=== PATIENT | male | born 1960 | race Caucasian/White ===

== ENCOUNTER → 2019-12-25 08:08 | Outpatient (BNVA) | payer OTHER, SELFPAY | PROVIDERS: PCP Nurse Practitioner Family; Referring Provider Nurse Practitioner Family; Visit Provider Internal Medicine Gastroenterology | DX: Z76.89 Persons encountering health services in other specified circumstances (principal) ==

== ENCOUNTER → 2020-02-06 09:10 | Outpatient (BNVA) | payer OTHER, SELFPAY | PROVIDERS: Visit Provider Orthopaedic Surgery | DX: Z76.89 Persons encountering health services in other specified circumstances (principal) ==

== ENCOUNTER 2020-04-02 10:03 | Outpatient (REF) | payer OTHER, SELFPAY ==
--- NOTE | ~2020-04-02 | XR_ITS ---
EXAMINATION: BILATERAL KNEE X-RAY CLINICAL INFORMATION: Pain COMPARISON: Left knee x-ray July 2019 TECHNIQUE: 3 views of each knee FINDINGS: Right: There is mild varus angulation at the knee joint. No fracture or dislocation is seen. There is arthritis at the medial femoral tibial and patellofemoral joints with joint space narrowing and osteophyte formation. There is a joint effusion. There is evidence of atherosclerotic disease. Left: There is mild varus angulation at the knee joint. No fracture or dislocation is seen. There is arthritis at the medial femoral tibial and patellofemoral joints with joint space narrowing and osteophyte formation. There is a joint effusion. There is soft tissue calcification adjacent to the medial femoral condyle. There is evidence of atherosclerotic disease. XR/XR knee RT 2V IMPRESSION: Bilateral arthritis and joint effusions.
--- NOTE | ~2020-04-02 | XR_ITS ---
EXAMINATION: BILATERAL KNEE X-RAY CLINICAL INFORMATION: Pain COMPARISON: Left knee x-ray July 2019 TECHNIQUE: 3 views of each knee FINDINGS: Right: There is mild varus angulation at the knee joint. No fracture or dislocation is seen. There is arthritis at the medial femoral tibial and patellofemoral joints with joint space narrowing and osteophyte formation. There is a joint effusion. There is evidence of atherosclerotic disease. Left: There is mild varus angulation at the knee joint. No fracture or dislocation is seen. There is arthritis at the medial femoral tibial and patellofemoral joints with joint space narrowing and osteophyte formation. There is a joint effusion. There is soft tissue calcification adjacent to the medial femoral condyle. There is evidence of atherosclerotic disease. XR/XR knee LT 2V IMPRESSION: Bilateral arthritis and joint effusions.
--- NOTE | ~2020-04-02 | XR_ITS ---
EXAMINATION: BILATERAL KNEE X-RAY CLINICAL INFORMATION: Pain COMPARISON: Left knee x-ray July 2019 TECHNIQUE: 3 views of each knee FINDINGS: Right: There is mild varus angulation at the knee joint. No fracture or dislocation is seen. There is arthritis at the medial femoral tibial and patellofemoral joints with joint space narrowing and osteophyte formation. There is a joint effusion. There is evidence of atherosclerotic disease. Left: There is mild varus angulation at the knee joint. No fracture or dislocation is seen. There is arthritis at the medial femoral tibial and patellofemoral joints with joint space narrowing and osteophyte formation. There is a joint effusion. There is soft tissue calcification adjacent to the medial femoral condyle. There is evidence of atherosclerotic disease. XR/XR knee standing BI IMPRESSION: Bilateral arthritis and joint effusions.
== END 2020-04-02 10:04 | disposition home or self-care (01) ==
LOC: HO.HOSX 10:03
PROVIDERS: Visit Provider Orthopaedic Surgery
DX: M25.561 Pain in right knee (principal); M25.562 Pain in left knee
CPT/HCPCS: 73560; 73565

== ENCOUNTER → 2020-04-03 08:08 | Outpatient (BNVA) | payer OTHER, SELFPAY | PROVIDERS: Visit Provider Orthopaedic Surgery | DX: M25.561 Pain in right knee (principal); M25.562 Pain in left knee ==

== ENCOUNTER → 2020-04-17 07:57 | Outpatient (BNVA) | payer OTHER, SELFPAY | PROVIDERS: PCP Nurse Practitioner Family; Visit Provider Orthopaedic Surgery | DX: Z01.812 Encounter for preprocedural laboratory examination (principal); Z01.810 Encounter for preprocedural cardiovascular examination ==

== ENCOUNTER 2020-04-23 06:24 | Day surgery (SDC) | payer OTHER, SELFPAY ==
[2020-04-18 09:05] VITALS: BMI 28.1
--- NOTE | 2020-04-22 09:39 | HO.ANESPROP2 ---
Documented by User: Desire Rubin 04/22/20 09:41 HPI - Anesthesia Eval Consult details Narrative: 59yo M for Colonoscopy PMFSH Active Problems Active Problems: All Active Problems (Updated 04/18/20 @ 09:03 by Juanita Toro) Right knee pain (Acute) Encounter for screening for malignant neoplasm of colon (Acute) Postprandial diarrhea (Acute) Primary osteoarthritis of right knee (Acute) Primary osteoarthritis of left knee (Acute) Past Medical History Medical History (Updated 04/18/20 @ 09:03 by Juanita Toro) Hypertension Osteoarthritis of both knees Family History Family History (Updated 11/22/19 @ 08:29 by Joycelyn Vernon PA-C) Father No problems noted. Mother No problems noted. Surgical History Surgical History (Updated 04/18/20 @ 09:02 by Juanita Toro) History of exploratory laparotomy (~01/28/19) History of hand surgery S/P exploratory laparotomy (~06/27/19) Social History Social History (Updated 04/18/20 @ 09:04 by Juanita Toro) Alcohol intake: current Alcohol intake frequency: 0-2 drinks per day Alcohol type: beer Smoking Status: Former smoker Smoking Quit Date: ~2013 Use of substances other than those prescribed or required for medical reasons: No Advance Directives: No Advance Directives Information Provided: No Advance Directives on File: No Current occupational status: employed 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 Meds Allergies Allergy/AdvReac Type Severity Reaction Status Date / Time oxycodone [OXYCODONE] Allergy Intermediate RASH Verified 04/23/20 06:35 Home Medications Medication Instructions Recorded Confirmed Last Taken Type acetaminophen 325 mg capsule 325 mg PO QID PRN 11/22/19 04/18/20 Unknown History Exam Exam Date and Time: April 22, 2020 0939 Height,Weight and Vital Signs: Height 5 ft 7 in Weight 81.647 kg Assessment and Plan Assessment Anesthesia Assessment: Chart Reviewed Documented by User: Sherly Andre 04/23/20 07:23 [facility] Past Medical History Medical History (Updated 04/18/20 @ 09:03 by Juanita Toro) Hypertension Osteoarthritis of both knees Family History Family History (Updated 11/22/19 @ 08:29 by Joycelyn Vernon PA-C) Father No problems noted. Mother No problems noted. Surgical History Surgical History (Updated 04/18/20 @ 09:02 by Juanita Toro) History of exploratory laparotomy (~01/28/19) History of hand surgery S/P exploratory laparotomy (~06/27/19) Social History Social History (Updated 04/18/20 @ 09:04 by Juanita Toro) Alcohol intake: current Alcohol intake frequency: 0-2 drinks per day Alcohol type: beer Smoking Status: Former smoker Smoking Quit Date: ~2013 Use of substances other than those prescribed or required for medical reasons: No Advance Directives: No Advance Directives Information Provided: No Advance Directives on File: No Current occupational status: employed 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[employer] Meds Allergies Allergy/AdvReac Type Severity Reaction Status Date / Time oxycodone [OXYCODONE] Allergy Intermediate RASH Verified 04/23/20 06:35 Home Medications Medication Instructions Recorded Confirmed Last Taken Type acetaminophen 325 mg capsule 325 mg PO QID PRN 11/22/19 04/18/20 Unknown History Exam Airway Mallampati Class: II TM Dist: >3cm Neck ROM: Full Heart: RRR Lungs: CTA BL Assessment and Plan Assessment Anesthesia Assessment: Anesthesia Plan Discussed and Chart Reviewed Final Anesthetic Review NPO: Yes ASA Class: II Final Preanesthetic Review: No Changes in Pt Med Stat and Consent Obtained/Reviewed Patient Risk: Intermediate Procedure Risk: Intermediate Anesthetic Plan Anesthetic Plan: MAC: Disposition: Standard PACU
[2020-04-23 06:45] VITALS: BP 161/89; PULSE 67; RESP 18; TEMP 36.8; O2SAT 97
[2020-04-23] MEDS: Lactated Ringers 1,000 ML 100 ML IVCONT (06:55)
--- NOTE | 2020-04-23 07:11 | W.PM.OPN ---
Operative Note Operative Note Date of Service: 04/23/20 Narrative: Pre-op diagnosis: Colon cancer screening, abdominal cramps, diarrhea Post-op diagnosis: other (Colon polyps, diverticulosis, hemorrhoids) Procedure: COLONOSCOPY TILL CECUM WITH BIOPSIES AND SNARE POLYPECTOMY Consent: Indications for the procedure and potential complications of bleeding, perforation, reaction to medications and missed diagnosis were discussed with the patient and informed consent was obtained. Instrument: Olympus PCF H 190 L variable stiffness pediatric colonoscope Monitoring: Vital signs and clinical assessment, intermittent blood pressure monitoring, continuous EKG monitoring, Pulse oximetry and Carbon Dioxide monitoring were done throughout the procedure. Colon withdrawl time was 25 minutes. Procedure: The patient was placed in the left lateral decubitis position and pre-procedure medications were administered. After a digital rectal examination of the ano-rectum, the video colonoscope was inserted into the rectum and advanced through the colon to the cecum. The colonoscope was slowly withdrawn in a retrograde panoramic fashion and the colon mucosa was carefully examined including a retroflexed view of the rectum. Findings and interventions are described below. Procedure Difficulty: Colon was long and tortuous and there was spasm and some loop formation. No maneuvers were required Findings: Terminal Ileum: Distal 5 cms was examined and appeared normal Cecum: Normal Ascending Colon: Normal Transverse Colon: Normal Descending Colon: Normal Sigmoid Colon: A 10 mm sessile polyp removed with a cold snare and moderate diverticulosis Rectum: A 4-5 mm sessile polyp removed with the cold biopsy Ano-rectum: Moderate internal hemorrhoids Colon preparation: Good after some irrigation Impression and Post Procedure Diagnosis: Colonoscopy Findings: Two small to medium sized polyps removed Moderate diverticulosis seen in the sigmoid colon Moderate hemorrhoids on retroflexed exam. Plan: Await pathology results Patient has an appointment on 05/06/20 in the GI [facility] with Giorgi Flower M.D.. Repeat Colonoscopy interval based on path results - in 3 years if polyps are adenomatous and 10 years if polyps are hyperplastic. Above findings were reviewed with the patient and colon polyps and diverticulosis handouts were given in the discharge area Surgeon: Giorgi Flower MD Anesthesia: MAC (Dr Conte) Estimated blood loss (mL): 0 Pathology: other (A. Random colon biopsies, B. SC polyp x 1, C. Rectal polyp x 1) Condition: stable Disposition: PACU
--- NOTE | 2020-04-23 07:11 | MHC.SHP ---
Pre-Procedural Eval Section A The patient is an INPATIENT: No The History & Physical has been completed within 30 days and I have reviewed it.: No Section B Chief Complaint: periumbilical pain Details of Present Illness: Colon cancer screening Relevant Social History: Tobacco Use (past smoker) Present Medications: see Short Stay Collaborative assessment Medical History: Significant History (Hypertension, osteoarthritis of both knees) History of Previous Operations: Relevant previous surgery/procedure and date(s) (History of exploratory laparotomy (~01/28/19) History of hand surgery S/P exploratory laparotomy (~06/27/19)) Allergies: Allergies Allergy/AdvReac Type Severity Reaction Status Date / Time oxycodone [OXYCODONE] Allergy Intermediate RASH Verified 04/23/20 06:35 Review of Systems Sugical H&P ROS: Negative: Constitution, Cardiovascular and Respiratory and Yes, Specify: Gastrointestinal (incisional hernia) Exam Surgical H&P Exam: Normal: Heart, Normal: Lungs and Normal: Extremities and Significant Findings: Abdomen (upper midline scar and incisional hernia) Plan Diagnosis/Plan: Unchanged I have reviewed the history and physical and performed a pertinent physical examination on my patient. No changes have occurred unless specified.
[2020-04-23 08:17] VITALS: BP 137/77; PULSE 62; RESP 16; TEMP 36.3; O2SAT 97
[2020-04-23 08:32] VITALS: BP 164/83; PULSE 60; RESP 17; TEMP 36.3; O2SAT 98
== END 2020-04-23 09:00 | disposition home or self-care (01) ==
PROVIDERS: PCP Nurse Practitioner Family; Visit Provider Internal Medicine Gastroenterology
PROC: 0DJD8ZZ Inspection of Lower Intestinal Tract, Via Natural or Artificial Opening Endoscopic (ICD-10-PCS; CPT 45378; principal; 2020-04-23 07:30)
DX: Z12.11 Encounter for screening for malignant neoplasm of colon (principal); D12.8 Benign neoplasm of rectum; K63.5 Polyp of colon; K57.30 Diverticulosis of large intestine without perforation or abscess without bleeding; K64.8 Other hemorrhoids; K52.9 Noninfective gastroenteritis and colitis, unspecified; R10.33 Periumbilical pain; Z98.890 Other specified postprocedural states; I10 Essential (primary) hypertension; Z87.891 Personal history of nicotine dependence; Z79.899 Other long term (current) drug therapy; Z88.8 Allergy status to other drugs, medicaments and biological substances
CPT/HCPCS: 45385; 45380; 88305

== ENCOUNTER → 2020-05-02 08:30 | Outpatient (BNVA) | payer OTHER, SELFPAY | PROVIDERS: Visit Provider Internal Medicine Gastroenterology ==

== ENCOUNTER 2020-05-09 07:59 | Outpatient (REF) | payer OTHER, SELFPAY ==
[2020-05-09 11:12] LABS: MANUAL DIFF FLAG NO
[2020-05-09 11:25] LABS: Basophils Absolute Auto 0.1 X10*3/uL (0.0-0.2); Basophils Percent Auto 0.6 % (0-2); Eosinophils Absolute Auto 0.2 X10*3/uL (0.0-0.4); Eosinophils Percent Auto 1.8 % (0-4); Hematocrit 43.7 % (42-52); Hemoglobin 14.5 g/dl (14.0-18.0); Imm Gran Abs Auto 0.03 X10*3/uL (0.00-0.03); Imm Gran Pct Auto 0.3 % (0.0-0.4); Lymphocytes Percent Auto 22.7 % (20-40); Mean Corpuscular HGB Conc 33.2 g/dl (31.0-36.0); Mean Corpuscular Hemoglobin 32.2 pg (27.0-33.0); Mean Corpuscular Volume 97.1 fL (80-98); Mean Platelet Volume 10.4 fL (9.4-12.4); Monocytes Absolute Auto 0.7 X10*3/uL (0.1-1.2); Monocytes Percent Auto 7.8 % (2-11); Neutrophils Absolute Auto 5.9 X10*3/uL (2.0-8.3); Neutrophils Percent Auto 66.8 % (45-73); Platelet Count 240 X10*3/uL (160-400); Red Cell Distribution Width 13.1 % (11.0-16.0); White Blood Count 8.8 X10*3/uL (4.8-10.8)
[2020-05-09 11:49] LABS: INTERNATIONAL NORM RATIO 0.9 (0.9-1.1); Prothrombin Time 11.1 SEC (10.8-13.0)
[2020-05-09 11:52] LABS: Partial Thromboplastin Time 34.4 SEC (24.1-38.0)
[2020-05-09 12:14] LABS: Alanine Aminotransferase 49 U/L (0-40); Alkaline Phosphatase 96 U/L (39-117); Anion Gap 12 (12-20); Aspartate Amino Transferase 31 U/L (5-37); Bilirubin Total 0.6 mg/dL (0.0-1.0); Blood Urea Nitrogen 19 mg/dL (9-16); Calcium 9.6 mg/dL (8.4-10.2); Carbon Dioxide 29 mmol/L (22-29); Chloride 103 mmol/L (96-108); Estimated Glomerular Filt Rate > 60; Glucose Random 82 mg/dL (60-115); Potassium 4.4 mmol/L (3.3-5.1); Sodium 140 mmol/L (135-145); Total Protein 7.9 g/dL (6.5-8.0)
== END 2020-05-09 08:00 | disposition home or self-care (01) ==
LOC: HO.HMGCLDS 07:59
PROVIDERS: PCP Nurse Practitioner Family; Visit Provider Nurse Practitioner Family
DX: Z01.818 Encounter for other preprocedural examination (principal); R74.8 Abnormal levels of other serum enzymes
CPT/HCPCS: 36415; 80053; 85025; 85610; 85730

== ENCOUNTER 2020-05-14 10:27 | Inpatient (IN) | payer OTHER, SELFPAY ==
--- NOTE | ~2020-05-14 | CT_ITS ---
EXAMINATION: CT ABDOMEN AND PELVIS WITH CONTRAST CLINICAL INFORMATION: Lower quadrant pain. Possible diverticulitis. COMPARISON: CT abdomen and pelvis with contrast 06/15/2019 and 01/28/2019, small bowel series 4 06/22/2019, KUB 06/30/2019. TECHNIQUE: Multidetector volumetric images were obtained from the superior aspect of the liver through the pubic symphysis following administration 85 mL of Omnipaque 350 intravenous contrast. Sagittal and coronal reformatted images were obtained on the technologist's workstation. Oral contrast: No This CT examination was performed using dose optimization techniques as appropriate, variously including the following: *Automated exposure control *Adjustment of mA and/or kV according to patient size (this includes techniques or standardized protocols for targeted exams where dose is matched to indication/reason for exam; i.e. extremities or head) *Use of iterative reconstruction technique DLP: 357 mGy-cm FINDINGS: LUNG BASES: The visualized lung bases are unremarkable. LIVER, GALLBLADDER, AND BILIARY TREE: The liver is smooth in contour and homogeneous. There is diffuse hepatic steatosis. No focal hepatic parenchymal lesion or intrahepatic ductal dilatation. The gallbladder is unremarkable with no evidence of radiopaque gallstones, gallbladder wall thickening, or obvious pericholecystic inflammatory changes. PANCREAS: Unremarkable. SPLEEN: Unremarkable. ADRENAL GLANDS: Small right adrenal nodule approximately 1.1 cm in retrospect stable from prior exam suggesting benign adenoma. Left adrenal unremarkable. KIDNEYS AND URETERS: Kidneys are normal in size and enhance symmetrically. There is small cyst upper pole left kidney. No hydronephrosis, hydroureter, calculi, or perinephric stranding. BLADDER: Mild circumferential wall thickening likely related to chronic outlet obstruction. GASTROINTESTINAL TRACT: There are postsurgical changes with surgical clips in the mid and distal small bowel. Fluid-filled loops of small bowel are seen of normal caliber measuring up to 2.8 cm in diameter. There is no focal wall thickening and pneumatosis or free air. There is focal transition to collapsed small bowel at the distal small bowel anastomosis right lower quadrant (series 3 images 46-48) which may suggest borderline or early partial obstruction. There is also fluid filled distention throughout the colon from the cecum to the distal sigmoid, without focal wall thickening and pneumatosis. The appendix appears normal. There is moderate to large stool in the rectosigmoid. There are no focal inflammatory changes suggested in the mesentery. No ascites or loculated fluid collection. ABDOMINAL WALL: Diastases rectus containing small bowel and mesentery. No bowel wall thickening and pneumatosis. Small fat containing inguinal hernias. LYMPH NODES: No lymphadenopathy. VASCULAR: Unremarkable. PELVIC VISCERA: Nodular prostate indenting the bladder base. OSSEOUS STRUCTURES: Degenerative changes lumbar spine. No acute bony abnormality. CT/CT abdomen pelvis w con IMPRESSION: 1. Fluid-filled loops of small bowel of normal caliber with focal transition at distal small bowel anastomosis right lower quadrant. Findings may suggest borderline or early partial obstruction. There is also fluid filled distention of the colon from cecum to distal sigmoid with moderate to large stool in rectosigmoid. 2. No bowel wall thickening or pneumatosis or free air. No ascites or fluid collection. 3. Diastases rectus. No small bowel strangulation. Small bilateral fat-containing inguinal hernias
[2020-05-14 10:34] VITALS: BP 164/104; PULSE 68; RESP 18; TEMP 35.9; O2SAT 98; BMI 28.5
--- NOTE | 2020-05-14 11:23 | ED.ABDPAIN ---
HPI - Abdominal Pain General Chief Complaint: Abdominal Pain Stated Complaint: abd pain Time Seen by Provider: 05/14/20 11:08 Source: patient and family Mode of arrival: ambulatory Limitations: no limitations History of Present Illness HPI narrative: 60-year-old male here with complaints of abdominal pain times several hours. No associated nausea, vomiting, diarrhea, fevers, chills, urinary symptoms. Patient has past medical history of duodenal perforation status post exploratory laparotomy w/ repeat exploratory laparotomy, extensive lysis of adhesions, resection of 2 segments of the small bowel, with removal of retained foreign object. Related Data Home Medications Medication Instructions Recorded Confirmed acetaminophen 325 mg capsule 325 mg PO QID PRN 11/22/19 05/14/20 Previous Rx's Medication Instructions Recorded lisinopril 20 mg tablet 20 mg PO DAILY 90 Days #90 tab 05/09/20 Allergies Allergy/AdvReac Type Severity Reaction Status Date / Time oxycodone [OXYCODONE] Allergy Intermediate RASH Verified 05/14/20 14:26 Review of Systems Review of Systems Yes all other systems are reviewed and are negative Constitutional: Reports no additional constitutional complaints, Denies body ache(s), Denies chills, Denies fever(s), Denies headache(s) and Denies weakness Eyes: Reports no additional eye complaints and Denies change in vision Reports system reviewed and no additional complaints, except as documented, Denies dizziness, Denies headache(s), Denies nasal congestion, Denies nasal discharge and Denies neck pain Cardiovascular: Reports no additional cardiovascular complaints, Denies chest pain, Denies leg edema and Denies dyspnea Respiratory: Reports no additional respiratory complaints, Denies cough and Denies dyspnea Gastrointestinal: Reports no additional gastrointestinal complaints, Reports abdominal pain, Denies diarrhea, Denies nausea and Denies vomiting Genitourinary: Denies urinary incontinence Musculoskeletal: Reports no additional musculoskeletal complaints, Denies back pain, Denies arthralgias, Denies joint swelling, Denies neck pain, Denies numbness and Denies tingling Skin/Breast: Reports system reviewed and no additional complaints, except as docu and Denies rash Reports system reviewed and no additional complaints, except as documented, Denies Abnormal speech present, Denies dizziness, Denies headache(s), Denies numbness, Denies tingling and Denies weakness Physical Exam Vital Signs: Vital Signs: Last Vital Signs Temp 97.9 F 05/14/20 14:35 Pulse 65 05/14/20 14:35 Resp 18 05/14/20 14:35 BP 174/92 H 05/14/20 14:35 Pulse Ox 97 05/14/20 14:35 Body Mass Index 28.5 Const: General: cooperative, healthy appearing, comfortable and no acute distress Orientation/consciousness: patient oriented x3 Limitations: no limitations HENMT: Head: Yes normal to inspection Ears: hearing grossly normal bilaterally General nose exam: Normal external nose present Face and sinus: Yes normal facial exam Mouth: Normal oral and palatal mucosa present Throat: Yes posterior oropharynx normal Eyes: General: appearance normal, both eyes and all related structures Pupils: Equal, round and reactive pupils present Neck: Neck: Yes normal visual inspection Chest: Chest palpation & inspection: normal inspection of the chest Resp: Effort & Inspection: normal respiratory effort Auscultation: clear to auscultation bilaterally Cardio: Rate: regular rate Rhythm: regular rhythm Peripheral pulses: Peripheral pulses 2+ throughout GI: Other: Surgical scars noted, abdomen is distended and diffusely tender with no rebound or guarding Inspection: Yes normal to inspection Palpation (GI): Soft to palpation and nontender Auscultation: normal bowel sounds Back/Spine/Pelvis: Thoracic/Lumbar Spine: thoracic and lumbar spine normal to inspection Skin: General skin exam: no rashes or lesions noted Neuro: General: patient oriented x3, no focal motor deficits and normal sensation to monofilament Cranial nerves: Yes Equal, round and reactive pupils present Cognition (Neuro): normal cognition Speech: No Abnormal speech present Gait exam (Neuro): Normal gait present Motor exam (neuro): 5/5 motor strength present throughout Extrem: General: Yes normal to inspection Course Course Course Narrative: 60-year-old male here with abdominal pain in the setting of multiple abdominal surgeries. Has diffuse tenderness with distended abdomen. Will need labs, CT a/P, analgesia, antiemetic. 1345-pain is improved with [address] is concerning for borderline partial obstruction. Discussed with Dr. Gusman who will come to evaluate the patient. 1430-patient seen by Dr. Gusman as with plan for admission. MDM - Abdominal Pain MDM Narrative Medical decision making narrative: SBO, divert Medical Records Attestation: I reviewed the patient's medical records. Lab Data Attestation: I reviewed the patient's lab results. Result diagrams: 05/14/20 11:27 05/14/20 11:27 Labs: Lab Results 05/14/20 05/14/20 05/14/20 Range/Units 11:27 11:27 13:41 WBC 11.8 H (4.8-10.8) X10*3/uL RBC 4.66 (4.60-5.80) X10*6/uL Hgb 14.9 (14.0-18.0) g/dl Hct 44.7 (42-52) % MCV 95.9 (80-98) fL MCH 32.0 (27.0-33.0) pg MCHC 33.3 (31.0-36.0) g/dl RDW 12.8 (11.0-16.0) % Plt Count 237 (160-400) X10*3/uL MPV 9.4 (9.4-12.4) fL Immature Gran % (Auto) 0.3 (0.0-0.4) % Neut % (Auto) 81.3 H (45-73) % Lymph % (Auto) 11.2 L (20-40) % [place] % (Auto) 5.9 (2-11) % Eos % (Auto) 0.8 (0-4) % Baso % (Auto) 0.5 (0-2) % Lymph # (Auto) 1.3 (1.2-4.9) X10*3/uL [place] # (Auto) 0.7 (0.1-1.2) X10*3/uL Eos # (Auto) 0.1 (0.0-0.4) X10*3/uL Baso # (Auto) 0.1 (0.0-0.2) X10*3/uL Abs Immat Gran (auto) 0.04 H (0.00-0.03) X10*3/uL Absolute Neuts (auto) 9.6 H (2.0-8.3) X10*3/uL Absolute Nucleated RBC 0.000 (0.0-0.012) X10*3/uL Nucleated RBC % (auto) 0.0 (0.0-0.2) /100WBC Sodium 136 (135-145) mmol/L Potassium 4.5 (3.3-5.1) mmol/L Chloride 98 (96-108) mmol/L Carbon Dioxide 25 (22-29) mmol/L Anion Gap 18 (12-20) BUN 18 H (9-16) mg/dL Creatinine 0.82 (0.5-1.4) mg/dL Estim Creat Clear Calc 96.0 Estimated GFR > 60 Random Glucose 134 H D (60-115) mg/dL Calcium 9.8 (8.4-10.2) mg/dL Total Bilirubin 0.5 (0.0-1.0) mg/dL Direct Bilirubin 0.2 (0.0-0.5) mg/dL AST 30 (5-37) U/L ALT 48 H (0-40) U/L Alkaline Phosphatase 96 (39-117) U/L Total Protein 7.9 (6.5-8.0) g/dL Albumin 4.8 (3.5-5.0) g/dL Urine Color YELLOW Urine Appearance CLEAR Urine pH 7.0 (5.0-8.0) Ur Specific [place] 1.010 (1.005-1.025) Urine Protein NEG (NEG-TRACE) MG/DL Urine Glucose (UA) NEG (NEG) MG/DL Urine Ketones NEG (NEG) MG/DL Urine Blood NEG (NEG) Urine Nitrite NEG (NEG) Ur Leukocyte Esterase NEG (NEG) Imaging Data CT scan - abdomen: Attestation: I personally reviewed and interpreted this imaging study as follows: Radiologist's impression: 1. Fluid-filled loops of small bowel of normal caliber with focal transition at distal small bowel anastomosis right lower quadrant. Findings may suggest borderline or early partial obstruction. There is also fluid filled distention of the colon from cecum to distal sigmoid with moderate to large stool in rectosigmoid. 2. No bowel wall thickening or pneumatosis or free air. No ascites or fluid collection. 3. Diastases rectus. No small bowel strangulation. Small bilateral fat-containing inguinal hernias Discharge Plan Discharge Clinical Impression: Partial small bowel obstruction Patient Disposition: Admitted As Inpatient [facility] Past Medical History Attestation statement: The following information was validated with the patient. Source: old records reviewed and nursing notes reviewed Medical History History of duodenal ulcer Hypertension Osteoarthritis of both knees Surgical History H/O colonoscopy History of exploratory laparotomy (~01/28/19) History of hand surgery S/P exploratory laparotomy (~06/27/19) Family History Family History Father No problems noted. Mother No problems noted. Social History Social History Household Members: Spouse Alcohol intake: current Alcohol intake frequency: holidays/special occasions only Alcohol type: beer Smoking Status: Former smoker Tobacco Type: Cigarette Use of substances other than those prescribed or required for medical reasons: No Advance Directives: Yes Advance Directives Information Provided: No Advance Directives on File: No Current occupational status: employed Current occupation: [employer]- Right Handed
[2020-05-14 11:47] LABS: MANUAL DIFF FLAG NO
[2020-05-14 11:55] LABS: Basophils Absolute Auto 0.1 X10*3/uL (0.0-0.2); Basophils Percent Auto 0.5 % (0-2); Eosinophils Absolute Auto 0.1 X10*3/uL (0.0-0.4); Eosinophils Percent Auto 0.8 % (0-4); Hematocrit 44.7 % (42-52); Hemoglobin 14.9 g/dl (14.0-18.0); Imm Gran Abs Auto 0.04 X10*3/uL (0.00-0.03); Imm Gran Pct Auto 0.3 % (0.0-0.4); Lymphocytes Absolute Auto 1.3 X10*3/uL (1.2-4.9); Lymphocytes Percent Auto 11.2 % (20-40); Mean Corpuscular HGB Conc 33.3 g/dl (31.0-36.0); Mean Corpuscular Volume 95.9 fL (80-98); Mean Platelet Volume 9.4 fL (9.4-12.4); Monocytes Absolute Auto 0.7 X10*3/uL (0.1-1.2); Monocytes Percent Auto 5.9 % (2-11); Neutrophils Absolute Auto 9.6 X10*3/uL (2.0-8.3); Neutrophils Percent Auto 81.3 % (45-73); Platelet Count 237 X10*3/uL (160-400); Red Blood Count 4.66 X10*6/uL (4.60-5.80); Red Cell Distribution Width 12.8 % (11.0-16.0); White Blood Count 11.8 X10*3/uL (4.8-10.8)
[2020-05-14 12:00] VITALS: BP 148/77; PULSE 71; RESP 18; O2SAT 96
[2020-05-14] MEDS: Morphine Sulfate 4 MG/ML CARTRIDGE IVPUSH (12:04)
[2020-05-14] MEDS: ondansetron HCL 4 MG/2 ML VIAL IVPUSH (12:07)
[2020-05-14 12:25] LABS: Alanine Aminotransferase 48 U/L (0-40); Albumin Level 4.8 g/dL (3.5-5.0); Alkaline Phosphatase 96 U/L (39-117); Anion Gap 18 (12-20); Aspartate Amino Transferase 30 U/L (5-37); Bilirubin Direct 0.2 mg/dL (0.0-0.5); Bilirubin Total 0.5 mg/dL (0.0-1.0); Blood Urea Nitrogen 18 mg/dL (9-16); Calcium 9.8 mg/dL (8.4-10.2); Carbon Dioxide 25 mmol/L (22-29); Chloride 98 mmol/L (96-108); Estimated Glomerular Filt Rate > 60; Glucose Random 134 mg/dL (60-115); Potassium 4.5 mmol/L (3.3-5.1); Sodium 136 mmol/L (135-145); Total Protein 7.9 g/dL (6.5-8.0)
[2020-05-14 14:01] LABS: Glucose Urine UA NEG (NEG); Leukocyte Esterase Urine NEG (NEG); Nitrite Urine NEG (NEG); Urine Blood NEG (NEG); Urine Ketones NEG (NEG); Urine Protein NEG (NEG-TRACE)
[2020-05-14 14:03] LABS: Appearance Urine CLEAR; Color Urine YELLOW
[2020-05-14 14:35] VITALS: BP 174/92; PULSE 65; RESP 18; TEMP 36.6; O2SAT 97
--- NOTE | 2020-05-14 14:40 | PC.NURSE ---
Pt aware of admission plan. COVID swab for admission completed.
--- NOTE | 2020-05-14 14:45 | P.HPGS_ITS ---
History of Present Illness History of Present Illness Date of Service: 05/15/20 Chief complaint: Partial Small Bowel Obstruction Narrative: Horacio Monzon is a 60 year old male here in the ER because of lower abdominal pain. 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 He describes it was only on lower abdomen. He says this actually persisted throughout the night but he was able to finish his shift. He went home her this morning but felt that the pain was worse when he got home so he went to the emergency room from then. He says his pain currently is much improved. He denied any nausea or vomiting. He said he had good bowel movements last night. He had history of a laparotomy in 01/23/2019 for perforated duodenal ulcer. He had a Kevin patch done at that time for repair. He underwent another laparotomy in Jun, 2019 because of persistent abdominal pain and was noted to have a retained foreign body with a blue towel that needed to be removed. He also had small-bowel resection at that time. He had been doing well since then and did not have any significant abdominal issues until last night. He says he is scheduled to undergo right knee replacement next week. Review of Systems Constitutional: Constitutional: Denies chills and Denies fever(s) Cardiovascular: Cardiovascular: Denies chest pain, Denies dyspnea and Denies dyspnea on exertion Respiratory: Respiratory: Denies cough, Denies dyspnea and Denies dyspnea on exertion Gastrointestinal: Gastrointestinal: Denies hematochezia and Denies change in bowel habits Genitourinary: Genitourinary: Denies hematuria and Denies difficulty urinating Musculoskeletal: Musculoskeletal: Denies back pain and Denies limited range of motion Neurologic: Denies focal weakness and Denies convulsions Psychiatric: Psychiatric: Denies depression and Denies mood swings [facility] Past Medical History Medical History History of duodenal ulcer Hypertension Osteoarthritis of both knees Family History Family History Father No problems noted. Mother No problems noted. Surgical History Surgical History H/O colonoscopy History of exploratory laparotomy (~01/28/19) History of hand surgery S/P exploratory laparotomy (~06/27/19) Social History Social History Household Members: Spouse Housing: House Do you presently have visiting nurse or other home services: No Alcohol intake: current Alcohol intake frequency: holidays/special occasions only Alcohol type: beer Smoking Status: Former smoker Tobacco Type: Cigarette Use of substances other than those prescribed or required for medical reasons: No Have you been hit, kicked, punched, or otherwise hurt by someone within the past year? 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- [employer] Meds Allergies Allergy/AdvReac Type Severity Reaction Status Date / Time oxycodone [OXYCODONE] Allergy Intermediate RASH Verified 05/14/20 14:26 Active Medications: Current Medications Generic Name Dose Route Start Last Admin Trade Name Freq PRN Reason Stop Dose Admin Acetaminophen 650 mg 05/14/20 14:40 Acetaminophen 325 Mg Tablet PO Q6H PRN Fever Heparin Sodium (Porcine) 5,000 unit 05/14/20 14:45 Heparin Sodium,Porcine 5,000 Unit/Ml Vial SUBCUT Q12H [facility] Dextrose/Sodium Chloride 1,000 mls @ 100 mls/hr 05/14/20 14:45 D5ns IVCONT .Q10H [facility] Lisinopril 20 mg 05/14/20 14:39 Lisinopril 20 Mg Tablet PO 05/14/20 14:40 DAILY ONE Protocol Morphine Sulfate 3 mg 05/14/20 14:35 Morphine Sulfate 4 Mg/Ml Cartridge IVPUSH Q4H PRN Pain, Severe (Pain Scale 7-10) Ondansetron HCl 4 mg 05/14/20 14:35 Ondansetron Hcl 4 Mg/2 Ml Vial IVPUSH Q8H PRN Nausea and Vomiting Pharmacy Consult 1 each 05/14/20 14:33 Consult Rx Perform Med Rec MISCELLANE ONCE PRN Consult order Sodium Chloride 3 ml 05/14/20 16:00 0.9 % Sodium Chloride Flush 3 Ml Syringe IVFLUSH QSHIFT [facility] Home Medications Medication Instructions Recorded Confirmed Last Taken Type acetaminophen 325 mg capsule 325 mg PO QID PRN 11/22/19 05/14/20 Unknown History Physical Exam Vital Signs: Vital Signs: Last Vital Signs Temp 97.9 F 05/14/20 14:35 Pulse 65 05/14/20 14:35 Resp 18 05/14/20 14:35 BP 174/92 H 05/14/20 14:35 Pulse Ox 97 05/14/20 14:35 Body Mass Index 28.5 Const: General: comfortable and no acute distress Orientation/consciousness: patient oriented x3 Neck: Neck: Yes no lymphadenopathy Resp: Auscultation: clear to auscultation bilaterally Cardio: Rhythm: regular rhythm GI: Other: Mild tenderness diffusely, no rebound; diastasis on his midline laparotomy scar, Palpation (GI): Soft to palpation, Tenderness to palpation present (GI) and no guarding Neuro: General: patient oriented x3 Results Results Labs: Short CBC 05/14/20 Range/Units 11:27 WBC 11.8 H (4.8-10.8) X10*3/uL Hgb 14.9 (14.0-18.0) g/dl Hct 44.7 (42-52) % Plt Count 237 (160-400) X10*3/uL BMP 05/14/20 11:27 Sodium 136 Potassium 4.5 Chloride 98 Carbon Dioxide 25 BUN 18 H Creatinine 0.82 Calcium 9.8 Liver Function 05/14/20 Range/Units 11:27 Total Bilirubin 0.5 (0.0-1.0) mg/dL Direct Bilirubin 0.2 (0.0-0.5) mg/dL AST 30 (5-37) U/L ALT 48 H (0-40) U/L Alkaline Phosphatase 96 (39-117) U/L Albumin 4.8 (3.5-5.0) g/dL Urine 05/14/20 Range/Units 13:41 Urine Color YELLOW Urine Appearance CLEAR Urine pH 7.0 (5.0-8.0) Ur Specific Gideon 1.010 (1.005-1.025) Urine Protein NEG (NEG-TRACE) MG/DL Urine Glucose (UA) NEG (NEG) MG/DL Abdomen CT scan report/results: report reviewed and image reviewed CT scan - pelvis: report reviewed and image reviewed Assessment and Plan (1) Partial small bowel obstruction: Status: Acute He had lower abdominal pain overnight with a CAT scan suggestive of partial small-bowel obstruction. This may be at the area of his previous small bowel anastomosis. I have reviewed his CAT scan images and he actually has good amounts of air distally. This is present all the way to the rectum. He has no nausea or vomiting at this time so I am going to hold off on NG tube insertion. His abdominal exam is very benign. I will keep him NPO for now but he may have ice chips. I explained to him that if he much have any significant nausea or vomiting, he may need to have an NG tube inserted. He otherwise looks well and has had very benign abdominal exam at this time. He understands the plan. His was with him at bedside and was involved with the discussion.
[2020-05-14 15:10] LABS: COVID-19 Test Negative (Negative)
[2020-05-14 16:02] VITALS: BP 156/95; PULSE 65; RESP 18; TEMP 36.6; O2SAT 97
[2020-05-14] MEDS: Dextrose 5 % and 0.9 % NaCl 1,000 ML 100 ML IVCONT (17:41)
[2020-05-14] MEDS: Heparin Sodium,Porcine 5,000 UNIT/ML VIAL 5000 UNIT SUBCUT (17:41)
[2020-05-14] MEDS: 0.9 % Sodium Chloride Flush 3 ML SYRINGE IVFLUSH (17:44)
--- NOTE | 2020-05-14 17:47 | PC.NURSE ---
Pt awaiting bed placement. Pain level reassessed. He appears comfortable at this time.
--- NOTE | 2020-05-14 19:07 | PC.NURSE ---
Report taken from Lala, this RN resuming care. Pt found sleeping in bed at this time, visible chest rise noted. Awaiting room assignment. Continue to monitor.
--- NOTE | 2020-05-14 19:42 | PC.NURSE ---
Report given to alexis Walters being prepared for transport to floor.
[2020-05-14 20:13] VITALS: BP 139/88; PULSE 70; RESP 15; TEMP 36.4; O2SAT 97
[2020-05-14 23:34] VITALS: BP 157/85; PULSE 64; RESP 18; TEMP 36.4; O2SAT 97
[2020-05-15 03:32] VITALS: BP 121/91; PULSE 70; RESP 16; TEMP 36.4; O2SAT 95
[2020-05-15] MEDS: Heparin Sodium,Porcine 5,000 UNIT/ML VIAL 5000 UNIT SUBCUT ×2 (04:15→14:22)
[2020-05-15] MEDS: Dextrose 5 % and 0.9 % NaCl 1,000 ML 100 ML IVCONT ×2 (04:22→13:38)
[2020-05-15 06:24] LABS: MANUAL DIFF FLAG NO
[2020-05-15 06:51] LABS: Basophils Percent Auto 0.6 % (0-2); Eosinophils Absolute Auto 0.3 X10*3/uL (0.0-0.4); Hematocrit 44.5 % (42-52); Hemoglobin 14.6 g/dl (14.0-18.0); Imm Gran Abs Auto 0.01 X10*3/uL (0.00-0.03); Imm Gran Pct Auto 0.2 % (0.0-0.4); Lymphocytes Absolute Auto 1.7 X10*3/uL (1.2-4.9); Mean Corpuscular HGB Conc 32.8 g/dl (31.0-36.0); Mean Corpuscular Hemoglobin 31.9 pg (27.0-33.0); Mean Corpuscular Volume 97.2 fL (80-98); Mean Platelet Volume 9.6 fL (9.4-12.4); Monocytes Absolute Auto 0.7 X10*3/uL (0.1-1.2); Monocytes Percent Auto 11.9 % (2-11); Neutrophils Absolute Auto 2.7 X10*3/uL (2.0-8.3); Neutrophils Percent Auto 50.3 % (45-73); Platelet Count 229 X10*3/uL (160-400); Red Blood Count 4.58 X10*6/uL (4.60-5.80); White Blood Count 5.4 X10*3/uL (4.8-10.8)
[2020-05-15 07:01] LABS: Anion Gap 13 (12-20); Blood Urea Nitrogen 13 mg/dL (9-16); Carbon Dioxide 28 mmol/L (22-29); Creatinine Clr Calc Pharmacy 94.8; Estimated Glomerular Filt Rate > 60
[2020-05-15 07:56] VITALS: BP 161/94; PULSE 68; RESP 17; TEMP 36.4; O2SAT 97
--- NOTE | 2020-05-15 09:44 | MHC.CM.PN ---
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 PT IS ABLE TO VERIFY PCP AND PHARMACY IN [facility] IS ACCURATE, PT AND PROVIDED EDUCATION ON HCP AND PT IS CURRENTLY DECLINING. DISCHARGE PLAN: HOME SELF-CARE, TO TRANSPORT PCP: SHARATH CLARK
--- NOTE | 2020-05-15 10:01 | PM.PNGS ---
Subjective Subjective Date of Service: 05/15/20 Interval history: He feels well today Denies abdominal pain Says he had about 5 bowel movement overnight - all formed, non watery Denies any nausea or vomiting Wants to go home Physical Exam Vital Signs: Vital Signs: Last Vital Signs Temp 97.5 F 05/15/20 07:56 Pulse 68 05/15/20 07:56 Resp 17 05/15/20 07:56 BP 161/94 H 05/15/20 07:56 Pulse Ox 97 05/15/20 07:56 Body Mass Index 28.5 Laboratory Results - last 24 hr 05/14/20 05/14/20 05/14/20 11:27 11:27 13:41 WBC 11.8 H RBC 4.66 Hgb 14.9 Hct 44.7 MCV 95.9 MCH 32.0 MCHC 33.3 RDW 12.8 Plt Count 237 MPV 9.4 Immature Gran % (A uto) 0.3 Neut % (Auto) 81.3 H Lymph % (Auto) 11.2 L Collier % (Auto) 5.9 Eos % (Auto) 0.8 Baso % (Auto) 0.5 Lymph # (Auto) 1.3 Collier # (Auto) 0.7 Eos # (Auto) 0.1 Baso # (Auto) 0.1 Abs Immat Gran (au to) 0.04 H Absolute Neuts (au to) 9.6 H Absolute Nucleated RBC 0.000 Nucleated RBC % (a uto) 0.0 Sodium 136 Potassium 4.5 Chloride 98 Carbon Dioxide 25 Anion Gap 18 BUN 18 H Creatinine 0.82 Estim Creat Clear Calc 96.0 Estimated GFR > 60 Random Glucose 134 H D Calcium 9.8 Total Bilirubin 0.5 Direct Bilirubin 0.2 AST 30 ALT 48 H Alkaline Phosphata se 96 Total Protein 7.9 Albumin 4.8 Urine Color YELLOW Urine Appearance CLEAR Urine pH 7.0 Ur Specific Gravit y 1.010 Urine Protein NEG Urine Glucose (UA) NEG Urine Ketones NEG Urine Blood NEG Urine Nitrite NEG Ur Leukocyte Tiera ase NEG COVID-19 ([facility]) COVID-19 Clin Com 05/14/20 05/15/20 05/15/20 14:38 06:14 06:14 WBC 5.4 RBC 4.58 L Hgb 14.6 Hct 44.5 MCV 97.2 MCH 31.9 MCHC 32.8 RDW 13.0 Plt Count 229 MPV 9.6 Immature Gran % (A uto) 0.2 Neut % (Auto) 50.3 Lymph % (Auto) 32.0 Collier % (Auto) 11.9 H Eos % (Auto) 5.0 H Baso % (Auto) 0.6 Lymph # (Auto) 1.7 Collier # (Auto) 0.7 Eos # (Auto) 0.3 Baso # (Auto) 0.0 Abs Immat Gran (au to) 0.01 Absolute Neuts (au to) 2.7 Absolute Nucleated RBC 0.000 Nucleated RBC % (a uto) 0.0 Sodium Potassium Chloride Carbon Dioxide 28 Anion Gap 13 BUN 13 Creatinine 0.83 Estim Creat Clear Calc 94.8 Estimated GFR > 60 Random Glucose Calcium Total Bilirubin Direct Bilirubin AST ALT Alkaline Phosphata se Total Protein Albumin Urine Color Urine Appearance Urine pH Ur Specific Gravit y Urine Protein Urine Glucose (UA) Urine Ketones Urine Blood Urine Nitrite Ur Leukocyte Tiera ase COVID-19 ([facility]) Negative COVID-19 Clin Com See Note Const: General: comfortable and no acute distress Resp: Effort & Inspection: normal respiratory effort Cardio: Rate: regular rate GI: Other: Soft, protuberant, nontender, no guarding or rebound Progress Note: A&P Assessment and plan (1) Partial small bowel obstruction: Status: Acute Assessment and Plan: He feels much better Clinically, partial small-bowel obstruction resolved Abdomen very benign Labs okay Clear liquids, advance as tolerated If he is able to tolerate regular diet later on, possible discharge home Fall Risk Details Current Medications: Current Medications Generic Name Dose Route Start Last Admin Trade Name Bartq PRN Reason Stop Dose Admin Acetaminophen 650 mg 05/14/20 14:40 Acetaminophen 325 Mg Tablet PO Q6H PRN Fever Heparin Sodium (Porcine) 5,000 unit 05/14/20 14:45 05/15/20 04:15 Heparin Sodium,Porcine 5,000 Unit/Ml Vial SUBCUT 5,000 unit Q12H [facility] Administration Dextrose/Sodium Chloride 1,000 mls @ 100 mls/hr 05/14/20 14:45 05/15/20 04:22 D5ns IVCONT 100 mls/hr .Q10H [facility] Administration Morphine Sulfate 3 mg 05/14/20 14:35 Morphine Sulfate 4 Mg/Ml Cartridge IVPUSH Q4H PRN Pain, Severe (Pain Scale 7-10) Ondansetron HCl 4 mg 05/14/20 14:35 Ondansetron Hcl 4 Mg/2 Ml Vial IVPUSH Q8H PRN Nausea and Vomiting Pharmacy Consult 1 each 05/14/20 14:33 Consult Rx Perform Med Rec MISCELLANE ONCE PRN Consult order Sodium Chloride 3 ml 05/14/20 16:00 05/15/20 08:59 0.9 % Sodium Chloride Flush 3 Ml Syringe IVFLUSH Not Given QSHIFT [facility] Time Spent With Patient Time: Total time spent is greater than 50% in coordination of care (as documented) at patient's floor/unit and/or counseling patient: Time with patient: 15 - 24 minutes
[2020-05-15 10:42] LABS: Calcium 8.6 mg/dL (8.4-10.2); Chloride 103 mmol/L (96-108); Glucose Random 106 mg/dL (60-115); Potassium 4.2 mmol/L (3.3-5.1); Sodium 140 mmol/L (135-145)
--- NOTE | 2020-05-15 10:49 | P.CDIC_ITS ---
CDI Concurrent Query Service Date: 05/20/20 Documentation Clarification: Please clarify if you are treating a proba ble/suspected/likely or confirmed: Postoperative partial intestinal obstruction (sbo) (H/O multiple surgeries) Partial intestinal obstruction, unspecified as to cause Please specify if known The partial small-bowel obstruction is likely due to postoperative adhesions from his previous surgery. Provider Response: Other Other Diagnosis: partial small bowel obstruction secondary to postop adhesions PLEASE DO NOT DELETE/MODIFY EXISTING CONTENT Additional information is needed in order to code to the highest accuracy and appropriate Severity of Illness (SOI). Please clarify the information noted below in your progress notes and discharge summary. Risk Factors/Clinical Indicators/Treatments Abdominal pain in the setting of multiple abdominal surgeries. History of duodenal perforation s/p exploratory laparotomy, repeat w extensive lysis of adhesions. DX: Partial SBO There is focal transition of collapsed small bowel at the distal small bowel anastomosis right lower quadrant which may suggest borderline or early partial obstruction. CDS: Es Mckinnon CCS, CDIS Contact Number: [phone] Please Review the information above and exercise your independent professional judgment in responding to the query. If you concur, pleas document in the PROGRESS NOTES and DISCHARGE SUMMARY. If you do not agree with the query, please document in the query above. THIS QUERY IS PART OF THE PERMANENT MEDICAL RECORD
[2020-05-15 11:46] VITALS: BP 163/90; PULSE 60; RESP 18; TEMP 36.5; O2SAT 95
--- NOTE | 2020-05-15 15:03 | MHC.CM.PN ---
PT DISCHARGING TODAY HOME SELF-CARE, TO TRANSPORT.
--- NOTE | 2020-05-15 15:06 | PM.EVENT ---
Event Note Date of Service: 05/15/20 Event Note: Tolerated lunch well Denies any abdominal pain Denies any nausea or vomiting Says he wants to go home later today Abdomen remained soft no guarding rebound no tenderness Okay to DC home later today
[2020-05-15 15:44] VITALS: BP 179/89; PULSE 68; RESP 18; TEMP 36; O2SAT 98
[2020-05-15] MEDS: 0.9 % Sodium Chloride Flush 3 ML SYRINGE IVFLUSH (16:59)
--- NOTE | 2020-05-16 10:55 | PM.DS ---
DS: Providers Provider Date of Service: 05/16/20 <Tyesha Sun PA-C - Last Filed: 05/16/20 11:03> 05/16/20 <Santana Gusman MD - Last Filed: 05/16/20 13:48> Date of admission: 05/14/20 14:35 <Tyesha Sun PA-C - Last Filed: 05/16/20 11:03> Primary care physician: LEYLA Armstrong <Tyesha Sun PA-C - Last Filed: 05/16/20 11:03> DS: Diagnosis Discharge Diagnosis (1) Partial small bowel obstruction: Status: Acute <EDEN Strickland Last Filed: 05/16/20 11:03> DS: Medications Discharge Medications Home Medications: Home Medications Medication Instructions Recorded Confirmed acetaminophen 325 mg capsule 325 mg PO QID PRN 11/22/19 05/14/20 Previous Rx's Medication Instructions Recorded lisinopril 20 mg tablet 20 mg PO DAILY 90 Days #90 tab 05/09/20 <Tyesha Sun PA-C - Last Filed: 05/16/20 11:03> DS: Summary Hospital Course Hospital Course: BRIEF HPI: Horacio Monzon is a 60 year old male who presented to the ED with complaints of lower abdominal pain. 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 He describes it was only on lower abdomen. He says this actually persisted throughout the night but he was able to finish his shift. He went home in the morning but felt that the pain was worse when he got home so he went to the emergency room. He has history of a laparotomy in 01/23/2019 for perforated duodenal ulcer and a Kevin patch was performed at that time for repair. He underwent another laparotomy in June 2019 because of persistent abdominal pain and was noted to have a retained foreign body of a blue towel that was removed. He also had small-bowel resection at that time. He had been doing well since then and did not have any significant abdominal issues until last night. He is scheduled to undergo right knee replacement next week. HOSPITAL COURSE: The patient was admitted to the surgical service for further treatment of the PSBO. He was kept NPO, started on IVF and PRN analgesics for pain. NGT insertion was held as he was not vomiting. He was seen the following morning and he reported his pain was much improved. He denied any nausea or vomiting and reported multiple good bowel movements overnight. He felt hungry and wanted to leave. His abdomen was benign and soft, NTND. He was started on clear liquids. He was reassessed later that day and was tolerating the clear liquids. He was therefore advanced to a low residue diet. He continued to feel well all afternoon following solid food and had no further abdominal symptoms. His abdomen remained soft and nondistended. He felt ready for discharge. He was discharged to home on 05/16/20 in stable condition. He is to follow up with Dr. Gusman in office as needed. Etiology of partial small-bowel obstruction is likely secondary to postop adhesions versus anastomotic stricture from previous small-bowel resection. <EDEN Strickland Last Filed: 05/16/20 11:03> Status at Discharge Functional status at discharge: independent ambulation <EDEN Strickland Last Filed: 05/16/20 11:03> Overall status at discharge: patient is back to baseline <EDEN Strickland Last Filed: 05/16/20 11:03> Time Spent with Patient Time attestation: Total time spent providing and/or coordinating discharge services: <EDEN Strickland Last Filed: 05/16/20 11:03> Discharge coordination time: Less than 30 minutes <EDEN Strickland Last Filed: 05/16/20 11:03> Physical Exam Vital Signs: Vital Signs: Last Vital Signs Temp 96.8 F 05/15/20 15:44 Pulse 68 05/15/20 15:44 Resp 18 05/15/20 15:44 BP 179/89 H 05/15/20 15:44 Pulse Ox 98 05/15/20 15:44 Body Mass Index 28.5 <EDEN Strickland Last Filed: 05/16/20 11:03> Const: General: comfortable, no acute distress and alert <EDEN Strickland Last Filed: 05/16/20 11:03> Orientation/consciousness: patient oriented x3 <Tyesha Sun PA-C Last Filed: 05/16/20 11:03> Eyes: Sclerae: sclerae normal <Tyesha Sun PA-C Last Filed: 05/16/20 11:03> Resp: Effort & Inspection: normal respiratory effort <Tyesha Sun PA-C Alex Last Filed: 05/16/20 11:03> GI: Inspection: No distended <Tyesha Sun PA-C Last Filed: 05/16/20 11:03> Palpation (GI): Soft to palpation, nontender, no guarding and not rigid <RUDDY StricklandXavi Last Filed: 05/16/20 11:03> Percussion: Yes normal to percussion <Tyesha Sun PA-C Last Filed: 05/16/20 11:03> Skin: Other: normal color, warm and dry <RUDDY StricklandXavi Last Filed: 05/16/20 11:03> General skin exam: no rashes or lesions noted <RUDDY StricklandXavi Last Filed: 05/16/20 11:03> Neuro: General: patient oriented x3 <Tyesha Sun PA-C Last Filed: 05/16/20 11:03> Extrem: General: Yes no clubbing, cyanosis or edema <Tyesha Sun PA-C Last Filed: 05/16/20 11:03> Discharge Plan Discharge Patient Disposition: Home, Self-Care <Tyesha Sun PA-C Last Filed: 05/16/20 11:03> Referrals: Ab Gaming FNP-BC [Primary Care Provider] - Santana Gusman MD [Physician] - ( NEEDED) <Tyesha Sun PA-C Last Filed: 05/16/20 11:03> Discharge Medications: Continued lisinopril 20 mg tablet 20 mg PO DAILY 90 Days Qty: 90 RF: 0 acetaminophen [Tylenol] 325 mg capsule 325 mg PO QID PRN (Reason: Pain) RF: 0 <Tyesha Sun PA-C Alex Last Filed: 05/16/20 11:03> Discharge Orders: Discharge Order (Routine); Ordered 05/15/20 Ordered By: Santana Gusman <Tyesha Sun PA-C - Last Filed: 05/16/20 11:03> Diet: other <Tyesha Sun PA-C - Last Filed: 05/16/20 11:03> other <Santana Gusman MD - Last Filed: 05/16/20 13:48> Activity on Discharge: As tolerated <Tyesha Sun PA-C - Last Filed: 05/16/20 11:03> As tolerated <Santana Gusman MD - Last Filed: 05/16/20 13:48> Stand Alone Forms: Patient Portal Discharge page <Tyesha Sun PA-C - Last Filed: 05/16/20 11:03> Activity Restrictions/Additional Instructions: Ok to resume regular level of activities <Tyesha Sun PA-C - Last Filed: 05/16/20 11:03> Care Plan Goals: Return to baseline health <Tyesha Sun PA-C - Last Filed: 05/16/20 11:03> Health Concerns: PSBO <Tyesha Sun PA-C - Last Filed: 05/16/20 11:03> Plan of Treatment: Discharge to home, low residue diet x 1 week; follow up as needed. <Tyesha Sun PA-C - Last Filed: 05/16/20 11:03> Discharge Date/Time: 05/15/20 17:15 <Tyesha Sun PA-C - Last Filed: 05/16/20 11:03>
== END 2020-05-15 17:15 | disposition home or self-care (01) | DRG 252 ==
LOC: HO.ED 11:20 → HO.EDOVER 14:51 → HO.S3 18:50
PROVIDERS: Nurse Practitioner Family; Admitting Provider Surgery; Emergency Provider Emergency Medicine Emergency Medical Services; PCP Nurse Practitioner Family; Visit Provider Surgery
DX: K91.31 Postprocedural partial intestinal obstruction (principal); Z79.899 Other long term (current) drug therapy; Z87.891 Personal history of nicotine dependence; Z88.5 Allergy status to narcotic agent
CPT/HCPCS: 36415; 74177; 80048; 80076; 81003; 85025; 87635; 96374; 96375; 99285; J2270; J2405; Q9967

== ENCOUNTER 2020-05-27 05:58 | Day surgery (SDC) | payer OTHER, SELFPAY ==
[2020-04-22 11:21] LABS: MANUAL DIFF FLAG NO
[2020-04-22 12:11] LABS: Anion Gap 14 (12-20); Blood Urea Nitrogen 17 mg/dL (9-16); Carbon Dioxide 27 mmol/L (22-29); Chloride 107 mmol/L (96-108); Estimated Glomerular Filt Rate > 60; Glucose Random 82 mg/dL (60-115); Potassium 4.5 mmol/L (3.3-5.1); Sodium 143 mmol/L (135-145)
[2020-04-22 12:38] LABS: Basophils Absolute Auto 0.1 X10*3/uL (0.0-0.2); Basophils Percent Auto 0.7 % (0-2); Eosinophils Absolute Auto 0.2 X10*3/uL (0.0-0.4); Eosinophils Percent Auto 3.2 % (0-4); Hematocrit 43.7 % (42-52); Hemoglobin 14.6 g/dl (14.0-18.0); Imm Gran Abs Auto 0.02 X10*3/uL (0.00-0.03); Imm Gran Pct Auto 0.3 % (0.0-0.4); Lymphocytes Absolute Auto 2.5 X10*3/uL (1.2-4.9); Lymphocytes Percent Auto 32.8 % (20-40); Mean Corpuscular HGB Conc 33.4 g/dl (31.0-36.0); Mean Corpuscular Hemoglobin 32.4 pg (27.0-33.0); Mean Corpuscular Volume 97.1 fL (80-98); Mean Platelet Volume 10.3 fL (9.4-12.4); Monocytes Absolute Auto 0.7 X10*3/uL (0.1-1.2); Monocytes Percent Auto 9.8 % (2-11); Neutrophils Percent Auto 53.2 % (45-73); Platelet Count 255 X10*3/uL (160-400); Red Cell Distribution Width 13.1 % (11.0-16.0); White Blood Count 7.6 X10*3/uL (4.8-10.8)
[2020-05-13 09:26] VITALS: BP 139/80; PULSE 70; RESP 20; O2SAT 97; BMI 28.2
--- NOTE | 2020-05-13 09:55 | HO.ANESPROP2 ---
HPI - Anesthesia Eval Consult details Narrative: 60yo M for Right Knee Replacement Total PCP cleared (increase in lisinopril) Pending: T&S Surgery postponed d/t pt admitted with SBO. Resolved without surgical intervention. New date is 05/27/20. [facility] Active Problems Active Problems: All Active Problems (Updated 05/13/20 @ 09:39 by Katie Bedoya) Right knee pain (Acute) Encounter for screening for malignant neoplasm of colon (Acute) Postprandial diarrhea (Acute) Primary osteoarthritis of left knee (Acute) Primary osteoarthritis of right knee (Acute) History of colon polyps (Acute) Pre-op evaluation (Acute) Elevated liver enzymes (Acute) Hypertension (Acute) Past Medical History Medical History History of duodenal ulcer Hypertension Osteoarthritis of both knees Family History Family History Father No problems noted. Mother No problems noted. 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 >4 mets, no CP/SOB Meds Allergies Allergy/AdvReac Type Severity Reaction Status Date / Time oxycodone [OXYCODONE] Allergy Intermediate RASH Verified 05/14/20 14:26 Home Medications Medication Instructions Recorded Confirmed Last Taken Type acetaminophen 325 mg capsule 325 mg PO QID PRN 11/22/19 05/14/20 Unknown History Exam Exam Date and Time: May 13, 2020 0955 Height,Weight and Vital Signs: Height 5 ft 7 in Weight 81.8 kg Last Vital Signs Pulse 70 05/13/20 09:26 Resp 20 05/13/20 09:26 BP 139/80 05/13/20 09:26 Pulse Ox 97 05/13/20 09:26 Pertinent Lab Results Pertinent Lab Results: Laboratory Tests 04/22/20 04/22/20 08:48 08:48 WBC 7.6 RBC 4.50 L Hgb 14.6 Hct 43.7 MCV 97.1 MCH 32.4 MCHC 33.4 RDW 13.1 Plt Count 255 MPV 10.3 Immature Gran % (Auto) 0.3 Neut % (Auto) 53.2 Lymph % (Auto) 32.8 [place] % (Auto) 9.8 Eos % (Auto) 3.2 Baso % (Auto) 0.7 Lymph # (Auto) 2.5 [place] # (Auto) 0.7 Eos # (Auto) 0.2 Baso # (Auto) 0.1 Abs Immat Gran (auto) 0.02 Absolute Neuts (auto) 4.0 Absolute Nucleated RBC 0.000 Nucleated RBC % (auto) 0.0 Sodium 143 Potassium 4.5 Chloride 107 Carbon Dioxide 27 Anion Gap 14 BUN 17 H Creatinine 0.90 Estim Creat Clear Calc TNP Estimated GFR > 60 Random Glucose 82 Calcium 9.0 Narrative Narrative: EKG 04/2020 NSR @ 72 Short NM PACs Airway Mallampati Class: III TM Dist: >3cm Neck ROM: Full Denture: Upper and Lower Heart: RRR Lungs: CTAB Assessment and Plan Assessment Anesthesia Assessment: Anesthesia Plan Discussed and PAT Visit
[2020-05-13 12:03] LABS: HBsAGNum1 0.16 S/CO (0.00-0.99); Hepatitis B Surface Antigen Negative (Negative)
[2020-05-13 12:06] LABS: MRSA Nasal PCR NEGATIVE (Negative); SA Nasal PCR POSITIVE (Negative)
[2020-05-13 12:10] LABS: ~HepC Num1 0.11 S/CO (0.00-0.79); ~Hepatitis B Surface Antibody NONREACTIVE (Nonreactive); ~Hepatitis C Antibody Nonreactive (Nonreactive)
[2020-05-13 12:24] LABS: HBc Num1 0.07 S/CO (0.00-0.79); Hepatitis B Core Antibody Nonreactive (Nonreactive)
[2020-05-15 10:35] LABS: Hepatitis A Antibody IgM 0.12 Index (0-0.79); ~Hepatitis A Antibody IgM Nonreactive (Nonreactive)
--- NOTE | 2020-05-24 07:42 | HO.ANESPROP2 ---
Documented by User: Desire Rubin 05/24/20 07:44 HPI - Anesthesia Eval Consult details Narrative: 60yo M for Right Knee Replacement Total PCP cleared (increase in lisinopril) Surgery postponed d/t pt admitted with SBO. Resolved without surgical intervention. New date is 05/27/20. [facility] Active Problems Active Problems: All Active Problems (Updated 05/17/20 @ 00:01 by Background Dafalguni) Partial small bowel obstruction (Acute) History of duodenal ulcer (Acute) Right knee pain (Acute) Encounter for screening for malignant neoplasm of colon (Acute) Postprandial diarrhea (Acute) Primary osteoarthritis of left knee (Acute) Primary osteoarthritis of right knee (Acute) History of colon polyps (Acute) Pre-op evaluation (Acute) Elevated liver enzymes (Acute) Hypertension (Acute) Past Medical History Medical History History of duodenal ulcer Hypertension Osteoarthritis of both knees Family History Family History Father No problems noted. Mother No problems noted. Family history of problems with anesthesia: No Surgical History Surgical History H/O colonoscopy History of exploratory laparotomy (~01/28/19) History of hand surgery S/P exploratory laparotomy (~06/27/19) History of Problems with Anesthesia: No Social History Social History Household Members: Spouse Housing: House Are you a primary post acute care registered nurse to a significant other at home: No Do you presently have visiting nurse or other home services: No Alcohol intake: current Alcohol intake frequency: holidays/special occasions only Alcohol type: beer Smoking Status: Former smoker Tobacco Type: Cigarette Smoking Quit Date: 2013 Use of substances other than those prescribed or required for medical reasons: No Have you been hit, kicked, punched, or otherwise hurt by someone within the past year? 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 Allergies Allergy/AdvReac Type Severity Reaction Status Date / Time oxycodone [OXYCODONE] Allergy Intermediate RASH Verified 05/14/20 14:26 Home Medications Medication Instructions Recorded Confirmed Last Taken Type acetaminophen 325 mg capsule 325 mg PO QID PRN 11/22/19 05/14/20 Unknown History Exam Exam Date and Time: May 24, 2020 0742 Height,Weight and Vital Signs: Height 5 ft 7 in Weight 81.8 kg Last Vital Signs Pulse 70 05/13/20 09:26 Resp 20 05/13/20 09:26 BP 139/80 05/13/20 09:26 Pulse Ox 97 05/13/20 09:26 Pertinent Lab Results Pertinent Lab Results: Laboratory Tests 04/22/20 04/22/20 05/13/20 08:48 08:48 10:36 WBC 7.6 RBC 4.50 L Hgb 14.6 Hct 43.7 MCV 97.1 MCH 32.4 MCHC 33.4 RDW 13.1 Plt Count 255 MPV 10.3 Immature Gran % (Auto) 0.3 Neut % (Auto) 53.2 Lymph % (Auto) 32.8 Gilchrist % (Auto) 9.8 Eos % (Auto) 3.2 Baso % (Auto) 0.7 Lymph # (Auto) 2.5 Gilchrist # (Auto) 0.7 Eos # (Auto) 0.2 Baso # (Auto) 0.1 Abs Immat Gran (auto) 0.02 Absolute Neuts (auto) 4.0 Absolute Nucleated RBC 0.000 Nucleated RBC % (auto) 0.0 Sodium 143 Potassium 4.5 Chloride 107 Carbon Dioxide 27 Anion Gap 14 BUN 17 H Creatinine 0.90 Estim Creat Clear Calc TNP Estimated GFR > 60 Random Glucose 82 Calcium 9.0 Nasal Screen MRSA (PCR) Nasal S. aureus Screen Nasal MRSA/S.aureus Interp Hepatitis A IgM Ab Hep Bs Antigen Hep Bs Antibody Hep B Core Total Ab Hepatitis C Ab (EIA) Blood Type A Positive Antibody Screen NEGATIVE 05/13/20 05/13/20 10:36 Unknown WBC RBC Hgb Hct MCV MCH MCHC RDW Plt Count MPV Immature Gran % (Auto) Neut % (Auto) Lymph % (Auto) Gilchrist % (Auto) Eos % (Auto) Baso % (Auto) Lymph # (Auto) Gilchrist # (Auto) Eos # (Auto) Baso # (Auto) Abs Immat Gran (auto) Absolute Neuts (auto) Absolute Nucleated RBC Nucleated RBC % (auto) Sodium Potassium Chloride Carbon Dioxide Anion Gap BUN Creatinine Estim Creat Clear Calc Estimated GFR Random Glucose Calcium Nasal Screen MRSA (PCR) NEGATIVE Nasal S. aureus Screen POSITIVE A Nasal MRSA/S.aureus Interp SEE NOTE Hepatitis A IgM Ab Nonreactive Hep Bs Antigen Negative Hep Bs Antibody NONREACTIVE Hep B Core Total Ab Nonreactive Hepatitis C Ab (EIA) Nonreactive Blood Type Antibody Screen Narrative Narrative: Narrative: EKG 04/2020 NSR @ 72 Short FL PACs Assessment and Plan Assessment Anesthesia Assessment: Anesthesia Plan Discussed (PAT 05/13, surgery postponed d/t SBO) and Chart Reviewed Documented by User: Jaxson Man MD 05/27/20 08:57 PMFSH Past Medical History Medical History History of duodenal ulcer Hypertension Osteoarthritis of both knees Family History Family History Father No problems noted. Mother No problems noted. Surgical History Surgical History H/O colonoscopy History of exploratory laparotomy (~01/28/19) History of hand surgery S/P exploratory laparotomy (~06/27/19) Social History Social History Household Members: Spouse Housing: House Are you a primary post acute care registered nurse to a significant other at home: No Do you presently have visiting nurse or other home services: No Alcohol intake: current Alcohol intake frequency: holidays/special occasions only Alcohol type: beer Smoking Status: Former smoker Tobacco Type: Cigarette Smoking Quit Date: 2013 Use of substances other than those prescribed or required for medical reasons: No Have you been hit, kicked, punched, or otherwise hurt by someone within the past year? 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 Allergies Allergy/AdvReac Type Severity Reaction Status Date / Time oxycodone [OXYCODONE] Allergy Intermediate RASH Verified 05/14/20 14:26 Home Medications Medication Instructions Recorded Confirmed Last Taken Type acetaminophen 325 mg capsule 325 mg PO QID PRN 11/22/19 05/14/20 Unknown History Assessment and Plan Assessment Anesthesia Assessment: Anesthesia Plan Discussed and Chart Reviewed Final Anesthetic Review NPO: Yes ASA Class: II Final Preanesthetic Review: No Changes in Pt Med Stat, Meds/Allgs Chart Reviewed, Consent Obtained/Reviewed and Anes Risks/Benef Reviewed Patient Risk: Intermediate Procedure Risk: Intermediate Anesthetic Plan Anesthetic Plan: MAC:, Spinal and Regional Block Disposition: Standard PACU
[2020-05-27] VITALS (23 sets, daily range): BP systolic 99–177; BP diastolic 56–100; PULSE 60–86; RESP 14–20; TEMP 36.1–37.6; O2SAT 95–100
--- NOTE | ~2020-05-27 | XR_ITS ---
EXAMINATION: XR KNEE, RIGHT CLINICAL INFORMATION: Postop COMPARISON: Right knee x-ray April 03, 2020 TECHNIQUE: Two views of the right knee. FINDINGS: Patient is status post right total knee arthroplasty. Components are in expected orientation. 8mm ossific fragment projects next to the lateral femoral condyle component, nonspecific. No periprosthetic fracture identified. Expected subcutaneous emphysema noted. Skin hannah present. XR/XR knee RT 2V IMPRESSION: Normal alignment status post arthroplasty.
[2020-05-27] MEDS: Gabapentin 600 MG TABLET PO (06:29)
[2020-05-27] MEDS: Lactated Ringers 1,000 ML 100 ML IVCONT ×2 (07:02→15:59)
[2020-05-27 07:04] LABS: COVID-19 Test Negative (Negative)
--- NOTE | 2020-05-27 07:32 | MHC.SHP ---
Pre-Procedural Eval Section A The patient is an INPATIENT: No Changes since office visit: No Cold of Flu in the past 2 weeks, No New Medical Problems, No Changes in Medication and No Patient answered all questions The History & Physical has been completed within 30 days and I have reviewed it.: Yes Section B Chief Complaint: Ortho surgery Allergies: Allergies Allergy/AdvReac Type Severity Reaction Status Date / Time oxycodone [OXYCODONE] Allergy Intermediate RASH Verified 05/14/20 14:26 Plan I have reviewed the history and physical and performed a pertinent physical examination on my patient. No changes have occurred unless specified.
--- NOTE | 2020-05-27 09:13 | W.PM.OPN ---
Operative Note Operative Note Date of Service: 05/27/20 Narrative: SURGEON: Dr Corina Diego) Ely MADERA CHIEF PHYSICAL THERAPIST: Pernell Funes PAC PREOP DIAGNOSIS: {osteoarthritis right knee } POSTOP DIAGNOSIS: {same } OPERATIVE PROCEDURE: Total knee arthroplasty {right-Brandie NexGen CR flex size F right femur, 5 x 10 mm monoblock tibial component, 35 mm monoblock patellar component } CLINICAL NOTE: This individual comes in today in regards to their knee. Has osteoarthritis. Has failed non operative management. Therefore after explaining the risks benefits and alternatives and answering all the questions it was mutually agreed upon care following procedure OPERATIVE DETAILS With of regional and spinal anesthetic the patient was placed supine on the operating table. Pneumatic tourniquet cuff was placed around the upper thigh and inflated to 300 mm of mercury at the beginning of the case. The leg was then prepped and draped in standard fashion with the leg free. Surgical time-out was then performed. The patient was identified. Procedure confirmed. Site confirmed. Medical and allergy history reviewed. Preoperative antibiotics were given. Standard DVT prophylaxis in place. Tranexamic acid was given as well. All other items were discussed and agreed upon. Standard small midline incision was made. Was taken down through the subcutaneous tissues. Hemostasis achieved along the way using electrocautery. This brought us to the extensor mechanism where a medial parapatellar arthrotomy in a subvastus technique was performed. The patella was retracted into the lateral gutter. The soft tissues were elevated from the anterior aspect of the femur. At the level of the tibia the soft tissue elevated medially excising a portion of the meniscus as well as protecting the medial-sided soft tissues. Similarly on the lateral side a portion of the fat pad, portion of the meniscus were excised. The lateral-sided soft tissues were elevated protecting them as well. The ACL was resected. We turned our attention then to the femur. Standard ex to medullary hole was established. The cutting guide was set for 5 degrees of valgus with a standard cut. It was held in place with pins and the surface resected flat. The sizing guide was then used. The femur was sized to a { S}. The 3 degree external rotation pins were set. The all in 1 cutting guide for this size was placed the pins and centered over the distal cut. Following this the anterior and anterior chamfer cuts, the posterior and posterior chamfer cuts, the patellar recess cuts, as well as the lug holes were made. The guide was removed. The bony fragments removed and we turned our attention to the tibia. The remainder of the medial and lateral menisci were excised. The extramedullary guide was then used in standard fashion referencing the tibial tubercle, the subcutaneous border of the tibia, and the middle of the ankle. The slope was then set. The cut was referenced from the more worn size for a minimal cut. The surface was then resected. The bony segment removed. The tibia was then trialed to a size { 5-}. It was aligned as the extra medullary guide had been. A 10 mm trial insert was put into place. The femoral trial was also applied with good fit. The alignment of the leg was excellent. The knee was then placed through a range of motion which demonstrated full extension full flexion stable medially and laterally at 0, 30, 60, and 90 degrees of flexion. Patella tracked centrally. Turning our attention to the patella. The soft tissues were elevated circumferentially. The surface was resected flat. It sized to a{35 mm. The lug hole was drilled }. The trial component was put into place with excellent fit. It tracked nicely through flexion extension. Therefore the trial sizes were appropriate and therefore the permanent components were selected and brought up onto the table. The trial components were then all removed after the peg holes for the tibia were made. The tourniquet was then let down with total tourniquet time of { 45 minutes}. The area of the lateral geniculate artery was identified and cauterized. Any excessive bleeding points were also cauterized. The knee was then thoroughly irrigated. The permanent components were brought up onto the table. The tibia followed by the femur followed by the patella were all Press-Fit into place. The knee was placed through range of motion. It had full flexion and extension. He was stable medial laterally in all positions. Patella tracked centrally. And therefore we proceeded to closure. Wound was thoroughly irrigated. The extensor mechanism was closed with #2 Quill suture. The skin was approximated with 2-0 Polysorb suture. The skin was closed with hannah. Sterile dressing was then applied. The patient was then transferred supine to the room bed and taken to the recovery room in good condition. Intraoperatively a 2nd unit a transit make acid was given at the time of closure. There was approximately { 44 cc} a blood loss. No intraop transfusions or complications. .
[2020-05-27] MEDS: Ketorolac Tromethamine 30 MG/ML VIAL IVPUSH (12:37)
[2020-05-27] MEDS: ceFAZolin Sodium/Dextrose,Iso 2 GM/50 ML PIGGYBACK IV (13:26)
[2020-05-27] MEDS: HYDROmorphone HCl 0.5 MG/0.5 ML SYRINGE 0.25 MG IVPUSH ×4 (14:36→16:05)
[2020-05-27] MEDS: Acetaminophen 325 MG TABLET 975 MG PO (16:04)
--- NOTE | 2020-05-27 17:42 | P.CONIM_ITS ---
History of Present Illness Data of Consult Service Date: 05/27/20 Requesting physician: Corina Graves Primary Care Provider: [employer] [facility] HPI Reason for consult: Hypertension 60M presented for elective right knee replacement. Patient had been complaining of bilateral knee pain due to his osteoarthritis. He was following with Orthopedics who recommended right total knee replacement (to be followed by left total knee replacement in future). Surgery was unremarkable. Patient is feeling well. Denies any fevers, chills, chest pain, shortness of breath. Medicine consult requested for management of comorbid conditions including fatty liver, history of duodenal ulcer, hypertension. Review of Systems Review of Systems: Constitutional: Denies fever, denies Chills Eyes: denies blurry vision ENT: denies sore throat CVS: denies chest pain Respiratory: Denies dyspnea GI: no abdominal pain : denies dysuria MSK: denies neck pain Skin: denies rash Neuro: denies specific motor weakness Psych: denies suicidal ideation Endocrine: denies heat/cold intoleratnce Hematologic: denies easy bleeding Allergy: denies hives [facility] Medical History Fatty liver History of duodenal ulcer Hypertension Osteoarthritis of both knees Family History Father No problems noted. Mother No problems noted. Family history: reviewed and not pertinent Surgical History H/O colonoscopy History of exploratory laparotomy (~01/28/19) History of hand surgery S/P exploratory laparotomy (~06/27/19) Social History Household Members: Spouse Housing: House Are you a primary animal daycare provider to a significant other at home: No Do you presently have visiting nurse or other home services: No Alcohol intake: current Alcohol intake frequency: holidays/special occasions only Alcohol type: beer Smoking Status: Former smoker Tobacco Type: Cigarette Smoking Quit Date: 2013 Use of substances other than those prescribed or required for medical reasons: No Have you been hit, kicked, punched, or otherwise hurt by someone within the past year? 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 Allergies Allergy/AdvReac Type Severity Reaction Status Date / Time oxycodone [OXYCODONE] Allergy Intermediate RASH Verified 05/14/20 14:26 Active Medications: Current Medications Generic Name Dose Route Start Last Admin Trade Name Freq PRN Reason Stop Dose Admin Acetaminophen 650 mg 05/27/20 18:00 Acetaminophen 325 Mg Tablet PO Q6H [facility] Aspirin 325 mg 05/28/20 10:00 Aspirin 325 Mg Tablet PO BID [facility] Lactated Ringer's 1,000 mls @ 100 mls/hr 05/27/20 06:00 05/27/20 17:05 Lr IVCONT 100 mls/hr .Q10H [facility] Infusion Ketorolac Tromethamine 15 mg 05/27/20 18:00 Ketorolac Tromethamine 15 Mg/Ml Vial IVPUSH Q6H [facility] Morphine Sulfate 2 mg 05/27/20 17:02 Morphine Sulfate 2 Mg/Ml Cartridge IVPUSH Q2H PRN Pain, Severe (Pain Scale 7-10) Naloxone HCl 0.2 mg 05/27/20 17:02 Naloxone Hcl 0.4 Mg/Ml Vial IVPUSH Q2M PRN Excessive sedation or RR < 8 Omeprazole 40 mg 05/28/20 06:30 Omeprazole 40 Mg Capsule.Dr PO DAILY@0630 [facility] Ondansetron HCl 4 mg 05/27/20 17:02 Ondansetron Hcl 4 Mg/2 Ml Vial IVPUSH Q8H PRN Nausea and Vomiting Oxycodone HCl 10 mg 05/27/20 17:02 Oxycodone Hcl Immed Release 5 Mg Tablet PO Q6H [facility] Sodium Chloride 3 ml 05/27/20 17:02 0.9 % Sodium Chloride Flush 3 Ml [facility] Medications Medication Instructions Recorded Confirmed Last Taken Type acetaminophen 325 mg capsule 325 mg PO QID PRN 11/22/19 05/14/20 Unknown History diclofenac sodium 1 tab PO BID 05/27/20 05/27/20 Unknown History Physical Exam Vital Signs and Narrative: Vital Signs: Last Vital Signs Temp 98.0 F 05/27/20 16:51 Pulse 80 05/27/20 16:51 Resp 16 05/27/20 16:51 BP 168/88 H 05/27/20 16:51 Pulse Ox 96 05/27/20 16:51 Body Mass Index 28.2 General: no acute distress HEENT: atraumatic Neck: normal to visual inspection CVS: S1, S2, RRR Resp: CTA bilateral Chest: non tender GI: soft, non tender, non distended : no CVA tenderness Skin: no rashes Extremities: no edema Neuro: Oriented X3, grossly intact Psych: cooperative Results Labs CBC and Chem 7: 04/22/20 08:48 04/22/20 08:48 Labs: Laboratory Results - last 24 hr 05/27/20 05/27/20 06:04 06:27 COVID-19 ([facility]) Negative COVID-19 Clin Com See Note Blood Type A Positive Antibody Screen NEGATIVE Assessment and Plan (1) History of duodenal ulcer: Status: Acute 60M presented for elective right knee replacement right knee replacement management per ortho history of perforated duodenal ulcer would give prophylactic ppi while using asa for dvt prophylaxis fatty liver 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
[2020-05-27] MEDS: Morphine Sulfate 2 MG/ML CARTRIDGE IVPUSH (18:33)
[2020-05-27] MEDS: Ketorolac Tromethamine 15 MG/ML VIAL IVPUSH (18:36)
--- NOTE | 2020-05-27 18:49 | PC.NURSE ---
verified with pharmacy ,ny to administer roxicodone per dr. Graves
[2020-05-27] MEDS: oxyCODONE HCl Immed Release 5 MG TABLET 10 MG PO (21:29)
[2020-05-28] MEDS: Ketorolac Tromethamine 15 MG/ML VIAL IVPUSH ×5 (00:32→23:59)
[2020-05-28] MEDS: 0.9 % Sodium Chloride Flush 3 ML SYRINGE IVFLUSH ×4 (00:32→23:59)
[2020-05-28] MEDS: Acetaminophen 325 MG TABLET 650 MG PO ×5 (00:34→23:59)
[2020-05-28] MEDS: Lactated Ringers 1,000 ML 100 ML IVCONT (00:45)
[2020-05-28] MEDS: oxyCODONE HCl Immed Release 5 MG TABLET 10 MG PO ×4 (02:21→20:06)
[2020-05-28 03:41] VITALS: BP 119/81; PULSE 70; RESP 20; TEMP 36.2; O2SAT 97
[2020-05-28] MEDS: Omeprazole 40 MG CAPSULE.DR PO (06:16)
[2020-05-28 06:21] LABS: Hematocrit 35.2 % (42-52); Hemoglobin 11.6 g/dl (14.0-18.0)
--- NOTE | 2020-05-28 07:39 | P.PNOP_ITS ---
Subjective Subjective Date of Service: 05/28/20 Interval history: POD:1 No overnight events Patient is:resting comfortably in bed, states he has not been out of bed yet. Pain is tolerable Denies:cp,sob,palpitations. Physical Exam Vital Signs: Vital Signs: Last Vital Signs Temp 97.2 F 05/28/20 03:41 Pulse 70 05/28/20 03:41 Resp 20 05/28/20 03:41 BP 119/81 05/28/20 03:41 Pulse Ox 97 05/28/20 03:41 Body Mass Index 28.2 Const: General: cooperative, healthy appearing and no acute distress Resp: Effort & Inspection: normal respiratory effort and able to speak in complete sentences Cardio: Rate: regular rate Peripheral pulses: Peripheral pulses 2+ throughout GI: Palpation (GI): Soft to palpation Skin: General skin exam: no rashes or lesions noted Extrem: Other: Right knee bandage clean, dry and intact. No erythema, mild edema, calf supple non tender. Sensation intact Progress Note: A&P Assessment and plan (1) Status post total right knee replacement: Status: Acute Assessment and Plan: Continue pain mgmnt Begin asa for dvt ppx begin PT for RT TKA Dispo planning-Pending PT eval, pain mgmnt Fall Risk Details Current Medications: Current Medications Generic Name Dose Route Start Last Admin Trade Name Freq PRN Reason Stop Dose Admin Acetaminophen 650 mg 05/27/20 18:00 05/28/20 06:16 Acetaminophen 325 Mg Tablet PO 650 mg Q6H [facility]O Administration Aspirin 325 mg 05/28/20 10:00 Aspirin 325 Mg Tablet PO BID [facility] Ketorolac Tromethamine 15 mg 05/27/20 18:00 05/28/20 06:16 Ketorolac Tromethamine 15 Mg/Ml Vial IVPUSH 15 mg Q6H [facility]O Administration Morphine Sulfate 2 mg 05/27/20 17:02 05/27/20 18:33 Morphine Sulfate 2 Mg/Ml Cartridge IVPUSH 2 mg Q2H PRN Administration Pain, Severe (Pain Scale 7-10) Naloxone HCl 0.2 mg 05/27/20 17:02 Naloxone Hcl 0.4 Mg/Ml Vial IVPUSH Q2M PRN Excessive sedation or RR < 8 Omeprazole 40 mg 05/28/20 06:30 05/28/20 06:16 Omeprazole 40 Mg Capsule. PO 40 mg DAILY@0630 [facility] Administration Ondansetron HCl 4 mg 05/27/20 17:02 Ondansetron Hcl 4 Mg/2 Ml Vial IVPUSH Q8H PRN Nausea and Vomiting Oxycodone HCl 10 mg 05/27/20 20:00 05/28/20 02:21 Oxycodone Hcl Immed Release 5 Mg Tablet PO 10 mg Q6H [facility] Administration Sodium Chloride 3 ml 05/27/20 17:02 05/28/20 00:32 0.9 % Sodium Chloride Flush 3 Ml Syringe IVFLUSH 3 ml QSHIFT [facility]O Administration Time Spent With Patient Time: Total time spent is greater than 50% in coordination of care (as documented) at patient's floor/unit and/or counseling patient: Time with patient: less than 15 minutes
[2020-05-28 07:44] VITALS: BP 144/83; PULSE 103; RESP 18; TEMP 37; O2SAT 95
[2020-05-28 11:34] VITALS: BP 157/78; PULSE 104; RESP 18; TEMP 37.1; O2SAT 96
[2020-05-28] MEDS: Enoxaparin Sodium 40 MG/0.4 ML SYRINGE SUBCUT (11:35)
--- NOTE | 2020-05-28 11:59 | HO.PM.IMPN ---
Subjective Subjective Date of Service: 05/28/20 Interval History: pain is decently controlled Cardiovascular Cardiovascular: Reports no additional cardiovascular complaints Gastrointestinal Gastrointestinal: Reports no additional gastrointestinal complaints Physical Exam Vital Signs: Vital Signs: Last Vital Signs Temp 98.8 F 05/28/20 11:34 Pulse 104 H 05/28/20 11:34 Resp 18 05/28/20 11:34 BP 157/78 H 05/28/20 11:34 Pulse Ox 96 05/28/20 11:34 Body Mass Index 28.2 Const General: cooperative, healthy appearing and no acute distress Resp Effort & Inspection: normal respiratory effort and able to speak in complete sentences Cardio Rate: regular rate Peripheral pulses: Peripheral pulses 2+ throughout GI Palpation (GI): Soft to palpation Skin General skin exam: no rashes or lesions noted Extrem Other: Right knee bandage clean, dry and intact. No erythema, mild edema, calf supple non tender. Sensation intact Objective Data Current Medications Generic Name Dose Route Start Last Admin Trade Name Freq PRN Reason Stop Dose Admin Acetaminophen 650 mg 05/27/20 18:00 05/28/20 11:34 Acetaminophen 325 Mg Tablet PO 650 mg Q6H [facility] Administration Enoxaparin Sodium 40 mg 05/28/20 11:00 05/28/20 11:35 Enoxaparin Sodium 40 Mg/0.4 Ml Syringe SUBCUT 40 mg Q24H [facility] Administration Ketorolac Tromethamine 15 mg 05/27/20 18:00 05/28/20 11:35 Ketorolac Tromethamine 15 Mg/Ml Vial IVPUSH 15 mg Q6H [facility] Administration Morphine Sulfate 2 mg 05/27/20 17:02 05/27/20 18:33 Morphine Sulfate 2 Mg/Ml Cartridge IVPUSH 2 mg Q2H PRN Administration Pain, Severe (Pain Scale 7-10) Naloxone HCl 0.2 mg 05/27/20 17:02 Naloxone Hcl 0.4 Mg/Ml Vial IVPUSH Q2M PRN Excessive sedation or RR < 8 Omeprazole 40 mg 05/28/20 06:30 05/28/20 06:16 Omeprazole 40 Mg Capsule.Dr PO 40 mg DAILY@0630 [facility] Administration Ondansetron HCl 4 mg 05/27/20 17:02 Ondansetron Hcl 4 Mg/2 Ml Vial IVPUSH Q8H PRN Nausea and Vomiting Oxycodone HCl 10 mg 05/27/20 20:00 05/28/20 08:25 Oxycodone Hcl Immed Release 5 Mg Tablet PO 10 mg Q6H [facility] Administration Sodium Chloride 3 ml 05/27/20 17:02 05/28/20 08:26 0.9 % Sodium Chloride Flush 3 Ml Syringe IVFLUSH 3 ml QSHIFT [facility]O Administration Labs CBC & Chem 7: 05/28/20 05:51 04/22/20 08:48 Assessment and Plan (1) Status post total right knee replacement: Status: Acute Assessment and Plan: 60M presented for elective right knee replacement right knee replacement management per ortho history of perforated duodenal ulcer would give prophylactic ppi while using asa for dvt prophylaxis started on prilosec 40mg daily fatty liver 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
[2020-05-28] MEDS: lisinopriL 20 MG TABLET PO (12:09)
--- NOTE | 2020-05-28 14:03 | HO.POSTANES ---
Post Anesthesia Evaluation Post Anesthesia Evaluation Vital Signs: Vital Signs Temp Pulse Resp BP Pulse Ox 05/28/20 11:34 98.8 F 104 H 18 157/78 H 96 05/28/20 07:44 98.6 F 103 H 18 144/83 H 95 05/28/20 03:41 97.2 F 70 20 119/81 97 Anesthesia: Spinal Mental Status: Awake Pain Control: Satisfactory Nausea/Vomiting: None Hydration: Adequate Anesthesia-Related Issues: No Anes. Related Issues
--- NOTE | 2020-05-28 15:32 | MHC.CM.PN ---
NURSE SPECIAL EVENTS ASSISTANT NOTE ELECTRONIC MEDICAL RECORD REVIEWED ALONG WITH CASE DISCUSSED WITH STAFF NRROBY AND ORTHOPEDIC SURGICAL PA. MET WITH PATIENT AND HIS REMAINED PRESENT WITH THIS ASSESSMENT. PATIENT HAS BBEEN ACTIVE , INDEPENDENT IN ALL ADLS AND MOBILITY , HE IS EMPLOUYED SPECIAL NEEDS LIBRARIAN HE ANTICIPATES HE WILL BE OUT OF WORK FOR ABOUT 6 WEEKS, AND WILL BE SELF PAYING HIS COBRA INSURANCE, HE DENIES AND FINACLIAL DIFFICULTIES IN OBTING ANY OF HIS MEDICATIONS, AND USES THE [facility] IN [place]. DISCHARGE PLAN HOME WITH HIS WITH NEW REFERRAL TO [facility] TEACHING AND HOME PHYSICAL THEAPRY PCP PATIENT TO CALL FOR [facility] DISCHARGE FOLLOW UP [facility] FOLLOW UP PER DISCHARGE INSTRUCTIONS TRANSPORTATION [facility] IN [place] ANTICIPATE DISCHARGE 05/29/20
[2020-05-28 15:48] VITALS: BP 120/75; PULSE 94; RESP 16; TEMP 37.2; O2SAT 96
[2020-05-28] MEDS: Morphine Sulfate 2 MG/ML CARTRIDGE IVPUSH (16:47)
[2020-05-28 19:54] VITALS: BP 101/62; PULSE 74; RESP 14; TEMP 36.8; O2SAT 96
[2020-05-29] VITALS: BP 123/70; PULSE 71; RESP 16; TEMP 36.6; O2SAT 95
[2020-05-29] MEDS: oxyCODONE HCl Immed Release 5 MG TABLET 10 MG PO ×2 (02:06→08:14)
[2020-05-29 04:00] VITALS: BP 119/67; PULSE 75; RESP 18; TEMP 36.4; O2SAT 97
[2020-05-29] MEDS: Omeprazole 40 MG CAPSULE.DR PO (05:43)
[2020-05-29] MEDS: Acetaminophen 325 MG TABLET 650 MG PO (05:43)
[2020-05-29] MEDS: Ketorolac Tromethamine 15 MG/ML VIAL IVPUSH (05:43)
[2020-05-29 06:45] LABS: MANUAL DIFF FLAG NO
[2020-05-29 06:58] LABS: Basophils Percent Auto 0.3 % (0-2); Eosinophils Absolute Auto 0.1 X10*3/uL (0.0-0.4); Hematocrit 33.8 % (42-52); Hemoglobin 11.4 g/dl (14.0-18.0); Imm Gran Abs Auto 0.04 X10*3/uL (0.00-0.03); Imm Gran Pct Auto 0.5 % (0.0-0.4); Lymphocytes Absolute Auto 1.6 X10*3/uL (1.2-4.9); Lymphocytes Percent Auto 18.6 % (20-40); Mean Corpuscular HGB Conc 33.7 g/dl (31.0-36.0); Mean Corpuscular Hemoglobin 32.6 pg (27.0-33.0); Mean Corpuscular Volume 96.6 fL (80-98); Mean Platelet Volume 9.7 fL (9.4-12.4); Monocytes Absolute Auto 0.7 X10*3/uL (0.1-1.2); Neutrophils Absolute Auto 6.3 X10*3/uL (2.0-8.3); Neutrophils Percent Auto 71.6 % (45-73); Platelet Count 173 X10*3/uL (160-400); Red Cell Distribution Width 12.7 % (11.0-16.0); White Blood Count 8.8 X10*3/uL (4.8-10.8)
[2020-05-29 07:21] LABS: Anion Gap 12 (12-20); Blood Urea Nitrogen 15 mg/dL (9-16); Calcium 8.3 mg/dL (8.4-10.2); Carbon Dioxide 28 mmol/L (22-29); Chloride 103 mmol/L (96-108); Estimated Glomerular Filt Rate > 60; Glucose Fasting 109 mg/dL (60-99); Potassium 4.1 mmol/L (3.3-5.1); Sodium 139 mmol/L (135-145)
[2020-05-29 07:49] VITALS: BP 135/86; PULSE 80; RESP 19; TEMP 36.2; O2SAT 98
[2020-05-29] MEDS: 0.9 % Sodium Chloride Flush 3 ML SYRINGE IVFLUSH (08:14)
[2020-05-29 08:15] VITALS: BP 135/86; PULSE 80
[2020-05-29] MEDS: lisinopriL 20 MG TABLET PO (08:15)
--- NOTE | 2020-05-29 08:19 | P.DS_ITS ---
DS: Providers Provider Date of Service: 06/03/20 Primary care physician: Ab Gaming, RESTAURANT CREW PERSON- Consults: 05/27/20 17:02 Consult to Hospitalist Routine Consulting Provider: Hospitalist Reason For Exam: medical issues DS: Diagnosis Discharge Diagnosis (1) Status post total right knee replacement: Status: Acute Problem details: Mr Monzon is a 60 yo gentleman with ongoing right knee pain. He has failed all conservative measures and continues to have pain with daily activities; therefore, he has consented to move forward with Right total knee arthroplasty. DS: Medications Discharge Medications Home Medications: Previous Rx's Medication Instructions Recorded lisinopril 20 mg tablet 20 mg PO DAILY 90 Days #90 tab 05/09/20 acetaminophen 650 mg PO Q6H PRN 30 Days #240 tab 05/29/20 docusate sodium [Colace] 100 mg PO BID PRN 30 Days #30 cap 05/29/20 enoxaparin 40 mg SUBCUT Q24H 14 Days #5.6 ml 05/29/20 oxycodone 10 mg PO Q6H 7 Days #28 tab 05/29/20 DS: Summary Hospital Course Hospital Course: The patient underwent a successful Right total knee arthroplasty, he was transferred to PACU and then to the floor to recover. During their stay, their vitals were stable, afebrile at 97.1. POD 1 he was started on ASA for DVT ppx, he also received physical therapy services twice a day. H/H unremarkable 11.1/33.8. Prior to discharge,his dressing was changed, incision clean dry and intact, new Aquacel dressing applied and the plan was to be discharged home with VNA services,. Time Spent with Patient Time attestation: Total time spent providing and/or coordinating discharge services: Discharge coordination time: Less than 30 minutes Physical Exam Vital Signs: Vital Signs: Last Vital Signs Temp 97.1 F 05/29/20 07:49 Pulse 80 05/29/20 08:15 Resp 19 05/29/20 07:49 BP 135/86 05/29/20 08:15 Pulse Ox 98 05/29/20 07:49 Body Mass Index 28.2 Const: General: cooperative, healthy appearing and no acute distress Resp: Effort & Inspection: normal respiratory effort and able to speak in complete sentences Cardio: Rate: regular rate Peripheral pulses: Peripheral pulses 2+ throughout GI: Palpation (GI): Soft to palpation Skin: General skin exam: no rashes or lesions noted Extrem: Other: Right knee incision clean , dry and intact. No erythema, mild edema, calf supple non tender. DS: Data Data Completed and Pending Pending studies at discharge: Pending at discharge 05/27/20 09:11 Surgical [PTH] Routine Labs on day of discharge: Laboratory Results - last 24 hr 05/29/20 05/29/20 06:34 06:34 WBC 8.8 RBC 3.50 L D Hgb 11.4 L Hct 33.8 L MCV 96.6 MCH 32.6 MCHC 33.7 RDW 12.7 Plt Count 173 MPV 9.7 Immature Gran % (Auto) 0.5 H Neut % (Auto) 71.6 Lymph % (Auto) 18.6 L Weber % (Auto) 8.0 Eos % (Auto) 1.0 Baso % (Auto) 0.3 Lymph # (Auto) 1.6 Weber # (Auto) 0.7 Eos # (Auto) 0.1 Baso # (Auto) 0.0 Abs Immat Gran (auto) 0.04 H Absolute Neuts (auto) 6.3 Absolute Nucleated RBC 0.000 Nucleated RBC % (auto) 0.0 Sodium 139 Potassium 4.1 Chloride 103 Carbon Dioxide 28 Anion Gap 12 BUN 15 Creatinine 0.80 Estim Creat Clear Calc 98.0 Estimated GFR > 60 Fasting Glucose 109 H Calcium 8.3 L Discharge Plan Discharge Patient Disposition: Home Health Service Referrals: [facility] [Outside] - 1 Day (discharge home with new referral to the [facility] for nursing for teaching for sc lovenox administration and home physical theapry pcp patient to call for post hospitla discharge follow up orthopedic surgeron follow up per discharge instructions transportation family ) Pernell Funes PA-C [Physician Photographic Process Worker] - (06/12/20 1:45 [facility] Pernell Funes PA-C) Discharge Medications: New acetaminophen 325 mg Tablet 650 mg PO Q6H PRN (Reason: pain) 30 Days Qty: 240 RF: 0 enoxaparin 40 mg/0.4 mL Syringe 40 mg subcut Q24H 14 Days Qty: 5.6 RF: 0 docusate sodium [Colace] 100 mg capsule 100 mg PO BID PRN (Reason: constipation ) 30 Days Qty: 30 RF: 0 omeprazole 40 mg capsule,delayed release(DR/EC) 40 mg PO DAILY Qty: 30 RF: 0 Continued lisinopril 20 mg tablet 20 mg PO DAILY 90 Days Qty: 90 RF: 0 Discontinued diclofenac sodium 75 mg tablet,delayed release (DR/EC) 1 tab PO BID RF: 0 acetaminophen [Tylenol] 325 mg capsule 325 mg PO QID PRN (Reason: Pain) RF: 0 No Action oxycodone 10 mg tablet 5 mg PO Q4-6H 7 Days Qty: 42 RF: 0 Discharge Orders: Discharge Order (Routine); Ordered 05/29/20 Ordered By: Pernell Funes Activity Restrictions/Additional Instructions: * Physical Therapy for ROM 0-120, quad strength, gait training . Use walker for ambulation * Limit stair climbing, No shower, No tub bath, No driving * Continue loveno x14 days * Keep Aquacel dressing clean, dry and intact. * Follow up with orthopedics in 2 weeks Discharge Date/Time: 05/29/20 10:45
--- NOTE | 2020-05-29 08:22 | MHC.CM.PN ---
nurse campground caretaker note electronic medical record reviewed along with case discussed shaina gamboa staff nurse and met with patient , he will be going home with new orders for sc Lovenox bedside nurse to provide teaching of sc Lovenox injection to patient and further reinforcement will be given by the Lakia andrea tomorrow am along with home physical therapy. patient requested early visist when possible discharge home with with [facility] for nsg for sc Lovenox administration teaching g and home physical therapyall discharge paperwork completed/ transportation family
[2020-05-29] MEDS: Enoxaparin Sodium 40 MG/0.4 ML SYRINGE SUBCUT (10:31)
--- NOTE | 2020-05-29 11:18 | HO.PM.IMPN ---
Subjective Subjective Date of Service: 05/29/20 Interval History: the patient was seen and evaluated this morning Laying in bed, feels comfortable Denies any fever, chills or shortness of breath Right knee in dressing, pain under good control No reported other overnight events. Systemic review: No fever, chills or weakness No chest pain, palpitation No shortness of breath or coughing No abdominal pain, nausea or vomiting No urinary symptoms No any rash or wounds Physical Exam Vital Signs: Vital Signs: Last Vital Signs Temp 97.1 F 05/29/20 07:49 Pulse 80 05/29/20 08:15 Resp 19 05/29/20 07:49 BP 135/86 05/29/20 08:15 Pulse Ox 98 05/29/20 07:49 Body Mass Index 28.2 Const: Other: Constitutional : Alert, oriented, not in distress Neck : Normal inspection, Supple Cardiovascular : RRR, S1 S2, no lower extremity edema Respiratory : Good bilateral air entry, no crackles, wheezes or rhonchi Gastrointestinal: soft, lax, Normal bowel sounds, Non tender Skin : Warm/Dry, No rash, right knee in dressing, no drainage noted. Neurological : Alert & oriented x3, No focal deficit Objective Data Labs CBC & Chem 7: 05/29/20 06:34 05/29/20 06:34 Assessment and Plan (1) Status post total right knee replacement: Status: Acute Assessment and Plan: 60M presented for elective right knee replacement right knee replacement Pain under fair control management per ortho history of perforated duodenal ulcer Continue prophylactic ppi while using asa for dvt prophylaxis Keep on prilosec 40mg daily fatty liver 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 Plan to discharge today home with physical therapy.
== END 2020-05-29 10:45 | disposition home health service (06) ==
LOC: HO.SSSA 13:01 → HO.S3 05-28 08:20 → HO.SSS 05-28 13:55 → HO.S3 05-28 13:56
PROVIDERS: Internal Medicine; Physician Assistant; PCP Nurse Practitioner Family; Visit Provider Orthopaedic Surgery
PROC: (CPT 27447; principal; 2020-05-27 07:30)
DX: M17.11 Unilateral primary osteoarthritis, right knee (principal); K76.0 Fatty (change of) liver, not elsewhere classified; I10 Essential (primary) hypertension; R74.8 Abnormal levels of other serum enzymes; Z79.82 Long term (current) use of aspirin; Z79.899 Other long term (current) drug therapy
CPT/HCPCS: 27447; 36415; 73560; 80048; 85014; 85018; 85025; 86704; 86706; 86709; 86803; 86850; 86900; 87340; 87635; 87640; 87641; 88305; 88311; 97110; 97116; 97162; 97165; 97530; 97535; C1776; J0690; J1170; J1650; J1885; J2250; J2270

== ENCOUNTER → 2020-06-14 09:05 | Outpatient (BNVA) | payer OTHER, SELFPAY | PROVIDERS: PCP Nurse Practitioner Family; Visit Provider Physician Assistant ==

== ENCOUNTER → 2020-07-12 12:20 | Outpatient (BNVA) | payer OTHER, SELFPAY | PROVIDERS: PCP Nurse Practitioner Family; Visit Provider Orthopaedic Surgery ==

== ENCOUNTER 2020-08-09 07:00 | Outpatient (RCR) | payer OTHER, SELFPAY ==
--- NOTE | 2020-06-25 14:14 | MHC.PT.EP ---
[facility] [place] Office [place] Office [place] Office [address] [phone] F: [phone] F: [phone] F: [phone] F: [phone] Physical Therapy Plan of Care Date of Evaluation: Date of Surgery: 05/27/20 Diagnosis: R TKA Assessment: Patient is a 60 year old R handed male who presents with s/s consistent with R TKA. He works with daily job demands including lifting at [employer]. Patient past medical history includes umbilical hernia. Current impairments include pain, ROM, strength, safety, independence, activity tolerance and functional mobility. Functional limitations include decreased ability to walk, stand, transfer, negotiate stairs, and perform weight bearing activities.. Patient is motivated with good rehab potential. Skilled PT will address impairments and functional limitations in order to achieve goals. Frequency and Duration: The patient will be seen 2x/weeks for 6 weeks Short Term Goals: I with HEP - 2 week AROM 0-120 - 3 weeks symmetrical gait - 3 weeks Inspector Publications Goals: LEFS 56/80 - 6 weeks Strength 4/5 grossly - 6 weeks Pain free ADLs - 6 weeks Treatment Plan: Modalities to reduce pain, spasms and effusion. Manual therapy to restore motion and function. Therapeutic exercise to improve strength and flexibility. Neuromuscular re-education for posture and balance. Therapeutic activities to return to functional activities of daily living. Electronically signed by: Jose Phillip, PT Please sign and return to therapist. Thank you for your referral.
--- NOTE | 2020-08-09 10:28 | MHC.PT.DC ---
[facility] [place] Office [place] Office [place] Office [address] [phone] F: [phone] F: [phone] F: [phone] F: [phone] Physical Therapy Discharge Report Diagnosis: R TKA Date of Surgery: 05/27/20 Date of Evaluation: 06/25/20 Date of Discharge: 08/09/20 Treatments to Date: 11 Cancellations to Date: 0 No Shows to Date: 0 Discharge Status: Achieved Goals Improved Function Independent with HEP Discharge Summary: Pt HAS WORKED VERY HARD AND HAS PROGRESSED WELL IN PT S/P RIGHT TKR. Pt REMAINS MOTIVATED AND COMPLIANT W HEP. HIS PAIN HAS DECREASED AND FUNCT MOB IMPROVED OVERALL, WITH RESPECT TO LEFT KNEE OA, SCED FOR Lt TKA 09/02/20. HIS Rt KNEE AROM -5* TO 120* ; HE MET GOALS TO MAX POTENTIAL AT THIS TIME AND IS D/C'D W HEP; LEFT SCORE AT EVAL 36/80 AND TODAY D/C 69/80 Electronically signed by: Radha Naranjo PT. Please sign and return to therapist. Thank you for your referral.
== END 2020-08-09 10:29 | disposition other institution (70) ==
LOC: HO.PTCHIC 07:00
PROVIDERS: PCP Nurse Practitioner Family; Visit Provider Physician Assistant
DX: Z96.651 Presence of right artificial knee joint (principal)
CPT/HCPCS: 97110; 97112; 97140; 97161

== ENCOUNTER 2020-08-14 08:10 | Outpatient (REF) | payer OTHER, SELFPAY ==
[2020-08-14 11:16] LABS: MANUAL DIFF FLAG NO
[2020-08-14 11:38] LABS: Basophils Percent Auto 0.6 % (0-2); Eosinophils Absolute Auto 0.1 X10*3/uL (0.0-0.4); Hematocrit 42.9 % (42-52); Hemoglobin 14.4 g/dl (14.0-18.0); Imm Gran Abs Auto 0.03 X10*3/uL (0.00-0.03); Imm Gran Pct Auto 0.4 % (0.0-0.4); Lymphocytes Absolute Auto 2.3 X10*3/uL (1.2-4.9); Lymphocytes Percent Auto 32.4 % (20-40); Mean Corpuscular HGB Conc 33.6 g/dl (31.0-36.0); Mean Corpuscular Hemoglobin 31.9 pg (27.0-33.0); Mean Corpuscular Volume 95.1 fL (80-98); Mean Platelet Volume 10.1 fL (9.4-12.4); Monocytes Absolute Auto 0.8 X10*3/uL (0.1-1.2); Monocytes Percent Auto 10.7 % (2-11); Neutrophils Absolute Auto 3.9 X10*3/uL (2.0-8.3); Neutrophils Percent Auto 54.9 % (45-73); Platelet Count 237 X10*3/uL (160-400); Red Blood Count 4.51 X10*6/uL (4.60-5.80); White Blood Count 7.1 X10*3/uL (4.8-10.8)
[2020-08-14 11:44] LABS: Alanine Aminotransferase 60 U/L (0-40); Albumin Level 4.7 g/dL (3.5-5.0); Alkaline Phosphatase 97 U/L (39-117); Anion Gap 14 (12-20); Aspartate Amino Transferase 30 U/L (5-37); Bilirubin Total 0.5 mg/dL (0.0-1.0); Blood Urea Nitrogen 17 mg/dL (9-16); Calcium 9.5 mg/dL (8.4-10.2); Carbon Dioxide 24 mmol/L (22-29); Chloride 104 mmol/L (96-108); Estimated Glomerular Filt Rate > 60; Glucose Random 92 mg/dL (60-115); Potassium 4.4 mmol/L (3.3-5.1); Sodium 138 mmol/L (135-145); Total Protein 7.6 g/dL (6.5-8.0)
[2020-08-14 11:48] LABS: INTERNATIONAL NORM RATIO 0.9 (0.9-1.1); Prothrombin Time 10.5 SEC (10.8-13.0)
== END 2020-08-14 08:11 | disposition home or self-care (01) ==
LOC: HO.HMGCLDS 08:10
PROVIDERS: PCP Nurse Practitioner Family; Visit Provider Nurse Practitioner Family
DX: Z01.818 Encounter for other preprocedural examination (principal)
CPT/HCPCS: 36415; 80053; 85025; 85610; 85730

== ENCOUNTER → 2020-08-28 11:03 | Outpatient (BNVA) | payer OTHER, SELFPAY | PROVIDERS: Visit Provider Physician Assistant ==

== ENCOUNTER 2020-09-02 11:09 | Emergency (ER) | payer OTHER, SELFPAY ==
--- NOTE | ~2020-09-02 | XR_ITS ---
EXAMINATION: XR CHEST CLINICAL INFORMATION: Palpitations COMPARISON: None TECHNIQUE: Frontal view of the chest was obtained. FINDINGS: No significant abnormality is noted involving the heart, lungs, mediastinum, bony thorax or soft tissues. XR/XR chest 1V IMPRESSION: Unremarkable chest exam.
[2020-09-02 11:12] VITALS: BP 183/109; PULSE 79; RESP 17; TEMP 37; O2SAT 97
[2020-09-02 11:29] VITALS: BP 159/106; PULSE 78; PULSE 81; RESP 18; O2SAT 96
--- NOTE | 2020-09-02 11:29 | ED.ARRPALP ---
HPI - Arrhythmia/Palpitations General Chief Complaint: Arrhythmia/Palpitations Stated Complaint: Arrhythmia/Palpations Time Seen by Provider: 09/02/20 11:27 Source: patient Mode of arrival: ambulatory Limitations: no limitations History of Present Illness HPI narrative: was in preop for L total knee replacement - found to be in afib, patient completely asymptomatic, in ED NSR, no prior episodes of this in past, cannot take asa due to hx of perforated ulcer MD complaint: atrial fibrillation Onset (ago): unknown Duration: intermittent Severity: mild Context: occurred during rest Associated symptoms: denies other symptoms Related Data Home Medications Medication Instructions Recorded Confirmed diclofenac sodium 75 mg 75 mg PO BID 08/28/20 09/02/20 tablet,delayed release Previous Rx's Medication Instructions Recorded acetaminophen 650 mg PO Q6H PRN 30 Days #240 tab 05/29/20 lisinopril 20 mg tablet 20 mg PO DAILY 90 Days #90 tab 08/14/20 Allergies Allergy/AdvReac Type Severity Reaction Status Date / Time No Known Allergies Allergy Verified 09/02/20 11:12 Review of Systems Review of Systems: Constitutional : No Weight loss, No Fever, No Chills, No Fatigue, No Malaise ENT/Mouth : No sore throat, No Rhinorrhea Eyes: No Eye Pain, No Swelling, No Redness Cardiovascular : No Chest Pain, No SOB, No Dyspnea on Exertion, No Orthopnea, No Edema, No Palpitations Respiratory : No Cough, No Sputum, No Wheezing Gastrointestinal : No Nausea, No Vomiting, No Diarrhea, No Constipation, No abdominal Pain, No Hematochezia, No Melena Genitourinary : No Dysuria, No Urinary Frequency, No Hematuria, Musculoskeletal : pos chronic joint pain, No Myalgias, No Joint Swelling Skin : No Skin Lesions, No rash Neuro : No Weakness, No Numbness, No Dizziness, No Headache Psych : No Anxiety/Panic, No Depression Heme/Lymph: No Bruising, No Bleeding,No Lymphadenopathy Endocrine : No Polyuria, No Polydipsia All other systems reviewed and are negative PMFSH Past Medical History Attestation statement: The following information was validated with the patient. Medical History CKD (chronic kidney disease), stage III COVID-19 vaccine series completed Fatty liver History of duodenal ulcer Hypertension Osteoarthritis of both knees Surgical History H/O colonoscopy History of exploratory laparotomy (~01/28/19) History of hand surgery History of total right knee replacement S/P exploratory laparotomy (~06/27/19) Family History Family History Father No problems noted. Mother No problems noted. 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 Oriented X3. No acute distress. Eyes: Pupils equal, round and reactive to light. ENT: Pharynx normal. Neck: Normal inspection. Neck supple. CVS: Normal heart rate and rhythm. Pulses normal. Respiratory: No respiratory distress. Breath sounds normal. Abdomen: Soft and non-tender. Skin: Skin warm and dry. Normal skin color. Normal skin turgor. Extremities: R knee post op some swelling around the R knee but no calf swelling or ttp states this is chronic and has been improving since surgery. No calf ttp Neuro: Oriented X 3. No motor deficit. No sensory deficit. Course Course Course Narrative: discussed with Cardiology needs outpatient workup but can hold AC therapy at this time given risk factor is only HTN MDM - Arrhythmia/Palpitations MDM Narrative Medical decision making narrative: 60 yo male with hx of HTN and severe arthritis due to his preop evaluation for total L knee replacement found to be in afib he is asymptomatic no prior history denies cardiac issues in the past, has no idea he was in afib - no GIB symptoms no CP/SOB and in NSR now doubt PE, will obtain labs, his ChadsVasc score is 1 - will discuss with cardiology cannot take asa due to hx of perforated ulcer with surgery in the past Lab Data Result diagrams: 09/02/20 11:45 09/02/20 11:45 Labs: Lab Results 09/02/20 09/02/20 09/02/20 Range/Units 11:45 11:45 11:45 WBC 8.5 (4.8-10.8) X10*3/uL RBC 4.76 (4.60-5.80) X10*6/uL Hgb 15.3 (14.0-18.0) g/dl Hct 44.6 (42-52) % MCV 93.7 (80-98) fL MCH 32.1 (27.0-33.0) pg MCHC 34.3 (31.0-36.0) g/dl RDW 13.0 (11.0-16.0) % Plt Count 212 (160-400) X10*3/uL MPV 9.3 L (9.4-12.4) fL Immature Gran % (Auto) 0.2 (0.0-0.4) % Neut % (Auto) 65.3 (45-73) % Lymph % (Auto) 24.9 (20-40) % Ferry % (Auto) 8.4 (2-11) % Eos % (Auto) 0.7 (0-4) % Baso % (Auto) 0.5 (0-2) % Lymph # (Auto) 2.1 (1.2-4.9) X10*3/uL Ferry # (Auto) 0.7 (0.1-1.2) X10*3/uL Eos # (Auto) 0.1 (0.0-0.4) X10*3/uL Baso # (Auto) 0.0 (0.0-0.2) X10*3/uL Abs Immat Gran (auto) 0.02 (0.00-0.03) X10*3/uL Absolute Neuts (auto) 5.6 (2.0-8.3) X10*3/uL Absolute Nucleated RBC 0.000 (0.0-0.012) X10*3/uL Nucleated RBC % (auto) 0.0 (0.0-0.2) /100WBC PT (9.9-13.0) SEC INR (0.9-1.1) APTT (24.1-38.0) SEC Sodium 139 (135-145) mmol/L Potassium 4.6 (3.3-5.1) mmol/L Chloride 104 (96-108) mmol/L Carbon Dioxide 26 (22-29) mmol/L Anion Gap 14 (12-20) BUN 16 (9-16) mg/dL Creatinine 0.95 (0.5-1.4) mg/dL Estim Creat Clear Calc 84.9 Estimated GFR > 60 Random Glucose 99 (60-115) mg/dL Calcium 9.7 (8.4-10.2) mg/dL Magnesium 2.1 (1.6-2.6) mg/dL Total Bilirubin 0.7 (0.0-1.0) mg/dL Direct Bilirubin 0.2 (0.0-0.5) mg/dL AST 28 (5-37) U/L ALT 64 H (0-40) U/L Alkaline Phosphatase 88 (39-117) U/L Troponin I High Sens (<3.5-35.0) ng/L B-Natriuretic Peptide 99 (<100) pg/mL Total Protein 7.4 (6.5-8.0) g/dL Albumin 4.5 (3.5-5.0) g/dL TSH (0.32-4.0) uIU/mL COVID-19 (VERO) (Negative) COVID-19 Clin Com 09/02/20 09/02/20 09/02/20 Range/Units 11:45 11:45 11:45 WBC (4.8-10.8) X10*3/uL RBC (4.60-5.80) X10*6/uL Hgb (14.0-18.0) g/dl Hct (42-52) % MCV (80-98) fL MCH (27.0-33.0) pg MCHC (31.0-36.0) g/dl RDW (11.0-16.0) % Plt Count (160-400) X10*3/uL MPV (9.4-12.4) fL Immature Gran % (Auto) (0.0-0.4) % Neut % (Auto) (45-73) % Lymph % (Auto) (20-40) % Ferry % (Auto) (2-11) % Eos % (Auto) (0-4) % Baso % (Auto) (0-2) % Lymph # (Auto) (1.2-4.9) X10*3/uL Ferry # (Auto) (0.1-1.2) X10*3/uL Eos # (Auto) (0.0-0.4) X10*3/uL Baso # (Auto) (0.0-0.2) X10*3/uL Abs Immat Gran (auto) (0.00-0.03) X10*3/uL Absolute Neuts (auto) (2.0-8.3) X10*3/uL Absolute Nucleated RBC (0.0-0.012) X10*3/uL Nucleated RBC % (auto) (0.0-0.2) /100WBC PT 10.7 (9.9-13.0) SEC INR 0.9 (0.9-1.1) APTT 32.0 (24.1-38.0) SEC Sodium (135-145) mmol/L Potassium (3.3-5.1) mmol/L Chloride (96-108) mmol/L Carbon Dioxide (22-29) mmol/L Anion Gap (12-20) BUN (9-16) mg/dL Creatinine (0.5-1.4) mg/dL Estim Creat Clear Calc Estimated GFR Random Glucose (60-115) mg/dL Calcium (8.4-10.2) mg/dL Magnesium (1.6-2.6) mg/dL Total Bilirubin (0.0-1.0) mg/dL Direct Bilirubin (0.0-0.5) mg/dL AST (5-37) U/L ALT (0-40) U/L Alkaline Phosphatase (39-117) U/L Troponin I High Sens 3.5 (<3.5-35.0) ng/L B-Natriuretic Peptide (<100) pg/mL Total Protein (6.5-8.0) g/dL Albumin (3.5-5.0) g/dL TSH 1.09 (0.32-4.0) uIU/mL COVID-19 (VERO) (Negative) COVID-19 Clin Com 09/02/20 Range/Units 11:51 WBC (4.8-10.8) X10*3/uL RBC (4.60-5.80) X10*6/uL Hgb (14.0-18.0) g/dl Hct (42-52) % MCV (80-98) fL MCH (27.0-33.0) pg MCHC (31.0-36.0) g/dl RDW (11.0-16.0) % Plt Count (160-400) X10*3/uL MPV (9.4-12.4) fL Immature Gran % (Auto) (0.0-0.4) % Neut % (Auto) (45-73) % Lymph % (Auto) (20-40) % Ferry % (Auto) (2-11) % Eos % (Auto) (0-4) % Baso % (Auto) (0-2) % Lymph # (Auto) (1.2-4.9) X10*3/uL Ferry # (Auto) (0.1-1.2) X10*3/uL Eos # (Auto) (0.0-0.4) X10*3/uL Baso # (Auto) (0.0-0.2) X10*3/uL Abs Immat Gran (auto) (0.00-0.03) X10*3/uL Absolute Neuts (auto) (2.0-8.3) X10*3/uL Absolute Nucleated RBC (0.0-0.012) X10*3/uL Nucleated RBC % (auto) (0.0-0.2) /100WBC PT (9.9-13.0) SEC INR (0.9-1.1) APTT (24.1-38.0) SEC Sodium (135-145) mmol/L Potassium (3.3-5.1) mmol/L Chloride (96-108) mmol/L Carbon Dioxide (22-29) mmol/L Anion Gap (12-20) BUN (9-16) mg/dL Creatinine (0.5-1.4) mg/dL Estim Creat Clear Calc Estimated GFR Random Glucose (60-115) mg/dL Calcium (8.4-10.2) mg/dL Magnesium (1.6-2.6) mg/dL Total Bilirubin (0.0-1.0) mg/dL Direct Bilirubin (0.0-0.5) mg/dL AST (5-37) U/L ALT (0-40) U/L Alkaline Phosphatase (39-117) U/L Troponin I High Sens (<3.5-35.0) ng/L B-Natriuretic Peptide (<100) pg/mL Total Protein (6.5-8.0) g/dL Albumin (3.5-5.0) g/dL TSH (0.32-4.0) uIU/mL COVID-19 ([facility]) Negative (Negative) COVID-19 Clin Com See Note ECG Data Attestation: I personally reviewed and interpreted this ECG as follows: ECG interpretation date: 09/02/20 ECG interpretation time: 11:43 Interpretation: Rate: 79 Rhythm: NSR [place]: normal Normal P waves. Normal BERNARD. Normal QRS complex. ST T wave : normal no DMITRIY qTC: normal prior studies: no acute ischemi The study has been interpreted contemporaneously by me. . Discharge Plan Discharge Clinical Impression: Atrial fibrillation Qualifiers: Atrial fibrillation type: paroxysmal Qualified Code(s): I48.0 - Paroxysmal atrial fibrillation Patient Disposition: Home, Self-Care Instructions: A-fib (Atrial Fibrillation) (ED) Additional Instructions: return to ED for any worsening symptoms or concerns Prescriptions: No Action acetaminophen 325 mg Tablet 650 mg PO Q6H PRN (Reason: pain) 30 Days Qty: 240 RF: 0 lisinopril 20 mg tablet 20 mg PO DAILY 90 Days Qty: 90 RF: 0 diclofenac sodium 75 mg tablet,delayed release (DR/EC) 75 mg PO BID RF: 0 Referrals: Margarito Fofana MD [Physician] - 1 week Interventions: ED Discharge Assessment Last Done: 09/02/20 12:50 Discharge Date/Time: 09/02/20 12:50
--- NOTE | 2020-09-02 11:30 | ECG_ITS ---
Test Reason : ARRYTHMIA Blood Pressure : / mmHG Vent. Rate : 079 BPM Atrial Rate : 079 BPM P-R Int : 116 ms QRS Dur : 076 ms QT Int : 380 ms P-R-T Axes : 001 062 013 degrees QTc Int : 435 ms Normal sinus rhythm Normal ECG When compared with ECG of 02-SEP-2020 08:44, Sinus rhythm has replaced Atrial fibrillation Referred By: Hanh Fallon Electronically Signed By:Margarito Fofana
[2020-09-02 11:50] LABS: MANUAL DIFF FLAG NO
[2020-09-02 11:54] LABS: Basophils Percent Auto 0.5 % (0-2); Eosinophils Absolute Auto 0.1 X10*3/uL (0.0-0.4); Eosinophils Percent Auto 0.7 % (0-4); Hematocrit 44.6 % (42-52); Hemoglobin 15.3 g/dl (14.0-18.0); Imm Gran Abs Auto 0.02 X10*3/uL (0.00-0.03); Imm Gran Pct Auto 0.2 % (0.0-0.4); Lymphocytes Absolute Auto 2.1 X10*3/uL (1.2-4.9); Lymphocytes Percent Auto 24.9 % (20-40); Mean Corpuscular HGB Conc 34.3 g/dl (31.0-36.0); Mean Corpuscular Hemoglobin 32.1 pg (27.0-33.0); Mean Corpuscular Volume 93.7 fL (80-98); Mean Platelet Volume 9.3 fL (9.4-12.4); Monocytes Absolute Auto 0.7 X10*3/uL (0.1-1.2); Monocytes Percent Auto 8.4 % (2-11); Neutrophils Absolute Auto 5.6 X10*3/uL (2.0-8.3); Neutrophils Percent Auto 65.3 % (45-73); Platelet Count 212 X10*3/uL (160-400); Red Blood Count 4.76 X10*6/uL (4.60-5.80); White Blood Count 8.5 X10*3/uL (4.8-10.8)
[2020-09-02 12:08] LABS: INTERNATIONAL NORM RATIO 0.9 (0.9-1.1); Prothrombin Time 10.7 SEC (9.9-13.0)
[2020-09-02 12:15] LABS: Alanine Aminotransferase 64 U/L (0-40); Albumin Level 4.5 g/dL (3.5-5.0); Alkaline Phosphatase 88 U/L (39-117); Anion Gap 14 (12-20); Aspartate Amino Transferase 28 U/L (5-37); Bilirubin Direct 0.2 mg/dL (0.0-0.5); Bilirubin Total 0.7 mg/dL (0.0-1.0); Blood Urea Nitrogen 16 mg/dL (9-16); Calcium 9.7 mg/dL (8.4-10.2); Carbon Dioxide 26 mmol/L (22-29); Chloride 104 mmol/L (96-108); Creatinine Clr Calc Pharmacy 84.9; Estimated Glomerular Filt Rate > 60; Glucose Random 99 mg/dL (60-115); Magnesium 2.1 mg/dL (1.6-2.6); Potassium 4.6 mmol/L (3.3-5.1); Sodium 139 mmol/L (135-145); Total Protein 7.4 g/dL (6.5-8.0)
[2020-09-02 12:20] LABS: B Type Natriuretic Peptide 99 pg/mL (<100); Troponin-I High Sensitivity 3.5 ng/L (<3.5-35.0)
[2020-09-02 12:34] LABS: TSH reflex Free T4 1.09 uIU/mL (0.32-4.0)
[2020-09-02 12:45] LABS: COVID-19 Test Negative (Negative)
== END 2020-09-02 12:50 | disposition home or self-care (01) ==
PROVIDERS: Emergency Provider Emergency Medicine; PCP Nurse Practitioner Family
DX: I48.0 Paroxysmal atrial fibrillation (principal); I12.9 Hypertensive chronic kidney disease with stage 1 through stage 4 chronic kidney disease, or unspecified chronic kidney disease; N18.30 Chronic kidney disease, stage 3 unspecified; Z79.899 Other long term (current) drug therapy; Z20.822 Contact with and (suspected) exposure to COVID-19
CPT/HCPCS: 36415; 71045; 80048; 80076; 83735; 83880; 84443; 84484; 85025; 85610; 85730; 87635; 93005; 99285

== ENCOUNTER 2020-09-04 | Outpatient (REF) | payer OTHER, SELFPAY ==
[2020-08-21 10:51] VITALS: BMI 29.9
[2020-08-28 09:54] VITALS: BP 177/89; PULSE 64; RESP 16; O2SAT 98
[2020-08-28 12:07] LABS: MRSA Nasal PCR NEGATIVE (Negative); SA Nasal PCR POSITIVE (Negative)
--- NOTE | 2020-08-30 09:09 | P.CONAN_ITS ---
HPI - Anesthesia Eval Consult details Narrative: 09/02/20: Pt found to be in afib RVR in preop. Cx'd DOS. Needs cardiac clearance. OK for D/C home with f/u oupt per Dr Mckeon. 60yo M for Left Knee Replacement Total s/p R TKA with Spinal and block 05/2020 without issue PCP cleared [facility] Active Problems Active Problems: All Active Problems (Updated 08/21/20 @ 11:04 by Juanita Toro) Right knee pain (Acute) Encounter for screening for malignant neoplasm of colon (Acute) Postprandial diarrhea (Acute) Primary osteoarthritis of left knee (Acute) Primary osteoarthritis of right knee (Acute) History of colon polyps (Acute) Pre-op evaluation (Acute) Partial small bowel obstruction (Acute) Status post total right knee replacement (Acute) Fatty liver (Acute) Hypertension (Acute) Past Medical History Medical History CKD (chronic kidney disease), stage III COVID-19 vaccine series completed Fatty liver History of duodenal ulcer Hypertension Osteoarthritis of both knees Family History Family History Father No problems noted. Mother No problems noted. Family history of problems with anesthesia: No Surgical History Surgical History H/O colonoscopy History of exploratory laparotomy (~01/28/19) History of hand surgery History of total right knee replacement S/P exploratory laparotomy (~06/27/19) History of Problems with Anesthesia: No Social History Social History Household Members: Spouse Housing: House Are you a primary career and guidance counselor to a significant other at home: No Do you presently have visiting nurse or other home services: No Alcohol intake: current Alcohol intake frequency: holidays/special occasions only Alcohol type: beer Patient Tobacco Use Status: Former Tobacco user Quit Date: 2014 Tobacco use type: Cigarette Years Smoked: 20 e-Cigarette/Vaping Use: Never Used Second Hand Smoke Exposure: No Use of substances other than those prescribed or required for medical reasons: No Have you been hit, kicked, punched, or otherwise hurt by someone within the past year? 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 Allergies Allergy/AdvReac Type Severity Reaction Status Date / Time No Known Allergies Allergy Verified 09/02/20 11:12 Home Medications Medication Instructions Recorded Confirmed Last Taken Type diclofenac sodium 75 mg 75 mg PO BID 08/28/20 09/02/20 Unknown History tablet,delayed release Exam Exam Date and Time: August 30, 2020 0909 Height,Weight and Vital Signs: Height 5 ft 7 in Weight 86.636 kg Last Vital Signs Pulse 64 08/28/20 09:54 Resp 16 08/28/20 09:54 BP 177/89 H 08/28/20 09:54 Pulse Ox 98 08/28/20 09:54 Pertinent Lab Results Pertinent Lab Results: Laboratory Tests 08/28/20 08/28/20 10:15 10:55 Nasal Screen MRSA (PCR) NEGATIVE Nasal S. aureus Screen POSITIVE A Nasal MRSA/S.aureus Interp SEE NOTE Blood Type A Positive Antibody Screen NEGATIVE Laboratory Tests 08/14/20 08/14/20 08:15 08:15 WBC 7.1 Hgb 14.4 D Hct 42.9 D Plt Count 237 D Sodium 138 Potassium 4.4 Chloride 104 Carbon Dioxide 24 BUN 17 H Creatinine 0.94 Narrative Narrative: EKG 04/2020 NSR @ 72 Short MN PACs Assessment and Plan Assessment Anesthesia Assessment: Chart Reviewed
--- NOTE | 2020-09-02 07:27 | MHC.SHP ---
Pre-Procedural Eval Section A Date of Service: 09/02/20 Changes since office visit: No Cold of Flu in the past 2 weeks, No New Medical Problems, No Changes in Medication and No Patient answered all questions The History & Physical has been completed within 30 days and I have reviewed it.: Yes Section B Chief Complaint: Left Knee Oseteoarthrits Allergies: Allergies Allergy/AdvReac Type Severity Reaction Status Date / Time No Known Allergies Allergy Verified 08/28/20 11:08 Plan I have reviewed the history and physical and performed a pertinent physical examination on my patient. No changes have occurred unless specified.
--- NOTE | 2020-09-02 08:31 | ECG_ITS ---
Test Reason : ARRHYTHMIA Blood Pressure : / mmHG Vent. Rate : 116 BPM Atrial Rate : 136 BPM P-R Int : 000 ms QRS Dur : 076 ms QT Int : 280 ms P-R-T Axes : 000 057 006 degrees QTc Int : 389 ms Atrial fibrillation with rapid ventricular response with premature ventricular or aberrantly conducted complexes Abnormal ECG When compared with ECG of 28-JAN-2019 00:44, Afib present now Non-specific change in ST segment in Inferior leads Referred By: Aaron Patel Electronically Signed By:Margarito Fofana
[2020-09-02 08:36] VITALS: BP 145/85; PULSE 135; RESP 18; TEMP 36.4; O2SAT 96
--- NOTE | 2020-09-02 08:52 | PC.NURSE ---
Patient brought into [facility] for surgical prep. Patient put on monitor and abnormal rhythm found. Anesthesia Saviri at bedside and verbal order for EKG put in. Anesthesia Litzy Notified. EKG completed by cardiology at bedside. Afib with RVR found. Litzy at bedside to let patient know case to be cancelled for today until evaluated for cardiology. Per Dr Mcghee patient to follow up with primary care doctor, does not need to go to ER.
[2020-09-02 21:23] LABS: COVID-19 Test Negative (Negative)
== END 2020-09-04 00:01 | disposition home or self-care (01) ==
LOC: HO.LAB
PROVIDERS: Physician Assistant; PCP Nurse Practitioner Family; Visit Provider Orthopaedic Surgery
DX: Z01.818 Encounter for other preprocedural examination (principal); M17.0 Bilateral primary osteoarthritis of knee; I48.91 Unspecified atrial fibrillation; I49.3 Ventricular premature depolarization; I12.9 Hypertensive chronic kidney disease with stage 1 through stage 4 chronic kidney disease, or unspecified chronic kidney disease; N18.30 Chronic kidney disease, stage 3 unspecified; R94.31 Abnormal electrocardiogram [ECG] [EKG]; Z87.891 Personal history of nicotine dependence; Z20.822 Contact with and (suspected) exposure to COVID-19; Z96.651 Presence of right artificial knee joint
CPT/HCPCS: 36415; 86850; 86900; 86901; 87635; 87640; 87641; 93005; J0690

== ENCOUNTER → 2020-09-18 11:04 | Outpatient (BNVA) | payer OTHER, SELFPAY | PROVIDERS: PCP Nurse Practitioner Family; Visit Provider Internal Medicine Cardiovascular Disease | DX: Z01.810 Encounter for preprocedural cardiovascular examination (principal); I48.91 Unspecified atrial fibrillation; I42.9 Cardiomyopathy, unspecified; I10 Essential (primary) hypertension; Z79.899 Other long term (current) drug therapy | CPT/HCPCS: 93005 ==

== ENCOUNTER 2020-09-25 06:14 | Outpatient (REF) | payer OTHER, SELFPAY ==
[2020-09-25 09:06] LABS: Glucose Urine UA NEG (NEG); Leukocyte Esterase Urine NEG (NEG); Nitrite Urine NEG (NEG); Specific Gravity - Urine 1.025 (1.005-1.025); Urine Blood NEG (NEG); Urine Ketones NEG (NEG); Urine Protein NEG (NEG-TRACE)
[2020-09-25 09:07] LABS: Appearance Urine CLEAR; Color Urine YELLOW
[2020-09-25 09:50] LABS: Alanine Aminotransferase 104 U/L (0-40); Albumin Level 4.6 g/dL (3.5-5.0); Alkaline Phosphatase 84 U/L (39-117); Anion Gap 17 (12-20); Aspartate Amino Transferase 44 U/L (5-37); Bilirubin Total 0.6 mg/dL (0.0-1.0); Blood Urea Nitrogen 13 mg/dL (9-16); Calcium 9.6 mg/dL (8.4-10.2); Carbon Dioxide 24 mmol/L (22-29); Chloride 104 mmol/L (96-108); Cholesterol 187 mg/dL; Estimated Glomerular Filt Rate > 60; Glucose Fasting 101 mg/dL (60-99); HDL Cholesterol 44 mg/dL; LDL Cholesterol Calculated 109 mg/dl; Potassium 4.6 mmol/L (3.3-5.1); Sodium 140 mmol/L (135-145); Total Protein 7.4 g/dL (6.5-8.0); Triglycerides 174 mg/dL
[2020-09-25 10:08] LABS: Prostate Specific Antigen Scr 1.74 ng/mL (<0.05-4.0); TSH reflex Free T4 1.04 uIU/mL (0.32-4.0)
== END 2020-09-25 06:15 | disposition home or self-care (01) ==
LOC: HO.LAB 06:14
PROVIDERS: PCP Nurse Practitioner Family; Visit Provider Nurse Practitioner Family
DX: Z00.00 Encounter for general adult medical examination without abnormal findings (principal); Z12.5 Encounter for screening for malignant neoplasm of prostate
CPT/HCPCS: 36415; 80053; 80061; 81003; 84153; 84443

== ENCOUNTER 2020-09-30 07:59 | Day surgery (SDC) | payer OTHER, SELFPAY ==
[2020-09-24 15:07] VITALS: BMI 31.1
--- NOTE | 2020-09-27 08:13 | P.CONAN_ITS ---
HPI - Anesthesia Eval Consult details Narrative: 09/02/20: Pt found to be in afib RVR in preop. Cx'd DOS. Needs cardiac clearance. OK for D/C home with f/u oupt per Dr Mckeon. Pt seen by Dr Fofana 09/18/20. Cleared at intermediate risk. No anticoag needed. 60yo M for Left Knee Replacement Total s/p R TKA with Spinal and block 05/2020 without issue PCP cleared PMFSH Active Problems Active Problems: All Active Problems (Updated 09/25/20 @ 10:21 by Ab Gaming, [facility]) Elevated liver enzymes (Acute) Screening PSA (prostate specific antigen) (Acute) Physical exam (Acute) New onset a-fib (Acute) Right knee pain (Acute) Encounter for screening for malignant neoplasm of colon (Acute) Postprandial diarrhea (Acute) Primary osteoarthritis of left knee (Acute) Primary osteoarthritis of right knee (Acute) History of colon polyps (Acute) Pre-op evaluation (Acute) Partial small bowel obstruction (Acute) Status post total right knee replacement (Acute) Fatty liver (Acute) Hypertension (Acute) Past Medical History Medical History CKD (chronic kidney disease), stage III COVID-19 vaccine series completed Fatty liver History of duodenal ulcer Hypertension New onset a-fib Osteoarthritis of both knees Family History Family History Father No problems noted. Mother No problems noted. Family history of problems with anesthesia: No Surgical History Surgical History H/O colonoscopy History of exploratory laparotomy (~01/28/19) History of hand surgery History of total right knee replacement S/P exploratory laparotomy (~06/27/19) History of Problems with Anesthesia: No Social History Social History Household Members: Spouse Housing: House Are you a primary career discovery teacher to a significant other at home: No Do you presently have visiting nurse or other home services: No Alcohol intake: current Alcohol intake frequency: holidays/special occasions only Alcohol type: beer Patient Tobacco Use Status: Former Tobacco user Quit Date: 6 -7 yrs ago Tobacco use type: Cigarette Years Smoked: 20 e-Cigarette/Vaping Use: Never Used Second Hand Smoke Exposure: No Use of substances other than those prescribed or required for medical reasons: No Are you DNR?: No Advance Directives: Yes Advance Directives on File: Yes Advance Directives Date on File: 05/14/20 service: No Current occupational status: employed 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 08/28/20 08/28/20 ? 10:15 10:55 Nasal Screen MRSA (PCR) ?NEGATIVE ? Nasal S. aureus Screen ?POSITIVE A ? Nasal MRSA/S.aureus Interp ?SEE NOTE ? Blood Type ? ?A Positive Antibody Screen ? ?NEGATIVE Laboratory Tests ? 08/14/20 08/14/20 ? 08:15 08:15 WBC ?7.1 ? Hgb ?14.4? D ? Hct ?42.9? D ? Plt Count ?237? D ? Sodium ? ?138 Potassium ? ?4.4 Chloride ? ?104 Carbon Dioxide ? ?24 BUN ? ?17 H Creatinine ? ?0.94 Narrative Narrative: EKG 04/2020 NSR @ 72 Short MT PACs Assessment and Plan Assessment Anesthesia Assessment: Chart Reviewed Final Anesthetic Review Family History of Problems with Anesthesia: No History of Problems with Anesthesia: No
[2020-09-30] VITALS (11 sets, daily range): BP systolic 100–190; BP diastolic 56–97; PULSE 52–76; RESP 16–20; TEMP 35.8–36.9; O2SAT 96–99
--- NOTE | ~2020-09-30 | XR_ITS ---
EXAMINATION: XR KNEE, LEFT CLINICAL INFORMATION: Postop. COMPARISON: Standing AP knees and left knee 04/03/2020 TECHNIQUE: Portable AP and portable cross-table lateral projections of the left knee are obtained. FINDINGS: There has been total left knee arthroplasty. Hardware is intact and in normal alignment. There is no acute fracture or dislocation or destructive process. Overlying skin hannah are present. There is effusion and some subcutaneous emphysema, as expected. XR/XR knee LT 2V IMPRESSION: Status post left total knee arthroplasty.
--- NOTE | 2020-09-30 07:38 | MHC.SHP ---
Pre-Procedural Eval Section A Date of Service: 09/30/20 The patient is an INPATIENT: No The History & Physical has been completed within 30 days and I have reviewed it.: Yes Section B Chief Complaint: osteoarthritis Allergies: Allergies Allergy/AdvReac Type Severity Reaction Status Date / Time No Known Allergies Allergy Verified 09/18/20 11:18 Plan I have reviewed the history and physical and performed a pertinent physical examination on my patient. No changes have occurred unless specified.
--- NOTE | 2020-09-30 08:32 | P.CONAN_ITS ---
[facility] Active Problems Active Problems: All Active Problems (Updated 09/27/20 @ 08:15 by Desire davila) New onset a-fib (Acute) Elevated liver enzymes (Acute) Screening PSA (prostate specific antigen) (Acute) Physical exam (Acute) Right knee pain (Acute) Encounter for screening for malignant neoplasm of colon (Acute) Postprandial diarrhea (Acute) Primary osteoarthritis of left knee (Acute) Primary osteoarthritis of right knee (Acute) History of colon polyps (Acute) Pre-op evaluation (Acute) Partial small bowel obstruction (Acute) Status post total right knee replacement (Acute) Fatty liver (Acute) Hypertension (Acute) Past Medical History Medical History CKD (chronic kidney disease), stage III COVID-19 vaccine series completed Fatty liver History of duodenal ulcer Hypertension New onset a-fib Osteoarthritis of both knees Family History Family History Father No problems noted. Mother No problems noted. Family history of problems with anesthesia: No Surgical History Surgical History H/O colonoscopy History of exploratory laparotomy (~01/28/19) History of hand surgery History of total right knee replacement S/P exploratory laparotomy (~06/27/19) History of Problems with Anesthesia: No Social History Social History Household Members: Spouse Housing: House Are you a primary patient care technician to a significant other at home: No Do you presently have visiting nurse or other home services: No Alcohol intake: current Alcohol intake frequency: holidays/special occasions only Alcohol type: beer Patient Tobacco Use Status: Former Tobacco user Quit Date: 2014 Tobacco use type: Cigarette Years Smoked: 20 e-Cigarette/Vaping Use: Never Used Second Hand Smoke Exposure: No Advance Directives: Yes Advance Directives on File: Yes Advance Directives Date on File: 05/14/20 service: No Current occupational status: employed 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 Allergies Allergy/AdvReac Type Severity Reaction Status Date / Time No Known Allergies Allergy Verified 09/30/20 07:59 Active Medications: Current Medications Generic Name Dose Route Start Last Admin Trade Name Freq PRN Reason Stop Dose Admin Lactated Ringer's 1,000 mls @ 80 mls/hr 09/30/20 08:00 Lr IVCONT .[id number] LINO Exam Exam Date and Time: September 30, 2020 0832 Height,Weight and Vital Signs: Height 5 ft 7 in Weight 90.265 kg Pertinent Lab Results Pertinent Lab Results: Laboratory Tests 09/25/20 06:30 Blood Type A Positive Antibody Screen NEGATIVE Airway Mallampati Class: III TM Dist: >3cm Neck ROM: Full Denture: Upper and Lower Assessment and Plan Final Anesthetic Review Family History of Problems with Anesthesia: No History of Problems with Anesthesia: No
[2020-09-30 08:35] LABS: COVID-19 Test Negative (Negative)
[2020-09-30] MEDS: Lactated Ringers 1,000 ML 80 ML IVCONT ×2 (08:54→20:23)
--- NOTE | 2020-09-30 11:15 | P.OP_ITS ---
Operative Note Operative Note Date of Service: 09/30/20 Narrative: SURGEON: Dr Corina Diego) Ely MADERA RADIO COMMUNICATION COORDINATOR: Pernell CAMACHO PREOP DIAGNOSIS: Osteoarthritis left knee POSTOP DIAGNOSIS: Same OPERATIVE PROCEDURE: Left Total knee arthroplasty - DASHAWN NEXGEN CRFlex size F left 5 x 10 mmtibial component, 35 mm patella component CLINICAL NOTE: This individual comes in today in regards to their knee. Has osteoarthritis. Has failed non operative management. Therefore after explaining the risks benefits and alternatives and answering all the questions it was mutually agreed upon care following procedure OPERATIVE DETAILS With of regional and spinal anesthetic the patient was placed supine on the operating table. Pneumatic tourniquet cuff was placed around the upper thigh and inflated to 300 mm of mercury at the beginning of the case. The leg was then prepped and draped in standard fashion with the leg free. Surgical time-out was then performed. The patient was identified. Procedure confirmed. Site confirmed. Medical and allergy history reviewed. Preoperative antibiotics were given. Standard DVT prophylaxis in place. Transexamic acid was given as well. All other items were discussed and agreed upon. Standard small midline incision was made. Was taken down through the watkins bcutaneous tissues. Hemostasis achieved along the way using electrocautery. This brought us to the extensor mechanism where a medial parapatellar arthrotomy in a subvastus technique was performed. The patella was retracted into the lateral gutter. The soft tissues were elevated from the anterior aspect of the femur. At the level of the tibia the soft tissue elevated medially excising a portion of the meniscus as well as protecting the medial-sided soft tissues. Similarly on the lateral side a portion of the fat pad, portion of the meniscus were excised. The lateral-sided soft tissues were elevated protecting them as well. The ACL was resected. We turned our attention then to the femur. Standard Intermedullary hole was established. The cutting guide was set for 5 degrees of valgus with a standard cut. It was held in place with pins and the surface resected flat. The sizing guide was then used. The femur was sized to a size F. The 3 degree external rotation pins were set. The all in 1 cutting guide for this size was placed the pins and centered over the distal cut. Following this the anterior and anterior chamfer cuts, the posterior and posterior chamfer cuts, the patellar recess cuts, as well as the lug holes were made. The guide was removed. The bony fragments removed and we turned our attention to the tibia. The remainder of the medial and lateral menisci were excised. The extramedullary guide was then used in standard fashion referencing the tibial tubercle, the subcutaneous border of the tibia, and the middle of the ankle. The slope was then set. The cut was referenced from the more worn size for a minimal cut. The surface was then resected. The bony segment removed. The tibia was then trialed to a size 5. It was aligned as the extramedullary guide had been. A 10 mm trial insert was put into place. The femoral trial was also applied with good fit. The alignment of the leg was excellent. The knee was then placed through a range of motion which demonstrated full extension full flexion stable medially and laterally at 0, 30, 60, and 90 degrees of flexion. Patella tracked centrally. Turning our attention to the patella. The soft tissues were elevated circumferentially. The surface was resected flat. It sized to 35 mm . the lug hole was drilled in standard fashion. The trial component was put into place with excellent fit. It tracked nicely through flexion and extension. Therefore the trial sizes were appropriate and therefore the permanent components were selected and brought up onto the table. The trial components were then all removed after the peg holes for the tibia were made. The tourniquet was then let down with total tourniquet time of 49 minutes. The area of the lateral geniculate artery was identified and cauterized. Any excessive bleeding points were also cauterized. The knee was then thoroughly irrigated. The permanent components were brought up onto the table. The tibia followed by the femur followed by the patella were all Press- Fit into place. The knee was placed through range of motion. It had full flexion and extension. It was stable medial and laterally in all positions. Patella tracked centrally. And therefore we proceeded to closure. Wound was thoroughly irrigated. The extensor mechanism was closed with #2 Quill suture. The skin was approximated with 2-0 Polysorb suture. The skin was closed with hannah. Sterile dressing was then applied. The patient was then transferred supine to the room bed and taken to the recovery room in good condition. Intraoperatively a 2nd unit a transxemic acid was given at the time of closure. There was approximately 50 cc of blood loss. No intraop transfusions or complications. .
[2020-09-30] MEDS: oxyCODONE HCl Immed Release 5 MG TABLET 10 MG PO ×2 (12:31→18:32)
[2020-09-30] MEDS: Acetaminophen 325 MG TABLET 650 MG PO ×2 (12:31→18:33)
--- NOTE | 2020-09-30 13:17 | MHC.CM.PN ---
CM MET WITH PT WHO REPORTS HE LIVES AT HOME WITH HIS AND IS INDEPENDENT WITH CARE AT BASELINE. PT REPORTS HE DOES NOT USE DME AND DOES NOT HAVE IN HOME SERVICES. PT CONFIRMS HE SEES [facility] FOR PRIMARY CARE. PT DOES NOT HAVE A HCP AND DECLINES TO COMPLETE ONE TODAY. PT IS INTERESTED IN HAVING [facility] AT [place] AND HOPES THAT HE GETS THE SAME THERAPIST, ELENI Brito, HE FELT SHE DID A GREAT JOB. REFERRAL PLACED TO [facility] PER PT STATED PREFERENCE. CURRENT DC PLAN IS HOME WITH [facility] PTS TO TRANSPORT
--- NOTE | 2020-09-30 16:11 | PM.IMCN ---
History of Present Illness Data of Consult Service Date: 09/30/20 <Malu Rios NP - Last Filed: 09/30/20 16:25> Requesting physician: Corina Graves <Malu Rios NP - Last Filed: 09/30/20 16:25> Primary Care Provider: HAILEY Armstrong <Malu Rios NP - Last Filed: 09/30/20 16:25> HPI Reason for consult: medical management <Malu Rios NP - Last Filed: 09/30/20 16:25> 60-year-old man admitted by Orthopedic surgery and status post left total knee arthroplasty. Surgery was unremarkable, vital signs are stable, patient has no acute medical complaints at this time. He is currently resting in bed comfortably with very minimal amount of pain. <Malu Rios NP - Last Filed: 09/30/20 16:25> Review of Systems Review of Systems: Denies any recent fever chills or decrease in appetite respiratory denies any shortness of breath coverage production cardiovascular He denies chest pain gastrointestinal denies any dysphagia abdominal pain nausea vomiting or diarrhea genitourinary denies any dysuria frequency or hematuria musculoskeletal left knee joint pain neuropsych denies any weakness or seizures all other systems reviewed are negative <Malu Rios NP - Last Filed: 09/30/20 16:25> [facility] Medical History: Medical History CKD (chronic kidney disease), stage III COVID-19 vaccine series completed Fatty liver History of duodenal ulcer Hypertension New onset a-fib Osteoarthritis of both knees <Malu Rios NP - Last Filed: 09/30/20 16:25> Family History: Family History Father No problems noted. Mother No problems noted. <Malu Rios NP - Last Filed: 09/30/20 16:25> Surgical History: Surgical History H/O colonoscopy History of exploratory laparotomy (~01/28/19) History of hand surgery History of total right knee replacement S/P exploratory laparotomy (~06/27/19) <Malu Rios NP - Last Filed: 09/30/20 16:25> Social History: Social History Household Members: Spouse Housing: House Are you a primary home health care coordinator to a significant other at home: No Do you presently have visiting nurse or other home services: No Alcohol intake: current Alcohol intake frequency: holidays/special occasions only Alcohol type: beer Patient Tobacco Use Status: Former Tobacco user Quit Date: 6 -7 yrs ago Tobacco use type: Cigarette Years Smoked: 20 e-Cigarette/Vaping Use: Never Used Second Hand Smoke Exposure: No Advance Directives Date on File: 05/14/20 service: No Current occupational status: employed 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 <Malu Rios NP - Last Filed: 09/30/20 16:25> Meds Allergies/Adverse reactions: Allergies Allergy/AdvReac Type Severity Reaction Status Date / Time No Known Allergies Allergy Verified 09/30/20 07:59 <Malu Rios NP - Last Filed: 09/30/20 16:25> Active Medications: Current Medications Generic Name Dose Route Start Last Admin Trade Name Freq PRN Reason Stop Dose Admin Acetaminophen 650 mg 09/30/20 11:36 09/30/20 12:31 Acetaminophen 325 Mg Tablet PO 650 mg Q6H LINO Administration Lactated Ringer's 1,000 mls @ 80 mls/hr 09/30/20 08:00 09/30/20 11:45 Lr IVCONT Infused .[id number] LINO Infusion Cefazolin Sodium 2 gm/ Sodium 50 mls @ 100 mls/hr 09/30/20 16:00 Chloride IV 09/30/20 16:29 POSTOP ONE Morphine Sulfate 3 mg 09/30/20 11:36 Morphine Sulfate 4 Mg/Ml Cartridge IVPUSH Q2H PRN Pain, Severe (Pain Scale 7-10) Naloxone HCl 0.2 mg 09/30/20 11:36 Naloxone Hcl 0.4 Mg/Ml Vial IVPUSH Q2M PRN Excessive sedation or RR < 8 Ondansetron HCl 4 mg 09/30/20 11:36 Ondansetron Hcl 4 Mg/2 Ml Vial IVPUSH Q8H PRN Nausea and Vomiting Oxycodone HCl 10 mg 09/30/20 12:00 09/30/20 12:31 Oxycodone Hcl Immed Release 5 Mg Tablet PO 10 mg Q6H ILNO Administration Sodium Chloride 3 ml 09/30/20 16:00 0.9 % Sodium Chloride Flush 3 Ml Syringe IVFLUSH QSHIFT LINO <Malu Rios NP - Last Filed: 09/30/20 16:25> Physical Exam Vital Signs and Narrative: Vital Signs: Last Vital Signs Temp 96.9 F 09/30/20 15:54 Pulse 63 09/30/20 15:54 Resp 18 09/30/20 15:54 BP 160/77 H 09/30/20 15:54 Pulse Ox 96 09/30/20 15:54 Body Mass Index 31.1 <Malu Rios NP - Last Filed: 09/30/20 16:25> Appearing in no acute distress head is normocephalic atraumatic eyes pupils are PERRLA sclera is anicteric mouth throat mucous membranes are intact and moist neck is supple no lymphadenopathy, no JVD noted lung sounds are clear to auscultation heart regular rate rhythm, clear S1, S2 positive bowel sounds, abdomen is soft, nontender neuro patient is alert x3, no focal deficits surgical dressing to left knee, wound not visualized <Malu Rios NP - Last Filed: 09/30/20 16:25> Results Labs CBC and Chem 7: : 10/01/20 07:13 <Malu Rios NP - Last Filed: 09/30/20 16:25> Labs: Laboratory Results - last 24 hr 09/30/20 08:10 COVID-19 (VERO) Negative COVID-19 Clin Com See Note <Malu Rios NP - Last Filed: 09/30/20 16:25> Assessment and Plan (1) Hypertension: Status: Acute <Malu Rios NP - Last Filed: 09/30/20 16:25> 60-year-old man admitted by Orthopedic surgery and is status post left total knee arthroplasty. Left total knee arthroplasty. Management as per surgical team next and pain management Hypertension. Stable blood pressure. Continue lisinopril New onset Paroxysmal atrial fibrillation Developed in July Continue metoprolol On anticoagulation DVT prophylaxis with mechanical compression boots as per admitting provider Attending Dr. Shelton Full code <Malu Rios NP - Last Filed: 09/30/20 16:25>
[2020-09-30] MEDS: 0.9 % Sodium Chloride Flush 3 ML SYRINGE IVFLUSH (16:56)
[2020-10-01] VITALS (13 sets, daily range): BP systolic 114–175; BP diastolic 74–89; PULSE 66–100; RESP 16–20; TEMP 36–36.8; O2SAT 96–97
[2020-10-01] MEDS: Acetaminophen 325 MG TABLET 650 MG PO ×4 (00:21→18:15)
[2020-10-01] MEDS: oxyCODONE HCl Immed Release 5 MG TABLET 10 MG PO ×4 (00:22→18:15)
[2020-10-01] MEDS: Morphine Sulfate 4 MG/ML CARTRIDGE 3 MG IVPUSH ×2 (07:39→15:15)
[2020-10-01] MEDS: 0.9 % Sodium Chloride Flush 3 ML SYRINGE IVFLUSH ×2 (07:40→15:06)
[2020-10-01 07:44] LABS: Hemoglobin 12.2 g/dl (14.0-18.0)
--- NOTE | 2020-10-01 08:01 | PM.PNORT ---
Subjective Subjective Date of Service: 10/01/20 Interval history: POD1 s/p LTKA with Dr. Graves. No overnight events. Pain is well managed. No additional complints. Physical Exam Vital Signs: Vital Signs: Last Vital Signs Temp 98.1 F 10/01/20 07:52 Pulse 72 10/01/20 07:52 Resp 20 10/01/20 07:52 BP 155/82 H 10/01/20 07:52 Pulse Ox 96 10/01/20 07:52 Body Mass Index 31.1 Const: General: cooperative, healthy appearing and no acute distress Resp: Effort & Inspection: normal respiratory effort and able to speak in complete sentences Cardio: Rate: regular rate Peripheral pulses: Peripheral pulses 2+ throughout GI: Palpation (GI): Soft to palpation Skin: Lesions: no lesions Rashes: no rashes Extrem: Other: Left knee no ecchymosis, redness, or drainage. Aquacel is clean. dry, and intact. NVI. Procedures Date of Service Date of Service: 10/01/20 Progress Note: A&P Assessment and plan (1) Status post total knee replacement, left: Status: Acute Assessment and Plan: Continue pain mgmnt Begin Lovenox for dvt ppx begin PT for LTKA Dispo planning-Pending PT eval, pain mgmnt Fall Risk Details Current Medications: Current Medications Generic Name Dose Route Start Last Admin Trade Name Freq PRN Reason Stop Dose Admin Acetaminophen 650 mg 09/30/20 11:36 10/01/20 05:51 Acetaminophen 325 Mg Tablet PO 650 mg Q6H LINO Administration Enoxaparin Sodium 40 mg 10/01/20 10:00 Enoxaparin Sodium 40 Mg/0.4 Ml Syringe SUBCUT Q24H LINO Lactated Ringer's 1,000 mls @ 80 mls/hr 09/30/20 08:00 09/30/20 20:23 Lr IVCONT 80 mls/hr .[id number] LINO Administration Morphine Sulfate 3 mg 09/30/20 11:36 10/01/20 07:39 Morphine Sulfate 4 Mg/Ml Cartridge IVPUSH 3 mg Q2H PRN Administration Pain, Severe (Pain Scale 7-10) Naloxone HCl 0.2 mg 09/30/20 11:36 Naloxone Hcl 0.4 Mg/Ml Vial IVPUSH Q2M PRN Excessive sedation or RR < 8 Ondansetron HCl 4 mg 09/30/20 11:36 Ondansetron Hcl 4 Mg/2 Ml Vial IVPUSH Q8H PRN Nausea and Vomiting Oxycodone HCl 10 mg 09/30/20 12:00 10/01/20 05:50 Oxycodone Hcl Immed Release 5 Mg Tablet PO 10 mg Q6H LINO Administration Sodium Chloride 3 ml 09/30/20 16:00 10/01/20 07:40 0.9 % Sodium Chloride Flush 3 Ml Syringe IVFLUSH 3 ml QSHIFT LINO Administration Time Spent With Patient Time: Total time spent is greater than 50% in coordination of care (as documented) at patient's floor/unit and/or counseling patient: Time with patient: less than 15 minutes Quality Stroke Does the patient have a stroke diagnosis?: No VTE Prior VTE?: No VTE Risk Level:: Surgical - high VTE Device Contraindication: N/A - Device Ordered VTE Drug Contraindication: N/A - Med Ordered
[2020-10-01] MEDS: Enoxaparin Sodium 40 MG/0.4 ML SYRINGE SUBCUT (08:44)
--- NOTE | 2020-10-01 11:13 | HO.POSTANES ---
Post Anesthesia Evaluation Post Anesthesia Evaluation Vital Signs: Vital Signs Temp Pulse Resp BP Pulse Ox 10/01/20 10:58 98.0 F 73 20 151/82 H 97 10/01/20 09:41 72 155/82 H 96 10/01/20 07:52 98.1 F 72 20 155/82 H 96 10/01/20 06:45 20 10/01/20 06:44 20 10/01/20 04:00 96.8 F 66 18 150/79 H 97 10/01/20 00:57 164/89 H 10/01/20 00:00 96.8 F 72 17 175/87 H 97 Anesthesia: Spinal and Nerve Block Mental Status: Awake Pain Control: Satisfactory Nausea/Vomiting: None Hydration: Adequate Anesthesia-Related Issues: No Anes. Related Issues
--- NOTE | 2020-10-01 13:49 | PM.IMPN ---
Progress Note: A&P (1) Hypertension: Status: Acute <Malu Rios NP - Last Filed: 10/01/20 14:35> Assessment and Plan: 60-year-old man admitted by Orthopedic surgery and is status post left total knee arthroplasty.? Left total knee arthroplasty.? Management as per surgical team pain management Hypertension.? Stable blood pressure, higher today.? Pain likely contributing to elevated BP Continue lisinopril New onset Paroxysmal atrial fibrillation Developed in July Continue metoprolol Not on anticoagulation DVT prophylaxis with Lovenox as per admitting provider Attending Dr. Shelton Full code Will sign off. Call if there are any medical needs <Malu Rios NP - Last Filed: 10/01/20 14:35> Subjective Subjective Date of Service: 10/01/20 <Malu Rios NP - Last Filed: 10/01/20 14:35> 10/01/20 <Kevyn Ch MD - Last Filed: 10/01/20 18:24> Interval History: Follow up consult LTKA Doing well, will sign off <Malu Rios NP - Last Filed: 10/01/20 14:35> Physical Exam Vital Signs: Vital Signs: Last Vital Signs Temp 98.0 F 10/01/20 10:58 Pulse 73 10/01/20 10:58 Resp 20 10/01/20 10:58 BP 151/82 H 10/01/20 10:58 Pulse Ox 97 10/01/20 10:58 Body Mass Index 31.1 <Malu Rios NP - Last Filed: 10/01/20 14:35> Appearing in no acute distress lung sounds are clear to auscultation heart regular rate rhythm, clear S1, S2 positive bowel sounds, abdomen is soft, nontender neuro patient is alert x3, no focal deficits Left knee dressing intact. Surgical dressing still intact, surgical wound visualized <Malu Rios NP - Last Filed: 10/01/20 14:35> Objective Data Current Medications Generic Name Dose Route Start Last Admin Trade Name Freq PRN Reason Stop Dose Admin Acetaminophen 650 mg 09/30/20 11:36 10/01/20 12:33 Acetaminophen 325 Mg Tablet PO 650 mg Q6H LINO Administration Enoxaparin Sodium 40 mg 10/01/20 10:00 10/01/20 08:44 Enoxaparin Sodium 40 Mg/0.4 Ml Syringe SUBCUT 40 mg Q24H LINO Administration Morphine Sulfate 3 mg 09/30/20 11:36 10/01/20 07:39 Morphine Sulfate 4 Mg/Ml Cartridge IVPUSH 3 mg Q2H PRN Administration Pain, Severe (Pain Scale 7-10) Naloxone HCl 0.2 mg 09/30/20 11:36 Naloxone Hcl 0.4 Mg/Ml Vial IVPUSH Q2M PRN Excessive sedation or RR < 8 Ondansetron HCl 4 mg 09/30/20 11:36 Ondansetron Hcl 4 Mg/2 Ml Vial IVPUSH Q8H PRN Nausea and Vomiting Oxycodone HCl 10 mg 09/30/20 12:00 10/01/20 12:34 Oxycodone Hcl Immed Release 5 Mg Tablet PO 10 mg Q6H LINO Administration Sodium Chloride 3 ml 09/30/20 16:00 10/01/20 07:40 0.9 % Sodium Chloride Flush 3 Ml Syringe IVFLUSH 3 ml QSHIFT LINO Administration <Malu Rios NP - Last Filed: 10/01/20 14:35> Labs CBC & Chem 7: : 10/01/20 07:13 <Malu Rios NP - Last Filed: 10/01/20 14:35> Quality Stroke Does the patient have a stroke diagnosis?: No <Malu Rios NP - Last Filed: 10/01/20 14:35> VTE Prior VTE?: No <Malu Rios NP - Last Filed: 10/01/20 14:35> VTE Risk Level:: Surgical - high <Malu Rios NP - Last Filed: 10/01/20 14:35> VTE Device Contraindication: N/A - Device Ordered <Malu Rios NP - Last Filed: 10/01/20 14:35> VTE Drug Contraindication: N/A - Med Ordered <Malu Rios NP - Last Filed: 10/01/20 14:35>
[2020-10-02] MEDS: Acetaminophen 325 MG TABLET 650 MG PO ×2 (00:10→06:22)
[2020-10-02] MEDS: oxyCODONE HCl Immed Release 5 MG TABLET 10 MG PO ×2 (00:11→06:22)
[2020-10-02] MEDS: 0.9 % Sodium Chloride Flush 3 ML SYRINGE IVFLUSH (00:12)
[2020-10-02 01:19] VITALS: RESP 18
[2020-10-02 03:16] VITALS: BP 119/73; PULSE 77; RESP 18; TEMP 36.6; O2SAT 96
--- NOTE | 2020-10-02 06:11 | P.F2F_ITS ---
Service Date Service Date: 10/02/20 Encounter Date of encounter: 10/02/20 Reasons for Services Reason for retirement: medication management and medication treatment Reason for physical therapy: home safety and mobility, therapeutic exercises, restore joint function, gait/transfer training, ADL training and energy conservation Reason for occupational therapy: home safety and mobility, therapeutic exercises, restore joint function, gait/transfer training, ADL training and energy conservation Overseeing Care: Corina Graves Homebound: Leaving the home is medically contraindicated at this time without the asist of a device and/or another person due th the listed conditions above and below. Reason homebound: unsteady gait / fall risk, leg weakness, pain with ambulation, pain with transfers, poor balance / fall risk and unable to drive Homebound supporting statement: Pt. is considered home bound due to recent surgery. Unable to drive, poor balance, poor gait mechanics. Certification: Based on the above findings, I certify that this patient is confined to the home and needs intermittent retirement care, physical therapy and/or speech therapy, or continues to need occupational therapy. The patient is under my care, and I have initiated the establishment of the plan of care. The patient will be followed by a physician who will periodically review the plan of care.
--- NOTE | 2020-10-02 06:12 | P.DS_ITS ---
DS: Providers Provider Date of Service: 10/02/20 Primary care physician: AXEL ArmstrongP- Consults: 09/30/20 11:36 Consult to Hospitalist Routine Consulting Provider: Hospitalist Reason For Exam: medical issues DS: Medications Discharge Medications Home Medications: Previous Rx's Medication Instructions Recorded acetaminophen 325 mg tablet 650 mg PO Q6H PRN 30 Days #240 tab 05/29/20 lisinopril 20 mg tablet 20 mg PO DAILY 90 Days #90 tab 08/14/20 metoprolol succinate 25 mg 25 mg PO DAILY #30 tab 09/18/20 tablet,extended release 24 hr (Toprol XL) DS: Summary Hospital Course Hospital Course: The patient underwent a successful arthroplasty, was transferred to PACU and then to the floor to recover. During their stay, their vitals were stable, afebrile at 98.3. Labs were unremarkable, H/H 11.9/34.7 . POD 1 he was started on Lovenox for DVT ppx, they also received services twice a day. Prior to discharge, their dressing was change, incision clean dry and intact, new Aquacel dressing applied and the plan was to be discharged home with VNA services Time Spent with Patient Time attestation: Total time spent providing and/or coordinating discharge services: Discharge coordination time: Less than 30 minutes Quality: Stroke Does the patient have a stroke diagnosis?: No Physical Exam Vital Signs: Vital Signs: Last Vital Signs Temp 97.9 F 10/02/20 03:16 Pulse 77 10/02/20 03:16 Resp 18 10/02/20 03:16 BP 119/73 10/02/20 03:16 Pulse Ox 96 10/02/20 03:16 Body Mass Index 31.1 Const: General: cooperative, healthy appearing and no acute distress Resp: Effort & Inspection: normal respiratory effort and able to speak in complete sentences Cardio: Rate: regular rate Peripheral pulses: Peripheral pulses 2+ throughout GI: Palpation (GI): Soft to palpation Skin: General skin exam: no rashes or lesions noted Extrem: Other: incision clean dry and intact. Cataldo intact. No erythema or joint effusion. Calf supple nontender. Neurovascularly intact. DS: Data Data Completed and Pending Pending studies at discharge: Pending at discharge 09/30/20 10:49 Surgical [PTH] Routine Labs on day of discharge: Laboratory Results - last 24 hr 10/01/20 07:13 Hgb 12.2 L D Hct 36.0 L Discharge Plan Discharge Patient Disposition: Home Health Service Referrals: Lakia WHITAKER [Outside] - 1 Day ([facility], HOME OT/PT ) Pernell Funes PA-C [Physician Ornamental Metal Fabricator Apprentice] - 2 Weeks (10/17/20 1:00 [facility] Pernell Funes PA-C) Discharge Medications: New oxycodone 10 mg tablet 10 mg PO Q6H 7 Days Qty: 28 RF: 0 acetaminophen 325 mg Tablet 650 mg PO Q6H 30 Days Qty: 240 RF: 0 enoxaparin 40 mg/0.4 mL Syringe 40 mg subcut Q24H 14 Days Qty: 5.6 RF: 0 Continued lisinopril 20 mg tablet 20 mg PO DAILY 90 Days Qty: 90 RF: 0 metoprolol succinate [Toprol XL] 25 mg tablet extended release 24 hr 25 mg PO DAILY Qty: 30 RF: 3 Discontinued acetaminophen 325 mg Tablet 650 mg PO Q6H PRN (Reason: pain) 30 Days Qty: 240 RF: 0 Discharge Orders: Discharge Order (Routine); Ordered 10/02/20 Ordered By: Pernell Funes Activity Restrictions/Additional Instructions: * Physical Therapy for Total knee arthroplasty: gait training, ROM 0-12, quad strength * Limit stair climbing * No showering, no tub bath-keep dressing clean, dry and intact * No driving x6 weeks * Continue Lovenox x 2 weeks * Follow up with [facility] Orth[facility]ics in 2 weeks Discharge Date/Time: 10/02/20 10:04
[2020-10-02 06:49] LABS: Hematocrit 34.7 % (42-52); Hemoglobin 11.9 g/dl (14.0-18.0)
[2020-10-02 07:43] VITALS: BP 142/93; PULSE 88; RESP 16; TEMP 36.8; O2SAT 98
[2020-10-02] MEDS: Enoxaparin Sodium 40 MG/0.4 ML SYRINGE SUBCUT (08:46)
[2020-10-02] MEDS: Morphine Sulfate 4 MG/ML CARTRIDGE 3 MG IVPUSH (08:46)
[2020-10-02 09:59] VITALS: BP 142/93; PULSE 88; O2SAT 98
--- NOTE | 2020-10-02 10:05 | PC.NURSE ---
pt discharged home with . iv was removed instruction understood. pt agrees with dischavrge plan
--- NOTE | 2020-10-02 10:18 | MHC.CM.PN ---
PT DISCHARGED HOME W/[facility] FOR SN, HOME OT/PT, FAMILY FOR TRANSPORT. PT DISCHARGING ON LOVENOX X 14 DAYS AND FOLLOW-UP W/SURGICAL IN 14 DAYS.
== END 2020-10-02 10:04 | disposition home health service (06) ==
LOC: HO.SSS 08:00 → HO.S3 11:26
PROVIDERS: Physician Assistant; PCP Nurse Practitioner Family; Visit Provider Orthopaedic Surgery
PROC: (CPT 27447; principal; 2020-09-30 09:50)
DX: M17.12 Unilateral primary osteoarthritis, left knee (principal); Z96.651 Presence of right artificial knee joint; I12.9 Hypertensive chronic kidney disease with stage 1 through stage 4 chronic kidney disease, or unspecified chronic kidney disease; N18.30 Chronic kidney disease, stage 3 unspecified; I48.91 Unspecified atrial fibrillation; Z79.899 Other long term (current) drug therapy; Z87.891 Personal history of nicotine dependence; Z20.822 Contact with and (suspected) exposure to COVID-19
CPT/HCPCS: 27447; 36415; 73560; 85014; 85018; 86850; 86900; 86901; 87635; 88305; 88311; 97110; 97116; 97162; 97165; C1776; J0690; J1100; J1650; J1885; J2250; J2270; J2405

== ENCOUNTER → 2020-10-16 08:14 | Outpatient (BNVA) | payer OTHER, SELFPAY | PROVIDERS: Visit Provider Orthopaedic Surgery ==

== ENCOUNTER 2020-10-17 08:10 | Outpatient (REF) | payer OTHER, SELFPAY ==
[2020-10-18 05:08] LABS: HBc Num1 0.12 S/CO (0.00-0.79); HBsAGNum1 0.16 S/CO (0.00-0.99); Hepatitis A Antibody IgM 0.15 Index (0-0.79); Hepatitis B Core Antibody Nonreactive (Nonreactive); Hepatitis B Surface Antigen Negative (Negative); ~HepC Num1 0.14 S/CO (0.00-0.79); ~Hepatitis A Antibody IgM Nonreactive (Nonreactive); ~Hepatitis C Antibody Nonreactive (Nonreactive)
[2020-10-18 05:14] LABS: ~Hepatitis B Surface Antibody NONREACTIVE (Nonreactive)
== END 2020-10-17 08:11 | disposition home or self-care (01) ==
LOC: HO.HMGCLDS 08:10
PROVIDERS: PCP Nurse Practitioner Family; Visit Provider Nurse Practitioner Family
DX: R74.8 Abnormal levels of other serum enzymes (principal)
CPT/HCPCS: 36415; 86704; 86706; 86709; 86803; 87340

== ENCOUNTER → 2020-10-30 08:28 | Outpatient (REF) | payer OTHER, SELFPAY ==
--- NOTE | 2020-10-30 08:31 | CA_ITS ---
Transthoracic Echocardiogram Patient (Last, First, Middle): Horacio Monzon S Gender: Male Date of : 1960 Age: 60 Procedure Date: 10/30/2020 Procedure Type: Transthoracic Echocardiogram Location: OP Height: 170.18 cm Weight: 88. kg BSA: 2.00 m2 Heart Rate: bpm BP: 138 / 78 mmHg Pharmaceutical Botanist: JASON Referring MD: Margarito Fofana MD Symptoms: I42.9 - Cardiomyopathy, unspecified Conclusions: - Normal left ventricular size and systolic function. - Normal right ventricular cavity size and systolic function. - There is no evidence of pericardial effusion. Findings Left Ventricle Normal left ventricular size and systolic function. There is mildly increased left ventricular wall thickness. The visually estimated ejection fraction is between 55-60%. There is no evidence of regional wall motion abnormalities. Diastolic function is indeterminate on the basis of available data. Right Ventricle Normal right ventricular cavity size and systolic function. Atria The left atrium is normal in size. Aortic Valve There is a normal trileaflet aortic valve. There is mild thickening of the aortic valve. There is no aortic valve stenosis. There is no aortic valve regurgitation. Mitral Valve The mitral valve appears normal. There is trace mitral valve regurgitation. There is no mitral valve stenosis. Pulmonic Valve The pulmonic valve is likely normal. Tricuspid Valve Normal tricuspid valve structure. There is trace tricuspid valve regurgitation. Normal right atrial pressure. There is no evidence of pulmonary hypertension. Great Vessels All visible segments of the aorta are normal in size. The visualized portions of the pulmonary artery and branches are normal. Venous The inferior vena cava is normal in size and collapses greater than 50% with inspiration. Pericardium/Pleural There is no evidence of pericardial effusion. Prior Study Comparison No prior study available for comparison. Measurements 2D Linear Measurements IVSd: 1.34 0.6-0.9/0.6-1.0 cm LVIDd: 4.68 3.9-5.3/4.2-5.9 cm LVIDd Index: 2.34 2.4-3.2/2.2-3.1 cm/m2 LVIDs: 3.43 2.0-3.6 cm LVPWd: 1.17 0.7-1.1 cm Ao Root: 3.10 2.1-3.5 cm LA Diam: 3.50 2.7-3.8/3.0-4.0 cm LAIDs Index: 1.75 1.5-2.3 cm/m2 LV Mass: 279.96 67-162/88-224 g LV Mass Index: 139.98 43-95/49-115 g/m2 LVOT Diam: 2.30 3.0+(-)1.3 cm 2D Systolic Function EF 4C: 47.70 >55% EF 2C: 60.20 >55% EF BiP: 55.80 >55% Mitral Valve MV Pk E: 0.89 MV Decel Time: 90.00 E'Lateral: 12.40 E'Medial: 8.69 E/E' Med: 10.30 E/E' Lat: 7.20 PHT: 27.00 MVA PHT: 8.15 Decel [place]: 12.24 Aortic Valve AoV Pk Obdulio: 1.56 AoV Pk Grad: 10.00 LVOT LVOT Pk Obdulio: 1.11 LVOT Mn Obdulio: 0.70 LVOT VTI: 0.18 LVOT Pk Grad: 5.00 LVOT Mn Grad: 2.00 LVOT Diam: 2.30 LVOT Area: 4.15 Diastolic Function MV Pk E: 0.89 E'Medial: 8.69 E/E' Med: 10.30 E' Laterial: 12.40 E/E' Lat: 7.20 Right Ventricle TAPSE (mm): 2.53 Tricuspid Valve TR Pk Obdulio: 2.10 TR Pk Grad: 18.00 RA Press: 3.00 RVSP: 21.00 Great Vessels Aorta Ao Root-2D: 3.10 2.0-3.7 cm Ao Asc: 3.20 2.1-3.4 cm Updated in Other Vendor System with Status of Final Margarito Fofana MD electronically signed on 10/31/2020 8:11:41 PM with status of Final
== END ==
LOC: HO.CARD 08:28
PROVIDERS: PCP Nurse Practitioner Family; Visit Provider Internal Medicine Cardiovascular Disease
DX: I42.9 Cardiomyopathy, unspecified (principal); I48.91 Unspecified atrial fibrillation
CPT/HCPCS: 93306

== ENCOUNTER → 2020-11-13 08:22 | Outpatient (BNVA) | payer OTHER, SELFPAY | PROVIDERS: Visit Provider Physician Assistant ==

== ENCOUNTER 2020-12-20 07:00 | Outpatient (RCR) | payer OTHER, SELFPAY ==
--- NOTE | 2020-11-01 08:46 | MHC.PT.EP ---
[facility] [place] Office [place] Office [place] Office [address] [phone] F: [phone] F: [phone] F: [phone] F: [phone] Physical Therapy Plan of Care Date of Evaluation: Date of Surgery: 09/30/20 Diagnosis: L TKA Assessment: Patient is a 60 year old R handed male who presents with s/s consistent with L TKA. He works with daily job demands including lifting, walking at [employer]. Patient past medical history includes R TKA. Current impairments include pain, ROM, strength, safety, independence, activity tolerance and functional mobility. Functional limitations include decreased ability to walk, stand, transfer, negotiate stairs, and perform weight bearing activities.. Patient is motivated with good rehab potential. Skilled PT will address impairments and functional limitations in order to achieve goals. Frequency and Duration: The patient will be seen 2x/week for 6 weeks Short Term Goals: I with HEP - 2 weeks AROM 0-120 - 3 weeks knee strength 4-/5 - 3 weeks Dessert Cup Machine Feeder Goals: Symmetrical gait, stair negotiation - 5 weeks LEFS 54/80 - 6 weeks Swelling absent - 6 weeks Treatment Plan: Modalities to reduce pain, spasms and effusion. Manual therapy to restore motion and function. Therapeutic exercise to improve strength and flexibility. Neuromuscular re-education for posture and balance. Therapeutic activities to return to functional activities of daily living. Electronically signed by: Jose Phillip PT Please sign and return to therapist. Thank you for your referral.
--- NOTE | 2021-03-14 08:12 | MHC.PT.DC ---
[facility] [place] Office [place] Office [place] Office [address] [phone] F: [phone] F: [phone] F: [phone] F: [phone] Physical Therapy Discharge Report Diagnosis: L TKA Date of Surgery: 09/30/20 Date of Evaluation: 11/01/20 Date of Discharge: 12/20/20 Treatments to Date: 13 Cancellations to Date: 0 No Shows to Date: 0 Discharge Status: Achieved Goals Independent with HEP Discharge Summary: 12/20/20: I with HEP, AROM 123, AAROM 125. Full extension after stretching. knee strength 4/5 flex/ext. symmetrical gait/stair negotiation, LEFS 68/80, swelling absent today. Electronically signed by: Jose Phillip PT Please sign and return to therapist. Thank you for your referral.
== END 2021-01-08 08:00 | disposition home or self-care (01) ==
LOC: HO.PTCHIC 07:00
PROVIDERS: PCP Nurse Practitioner Family; Visit Provider Orthopaedic Surgery
DX: Z96.652 Presence of left artificial knee joint (principal)
CPT/HCPCS: 97110; 97112; 97161; 97530

== ENCOUNTER → 2020-12-26 08:20 | Outpatient (BNVA) | payer OTHER, SELFPAY | PROVIDERS: PCP Nurse Practitioner Family; Visit Provider Orthopaedic Surgery ==

== ENCOUNTER 2021-03-27 07:14 | Outpatient (REF) | payer OTHER, SELFPAY ==
[2021-03-27 11:17] LABS: Appearance Urine CLEAR; Color Urine YELLOW; Glucose Urine UA NEG (NEG); Leukocyte Esterase Urine NEG (NEG); Nitrite Urine NEG (NEG); PH 5.5 (5.0-8.0); Specific Gravity - Urine >= 1.030 (1.005-1.025); Urine Blood NEG (NEG); Urine Ketones NEG (NEG); Urine Protein NEG (NEG-TRACE)
[2021-03-27 12:02] LABS: Alanine Aminotransferase 76 U/L (0-40); Albumin Level 4.7 g/dL (3.5-5.0); Alkaline Phosphatase 107 U/L (39-117); Anion Gap 13 (12-20); Aspartate Amino Transferase 41 U/L (5-37); Bilirubin Total 0.6 mg/dL (0.0-1.0); Blood Urea Nitrogen 24 mg/dL (9-16); Calcium 9.8 mg/dL (8.4-10.2); Carbon Dioxide 24 mmol/L (22-29); Chloride 105 mmol/L (96-108); Cholesterol 178 mg/dL; Estimated Glomerular Filt Rate > 60; Glucose Fasting 97 mg/dL (60-99); HDL Cholesterol 44 mg/dL; LDL Cholesterol Calculated 113 mg/dl; Potassium 4.5 mmol/L (3.3-5.1); Sodium 137 mmol/L (135-145); Total Protein 7.7 g/dL (6.5-8.0); Triglycerides 109 mg/dL
== END 2021-03-27 07:15 | disposition home or self-care (01) ==
LOC: HO.HMGCLDS 07:14
PROVIDERS: Visit Provider Nurse Practitioner Family
DX: I10 Essential (primary) hypertension (principal)
CPT/HCPCS: 36415; 80053; 80061; 81003; 84443

== ENCOUNTER 2021-05-05 08:08 | Outpatient (REF) | payer OTHER, SELFPAY ==
--- NOTE | ~2021-05-05 | XR_ITS ---
EXAMINATION: BILATERAL KNEE X-RAY CLINICAL INFORMATION: Pain COMPARISON: Previous x-ray most recent September 2020 TECHNIQUE: AP view of both knees and lateral and sunrise view of the left knee FINDINGS: Left: There is a 3 component left knee replacement in satisfactory position. No fracture, dislocation or x-ray evidence of loosening is seen. There is no joint effusion. There is evidence of atherosclerotic disease. Standing AP view of the right knee demonstrate a right knee replacement in satisfactory position. XR/XR knee LT 2V IMPRESSION: Bilateral knee replacements.
--- NOTE | ~2021-05-05 | XR_ITS ---
EXAMINATION: BILATERAL KNEE X-RAY CLINICAL INFORMATION: Pain COMPARISON: Previous x-ray most recent September 2020 TECHNIQUE: AP view of both knees and lateral and sunrise view of the left knee FINDINGS: Left: There is a 3 component left knee replacement in satisfactory position. No fracture, dislocation or x-ray evidence of loosening is seen. There is no joint effusion. There is evidence of atherosclerotic disease. Standing AP view of the right knee demonstrate a right knee replacement in satisfactory position. XR/XR knee standing BI IMPRESSION: Bilateral knee replacements.
== END 2021-05-05 08:09 | disposition home or self-care (01) ==
LOC: HO.HOSX 08:08
PROVIDERS: Visit Provider Orthopaedic Surgery
DX: Z96.653 Presence of artificial knee joint, bilateral (principal)
CPT/HCPCS: 73560; 73565

== ENCOUNTER 2021-06-03 08:00 | Outpatient (RCR) | payer OTHER, SELFPAY ==
[2021-05-15 08:06] VITALS: BP 150/85
--- NOTE | 2021-05-15 17:27 | MHC.PT.EP ---
[facility] [place] Office [place] Office [place] Office [address] [phone] F: [phone] F: [phone] F: [phone] F: [phone] Physical Therapy Plan of Care Date of Evaluation: Date of Surgery: L in oct 12, R in june 12 Diagnosis: Presence of artificial B knee joints Assessment: Pt is a 61 y/o male referred to PT for management of B knee replacements R in May of 2020 and L in September of 2020 with good initial results who presents with L > R knee dysfunction resulting in decreased tolerance for weight bearing activities after a period of rest, carrying objects of weight, sitting > 1 hour, performing heavy HH chores, as well as lifting objects from the floor secondary to decreased R > L knee ROM, decreased tolerance for sit to stand transfer, mild gait abnormality, decreased L > R knee MMT, decreased B hip strength, increased LE tissue tension B, performing 12 hour work days of standing and walking, progression of healing process following B TKAs within the past year, and pain. Pt is deemed an appropriate candidate to receive skilled PT in order to address his physical limitations to improve his functional ability. Frequency and Duration: The patient will be seen 2 x / wk x 5 wks. Short Term Goals: initiate HEP with compliance noted. Improve R knee extension ROM to < 3 degrees; initial 6 degrees flexion. Improve B knee flexion to at least 124 degrees; Initial: R 110; L 120. Assisted Goals: I with HEP. Improve L knee extension MMT to > 4+/5; initial 4/5. Pt will report able to perform ambulation after sitting for duration with managed Sx; initial 5-7/10 discomfort/ difficulty. Pt will be able to manage lifting objects like grocery bags from the floor with managed Sx; initial: moderate difficulty. Treatment Plan: Modalities to reduce pain, spasms and effusion. Manual therapy to restore motion and function. Therapeutic exercise to improve strength and flexibility. Neuromuscular re-education for posture and balance. Therapeutic activities to return to functional activities of daily living. Electronically signed by: Sage Ding PT Please sign and return to therapist. Thank you for your referral.
--- NOTE | 2021-06-06 09:14 | MHC.PT.DC ---
[facility] [place] Office [place] [facility] [place] Office [address] Granda [address] [phone] F: [phone] F: [phone] F: [phone] F: [phone] Physical Therapy Discharge Report Diagnosis: Presence of artificial B knee joints Date of Surgery: L in oct 12, R in june 12 Date of Evaluation: 05/15/21 Date of Discharge: 06/06/21 Treatments to Date: 5 Cancellations to Date: No Shows to Date: Discharge Status: Independent with HEP Patient Elected to Stop Discharge Summary: Horacio STROUD'd himself via phone citing difficulty with his long overnight schedule of 12 hour days and will perfrom bike and HEP on his own. He did report some improved tolerance and Sx with exercise program. Electronically signed by: Sage Ding PT. Please sign and return to therapist. Thank you for your referral.
== END 2021-06-06 09:14 | disposition home or self-care (01) ==
LOC: HO.PTCHIC 08:00
PROVIDERS: PCP Nurse Practitioner Family; Visit Provider Orthopaedic Surgery
DX: Z96.653 Presence of artificial knee joint, bilateral (principal)
CPT/HCPCS: 97110; 97161

== ENCOUNTER → 2021-07-02 08:51 | Outpatient (BNVA) | payer OTHER, SELFPAY | PROVIDERS: PCP Nurse Practitioner Family; Referring Provider Nurse Practitioner Family; Visit Provider Internal Medicine Cardiovascular Disease | DX: R09.89 Other specified symptoms and signs involving the circulatory and respiratory systems (principal); I10 Essential (primary) hypertension | CPT/HCPCS: 93005 ==

== ENCOUNTER 2021-07-10 07:35 | Outpatient (REF) | payer OTHER, SELFPAY ==
[2021-07-10 11:54] LABS: Cholesterol 172 mg/dL; HDL Cholesterol 38 mg/dL; LDL Cholesterol Calculated 95 mg/dl; Triglycerides 199 mg/dL
== END 2021-07-10 07:36 | disposition home or self-care (01) ==
LOC: HO.HMGCLDS 07:35
PROVIDERS: PCP Nurse Practitioner Family; Visit Provider Internal Medicine Cardiovascular Disease
DX: R09.89 Other specified symptoms and signs involving the circulatory and respiratory systems (principal)
CPT/HCPCS: 36415; 80061

== ENCOUNTER 2021-07-25 08:19 | Outpatient (REF) | payer OTHER, SELFPAY ==
--- NOTE | ~2021-07-25 | US_ITS ---
EXAMINATION: US EXTRACRANIAL CAROTID DUPLEX, BILATERAL CLINICAL INFORMATION: Carotid bruit COMPARISON: None TECHNIQUE: Real-time ultrasound and Doppler techniques (integrating B-mode 2-D vascular images, Doppler spectral analysis and color-flow Doppler imaging) were utilized to interrogate the extracranial carotid arteries, the vertebral arteries and proximal subclavian arteries bilaterally. The degree of stenosis is determined by criteria similar to NASCET. FINDINGS: Right Side: 1. There is mild atherosclerotic plaque seen in the bifurcation/proximal ICA region. 2. The common carotid artery PSV proximally is 92.7 cm/s and distally 63.3 cm/s. 3. The proximal internal carotid artery velocities are 70.4 cm/s systolic and 29.3 cm/s diastolic. 4. The proximal external carotid artery PSV is 500 cm/s. 5. The vertebral artery shows antegrade flow. 6. The subclavian artery waveforms are normal. Left Side: 1. There is mild atherosclerotic plaque seen in the bifurcation/proximal ICA region. 2. The common carotid artery PSV proximally is 108 cm/s and distally 125 cm/s. 3. The proximal internal carotid artery velocities are 86.2 cm/s systolic and 34.6 cm/s diastolic. 4. The proximal external carotid artery PSV is 178 cm/s. 5. The vertebral artery shows antegrade flow. 6. The subclavian artery waveforms are normal. US/US carotid duplex BI IMPRESSION: 1. RIGHT: Minimal, non-hemodynamically significant stenosis of the proximal right internal carotid artery corresponding to a 0-49% stenosis by velocity criteria. 2. LEFT: Minimal, non-hemodynamically significant stenosis of the proximal left internal carotid artery corresponding to a 0-49% stenosis by velocity criteria. 3. There is markedly increased velocity within the right external carotid artery consistent with a high-grade stenosis.
[2021-07-25 11:28] LABS: MANUAL DIFF FLAG NO
[2021-07-25 11:35] LABS: Appearance Urine CLEAR; Color Urine YELLOW; Glucose Urine UA NEG (NEG); Leukocyte Esterase Urine NEG (NEG); Nitrite Urine NEG (NEG); Urine Blood NEG (NEG); Urine Ketones NEG (NEG); Urine Protein NEG (NEG-TRACE)
[2021-07-25 11:37] LABS: Basophils Absolute Auto 0.1 X10*3/uL (0.0-0.2); Basophils Percent Auto 0.6 % (0-2); Eosinophils Absolute Auto 0.1 X10*3/uL (0.0-0.4); Hematocrit 43.7 % (42.0-52.0); Hemoglobin 14.7 g/dl (14.0-18.0); Imm Gran Abs Auto 0.03 X10*3/uL (0.00-0.03); Imm Gran Pct Auto 0.4 % (0.0-0.4); Lymphocytes Absolute Auto 2.2 X10*3/uL (1.2-4.9); Lymphocytes Percent Auto 27.5 % (20-40); Mean Corpuscular HGB Conc 33.6 g/dl (31.0-36.0); Mean Corpuscular Hemoglobin 32.8 pg (27.0-33.0); Mean Corpuscular Volume 97.5 fL (80.0-98.0); Mean Platelet Volume 10.1 fL (9.4-12.4); Monocytes Absolute Auto 0.7 X10*3/uL (0.1-1.2); Monocytes Percent Auto 9.3 % (2-11); Neutrophils Absolute Auto 4.8 x10*3/uL (2.0-8.3); Neutrophils Percent Auto 61.2 % (45-73); Platelet Count 273 X10*3/uL (160-400); Red Blood Count 4.48 X10*6/uL (4.60-5.80); Red Cell Distribution Width 12.9 % (11.0-16.0); White Blood Count 7.8 X10*3/uL (4.8-10.8)
[2021-07-25 12:01] LABS: RBC Urine 0 /HPF (0); WBC Urine 0 /HPF (0-4)
[2021-07-25 12:10] LABS: Vitamin D 25-OH Total 10.8 ng/mL (>30)
[2021-07-25 12:11] LABS: Anion Gap 13 (12-20); Blood Urea Nitrogen 19 mg/dL (9-16); Calcium 9.8 mg/dL (8.4-10.2); Carbon Dioxide 26 mmol/L (22-29); Chloride 103 mmol/L (96-108); Estimated Glomerular Filt Rate > 60; Potassium 4.7 mmol/L (3.3-5.1); Sodium 137 mmol/L (135-145)
[2021-07-25 12:13] LABS: Albumin Level 4.1 g/dL (3.5-5.0); Magnesium 1.9 mg/dL (1.6-2.6); Phosphorus 3.5 mg/dL (2.7-4.5)
[2021-07-25 12:14] LABS: Alanine Aminotransferase 52 U/L (0-40); Albumin Level 4.2 g/dL (3.5-5.0); Alkaline Phosphatase 85 U/L (39-117); Anion Gap 12 (12-20); Aspartate Amino Transferase 23 U/L (5-37); Bilirubin Total 0.4 mg/dL (0.0-1.0); Blood Urea Nitrogen 19 mg/dL (9-16); Carbon Dioxide 26 mmol/L (22-29); Chloride 104 mmol/L (96-108); Estimated Glomerular Filt Rate > 60; Glucose Fasting 117 mg/dL (60-99); Potassium 4.7 mmol/L (3.3-5.1); Sodium 137 mmol/L (135-145)
[2021-07-25 12:17] LABS: Creatinine Urine 77.89 mg/dL; Protein/Creatinine Ratio, Ur 0.13 (<0.2); Total Protein Urine Random 10 mg/dL (<12)
[2021-07-25 12:22] LABS: Creatinine Urine 79.27 mg/dL; Microalbum/Creatinine Ratio Ur 26.4 ug/mg cr
[2021-07-28 15:53] LABS: Calcium (PTHI) 9.8 mg/dL (8.6-10.3); PTHI 43 pg/mL (16-77)
== END 2021-07-25 08:20 | disposition home or self-care (01) ==
LOC: HO.HMGCX 08:19
PROVIDERS: Absent Provider Nurse Practitioner Family; PCP Nurse Practitioner Family; Referring Provider Internal Medicine Nephrology; Visit Provider Internal Medicine Cardiovascular Disease
DX: R09.89 Other specified symptoms and signs involving the circulatory and respiratory systems (principal); I12.9 Hypertensive chronic kidney disease with stage 1 through stage 4 chronic kidney disease, or unspecified chronic kidney disease; N18.31 Chronic kidney disease, stage 3a
CPT/HCPCS: 36415; 80051; 80053; 81001; 82040; 82043; 82306; 82310; 82565; 83735; 83970; 84100; 84156; 84520; 85025; 87086; 93880

== ENCOUNTER 2021-11-11 07:36 | Outpatient (REF) | payer OTHER, SELFPAY ==
--- NOTE | ~2021-11-11 | CT_ITS ---
EXAMINATION: CT ABDOMEN AND PELVIS WITHOUT CONTRAST CLINICAL INFORMATION: Abdominal hernia COMPARISON: Previous CT of the abdomen and pelvis April 2020 TECHNIQUE: Multidetector volumetric imaging was performed from the superior aspect of the liver through the pubic symphysis. Sagittal and coronal reformatted images were obtained on the technologist's workstation. This CT examination was performed using dose optimization techniques as appropriate, variously including the following: *Automated exposure control *Adjustment of mA and/or kV according to patient size (this includes techniques or standardized protocols for targeted exams where dose is matched to indication/reason for exam; i.e. extremities or head) *Use of iterative reconstruction technique DLP: 495 mGy-cm FINDINGS: LUNG BASES: The visualized lung bases are unremarkable. LIVER, GALLBLADDER, AND BILIARY TREE: The liver is enlarged and low in attenuation suggestive of fatty infiltration. No focal hepatic lesion or biliary ductal dilatation is present. The gallbladder is unremarkable with no evidence of radiopaque gallstones, gallbladder wall thickening, or obvious pericholecystic inflammatory changes. PANCREAS: Unremarkable. SPLEEN: Unremarkable. ADRENAL GLANDS: Stable 1 cm low-attenuation right adrenal nodule suggestive of a benign adenoma. Normal left adrenal gland. KIDNEYS AND URETERS: The kidneys are normal in size, shape, and attenuation there is a 1 cm low-attenuation lesion in the upper pole the left kidney suggestive of a cyst. No imaging follow-up needed.. No hydronephrosis, hydroureter, or calculi seen. No perinephric stranding. BLADDER: Bladder wall may be slightly thickened. The prostate gland is enlarged and protrudes into the base of the bladder. GASTROINTESTINAL TRACT: There is diverticulosis of the colon. The small and large bowel are otherwise unremarkable. The appendix is unremarkable. ABDOMINAL WALL: There is diastasis of the rectus muscles. There is a small upper abdominal ventral hernia containing fat to the right of midline. Inferior to this there is diffuse diastasis. Inferior to this is a large broad-based midline ventral hernia containing small bowel and fat. There are small bilateral inguinal hernias containing fat, left greater than right. LYMPH NODES: Normal. VASCULAR: There is evidence of atherosclerotic disease. PELVIC VISCERA: Prostate gland is enlarged and protrudes into the base of the bladder. OSSEOUS STRUCTURES: Degenerative changes of the spine. CT/CT abdomen pelvis wo IV con IMPRESSION: Diastasis of the rectus muscles. Large broad-based midline ventral hernia containing small bowel and fat. More superiorly there is a right small upper abdominal ventral hernia containing fat. Small bilateral inguinal hernias containing fat, left greater than right. Enlarged fatty liver. Fleischner guidelines were followed.
== END 2021-11-11 07:37 | disposition home or self-care (01) ==
LOC: HO.CT 07:36
PROVIDERS: Visit Provider Surgery
DX: K46.9 Unspecified abdominal hernia without obstruction or gangrene (principal)
CPT/HCPCS: 74176

== ENCOUNTER 2021-11-19 07:16 | Outpatient (REF) | payer OTHER, SELFPAY ==
[2021-11-19 11:19] LABS: MANUAL DIFF FLAG NO
[2021-11-19 11:21] LABS: Appearance Urine Clear; Color Urine Yellow; Glucose Urine UA Negative (Negative); Leukocyte Esterase Urine Negative (Negative); Nitrite Urine Negative (Negative); Urine Blood Negative (Negative); Urine Ketones Negative (Negative); Urine Protein Negative (Neg-Trace)
[2021-11-19 11:29] LABS: Basophils Percent Auto 0.5 % (0-2); Eosinophils Absolute Auto 0.2 X10*3/uL (0.0-0.4); Eosinophils Percent Auto 2.7 % (0-4); Hematocrit 37.7 % (42.0-52.0); Hemoglobin 12.4 g/dl (14.0-18.0); Imm Gran Abs Auto 0.02 X10*3/uL (0.00-0.03); Imm Gran Pct Auto 0.2 % (0.0-0.4); Lymphocytes Absolute Auto 2.1 X10*3/uL (1.2-4.9); Lymphocytes Percent Auto 25.5 % (20-40); Mean Corpuscular HGB Conc 32.9 g/dl (31.0-36.0); Mean Corpuscular Hemoglobin 32.1 pg (27.0-33.0); Mean Corpuscular Volume 97.7 fL (80.0-98.0); Mean Platelet Volume 9.8 fL (9.4-12.4); Monocytes Absolute Auto 0.8 X10*3/uL (0.1-1.2); Monocytes Percent Auto 9.8 % (2-11); Neutrophils Absolute Auto 5.2 x10*3/uL (2.0-8.3); Neutrophils Percent Auto 61.3 % (45-73); Platelet Count 249 X10*3/uL (160-400); Red Blood Count 3.86 X10*6/uL (4.60-5.80); Red Cell Distribution Width 12.8 % (11.0-16.0); White Blood Count 8.4 X10*3/uL (4.8-10.8)
[2021-11-19 11:51] LABS: Alanine Aminotransferase 39 U/L (0-40); Albumin Level 4.6 g/dL (3.5-5.0); Alkaline Phosphatase 97 U/L (39-117); Anion Gap 16 (12-20); Aspartate Amino Transferase 25 U/L (5-37); Bilirubin Total 0.6 mg/dL (0.0-1.0); Blood Urea Nitrogen 26 mg/dL (9-16); Calcium 9.5 mg/dL (8.4-10.2); Carbon Dioxide 27 mmol/L (22-29); Chloride 102 mmol/L (96-108); Cholesterol 124 mg/dL; Estimated Glomerular Filt Rate 59; Glucose Fasting 93 mg/dL (60-99); HDL Cholesterol 38 mg/dL; LDL Cholesterol Calculated 58 mg/dl; Potassium 4.6 mmol/L (3.3-5.1); Sodium 140 mmol/L (135-145); Total Protein 7.1 g/dL (6.5-8.0); Triglycerides 141 mg/dL
[2021-11-19 12:14] LABS: Prostate Specific Antigen Scr 1.74 ng/mL (<0.05-4.0); TSH reflex Free T4 1.12 uIU/mL (0.32-4.0)
== END 2021-11-19 07:17 | disposition home or self-care (01) ==
LOC: HO.HMGCLDS 07:16
PROVIDERS: PCP Nurse Practitioner Family; Visit Provider Nurse Practitioner Family
DX: Z00.00 Encounter for general adult medical examination without abnormal findings (principal); Z12.5 Encounter for screening for malignant neoplasm of prostate
CPT/HCPCS: 36415; 80053; 80061; 81003; 84153; 84443; 85025

== ENCOUNTER 2022-01-07 07:30 | Outpatient (REF) | payer OTHER, SELFPAY ==
[2022-01-07 11:11] LABS: MANUAL DIFF FLAG NO
[2022-01-07 11:32] LABS: Basophils Absolute Auto 0.1 X10*3/uL (0.0-0.2); Basophils Percent Auto 0.7 % (0-2); Eosinophils Absolute Auto 0.1 X10*3/uL (0.0-0.4); Eosinophils Percent Auto 1.6 % (0-4); Hematocrit 38.9 % (42.0-52.0); Hemoglobin 13.3 g/dl (14.0-18.0); Imm Gran Abs Auto 0.02 X10*3/uL (0.00-0.03); Imm Gran Pct Auto 0.3 % (0.0-0.4); Lymphocytes Absolute Auto 1.8 X10*3/uL (1.2-4.9); Mean Corpuscular HGB Conc 34.2 g/dl (31.0-36.0); Mean Corpuscular Hemoglobin 33.1 pg (27.0-33.0); Mean Corpuscular Volume 96.8 fL (80.0-98.0); Mean Platelet Volume 10.1 fL (9.4-12.4); Monocytes Absolute Auto 0.7 X10*3/uL (0.1-1.2); Monocytes Percent Auto 9.2 % (2-11); Neutrophils Absolute Auto 4.6 x10*3/uL (2.0-8.3); Neutrophils Percent Auto 63.2 % (45-73); Platelet Count 215 X10*3/uL (160-400); Red Blood Count 4.02 X10*6/uL (4.60-5.80); Red Cell Distribution Width 12.6 % (11.0-16.0); White Blood Count 7.3 X10*3/uL (4.8-10.8)
[2022-01-07 12:09] LABS: Iron 90 mcg/dL (45-160); Percent Iron Saturation 21 % (15-50); Total Iron Binding Capacity 433 mcg/dL (228-428); Unsaturated Iron Binding 343 ug/dL
[2022-01-07 12:12] LABS: Ferritin 175 ng/mL (20-250)
[2022-01-07 12:18] LABS: Vitamin B12 266 pg/mL (200-900)
== END 2022-01-07 07:31 | disposition home or self-care (01) ==
LOC: HO.HMGCLDS 07:30
PROVIDERS: PCP Nurse Practitioner Family; Visit Provider Nurse Practitioner Family
DX: D64.9 Anemia, unspecified (principal); I10 Essential (primary) hypertension
CPT/HCPCS: 36415; 82607; 82728; 82746; 83540; 85025

== ENCOUNTER → 2022-07-21 12:44 | Outpatient (BNVA) | payer OTHER, SELFPAY | PROVIDERS: PCP Nurse Practitioner Family; Referring Provider Nurse Practitioner Family; Visit Provider Nurse Practitioner Family | DX: I48.0 Paroxysmal atrial fibrillation (principal) | CPT/HCPCS: 93005 ==

== ENCOUNTER 2022-09-28 07:45 | Outpatient (AMB) | payer OTHER, SELFPAY ==
--- NOTE | 2022-09-28 07:56 | A.OFFPC_ITS ---
Vital Signs 09/28/22 07:57 09/28/22 08:23 Height 5 ft 7 in Weight 201 lb 6 oz BMI 31.5 BP 130/92 H 130/88 Blood Pressure Location Rt brachial Rt brachial Position Sitting Sitting Pulse 71 Pulse Source Pulse Oximeter Pulse Oximetry (%) 98 Oxygen Delivery Method Room Air Intake Visit Reasons: annual PE Allergies No Known Allergies Allergy (Verified 09/28/22 08:00) Medication List - Last Reconciled 09/28/22 by LEYLA Barker acetaminophen 650 mg (2 x 325 mg) PO Q6H PRN 30 days amlodipine 5 mg PO DAILY apixaban 5 mg PO BID 90 days atorvastatin 40 mg PO BEDTIME lisinopril 40 mg PO DAILY 90 days metoprolol succinate ER (Toprol XL) 25 mg PO DAILY Tobacco use date assessed: 09/28/22 Fall risk assessment: No Falls in past year Last assessed Fall Risk: 09/28/22 Dental Screening Dental Screen Date: 09/28/22 Did you have a dental visit in the last 12 months?: No Did you have a dental problem in the last 6 months where you did not have access to dental care?: No Was dental information given to patient?: Patient declined HPI annual PE HPI Details Pt is here for a PE. Will order labs. Colon screen is up to date. Due for PSA in the near future, will order. Denies dribbling with urination, weak stream, and nocturia. Dyslipidemia: On atorvastatin 40mg, will order labs. Hx of vitamin D deficiency, will order labs. Pt follows up with cardiology. Pt reports feeling better since having hernia surgery. Pt reports that his blood pressure at home is more stable. Denies chest pain, shortness of breath, headache, dizziness, and blurred vision. [facility] Medical History CKD (chronic kidney disease), stage III COVID-19 vaccine series completed Fatty liver History of duodenal ulcer Hypertension Incisional hernia New onset a-fib Osteoarthritis of both knees Surgical History H/O colonoscopy History of exploratory laparotomy (~01/28/19) History of hand surgery History of total left knee replacement History of total right knee replacement History of ventral hernia repair S/P exploratory laparotomy (~06/27/19) Family History Father No problems noted. Mother No problems noted. 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 1. Little interest or pleasure in doing things: not at all 2. Feeling down, depressed, or hopeless: not at all 3. Trouble falling or staying asleep, or sleeping too much: not at all 4. Feeling tired or having little energy: not at all 5. Poor appetite or overeating: not at all 6. Feeling bad about yourself - or that you are a failure or have let yourself or your family down: not at all 7. Trouble concentrating on things, such as reading the newspaper or watching television: not at all 8. Moving or speaking so slowly that other people could have noticed. Or the opposite - being so fidgety or restless that you have been moving around a lot more than usual: not at all 9. Thoughts that you would be better off or of hurting yourself in some way: not at all Total score: 0 Source: Developed by Drs. Mundo Engle, Terri Quezada, Merritt Reyes and colleagues, with an educational floresita from [employer]. Thrive Questionnaire Date Thrive assessed: 09/28/22 I am a: Patient What is your living situation today?: I have a steady place to live Within the past 12 months, did the food you bought not last and you didn't have the money to get more?: Never true Within the past 12 months, did you worry whether your food would run out before you got money to buy more?: Never true Do you have trouble paying for medicines?: No Do you have trouble getting transportation to medical appointments?: No Do you have trouble paying your heating and electricity bill?: No Do you have trouble taking care of your child, family member or friend?: No Do you have trouble with day-to-day activities such as bathing, preparing meals, shopping, managing finances, etc.?: No Are you currently unemployed and looking for a job?: No Are you interested in more education?: No AUDIT C Alcohol Use Questionnaire (AUDIT-C) 1. How often do you have a drink containing alcohol?: 4 or more times a week 2. How many drinks containing alcohol do you have on a typical day when you are drinking?: 3 or 4 3. How often do you have six or more drinks on one occasion?: Monthly Total Score: 7 Score Reviewed/Action Taken: Yes ISIDRO-7 AMB Questionnaire ISIDRO-7 Date ISIDRO - 7 assessed: 09/28/22 Feeling nervous, anxious, or on edge: 0 = Not at all Not being able to stop or control worryin = Not at all Worrying too much about different things: 0 = Not at all Trouble relaxin = Not at all Being so restless that it is hard to sit still: 0 = Not at all Becoming easily annoyed or irritable: 0 = Not at all Feeling afraid as if something awful might happen: 0 = Not at all Total ISIDRO-7 score (0-4 normal; 5-9 mild; 10-14 moderate; 15-21 severe): 0 Source: Developed by Drs. Mundo Engle, Terri Quezada, Merritt Reyes and colleagues, with an educational floresita from [employer]. Review of Systems Const Denies chills and Denies fever(s) Eyes Denies blurry vision ENT Denies vertigo, Denies dizziness and Denies sore throat Card Denies chest pain at rest, Denies chest pain with activity, Denies diaphoresis, Denies dyspnea and Denies dyspnea on exertion Resp Denies cough, Denies dyspnea, Denies dyspnea on exertion and Denies wheezing GI Denies abdominal pain, Denies melena, Denies hematochezia, Denies constipation, Denies diarrhea and Denies loose stools Denies hematuria Musc Denies numbness and Denies tingling Skin/Breast Denies lesions Neuro Denies vertigo, Denies dizziness, Denies numbness and Denies tingling Psych Denies anxiety, Denies depression, Denies homicidal ideation, Denies suicidal ideation and Denies other (substance abuse) Aller/Immun Denies wheezing Physical exam (Primary Care) Vital Signs: Last Vital Signs Pulse 71 09/28/22 07:57 BP 130/88 09/28/22 08:23 Pulse Ox 98 09/28/22 07:57 Oxygen Delivery Method Room Air 09/28/22 07:57 BMI result Body Mass Index 31.5 Tobacco/Smoking Status: Tobacco use Status Tobacco use date assessed 09/28/22 09/28/22 08:00 Patient Tobacco Use Status Former Tobacco user 09/28/22 07:56 Tobacco use type 07/21/22 13:12 e-Cigarette/Vaping Use Never Used 09/28/22 07:56 PHQ-9: PHQ-9 Score PHQ-9: Total score 0 09/28/22 08:23 Thrive Assessment: Date of Thrive Assessment Date Thrive assessed 09/28/22 09/28/22 08:22 Const General: cooperative Nutritional Appearance: obese Orientation/consciousness: patient oriented x3 HENMT Head: Yes normal to inspection, Yes normocephalic and Yes atraumatic Ears: TM's normal bilaterally Eyes General: appearance normal, both eyes and all related structures Alignment and Position: alignment normal and position normal Neck Neck: Yes normal visual inspection and Yes no lymphadenopathy Thyroid: Thyroid normal Resp Effort & Inspection: normal respiratory effort Auscultation: clear to auscultation bilaterally and diminished lung sounds Cardio Rate: regular rate Rhythm: abnormal rhythm (afib) irregularly irregular Heart sounds: S1 normal heart sound present, S2 normal heart sound present and no murmurs GI Palpation (GI): Soft to palpation and nontender Auscultation: normal bowel sounds Male General Exam: Yes normal external exam Penis: normal penis Scrotum: scrotum normal, testes descended bilaterally and no inguinal hernias Testes: no testicular mass Skin Other: healed scars to abdomen Rashes: no rashes Neuro General: patient oriented x3, moves all extremities, no focal motor deficits and deep tendon reflexes 2+ bilaterally Romberg Test: Negative Extrem Other: varicose veins noted to BLE Right lower extremity: no edema Left lower extremity: no edema Psych Appearance: grossly normal Mental Status: mental status grossly normal Speech and movement: Normal speech and movement present Affect: normal affect Attitude: cooperative Thought process: Normal thought process present Thought content: Normal thought content present Insight: Good insight present (Psych) Judgement: Good judgement present (Psych) Assessment and Plan Assessment & Plan (1) Hyperlipidemia: Code(s): E78.5 - Hyperlipidemia, unspecified Plan: Labs ordered (2) Physical exam: Code(s): Z00.00 - Encounter for general adult medical examination without abnormal findings Plan: Labs ordered (3) Screening PSA (prostate specific antigen): Code(s): Z12.5 - Encounter for screening for malignant neoplasm of prostate Plan: PSA ordered (4) Vitamin D deficiency: Code(s): E55.9 - Vitamin D deficiency, unspecified Plan: Labs ordered Plan The patient agreed to the use of a internist medical doctor md for this encounter. Scribed for LEYLA Sommers by Magda Hilton internist medical doctor md, on 09/28/2022 at 08:10 EST. Orders: Orders Comprehensive [place]. Panel Fast Today E78.5 - Hyperlipidemia, unspecified, Z00.00 - Encounter for general adult medical examination without abnormal findings Lipid Panel Today E78.5 - Hyperlipidemia, unspecified, Z00.00 - Encounter for general adult medical examination without abnormal findings TSH reflex Free T4 Today E78.5 - Hyperlipidemia, unspecified, Z00.00 - Encounter for general adult medical examination without abnormal findings Complete Blood Count Auto Diff Today E78.5 - Hyperlipidemia, unspecified, Z00.00 - Encounter for general adult medical examination without abnormal findings UA CC w/rflx Micro + Cult Today E78.5 - Hyperlipidemia, unspecified, Z00.00 - Encounter for general adult medical examination without abnormal findings Prostate Specific Antigen Scr Today Z12.5 - Encounter for screening for malignant neoplasm of prostate Vitamin D 25-OH Total Today E55.9 - Vitamin D deficiency, unspecified Coding Level of Care Code Est Pt Prev Care 40-64y(35521) Diagnoses Hyperlipidemia E78.5 Physical exam Z00.00 Screening PSA (prostate specific antigen) Z12.5 Vitamin D deficiency E55.9
[2022-09-28 07:57] VITALS: BP 130/92; PULSE 71; O2SAT 98; BMI 31.5
[2022-09-28 08:23] VITALS: BP 130/88
== END 2022-09-28 10:42 | disposition home or self-care (01) ==
PROVIDERS: Visit Provider Nurse Practitioner Family
DX: E78.5 Hyperlipidemia, unspecified (principal); Z00.00 Encounter for general adult medical examination without abnormal findings; Z12.5 Encounter for screening for malignant neoplasm of prostate; E55.9 Vitamin D deficiency, unspecified
CPT/HCPCS: 99396

== ENCOUNTER 2022-12-16 07:16 | Outpatient (REF) | payer OTHER, SELFPAY ==
[2022-12-16 11:38] LABS: Appearance Urine Clear; Color Urine Yellow; Glucose Urine UA Negative (Negative); Leukocyte Esterase Urine Negative (Negative); Nitrite Urine Negative (Negative); PH 5.5 (5.0-9.0); Urine Blood Negative (Negative); Urine Ketones Trace mg/dL (Negative); Urine Protein Trace mg/dL (Neg-Trace)
[2022-12-16 11:43] LABS: MANUAL DIFF FLAG NO
[2022-12-16 12:06] LABS: Basophils Absolute Auto 0.1 X10*3/uL (0.0-0.2); Basophils Percent Auto 0.7 % (0-2); Eosinophils Absolute Auto 0.1 X10*3/uL (0.0-0.4); Eosinophils Percent Auto 1.4 % (0-4); Imm Gran Abs Auto 0.02 X10*3/uL (0.00-0.03); Imm Gran Pct Auto 0.2 % (0.0-0.4); Lymphocytes Absolute Auto 2.8 X10*3/uL (1.2-4.9); Lymphocytes Percent Auto 30.4 % (20-40); Mean Corpuscular HGB Conc 33.3 g/dl (31.0-36.0); Mean Corpuscular Hemoglobin 32.5 pg (27.0-33.0); Mean Corpuscular Volume 97.6 fL (80.0-98.0); Mean Platelet Volume 10.5 fL (9.4-12.4); Monocytes Absolute Auto 0.9 X10*3/uL (0.1-1.2); Monocytes Percent Auto 9.4 % (2-11); Neutrophils Absolute Auto 5.3 x10*3/uL (2.0-8.3); Neutrophils Percent Auto 57.9 % (45-73); Platelet Count 242 X10*3/uL (160-400); Red Blood Count 4.61 X10*6/uL (4.60-5.80); Red Cell Distribution Width 13.1 % (11.0-16.0); White Blood Count 9.2 X10*3/uL (4.8-10.8)
[2022-12-16 12:46] LABS: Prostate Specific Antigen Scr 2.08 ng/mL (<0.05-4.0)
[2022-12-16 12:51] LABS: Alanine Aminotransferase 37 U/L (0-40); Albumin Level 4.7 g/dL (3.5-5.0); Alkaline Phosphatase 95 U/L (39-117); Anion Gap 15 (12-20); Aspartate Amino Transferase 32 U/L (5-37); Bilirubin Total 0.9 mg/dL (0.0-1.0); Blood Urea Nitrogen 21 mg/dL (9-16); Carbon Dioxide 23 mmol/L (22-29); Chloride 102 mmol/L (96-108); Cholesterol 128 mg/dL (<200); Estimated Glomerular Filt Rate > 60; Glucose Fasting 90 mg/dL (60-99); HDL Cholesterol 42 mg/dL (>40); LDL Cholesterol Calculated 57 mg/dL (<100); Sodium 136 mmol/L (135-145); TSH reflex Free T4 1.92 uIU/mL (0.32-4.0); Total Protein 7.9 g/dL (6.5-8.0); Triglycerides 145 mg/dL (<150); Vitamin D 25-OH Total 16.9 ng/mL (>30)
== END 2022-12-16 07:17 | disposition home or self-care (01) ==
LOC: HO.HMGCLDS 07:16
PROVIDERS: PCP Nurse Practitioner Family; Visit Provider Nurse Practitioner Family
DX: Z00.00 Encounter for general adult medical examination without abnormal findings (principal); Z12.5 Encounter for screening for malignant neoplasm of prostate; E55.9 Vitamin D deficiency, unspecified; D64.9 Anemia, unspecified; E78.5 Hyperlipidemia, unspecified
CPT/HCPCS: 36415; 80053; 80061; 81003; 82306; 84153; 84443; 85025

== ENCOUNTER 2023-03-30 08:11 | Outpatient (AMB) | payer OTHER, SELFPAY ==
--- NOTE | 2023-03-30 08:22 | A.OFFPC_ITS ---
Vital Signs 03/30/23 08:24 03/30/23 08:47 Height 5 ft 7 in Weight 201 lb 2 oz BMI 31.5 BP 110/78 Blood Pressure Location Rt brachial Position Sitting Pulse 111 H 96 Pulse Source Pulse Oximeter Pulse Oximetry (%) 97 Oxygen Delivery Method Room Air Intake Visit Reasons: 6 month follow up HTN Intake Note: Pt is here to follow up for HTN Allergies No Known Allergies Allergy (Verified 03/30/23 08:25) Medication List - Last Reconciled 03/30/23 by LEYLA Barker acetaminophen 650 mg (2 x 325 mg) PO Q6H PRN 30 days amlodipine 5 mg PO DAILY apixaban 5 mg PO BID 90 days atorvastatin 40 mg PO BEDTIME cholecalciferol (vitamin D3) 50 mcg PO DAILY lisinopril 40 mg PO DAILY 90 days metoprolol succinate ER (Toprol XL) 25 mg PO DAILY Tobacco use date assessed: 03/30/23 Fall risk assessment: No Falls in past year Last assessed Fall Risk: 03/30/23 Dental Screening Dental Screen Date: 03/30/23 Did you have a dental visit in the last 12 months?: No Did you have a dental problem in the last 6 months where you did not have access to dental care?: No Was dental information given to patient?: No HPI 6 month follow up HTN HPI Details HTN: Blood pressure is stable, managed with amlodipine 5mg, lisinopril 40mg, and metoprolol 25mg. Denies chest pain, shortness of breath, headache, dizziness, and blurred vision. Pt reports that he is feeling good. [facility] Medical History CKD (chronic kidney disease), stage III COVID-19 vaccine series completed Fatty liver History of duodenal ulcer Hypertension Incisional hernia New onset a-fib Osteoarthritis of both knees Surgical History H/O colonoscopy History of exploratory laparotomy (~01/28/19) History of hand surgery History of total left knee replacement History of total right knee replacement History of ventral hernia repair S/P exploratory laparotomy (~06/27/19) Family History Father No problems noted. Mother No problems noted. 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 Mundo Engle, Terri Quezada, Merritt Reyes and colleagues, with an educational floresita from [employer]. Review of Systems Const Reports as per HPI Physical exam (Primary Care) Vital Signs: Last Vital Signs Pulse 111 H 03/30/23 08:24 BP 110/78 03/30/23 08:24 Pulse Ox 97 03/30/23 08:24 Oxygen Delivery Method Room Air 03/30/23 08:24 BMI result Body Mass Index 31.5 Tobacco/Smoking Status: Tobacco use Status Tobacco use date assessed 03/30/23 03/30/23 08:28 Patient Tobacco Use Status Former Tobacco user 03/30/23 08:23 Tobacco use type 07/21/22 13:12 e-Cigarette/Vaping Use Never Used 03/30/23 08:23 Thrive Assessment: Date of Thrive Assessment Date Thrive assessed 09/28/22 03/30/23 08:23 Const General: cooperative Orientation/consciousness: patient oriented x3 Resp Effort & Inspection: normal respiratory effort Auscultation: clear to auscultation bilaterally and diminished lung sounds Cardio Rhythm: abnormal rhythm irregularly irregular and regularly irregular Neuro General: patient oriented x3 Extrem Right lower extremity: no edema Left lower extremity: no edema Psych Appearance: grossly normal Mental Status: mental status grossly normal Speech and movement: Normal speech and movement present Affect: normal affect Attitude: cooperative Thought process: Normal thought process present Thought content: Normal thought content present Insight: Good insight present (Psych) Judgement: Good judgement present (Psych) Assessment and Plan Assessment & Plan (1) Hypertension: Code(s): I10 - Essential (primary) hypertension Plan: cont meds, labs ordered Plan The patient agreed to the use of a medical supply technician for this encounter. Scribed for LEYLA Sommers by Magda Hilton medical supply technician, on 03/30/2023 at 08:35 EST. Orders: Orders Comprehensive [place]. Panel Fast Today I10 - Essential (primary) hypertension UA CC w/rflx Micro + Cult Today I10 - Essential (primary) hypertension Complete Blood Count Auto Diff Today I10 - Essential (primary) hypertension TSH reflex Free T4 Today I10 - Essential (primary) hypertension Lipid Panel Today I10 - Essential (primary) hypertension Coding Level of Care Code Est Pt Level 3 (68926) Diagnoses Hypertension I10
[2023-03-30 08:24] VITALS: BP 110/78; PULSE 111; O2SAT 97; BMI 31.5
[2023-03-30 08:47] VITALS: PULSE 96
== END 2023-03-30 09:49 | disposition home or self-care (01) ==
PROVIDERS: PCP Nurse Practitioner Family; Visit Provider Nurse Practitioner Family
DX: I10 Essential (primary) hypertension (principal)
CPT/HCPCS: 99213

== ENCOUNTER 2023-04-26 16:40 | Inpatient (IN) | payer OTHER, SELFPAY ==
--- NOTE | ~2023-04-26 | XR_ITS ---
EXAMINATION: XR CHEST CLINICAL INFORMATION: Shortness of breath x5 days. Cough. COMPARISON: Chest radiograph dated 09/02/2020. TECHNIQUE: Frontal view of the chest was obtained. FINDINGS: Heart size is normal. There is a subtle right lower lobe opacity for which infection is not excluded. There is no pneumothorax or pleural effusion. There is no acute osseous abnormality. XR/XR chest 1V IMPRESSION: Subtle right lower lobe opacity for which infection is not excluded.
[2023-04-26 16:43] VITALS: BP 158/93; PULSE 129; RESP 22; TEMP 36.2; O2SAT 93; BMI 31.3
--- NOTE | 2023-04-26 16:43 | ED_ITS ---
HPI - SOB/Dyspnea General Chief Complaint: Dyspnea Stated Complaint: diff breathing Time Seen by Provider: 04/26/23 16:48 Source: family (, Kelly) Mode of arrival: ambulatory Limitations: no limitations History of Present Illness HPI Narrative: 62-year-old male with a history hyperlipidemia, peripheral vascular disease, anemia, hypertension, paroxysmal atrial fibrillation on Eliquis, chronic kidney disease, hypertension who presents emergency department for evaluation of shortness of breath times 4-5 days, nonproductive cough, diarrhea times 1 day- resolved. Patient states that initially shortness of breath was with exertion only but today he became short of breath at rest. He states that he has had a nonproductive cough over the past 4-5 days. He denied fever, chills, rhinorrhea or sore throat, changes bowel movements or chest pain. He was complaining of lower abdominal pain and he states he has had similar pain in the past since his hernia repair. Vital signs did reveal an elevated blood pressure and elevated heart rate. Exam did reveal a regular regular rate consistent with atrial fibrillation which was confirmed with EKG and nurse monitoring. Differential diagnosis: ?Includes but is not limited to myocardial infarction, myocardial ischemia, congestive heart failure, pneumonia, pulmonary embolism, anemia, electrolyte abnormality, viral illness, COVID-19, influenza, RSV Following evaluation was ordered: Patient was initially treated with the following: Course: Related Data Previous Rx's Medication Instructions Recorded acetaminophen 325 mg tablet 650 mg (2 x 325 mg) PO Q6H PRN 09/06/21 pain 30 days #240 tabs lisinopril 40 mg tablet 40 mg PO DAILY 90 days #90 tabs 06/05/22 apixaban 5 mg tablet 5 mg PO BID 90 days #180 tabs 07/24/22 metoprolol succinate 25 mg 25 mg PO DAILY #90 tabs 09/01/22 tablet,extended release 24 hr (Toprol XL) atorvastatin 40 mg tablet 40 mg PO BEDTIME #90 tabs 12/22/22 amlodipine 5 mg tablet 5 mg PO DAILY #90 tabs 02/25/23 cholecalciferol (vitamin D3) 50 50 mcg PO DAILY #90 caps 03/18/23 mcg (2,000 unit) capsule Allergies Allergy/AdvReac Type Severity Reaction Status Date / Time No Known Allergies Allergy Verified 04/26/23 16:43 Review of Systems 2 Review of Systems: Yes all other systems are reviewed and are negative [facility] Past Medical History Medical History CKD (chronic kidney disease), stage III COVID-19 vaccine series completed Fatty liver History of duodenal ulcer Hypertension Incisional hernia New onset a-fib Osteoarthritis of both knees Surgical History H/O colonoscopy History of exploratory laparotomy (~01/28/19) History of hand surgery History of total left knee replacement History of total right knee replacement History of ventral hernia repair S/P exploratory laparotomy (~06/27/19) Family History Family History Father No problems noted. Mother No problems noted. Social History Social History Household Members: Spouse Housing: House Are you a primary career counselor to a significant other at home: No Do you presently have visiting nurse or other home services: No Alcohol intake: current Alcohol intake frequency: holidays/special occasions only Alcohol type: beer Comment: sleeping Patient Tobacco Use Status: Former Tobacco user Quit Date: 2012 Smoked: 20 +/- Smoked in Last 30 Days: No e-Cigarette/Vaping Use: Never Used Second Hand Smoke Exposure: No Use of substances other than those prescribed or required for medical reasons: No Advance Directives: No Advance Directives Information Provided: No Advance Directives Date on File: 05/14/20 service: No Current occupational status: employed 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 Exam: General: Awake, alert , appears dyspneic, answers in full sentences Head: Normocephalic, atraumatic EENT: PERRL, Lids normal, sclera normal, conjunctiva normal, nose normal , ears normal, throat without erythema or exudates Neck: Supple, no adenopathy Lung: Rales at the bases with wheezing on forced expiration, breath sounds symmetric bilaterally Chest: symmetric movement, nontender Heart: Rapid, irregular rate and and irregular rhythm,, normal S1, S2 no murmurs or rubs Abdomen: soft, non-tender, nondistended, normal bowel sounds Back: no vertebral tenderness, no CVAT Extremities: no deformities, moves all extremities symmetrically Neuro: Awake, alert, oriented, normal speech, cranial nerves intact, moves all extremities symmetrically Psych: Pleasant, cooperative Course Course Course Narrative: RAEGANE- 16:46PM - 62-year-old male with a past medical history of atrial fibrillation currently on Eliquis presenting to the ER with complaints of intermittent cough, shortness of breath, fatigue, malaise and upset stomach since last Wednesday/. Reports he does not have a history of congestive heart failure. He reports he has never had a blood clot. He denies any fevers, nasal congestion, sneezing or any other symptoms complaints or concerns On exam patient is tachycardic, tachypneic and hypoxic at 90 denies 2% on room air. Lungs with decreased lung sounds although no obvious wheezes noted. Due to patient having some mild respiratory distress patient will be brought directly to room 10 in the ER and patient will be evaluated by another provider. H&P deferred to them. Medications Administered Generic Name Dose Route Start Last Admin Trade Name Freq PRN Reason Stop Dose Admin Azithromycin 500 mg/ Sodium 250 mls @ 125 mls/hr 04/26/23 18:12 04/26/23 18:39 Chloride IV 04/26/23 20:11 125 mls/hr ONCE ONE Administration Discontinued Medications Generic Name Dose Route Start Last Admin Trade Name Freq PRN Reason Stop Dose Admin Albuterol Sulfate 7.5 mg/ 0 mg 04/26/23 16:49 04/26/23 17:09 Albuterol/Ipratropium 3 ml INHALE 04/26/23 16:50 Not Given ONCE ONE Albuterol Sulfate 2.5 mg/ 0 mg 04/26/23 17:08 04/26/23 17:09 Albuterol/Ipratropium 3 ml INHALE 04/26/23 17:09 1 dose ONCE ONE Administration Diltiazem HCl 20 mg 04/26/23 18:21 04/26/23 18:33 Diltiazem Hcl 50 Mg/10 Ml Vial IVPUSH 04/26/23 18:22 20 mg STAT STA Administration Furosemide 40 mg 04/26/23 18:12 04/26/23 18:34 Furosemide 40 Mg/4 Ml Vial IVPUSH 04/26/23 18:13 40 mg ONCE ONE Administration Protocol Ceftriaxone Sodium 1 gm/ 50 mls @ 100 mls/hr 04/26/23 18:12 04/26/23 18:37 Sodium Chloride IV 04/26/23 18:41 100 mls/hr ONCE ONE Administration Medical Decision Making Medical Decision Making MDM Narrative: 62-year-old male with a history hyperlipidemia, peripheral vascular disease, anemia, hypertension, atrial fibrillation on Eliquis, chronic kidney disease, hypertension who presents emergency department for evaluation of shortness of breath times 4-5 days, lower abdominal pain, nonproductive cough, diarrhea 3-4 episodes x1 day-resolved. Patient's shortness of breath at rest and dyspnea exertion was getting worse therefore came to hospital today. He denied fever, chills, chest pain. Vital signs did reveal elevated blood pressure and rapid irregular heart rate. Lung exam revealed rales at the bases with wheezing with forced expiration. Heart exam did reveal a rapid irregular rate and rhythm, no peripheral edema. Differential diagnosis: ?Includes but is not limited to myocardial infarction, myocardial ischemia, congestive heart failure, pneumonia, viral syndrome, influenza, RSV, COVID-19 Following evaluation was ordered: CBC, CMP, troponin, VBG, PTT, D-dimer, BNP, troponin, lactic acid, blood cultures x2, COVID, RSV, influenza Patient was initially treated with the following: Bronchodilator protocol- albuterol 5 mg nebulized Course: 18:38 My interpretation patient's laboratory evaluation is as follows: CBC was normal. BMP revealed an elevated BUN of 22 and normal creatinine of 1.18. Glucose was elevated 132. D-dimer was 181 and below the 230 threshold-which is reassuring suggesting the pulmonary embolism is not the cause of his symptoms. Initial troponin was detectable but not elevated at 17.6-repeat troponin due at 20:05 hours. BNP is elevated at 436. Venous blood gas revealed a normal pH of 7.37 and normal pCO2 of 44. Lactic acid was normal 1.4. COVID-19, influenza and RSV were negative. Admission/Observation Consideration of admission/observation: Escalation of care including admission/observation considered Consult Healthcare Provider Management of the patient was discussed with: Hospitalist Lab Data [facility] Lab Attestation statement: I reviewed the patient's lab results. 04/26/23 17:04 04/26/23 17:04 Labs: Lab Results 04/26/23 04/26/23 04/26/23 Range/Units 17:03 17:04 17:10 WBC 8.2 (4.8-10.8) X10*3/uL RBC 4.65 (4.60-5.80) X10*6/uL Hgb 15.5 (14.0-18.0) g/dl Hct 46.0 (42.0-52.0) % MCV 98.9 H (80.0-98.0) fL MCH 33.3 H (27.0-33.0) pg MCHC 33.7 (31.0-36.0) g/dl RDW 13.5 (11.0-16.0) % Plt Count 206 (160-400) X10*3/uL MPV 9.7 (9.4-12.4) fL Immature Gran % (Auto) 0.2 (0.0-0.4) % Neut % (Auto) 58.7 (45-73) % Lymph % (Auto) 29.8 (20-40) % [place] % (Auto) 9.5 (2-11) % Eos % (Auto) 1.3 (0-4) % Baso % (Auto) 0.5 (0-2) % Lymph # (Auto) 2.4 (1.2-4.9) X10*3/uL [place] # (Auto) 0.8 (0.1-1.2) X10*3/uL Eos # (Auto) 0.1 (0.0-0.4) X10*3/uL Baso # (Auto) 0.0 (0.0-0.2) X10*3/uL Abs Immat Gran (auto) 0.02 (0.00-0.03) X10*3/uL Absolute Neuts (auto) 4.8 (2.0-8.3) x10*3/uL Absolute Nucleated RBC 0.000 (0.0-0.012) X10*3/uL Nucleated RBC % (auto) 0.0 (0.0-0.2) /100WBC APTT 31.6 (26.0-36.8) SEC D-Dimer High Sensitivty 181 NG/ML VBG pH 7.37 (7.32-7.43) VBG pCO2 44 mmHg VBG pO2 77 mmHg VBG HCO3 26 (22-26) mmol/L VBG O2 Saturation 93.0 % VBG Base Excess 0.5 mmol/L Sodium 143 (135-145) mmol/L Potassium 4.4 (3.3-5.1) mmol/L Chloride 108 (96-108) mmol/L Carbon Dioxide 27 (22-29) mmol/L Anion Gap 12 (12-20) BUN 22 H (9-16) mg/dL Creatinine 1.18 (0.5-1.4) mg/dL Estim Creat Clear Calc 67.9 Estimated GFR > 60 Random Glucose 132 H (60-115) mg/dL Lactic Acid 1.4 (0.5-2.0) mmol/L Calcium 9.4 (8.4-10.2) mg/dL Magnesium 1.9 (1.6-2.6) mg/dL Total Bilirubin 0.5 (0.0-1.0) mg/dL AST 25 (5-37) U/L ALT 61 H (0-40) U/L Alkaline Phosphatase 86 (39-117) U/L Troponin I High Sens 17.6 (<3.5-35.0) ng/L B-Natriuretic Peptide 436 H (<100) pg/mL Total Protein 7.1 (6.5-8.0) g/dL Albumin 4.2 (3.5-5.0) g/dL Lipase 70 (8-78) U/L Urine Color Urine Appearance Urine pH (5.0-9.0) Ur Specific [place] (1.005-1.025) Urine Protein (Neg-Trace) mg/dL Urine Glucose (UA) (Negative) mg/dL Urine Ketones (Negative) mg/dL Urine Blood (Negative) Urine Nitrite (Negative) Ur Leukocyte Esterase (Negative) Influenza Type A (PCR) NEGATIVE (Negative) Influenza Type B (PCR) NEGATIVE (Negative) RSV RNA Qual (PCR) NEGATIVE (Negative) SARS-CoV-2 RNA (RT-PCR) NEGATIVE (Negative) 04/26/23 Range/Units 18:43 WBC (4.8-10.8) X10*3/uL RBC (4.60-5.80) X10*6/uL Hgb (14.0-18.0) g/dl Hct (42.0-52.0) % MCV (80.0-98.0) fL MCH (27.0-33.0) pg MCHC (31.0-36.0) g/dl RDW (11.0-16.0) % Plt Count (160-400) X10*3/uL MPV (9.4-12.4) fL Immature Gran % (Auto) (0.0-0.4) % Neut % (Auto) (45-73) % Lymph % (Auto) (20-40) % [place] % (Auto) (2-11) % Eos % (Auto) (0-4) % Baso % (Auto) (0-2) % Lymph # (Auto) (1.2-4.9) X10*3/uL [place] # (Auto) (0.1-1.2) X10*3/uL Eos # (Auto) (0.0-0.4) X10*3/uL Baso # (Auto) (0.0-0.2) X10*3/uL Abs Immat Gran (auto) (0.00-0.03) X10*3/uL Absolute Neuts (auto) (2.0-8.3) x10*3/uL Absolute Nucleated RBC (0.0-0.012) X10*3/uL Nucleated RBC % (auto) (0.0-0.2) /100WBC APTT (26.0-36.8) SEC D-Dimer High Sensitivty NG/ML VBG pH (7.32-7.43) VBG pCO2 mmHg VBG pO2 mmHg VBG HCO3 (22-26) mmol/L VBG O2 Saturation % VBG Base Excess mmol/L Sodium (135-145) mmol/L Potassium (3.3-5.1) mmol/L Chloride (96-108) mmol/L Carbon Dioxide (22-29) mmol/L Anion Gap (12-20) BUN (9-16) mg/dL Creatinine (0.5-1.4) mg/dL Estim Creat Clear Calc Estimated GFR Random Glucose (60-115) mg/dL Lactic Acid (0.5-2.0) mmol/L Calcium (8.4-10.2) mg/dL Magnesium (1.6-2.6) mg/dL Total Bilirubin (0.0-1.0) mg/dL AST (5-37) U/L ALT (0-40) U/L Alkaline Phosphatase (39-117) U/L Troponin I High Sens (<3.5-35.0) ng/L B-Natriuretic Peptide (<100) pg/mL Total Protein (6.5-8.0) g/dL Albumin (3.5-5.0) g/dL Lipase (8-78) U/L Urine Color Yellow Urine Appearance Clear Urine pH 6.0 (5.0-9.0) Ur Specific [place] 1.010 (1.005-1.025) Urine Protein Negative (Neg-Trace) mg/dL Urine Glucose (UA) Negative (Negative) mg/dL Urine Ketones Negative (Negative) mg/dL Urine Blood Negative (Negative) Urine Nitrite Negative (Negative) Ur Leukocyte Esterase Negative (Negative) Influenza Type A (PCR) (Negative) Influenza Type B (PCR) (Negative) RSV RNA Qual (PCR) (Negative) SARS-CoV-2 RNA (RT-PCR) (Negative) Independent Interpretation I performed an independent interpretation of an: EKG and Plain X-Ray Interpretation: My interpretation one-view chest x-ray is as follows: Increased interstitial markings bilaterally with possible right lower lobe infiltrate compared to previous chest x-ray 2020 My interpretation the patient's 12 EKG done at 17:01 hours is as follows: Atrial fibrillation with a ventricular rate of 124, normal QRS duration and QTC interval, occasional PVC, no ST segment elevation, no ST segment depression, Q- waves in V 1 through V3, no significant T-wave abnormalities. Compared to EKG dated 09/02/2020, atrial fibrillation is new, previously normal sinus rhythm was noted. Q-waves are new. Radiology Impression Discussion of test interpretation with radiology: I have reviewed the radiologist's reading. Radiologist Impression: XR chest 1V IMPRESSION: Subtle right lower lobe opacity for which infection is not excluded. Dictated By: Andres Roberto Jr DO Critical Care Time Critical Care Time Critical Care Time: Yes Total Critical Care Time: 35 Attestation: Critical Care: The patient was critically ill with a high probability of imminent or life threatening deterioration. I spent greater than 30 minutes of discontinuous time evaluating the patient,delivering critical care at the bedside, discussing and evaluating pertinent data with consultants. Critical care time does not include time spent performing separately billable procedures or teaching. Total time spent performing critical care was 35 minutes. Discharge Plan Discharge Clinical Impression: Atrial fibrillation with rapid ventricular response Pneumonia Qualifiers: Pneumonia type: due to unspecified organism Laterality: right Lung location: l ower lobe of lung Qualified Code(s): J18.9 - Pneumonia, unspecified organism Congestive heart failure Qualifiers: Heart failure chronicity: acute Patient Disposition: Admitted As Inpatient
--- NOTE | 2023-04-26 16:48 | ECG_ITS ---
Test Reason : sob Blood Pressure : / mmHG Vent. Rate : 124 BPM Atrial Rate : 000 BPM P-R Int : 000 ms QRS Dur : 084 ms QT Int : 330 ms P-R-T Axes : 000 068 053 degrees QTc Int : 474 ms Atrial fibrillation with rapid ventricular response with premature ventricular or aberrantly conducted complexes Possible Anterior infarct , age undetermined Abnormal ECG When compared with ECG of 02-SEP-2020 11:34, Atrial fibrillation has replaced Sinus rhythm Vent. rate has increased BY 45 BPM Borderline criteria for Anterior infarct are now Present Referred By: Cj Hanson Electronically Signed By:Margarito Fofana
[2023-04-26 17:01] VITALS: BP 149/113; PULSE 123; RESP 31; TEMP 36.5; O2SAT 94
[2023-04-26] MEDS: Albuterol Sulfate 2.5 MG, Albuterol/Iprat 2.5/0.5MG 3 ML 3 ML INHALE (17:09)
[2023-04-26 17:10] VITALS: PULSE 58; RESP 22; O2SAT 94
[2023-04-26 17:10] LABS: MANUAL DIFF FLAG NO
[2023-04-26 17:12] VITALS: BP 150/105; PULSE 121; RESP 20; O2SAT 96
[2023-04-26 17:12] LABS: Basophils Percent Auto 0.5 % (0-2); Eosinophils Absolute Auto 0.1 X10*3/uL (0.0-0.4); Eosinophils Percent Auto 1.3 % (0-4); Hemoglobin 15.5 g/dl (14.0-18.0); Imm Gran Abs Auto 0.02 X10*3/uL (0.00-0.03); Imm Gran Pct Auto 0.2 % (0.0-0.4); Lymphocytes Absolute Auto 2.4 X10*3/uL (1.2-4.9); Lymphocytes Percent Auto 29.8 % (20-40); Mean Corpuscular HGB Conc 33.7 g/dl (31.0-36.0); Mean Corpuscular Hemoglobin 33.3 pg (27.0-33.0); Mean Corpuscular Volume 98.9 fL (80.0-98.0); Mean Platelet Volume 9.7 fL (9.4-12.4); Monocytes Absolute Auto 0.8 X10*3/uL (0.1-1.2); Monocytes Percent Auto 9.5 % (2-11); Neutrophils Absolute Auto 4.8 x10*3/uL (2.0-8.3); Neutrophils Percent Auto 58.7 % (45-73); Platelet Count 206 X10*3/uL (160-400); Red Blood Count 4.65 X10*6/uL (4.60-5.80); Red Cell Distribution Width 13.5 % (11.0-16.0); White Blood Count 8.2 X10*3/uL (4.8-10.8)
[2023-04-26 17:20] LABS: VBG Base Excess 0.5 mmol/L; VBG HCO3 26 mmol/L (22-26); VBG pCO2 44 mmHg; VBG pH 7.37 (7.32-7.43); VBG pO2 77 mmHg
[2023-04-26 17:20] LABS: Venous Blood Gas Refer to POC result
[2023-04-26 17:24] LABS: Lactic Acid 1.4 mmol/L (0.5-2.0)
[2023-04-26 17:26] LABS: Lipase 70 U/L (8-78)
[2023-04-26 17:31] LABS: D Dimer High Sensitivity 181 NG/ML; Partial Thromboplastin Time 31.6 SEC (26.0-36.8)
[2023-04-26 17:33] LABS: B Type Natriuretic Peptide 436 pg/mL (<100)
[2023-04-26 17:36] LABS: Troponin-I High Sensitivity 17.6 ng/L (<3.5-35.0)
[2023-04-26 17:39] LABS: Alanine Aminotransferase 61 U/L (0-40); Albumin Level 4.2 g/dL (3.5-5.0); Alkaline Phosphatase 86 U/L (39-117); Anion Gap 12 (12-20); Aspartate Amino Transferase 25 U/L (5-37); Bilirubin Total 0.5 mg/dL (0.0-1.0); Blood Urea Nitrogen 22 mg/dL (9-16); Calcium 9.4 mg/dL (8.4-10.2); Carbon Dioxide 27 mmol/L (22-29); Chloride 108 mmol/L (96-108); Creatinine Clr Calc Pharmacy 67.9; Estimated Glomerular Filt Rate > 60; Glucose Random 132 mg/dL (60-115); Magnesium 1.9 mg/dL (1.6-2.6); Potassium 4.4 mmol/L (3.3-5.1); Sodium 143 mmol/L (135-145); Total Protein 7.1 g/dL (6.5-8.0)
[2023-04-26 18:03] LABS: Influenza A PCR NEGATIVE (Negative); Influenza B PCR NEGATIVE (Negative); Resp Syncy Virus RNA Qual PCR NEGATIVE (Negative); SARS COV2 PCR INHOUSE NEGATIVE (Negative)
[2023-04-26 18:31] VITALS: BP 133/89; PULSE 115; RESP 18; O2SAT 97
[2023-04-26] MEDS: dilTIAZem HCL 50 MG/10 ML VIAL 20 MG IVPUSH (18:33)
[2023-04-26] MEDS: Furosemide 40 MG/4 ML VIAL IVPUSH (18:34)
[2023-04-26] MEDS: cefTRIAXone sodium 1 GM in 0.9 % Sodium Chloride 50 ML IV (18:37)
[2023-04-26] MEDS: Azithromycin 500 MG in 0.9 % Sodium Chloride 250 ML 125 MG IV (18:39)
[2023-04-26 18:51] LABS: Appearance Urine Clear; Color Urine Yellow; Glucose Urine UA Negative (Negative); Leukocyte Esterase Urine Negative (Negative); Nitrite Urine Negative (Negative); Urine Blood Negative (Negative); Urine Ketones Negative (Negative); Urine Protein Negative (Neg-Trace)
--- NOTE | 2023-04-26 19:55 | PHA.MEDREC ---
Pharmacy Consult ? Medication Reconciliation Pharmacy has completed the medication reconciliation. Patient confirmed medications. Hyacinth Manzo, AnuragD
--- NOTE | 2023-04-26 20:00 | PC.NURSE ---
pt trialed off O2; spo2 94-95% on room air.
--- NOTE | 2023-04-26 20:42 | P.HPHOSP_ITS ---
History of Present Illness Date of Service: 04/26/23 Attending physician on admission: Brett Julien Chief Complaint: Shortness of breath Horacio Monzon a 62 years old man with past medical history significant for atrial fibrillation on Eliquis, hypertension and hyperlipidemia presents to the emergency department complaining 4 day history of shortness on breath mostly on exertion associated with mildly productive cough. He also reported episodes of diarrhea has been getting better and stomach upset. He denied nausea or vomiting. Also denies fever or chills. He did not report any headache, palpitations or dizziness. He also denies leg swelling. He denied tobacco smoking or illicit drug use. He drinks alcohol on occasion (last time he drank alcohol was yesterday). In the ED, he was found to tachycardia consistent with atrial fibrillation with rapid ventricular response. There is no hypotension or fever. Blood workup did not show leukocytosis. Hemoglobin is normal. There are no electrolyte imbalances. Creatinine is 1.18 which is around his baseline. There is no lactic acidosis. Lipase is normal. ALT is slightly elevated, 61. Urinalysis is normal. Viral testing for influenza, RSV and COVID-19 is negative. BNP is elevated 436. Troponin is within normal limits. CXR showed subtle right lower lobe opacity. ED tx: Ceftriaxone 1 g IV, azithromycin 5 mg IV, diltiazem 20 mg IV, albuterol/ipratropium X2 furosemide 40 mg IV. Review of Systems 2 Review of Systems: All 12 systems were reviewed and normal except as noted in HPI. [facility] Medical History CKD (chronic kidney disease), stage III COVID-19 vaccine series completed Fatty liver History of duodenal ulcer Hypertension Incisional hernia New onset a-fib Osteoarthritis of both knees Family History Father No problems noted. Mother No problems noted. Surgical History H/O colonoscopy History of exploratory laparotomy (~01/28/19) History of hand surgery History of total left knee replacement History of total right knee replacement History of ventral hernia repair S/P exploratory laparotomy (~06/27/19) Social History Household Members: Spouse Housing: House Are you a primary career portals teacher to a significant other at home: No Do you presently have visiting nurse or other home services: No Alcohol intake: current Alcohol intake frequency: holidays/special occasions only Alcohol type: beer Comment: sleeping Patient Tobacco Use Status: Former Tobacco user Quit Date: 2012 Years Smoked: 20 +/- Smoked in Last 30 Days: No e-Cigarette/Vaping Use: Never Used Second Hand Smoke Exposure: No Use of substances other than those prescribed or required for medical reasons: No Advance Directives: No Advance Directives Information Provided: No Advance Directives Date on File: 05/14/20 service: No Current occupational status: employed 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 Cognitive needs: No Hearing needs: No Vision needs: No Meds Allergies Allergy/AdvReac Type Severity Reaction Status Date / Time No Known Allergies Allergy Verified 04/26/23 16:43 Active Medications: Current Medications Acetaminophen (Acetaminophen 325 Mg Tablet) 650 mg PO Q6H PRN PRN Reason: Pain, Mild (Pain Scale 1-3) Amlodipine Besylate (Amlodipine Besylate 5 Mg Tablet) 5 mg PO DAILY LINO; Protocol Apixaban (Apixaban 5 Mg Tablet) 5 mg PO BID LINO Atorvastatin Calcium (Atorvastatin Calcium 40 Mg Tablet) 40 mg PO BEDTIME LINO Azithromycin 500 mg/ Sodium (Chloride) 250 mls @ 125 mls/hr IV Q24H LINO Ceftriaxone Sodium 1 gm/ (Sodium Chloride) 50 mls @ 100 mls/hr IV Q24H LINO Lisinopril (Lisinopril 40 Mg Tablet) 40 mg PO DAILY LINO; Protocol Metoprolol Succinate (Metoprolol Succinate Er 25 Mg Tab.Er.24h) 25 mg PO DAILY LINO; Protocol Sodium Chloride (0.9 % Sodium Chloride Flush 3 Ml Syringe) 3 ml IVFLUSH QSHIFT [facility] Vitamin D (Cholecalciferol (Vitamin D3) 25 Mcg Tablet) 50 mcg PO DAILY [facility] Physical Exam 2 Vital Signs and Narrative: Vital Signs: Last Vital Signs Temp 97.7 F 04/26/23 17:01 Pulse 115 H 04/26/23 18:31 Resp 18 04/26/23 18:31 BP 133/89 04/26/23 18:31 Pulse Ox 97 04/26/23 18:31 O2 Del Method Nasal Cannula 04/26/23 18:31 O2 Flow Rate 2 04/26/23 18:31 BMI result Body Mass Index 31.3 Constitutional - Awake and Alert, No apparent distress. Pleasant. Cooperative. HEENT - pupils equally round. Normal sclerae. Heart - S1S2, RRR, No edema Lungs - Normal lung expansion, Normal respiratory effort, No respiratory distress, crackles over the left base. Abdomen- NT / ND; +BS; No rebound or guarding Extremities - no calf tenderness bilaterally, no swelling Musculoskeletal - Normal inspection, normal ROM Skin - Warm/Dry Neurological - Alert & oriented x3. No focal weakness grossly noted. Normal speech. Psychological - Appropriate affect Results Labs 04/26/23 17:04 04/26/23 17:04 Labs: Laboratory Results - last 24 hr 04/26/23 04/26/23 04/26/23 17:03 17:04 17:10 MCV 98.9 H MCH 33.3 H MCHC 33.7 RDW 13.5 Plt Count 206 MPV 9.7 Immature Gran % (Auto) 0.2 Neut % (Auto) 58.7 Lymph % (Auto) 29.8 [place] % (Auto) 9.5 Eos % (Auto) 1.3 Baso % (Auto) 0.5 Lymph # (Auto) 2.4 [place] # (Auto) 0.8 Eos # (Auto) 0.1 Baso # (Auto) 0.0 Abs Immat Gran (auto) 0.02 Absolute Neuts (auto) 4.8 Absolute Nucleated RBC 0.000 Nucleated RBC % (auto) 0.0 APTT 31.6 D-Dimer High Sensitivty 181 VBG pH 7.37 VBG pCO2 44 VBG pO2 77 VBG HCO3 26 VBG O2 Saturation 93.0 VBG Base Excess 0.5 Anion Gap 12 Estim Creat Clear Calc 67.9 Estimated GFR > 60 Random Glucose 132 H Lactic Acid 1.4 Calcium 9.4 Magnesium 1.9 Total Bilirubin 0.5 AST 25 ALT 61 H Alkaline Phosphatase 86 Troponin I High Sens 17.6 B-Natriuretic Peptide 436 H Total Protein 7.1 Albumin 4.2 Lipase 70 Urine Color Urine Appearance Urine pH Ur Specific [place] Urine Protein Urine Glucose (UA) Urine Ketones Urine Blood Urine Nitrite Ur Leukocyte Esterase Influenza Type A (PCR) NEGATIVE Influenza Type B (PCR) NEGATIVE RSV RNA Qual (PCR) NEGATIVE SARS-CoV-2 RNA (RT-PCR) NEGATIVE 04/26/23 18:43 MCV MCH MCHC RDW Plt Count MPV Immature Gran % (Auto) Neut % (Auto) Lymph % (Auto) [place] % (Auto) Eos % (Auto) Baso % (Auto) Lymph # (Auto) [place] # (Auto) Eos # (Auto) Baso # (Auto) Abs Immat Gran (auto) Absolute Neuts (auto) Absolute Nucleated RBC Nucleated RBC % (auto) APTT D-Dimer High Sensitivty VBG pH VBG pCO2 VBG pO2 VBG HCO3 VBG O2 Saturation VBG Base Excess Anion Gap Estim Creat Clear Calc Estimated GFR Random Glucose Lactic Acid Calcium Magnesium Total Bilirubin AST ALT Alkaline Phosphatase Troponin I High Sens B-Natriuretic Peptide Total Protein Albumin Lipase Urine Color Yellow Urine Appearance Clear Urine pH 6.0 Ur Specific [place] 1.010 Urine Protein Negative Urine Glucose (UA) Negative Urine Ketones Negative Urine Blood Negative Urine Nitrite Negative Ur Leukocyte Esterase Negative Influenza Type A (PCR) Influenza Type B (PCR) RSV RNA Qual (PCR) SARS-CoV-2 RNA (RT-PCR) Imaging Radiologist's Impressions: Impressions Chest X-Ray 04/26/23 17:33 IMPRESSION: Subtle right lower lobe opacity for which infection is not excluded. Assessment and Plan (1) Atrial fibrillation with rapid ventricular response: Status: Acute (2) Pneumonia: Qualifiers: Laterality: right Lung location: lower lobe of lung Pneumonia type: d ue to unspecified organism Qualified Code(s): J18.9 - Pneumonia, unspecified organism Status: Acute (3) Hyperlipidemia: Qualifiers: Hyperlipidemia type: unspecified Qualified Code(s): E78.5 - Hyperlipidemia, unspecified Status: Acute (4) Hypertension: Qualifiers: Hypertension type: primary hypertension Qualified Code(s): I10 - Essential (primary) hypertension Status: Acute (5) Elevated brain natriuretic peptide (BNP) level: Status: Acute Plan Horacio Monzon a 62 years old man admitted with: * Atrial fibrillation with rapid ventricular response, improving. Admit to hospitalist service. Telemetry. Continue metoprolol. Continue Eliquis. * Right lower lobe pneumonia. Continue empiric IV antibiotic therapy with ceftriaxone and azithromycin. Supplemental oxygen as needed. * Elevated BNP. Check echocardiogram. Lasix given in the ED. * Hypertension. Continue metoprolol and amlodipine. * Hyperlipidemia. Continue atorvastatin. * Slight elevation in ALT. Possibly secondary to atorvastatin. Continue to monitor for now. DVT prophylaxis: On Eliquis Code status: Full Patient will need hospitalization for at least 2 midnights for pneumonia treatment with IV antibiotics and supplemental oxygen. Patient also needs cardiac monitoring for atrial fibrillation with rapid ventricular response and treatment with rate control agents as needed. Quality Stroke Does the patient have a stroke diagnosis?: No VTE Prior VTE?: No VTE Risk Level:: Medical - moderate - high VTE Device Contraindication: Treatment Not Indicated VTE Drug Contraindication: Treatment Not Indicated
[2023-04-26 20:59] VITALS: BP 102/69; PULSE 117; RESP 22; TEMP 36.7; O2SAT 97
[2023-04-26] MEDS: dilTIAZem HCL 50 MG/10 ML VIAL 10 MG IVPUSH (21:03)
[2023-04-26] MEDS: Atorvastatin Calcium 40 MG TABLET PO (21:05)
[2023-04-26] MEDS: Apixaban 5 MG TABLET PO (21:05)
[2023-04-26] MEDS: dilTIAZem HCL 30 MG TABLET 15 MG PO (21:21)
[2023-04-26 22:06] LABS: Troponin-I High Sensitivity 15.2 ng/L (<3.5-35.0)
[2023-04-27 01:22] VITALS: BP 110/83; PULSE 81; RESP 20; TEMP 37.1; O2SAT 96
--- NOTE | 2023-04-27 01:23 | MHC.EDTECH ---
Addendum entered by Melinda Garcia 04/27/23 01:24: Belonging list completed and copy placed in chart Original Note: This tech took over care of patient at 0100AM, hourly rounds and vitals completed,patient urinated 200MLS in urinal. Patient is resting comfortably at this time and call mendez in reach
--- NOTE | 2023-04-27 01:30 | MHC.EDTECH ---
Patient urinated 300MLS in urinal.
--- NOTE | 2023-04-27 04:04 | MHC.EDTECH ---
Hourly rounds and vitals completed,patient urinated 300MLS in urinal.Patient giving a cup of ice water per request, patient is resting at this time,call mendez in reach
[2023-04-27 04:07] VITALS: BP 124/91; PULSE 105; RESP 20; TEMP 37.1; O2SAT 96
--- NOTE | 2023-04-27 06:17 | MHC.EDTECH ---
Patient ambulated to bathroom with a steady gait,patient stated he had a small bowel movement. Hourly rounds completed,call mendez in reach
[2023-04-27 06:21] LABS: MANUAL DIFF FLAG NO
[2023-04-27 06:32] LABS: Basophils Percent Auto 0.5 % (0-2); Eosinophils Absolute Auto 0.1 X10*3/uL (0.0-0.4); Hematocrit 42.4 % (42.0-52.0); Hemoglobin 14.2 g/dl (14.0-18.0); Imm Gran Abs Auto 0.02 X10*3/uL (0.00-0.03); Imm Gran Pct Auto 0.2 % (0.0-0.4); Lymphocytes Absolute Auto 2.1 X10*3/uL (1.2-4.9); Lymphocytes Percent Auto 25.8 % (20-40); Mean Corpuscular HGB Conc 33.5 g/dl (31.0-36.0); Mean Corpuscular Hemoglobin 32.7 pg (27.0-33.0); Mean Corpuscular Volume 97.7 fL (80.0-98.0); Mean Platelet Volume 10.5 fL (9.4-12.4); Monocytes Absolute Auto 0.9 X10*3/uL (0.1-1.2); Neutrophils Percent Auto 61.5 % (45-73); Platelet Count 194 X10*3/uL (160-400); Red Blood Count 4.34 X10*6/uL (4.60-5.80); Red Cell Distribution Width 13.5 % (11.0-16.0); White Blood Count 8.1 X10*3/uL (4.8-10.8)
[2023-04-27 06:46] LABS: Alanine Aminotransferase 52 U/L (0-40); Albumin Level 3.9 g/dL (3.5-5.0); Alkaline Phosphatase 79 U/L (39-117); Anion Gap 13 (12-20); Aspartate Amino Transferase 21 U/L (5-37); Bilirubin Total 0.7 mg/dL (0.0-1.0); Blood Urea Nitrogen 20 mg/dL (9-16); Calcium 9.4 mg/dL (8.4-10.2); Carbon Dioxide 28 mmol/L (22-29); Chloride 106 mmol/L (96-108); Creatinine Clr Calc Pharmacy 78.5; Estimated Glomerular Filt Rate > 60; Glucose Random 91 mg/dL (60-115); Potassium 3.8 mmol/L (3.3-5.1); Sodium 143 mmol/L (135-145); Total Protein 6.6 g/dL (6.5-8.0)
--- NOTE | 2023-04-27 07:00 | CA_ITS ---
Transthoracic Echocardiogram Patient (Last, First, Middle): Horacio Monzon S Gender: Male Date of : 1960 Age: 62 Procedure Date: 04/27/2023 Procedure Type: Transthoracic Echocardiogram Location: ER Height: 170. cm Weight: 90.72 kg BSA: 2.02 m2 Heart Rate: bpm BP: 124 / 91 mmHg Patient Services Specialist: TRICE Referring MD: Brett Julien MD Symptoms: Shortness on breath, elevated BNP Study Quality: Adequate Conclusions: - Normal left ventricular cavity size. There is normal left ventricular wall thickness. The left ventricular systolic function is moderately decreased. The visually estimated ejection fraction is between 30-35%. Diastolic function is indeterminate on the basis of available data. - Normal right ventricular cavity size. There is mildly decreased right ventricular systolic function. Findings Left Ventricle Normal left ventricular cavity size. There is normal left ventricular wall thickness. The left ventricular systolic function is moderately decreased. The visually estimated ejection fraction is between 30-35%. Diastolic function is indeterminate on the basis of available data. Right Ventricle Normal right ventricular cavity size. There is mildly decreased right ventricular systolic function. Atria The left atrium is mildly dilated. The right atrium is mildly dilated. Aortic Valve There is a normal trileaflet aortic valve. There is mild calcification of the aortic valve. There is no aortic valve stenosis. There is no aortic valve regurgitation. Mitral Valve The mitral valve appears normal. There is mild mitral valve regurgitation. There is no mitral valve stenosis. Pulmonic Valve The pulmonic valve is likely normal. Tricuspid Valve Normal tricuspid valve structure. There is trace tricuspid valve regurgitation. Low right atrial pressure. There is no evidence of pulmonary hypertension. Great Vessels There is mild dilatation of the ascending aorta measuring 3.50 cm. The visualized portions of the pulmonary artery and branches are normal. Venous The inferior vena cava is dilated and collapses greater than 50% with inspiration. Pericardium/Pleural There is no evidence of pericardial effusion. Prior Study Comparison Changes noted compared to prior study dated: 10/30/2020. Moderate LV and mild RV dysfunction. Measurements 2D Linear Measurements IVSd: 0.96 0.6-0.9/0.6-1.0 cm LVIDd: 5.36 3.9-5.3/4.2-5.9 cm LVIDd Index: 2.65 2.4-3.2/2.2-3.1 cm/m2 LVIDs: 5.11 2.0-3.6 cm LVPWd: 1.09 0.7-1.1 cm LA Diam: 3.80 2.7-3.8/3.0-4.0 cm LAIDs Index: 1.88 1.5-2.3 cm/m2 LV Mass: 262.31 67-162/88-224 g LV Mass Index: 129.86 43-95/49-115 g/m2 LVOT Diam: 2.10 3.0+(-)1.3 cm 2D Systolic Function EF 4C: 29.60 >55% EF 2C: 28.20 >55% EF BiP: 30.20 >55% Mitral Valve MV Pk E: 1.35 MV Decel Time: 145.00 E'Lateral: 6.72 E'Medial: 5.37 E/E' Med: 25.10 E/E' Lat: 20.10 PHT: 43.00 MVA PHT: 5.12 Decel [place]: 9.27 Aortic Valve AoV Pk Obdulio: 1.19 AoV Mn Obdulio: 0.87 AoV VTI: 0.17 AoV Pk Grad: 6.00 Aov Mn Grad: 3.00 PONCE Cont.VTI: 2.37 LVOT LVOT Pk Obdulio: 0.88 LVOT Mn Obdulio: 0.64 LVOT VTI: 0.12 LVOT Pk Grad: 3.00 LVOT Mn Grad: 2.00 LVOT Diam: 2.10 LVOT Area: 3.46 Diastolic Function MV Pk E: 1.35 E'Medial: 5.37 E/E' Med: 25.10 E' Laterial: 6.72 E/E' Lat: 20.10 Right Ventricle TAPSE (mm): 13.90 TVS' Obdulio: 9.75 Tricuspid Valve TR Pk Obdulio: 1.93 TR Pk Grad: 15.00 RA Press: 8.00 RVSP: 23.00 Great Vessels Aorta Sinus of Valsalva: 3.20 2.0-3.5 cm Ao Asc: 3.50 2.1-3.4 cm Pulmonary Valve PV Pk Obdulio: 1.03 Peak PV Grad: 4.00 Updated in Other Vendor System with Status of Final Margarito Fofana MD electronically signed on 04/27/2023 4:37:26 PM with status of Final
[2023-04-27] MEDS: lisinopriL 40 MG TABLET PO (09:25)
[2023-04-27] MEDS: Cholecalciferol (Vitamin D3) 25 MCG TABLET 50 MCG PO (09:25)
[2023-04-27] MEDS: amLODIPine Besylate 5 MG TABLET PO (09:25)
[2023-04-27] MEDS: Metoprolol Succinate ER 25 MG TAB.ER.24H PO (09:25)
[2023-04-27] MEDS: Apixaban 5 MG TABLET PO ×2 (09:25→20:33)
[2023-04-27] MEDS: 0.9 % Sodium Chloride Flush 3 ML SYRINGE IVFLUSH ×2 (09:26→17:00)
[2023-04-27 09:27] VITALS: BP 123/84; PULSE 120; RESP 18; O2SAT 96
--- NOTE | 2023-04-27 09:41 | PC.NURSE ---
This RN resumed care of patient at 0700, he was A/Ox4, pt ambulated to bathroom to have BM, HR was 150-176 prior to walking back, pt denies SOB/JANIYA, aware, in room to talk with patient, no new orders at this time, bedside echo being performed, awaiting bed placement at this time. Pt took morning medications one at a time stating he has swallowing issues baseline and has a hard time with his pills. Pt was able to swallow them well
--- NOTE | 2023-04-27 10:26 | HO.PM.IMPN ---
Subjective Subjective Date of Service: 04/27/23 Interval History: sob, tachy Physical Exam Vital Signs: Vital Signs: Last Vital Signs Temp 98.7 F 04/27/23 04:07 Pulse 120 H 04/27/23 09:27 Resp 18 04/27/23 09:27 BP 123/84 04/27/23 09:27 Pulse Ox 96 04/27/23 09:27 O2 Del Method Room Air 04/27/23 09:27 O2 Flow Rate 2 04/26/23 20:59 BMI result Body Mass Index 31.3 General: AO X 3, no acute distress Resp: CTA bilateral, no accessory muscles used CVS: S1,S2,irregular GI: soft, non tender, non distended Neuro: motor grossly intact, alert Psych: appropriate affect, appropriate insight Objective Data Active Medications Acetaminophen (Acetaminophen 325 Mg Tablet) 650 mg PO Q6H PRN PRN Reason: Pain, Mild (Pain Scale 1-3) Amlodipine Besylate (Amlodipine Besylate 5 Mg Tablet) 5 mg PO DAILY [facility]; Protocol Last Admin: 04/27/23 09:25 Dose: 5 mg Documented By: MONICA Apixaban (Apixaban 5 Mg Tablet) 5 mg PO BID [facility] Last Admin: 04/27/23 09:25 Dose: 5 mg Documented By: MONICA Atorvastatin Calcium (Atorvastatin Calcium 40 Mg Tablet) 40 mg PO BEDTIME [facility] Last Admin: 04/26/23 21:05 Dose: 40 mg Documented By: SUJATHA Azithromycin 500 mg/ Sodium (Chloride) 250 mls @ 125 mls/hr IV Q24H [facility] Ceftriaxone Sodium 1 gm/ (Sodium Chloride) 50 mls @ 100 mls/hr IV Q24H [facility] Lisinopril (Lisinopril 40 Mg Tablet) 40 mg PO DAILY [facility]; Protocol Last Admin: 04/27/23 09:25 Dose: 40 mg Documented By: MONICA Metoprolol Succinate (Metoprolol Succinate Er 25 Mg Tab.Er.24h) 25 mg PO DAILY [facility]; Protocol Last Admin: 04/27/23 09:25 Dose: 25 mg Documented By: MONICA Sodium Chloride (0.9 % Sodium Chloride Flush 3 Ml Syringe) 3 ml IVFLUSH QSHIFT [facility] Last Admin: 04/27/23 09:26 Dose: 3 ml Documented By: MONICA Vitamin D (Cholecalciferol (Vitamin D3) 25 Mcg Tablet) 50 mcg PO DAILY [facility]O Last Admin: 04/27/23 09:25 Dose: 50 mcg Documented By: MONICA Labs 04/27/23 05:31 04/27/23 05:31 Labs: Laboratory Results - last 24 hr 04/26/23 04/26/23 04/26/23 17:03 17:04 17:10 MCV 98.9 H MCH 33.3 H MCHC 33.7 RDW 13.5 Plt Count 206 MPV 9.7 Immature Gran % (Auto) 0.2 Neut % (Auto) 58.7 Lymph % (Auto) 29.8 [place] % (Auto) 9.5 Eos % (Auto) 1.3 Baso % (Auto) 0.5 Lymph # (Auto) 2.4 [place] # (Auto) 0.8 Eos # (Auto) 0.1 Baso # (Auto) 0.0 Abs Immat Gran (auto) 0.02 Absolute Neuts (auto) 4.8 Absolute Nucleated RBC 0.000 Nucleated RBC % (auto) 0.0 APTT 31.6 D-Dimer High Sensitivty 181 VBG pH 7.37 VBG pCO2 44 VBG pO2 77 VBG HCO3 26 VBG O2 Saturation 93.0 VBG Base Excess 0.5 Anion Gap 12 Estim Creat Clear Calc 67.9 Estimated GFR > 60 Random Glucose 132 H Lactic Acid 1.4 Calcium 9.4 Magnesium 1.9 Total Bilirubin 0.5 AST 25 ALT 61 H Alkaline Phosphatase 86 Troponin I High Sens 17.6 B-Natriuretic Peptide 436 H Total Protein 7.1 Albumin 4.2 Lipase 70 Urine Color Urine Appearance Urine pH Ur Specific [place] Urine Protein Urine Glucose (UA) Urine Ketones Urine Blood Urine Nitrite Ur Leukocyte Esterase Influenza Type A (PCR) NEGATIVE Influenza Type B (PCR) NEGATIVE RSV RNA Qual (PCR) NEGATIVE SARS-CoV-2 RNA (RT-PCR) NEGATIVE 04/26/23 04/26/23 04/27/23 18:43 21:33 05:31 MCV 97.7 MCH 32.7 MCHC 33.5 RDW 13.5 Plt Count 194 MPV 10.5 Immature Gran % (Auto) 0.2 Neut % (Auto) 61.5 Lymph % (Auto) 25.8 [place] % (Auto) 11.0 Eos % (Auto) 1.0 Baso % (Auto) 0.5 Lymph # (Auto) 2.1 [place] # (Auto) 0.9 Eos # (Auto) 0.1 Baso # (Auto) 0.0 Abs Immat Gran (auto) 0.02 Absolute Neuts (auto) 5.0 Absolute Nucleated RBC 0.000 Nucleated RBC % (auto) 0.0 APTT D-Dimer High Sensitivty VBG pH VBG pCO2 VBG pO2 VBG HCO3 VBG O2 Saturation VBG Base Excess Anion Gap 13 Estim Creat Clear Calc 78.5 Estimated GFR > 60 Random Glucose 91 Lactic Acid Calcium 9.4 Magnesium 2.0 Total Bilirubin 0.7 AST 21 ALT 52 H Alkaline Phosphatase 79 Troponin I High Sens 15.2 B-Natriuretic Peptide Total Protein 6.6 Albumin 3.9 Lipase Urine Color Yellow Urine Appearance Clear Urine pH 6.0 Ur Specific [place] 1.010 Urine Protein Negative Urine Glucose (UA) Negative Urine Ketones Negative Urine Blood Negative Urine Nitrite Negative Ur Leukocyte Esterase Negative Influenza Type A (PCR) Influenza Type B (PCR) RSV RNA Qual (PCR) SARS-CoV-2 RNA (RT-PCR) Assessment and Plan (1) Elevated brain natriuretic peptide (BNP) level: Status: Acute Plan 62M PMH pafib, htn, hld, pvd, fatty liver, presented with sob, found to have chf, pna, rapid afib Paroxysmal atrial fibrillation with rapid ventricular response Continue metoprolol, Eliquis Acute on chronic CHF unspecified Check echo Cardiology eval Right lower lobe pneumonia Continue ceftriaxone azithromycin Hypertension Continue metoprolol and amlodipine Fatty liver Suspect combination of nonalcoholic and alcoholic Weight loss and abstinence recommended Hyperlipidemia Continue statin DVT prophylaxis on Eliquis Full code reason for continued hospitalization: RVR Quality Stroke Does the patient have a stroke diagnosis?: No VTE Prior VTE?: No VTE Risk Level:: Medical - moderate - high VTE Device Contraindication: Treatment Not Indicated VTE Drug Contraindication: Treatment Not Indicated
--- NOTE | 2023-04-27 12:07 | MHC.CM.PN ---
Pt lives with his , she is HCP, form to be completed here and added to chart, PCP confirmed: [facility], to transport home upon DC. No home health services or medical equipment, has used [facility] in the past. CM to follow and assist with DC plan.
--- NOTE | 2023-04-27 13:16 | PC.NURSE ---
This RN reached out to provider in regards to HR 140-160 when sitting on edge of bed, 120-130 when laying down. Pt remains asymptomatic, awaiting further orders at this time
[2023-04-27 13:31] VITALS: BP 121/77; PULSE 172; RESP 22; O2SAT 96
[2023-04-27] MEDS: Metoprolol Tartrate 25 MG TABLET PO ×2 (13:32→20:33)
[2023-04-27 16:55] VITALS: BP 118/78; PULSE 92; RESP 23; O2SAT 94
[2023-04-27] MEDS: cefTRIAXone sodium 1 GM in 0.9 % Sodium Chloride 50 ML IV (17:59)
[2023-04-27 19:20] VITALS: BP 130/98; PULSE 109; RESP 20; TEMP 37.2; O2SAT 95
[2023-04-27] MEDS: Azithromycin 500 MG in 0.9 % Sodium Chloride 250 ML 125 MG IV (19:27)
[2023-04-27] MEDS: Atorvastatin Calcium 40 MG TABLET PO (20:33)
--- NOTE | 2023-04-27 20:34 | PC.NURSE ---
pt medicated per mar, pt tolerated well with water.
[2023-04-28] VITALS (7 sets, daily range): BP systolic 102–138; BP diastolic 59–106; PULSE 78–136; RESP 18–20; TEMP 36.1–36.6; O2SAT 94–99; BMI 30.3
[2023-04-28] MEDS: 0.9 % Sodium Chloride Flush 3 ML SYRINGE IVFLUSH ×3 (01:33→22:56)
--- NOTE | 2023-04-28 05:10 | PC.NURSE ---
pt sitting up in bed, denies pain and SOB, pt given warm wipes to clean up per request. pt normal sinus on tele .
[2023-04-28 06:18] LABS: Anion Gap 12 (12-20); Blood Urea Nitrogen 22 mg/dL (9-16); Calcium 9.8 mg/dL (8.4-10.2); Carbon Dioxide 28 mmol/L (22-29); Chloride 106 mmol/L (96-108); Creatinine Clr Calc Pharmacy 74.9; Estimated Glomerular Filt Rate > 60; Glucose Fasting 106 mg/dL (60-99); Potassium 4.7 mmol/L (3.3-5.1); Sodium 141 mmol/L (135-145)
[2023-04-28 06:23] LABS: Hematocrit 45.6 % (42.0-52.0); Hemoglobin 15.1 g/dl (14.0-18.0); Mean Corpuscular HGB Conc 33.1 g/dl (31.0-36.0); Mean Corpuscular Hemoglobin 32.9 pg (27.0-33.0); Mean Corpuscular Volume 99.3 fL (80.0-98.0); Platelet Count 212 X10*3/uL (160-400); Red Blood Count 4.59 X10*6/uL (4.60-5.80); Red Cell Distribution Width 13.5 % (11.0-16.0); White Blood Count 9.5 X10*3/uL (4.8-10.8)
--- NOTE | 2023-04-28 09:33 | HO.PM.IMPN ---
Subjective Subjective Date of Service: 04/28/23 Interval History: overall sob improved, still with rvr, especially on any ambulation Review of Systems Review of Systems: Yes all other systems are reviewed and are negative Physical Exam Vital Signs: Vital Signs: Last Vital Signs Temp 98.9 F 04/27/23 19:20 Pulse 136 H 04/28/23 08:17 Resp 20 04/28/23 08:17 BP 103/69 04/28/23 08:17 Pulse Ox 94 04/28/23 08:17 O2 Del Method Room Air 04/28/23 08:17 O2 Flow Rate 2 04/26/23 20:59 BMI result Body Mass Index 31.3 General: AO X 3, no acute distress Resp: CTA bilateral, no accessory muscles used CVS: S1,S2,irregular GI: soft, non tender, non distended Neuro: motor grossly intact, alert Psych: appropriate affect, appropriate insight Objective Data Active Medications Acetaminophen (Acetaminophen 325 Mg Tablet) 650 mg PO Q6H PRN PRN Reason: Pain, Mild (Pain Scale 1-3) Amlodipine Besylate (Amlodipine Besylate 5 Mg Tablet) 5 mg PO DAILY [facility]; Protocol Last Admin: 04/27/23 09:25 Dose: 5 mg Documented By: MONICA Apixaban (Apixaban 5 Mg Tablet) 5 mg PO BID [facility] Last Admin: 04/27/23 20:33 Dose: 5 mg Documented By: KALIA Atorvastatin Calcium (Atorvastatin Calcium 40 Mg Tablet) 40 mg PO BEDTIME [facility] Last Admin: 04/27/23 20:33 Dose: 40 mg Documented By: KALIA Azithromycin 500 mg/ Sodium (Chloride) 250 mls @ 125 mls/hr IV Q24H [facility] Last Infusion: 04/27/23 21:38 Dose: Infused Documented By: KALIA Ceftriaxone Sodium 1 gm/ (Sodium Chloride) 50 mls @ 100 mls/hr IV Q24H [facility] Last Infusion: 04/27/23 18:35 Dose: Infused Documented By: ANNE Lisinopril (Lisinopril 40 Mg Tablet) 40 mg PO DAILY [facility]; Protocol Last Admin: 04/27/23 09:25 Dose: 40 mg Documented By: MONICA Metoprolol Tartrate (Metoprolol Tartrate 50 Mg Tablet) 50 mg PO TID [facility]; Protocol Sodium Chloride (0.9 % Sodium Chloride Flush 3 Ml Syringe) 3 ml IVFLUSH QSHIFT [facility] Last Admin: 04/28/23 08:15 Dose: 3 ml Documented By: JENNIFER Vitamin D (Cholecalciferol (Vitamin D3) 25 Mcg Tablet) 50 mcg PO DAILY [facility] Last Admin: 04/27/23 09:25 Dose: 50 mcg Documented By: MONICA Labs 04/28/23 05:42 04/28/23 05:42 Labs: Laboratory Results - last 24 hr 04/28/23 05:42 MCV 99.3 H MCH 32.9 MCHC 33.1 RDW 13.5 Plt Count 212 MPV 10.0 Absolute Nucleated RBC 0.000 Nucleated RBC % (auto) 0.0 Anion Gap 12 Estim Creat Clear Calc 74.9 Estimated GFR > 60 Fasting Glucose 106 H Calcium 9.8 Microbiology Microbiology Results: Microbiology 04/26/23 17:07 Blood Culture - Preliminary Blood - Venous No growth after 24 hours. 04/26/23 17:07 Blood Culture - Preliminary Blood - Venous No growth after 24 hours. Assessment and Plan (1) Elevated brain natriuretic peptide (BNP) level: Status: Acute Plan 62M PMH pafib, htn, hld, pvd, fatty liver, presented with sob, found to have chf, pna, rapid afib Paroxysmal atrial fibrillation with rapid ventricular response still with RVR Continue metoprolol - increased to 50mg tid, Eliquis Cardiology eval Acute on chronic CHF unspecified now appears euvolemic Check echo Right lower lobe pneumonia Continue ceftriaxone azithromycin Hypertension Continue metoprolol and amlodipine well controlled Fatty liver Suspect combination of nonalcoholic and alcoholic Weight loss and abstinence recommended Hyperlipidemia Continue statin DVT prophylaxis on Eliquis Full code reason for continued hospitalization: RVR Quality Stroke Does the patient have a stroke diagnosis?: No VTE Prior VTE?: No VTE Risk Level:: Medical - moderate - high VTE Device Contraindication: Treatment Not Indicated VTE Drug Contraindication: Treatment Not Indicated
[2023-04-28] MEDS: Metoprolol Tartrate 50 MG TABLET PO ×3 (09:54→22:51)
[2023-04-28] MEDS: Apixaban 5 MG TABLET PO ×2 (09:54→22:49)
[2023-04-28] MEDS: Cholecalciferol (Vitamin D3) 25 MCG TABLET 50 MCG PO (09:54)
[2023-04-28] MEDS: amLODIPine Besylate 5 MG TABLET PO (09:54)
[2023-04-28] MEDS: lisinopriL 40 MG TABLET PO (09:54)
--- NOTE | 2023-04-28 13:53 | MHC.CM.PN ---
HCP completed and added to chart, names Kelly Monzon, .
--- NOTE | 2023-04-28 14:03 | PM.CNCAR ---
History of Present Illness History of Present Illness Date of Service: 04/28/23 Requesting physician: Emily Muhammad Chief complaint: Atrial fibrillation with RVR Narrative: [age] year gentleman presenting for shortness of breath. He said he was having GI upset and diarrhea and started getting shortness of breath. With these symptoms and presented to [facility]. Was noticed to be in AFib with RVR. He also had pneumonia on the right lower lobe. Was started on antibiotics. He had elevated BNP level. He had echocardiography which is showing moderate LV dysfunction and mild RV dysfunction. He has fatigue and shortness of breath preceding the event. He is denying any palpitations and it is unclear how long he has been in atrial fibrillation. He has been on apixaban long-term and has not missed any his doses in the recent past. He drinks alcohol 3 times a week to 2 beers a night. Occasionally he drinks hard liquor. [facility] Past Medical History Medical History CKD (chronic kidney disease), stage III COVID-19 vaccine series completed Fatty liver History of duodenal ulcer Hypertension Incisional hernia New onset a-fib Osteoarthritis of both knees Family History Family History Father No problems noted. Mother No problems noted. Surgical History Surgical History H/O colonoscopy History of exploratory laparotomy (~01/28/19) History of hand surgery History of total left knee replacement History of total right knee replacement History of ventral hernia repair S/P exploratory laparotomy (~06/27/19) Social History Social History Household Members: Spouse Housing: House Are you a primary pet care technician to a significant other at home: No Do you presently have visiting nurse or other home services: No Alcohol intake: current Alcohol intake frequency: holidays/special occasions only Alcohol type: beer Comment: sleeping Patient Tobacco Use Status: Former Tobacco user Quit Date: 2012 Years Smoked: 20 +/- e-Cigarette/Vaping Use: Never Used Second Hand Smoke Exposure: No Advance Directives Date on File: 05/14/20 service: No Current occupational status: employed 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 Cognitive needs: No Hearing needs: No Vision needs: No Meds Allergies Allergy/AdvReac Type Severity Reaction Status Date / Time No Known Allergies Allergy Verified 04/26/23 16:43 Active Medications: Current Medications Acetaminophen (Acetaminophen 325 Mg Tablet) 650 mg PO Q6H PRN PRN Reason: Pain, Mild (Pain Scale 1-3) Amlodipine Besylate (Amlodipine Besylate 5 Mg Tablet) 5 mg PO DAILY [facility]; Protocol Last Admin: 04/28/23 09:54 Dose: 5 mg Apixaban (Apixaban 5 Mg Tablet) 5 mg PO BID [facility] Last Admin: 04/28/23 09:54 Dose: 5 mg Atorvastatin Calcium (Atorvastatin Calcium 40 Mg Tablet) 40 mg PO BEDTIME [facility] Last Admin: 04/27/23 20:33 Dose: 40 mg Azithromycin 500 mg/ Sodium (Chloride) 250 mls @ 125 mls/hr IV Q24H [facility] Last Infusion: 04/27/23 21:38 Dose: Infused Ceftriaxone Sodium 1 gm/ (Sodium Chloride) 50 mls @ 100 mls/hr IV Q24H [facility] Last Infusion: 04/27/23 18:35 Dose: Infused Lisinopril (Lisinopril 40 Mg Tablet) 40 mg PO DAILY [facility]; Protocol Last Admin: 04/28/23 09:54 Dose: 40 mg Metoprolol Tartrate (Metoprolol Tartrate 50 Mg Tablet) 50 mg PO TID [facility]; Protocol Last Admin: 04/28/23 09:54 Dose: 50 mg Sodium Chloride (0.9 % Sodium Chloride Flush 3 Ml Syringe) 3 ml IVFLUSH QSHIFT [facility] Last Admin: 04/28/23 08:15 Dose: 3 ml Vitamin D (Cholecalciferol (Vitamin D3) 25 Mcg Tablet) 50 mcg PO DAILY [facility] Last Admin: 04/28/23 09:54 Dose: 50 mcg Physical Exam Vital Signs: Vital Signs: Last Vital Signs Temp 97.5 F 04/28/23 11:11 Pulse 95 04/28/23 11:11 Resp 20 04/28/23 11:11 BP 110/60 04/28/23 11:11 Pulse Ox 97 04/28/23 11:11 O2 Del Method Room Air 04/28/23 11:11 O2 Flow Rate 2 04/26/23 20:59 BMI result Body Mass Index 30.3 GENERAL APPEARANCE: in no acute distress, pleasant. NECK: no carotid bruit, no jugular venous distention. SKIN: no suspicious lesions, warm and dry. HEART: no murmurs, irregular rate and rhythm. LUNGS: clear to auscultation bilaterally. ABDOMEN: soft, nontender. EXTREMITIES: no edema. PERIPHERAL PULSES: equal. NEUROLOGIC: No gross deficits, AAO X 3 Objective Labs and Meds 04/28/23 05:42 04/28/23 05:42 Lab results: Laboratory Results - last 24 hr 04/28/23 05:42 WBC 9.5 RBC 4.59 L Hgb 15.1 Hct 45.6 MCV 99.3 H MCH 32.9 MCHC 33.1 RDW 13.5 Plt Count 212 MPV 10.0 Absolute Nucleated RBC 0.000 Nucleated RBC % (auto) 0.0 Sodium 141 Potassium 4.7 D Chloride 106 Carbon Dioxide 28 Anion Gap 12 BUN 22 H Creatinine 1.07 Estim Creat Clear Calc 74.9 Estimated GFR > 60 Fasting Glucose 106 H Calcium 9.8 Assessment and Plan (1) Atrial fibrillation with rapid ventricular response: Status: Acute (2) Cardiomyopathy: Status: Acute Plan 62-year-old gentleman who is presenting for pneumonia and atrial fibrillation. He has been noticed to have elevated BNP level which led to echocardiography showing moderate LV and mild RV dysfunction. Likely cause for LV and RV dysfunction is atrial fibrillation. He is only on anticoagulation with apixaban. We will continue this. Adding amiodarone 400 mg twice a day. We will do cardioversion tomorrow. Keep him NPO after midnight. Given younger age I would not continue amiodarone residential and would likely refer him for ablation and stop amiodarone after that. Thank you for allowing me to participate in the care of your patient. Please feel free to contact me if you have any questions. Procedures Date of Service Date of Service: 04/28/23
[2023-04-28] MEDS: cefTRIAXone sodium 1 GM in 0.9 % Sodium Chloride 50 ML IV (18:54)
[2023-04-28] MEDS: Atorvastatin Calcium 40 MG TABLET PO (22:49)
[2023-04-28] MEDS: Amiodarone HCL 200 MG TABLET 400 MG PO (22:51)
[2023-04-29] VITALS (13 sets, daily range): BP systolic 90–114; BP diastolic 62–82; PULSE 60–109; RESP 16–20; TEMP 36–36.6; O2SAT 94–99
--- NOTE | 2023-04-29 | ECG_ITS ---
Test Reason : s/p cardioversion Blood Pressure : / mmHG Vent. Rate : 068 BPM Atrial Rate : 068 BPM P-R Int : 198 ms QRS Dur : 068 ms QT Int : 330 ms P-R-T Axes : 000 065 061 degrees QTc Int : 350 ms Normal sinus rhythm Anteroseptal infarct (cited on or before 26-APR-2023) Abnormal ECG When compared with ECG of 26-APR-2023 17:01, Sinus rhythm has replaced Atrial fibrillation Vent. rate has decreased BY 56 BPM Referred By: Margarito Fofana Electronically Signed By:Margarito Fofana
[2023-04-29 06:38] LABS: Hematocrit 47.6 % (42.0-52.0); Hemoglobin 15.8 g/dl (14.0-18.0); Mean Corpuscular HGB Conc 33.2 g/dl (31.0-36.0); Mean Corpuscular Hemoglobin 32.4 pg (27.0-33.0); Mean Corpuscular Volume 97.5 fL (80.0-98.0); Mean Platelet Volume 10.3 fL (9.4-12.4); Platelet Count 221 X10*3/uL (160-400); Red Blood Count 4.88 X10*6/uL (4.60-5.80); Red Cell Distribution Width 13.4 % (11.0-16.0); White Blood Count 9.1 X10*3/uL (4.8-10.8)
[2023-04-29 06:51] LABS: Anion Gap 13 (12-20); Blood Urea Nitrogen 22 mg/dL (9-16); Carbon Dioxide 26 mmol/L (22-29); Chloride 105 mmol/L (96-108); Creatinine Clr Calc Pharmacy 75.2; Estimated Glomerular Filt Rate > 60; Glucose Fasting 98 mg/dL (60-99); Magnesium 2.2 mg/dL (1.6-2.6); Potassium 4.4 mmol/L (3.3-5.1); Sodium 140 mmol/L (135-145)
[2023-04-29 07:06] LABS: TSH reflex Free T4 1.25 uIU/mL (0.32-4.0)
[2023-04-29] MEDS: 0.9 % Sodium Chloride Flush 3 ML SYRINGE IVFLUSH ×3 (08:19→21:55)
[2023-04-29] MEDS: Apixaban 5 MG TABLET PO ×2 (09:05→21:54)
[2023-04-29] MEDS: Metoprolol Tartrate 50 MG TABLET PO ×3 (09:05→23:40)
[2023-04-29] MEDS: Amiodarone HCL 200 MG TABLET 400 MG PO ×2 (09:05→21:54)
[2023-04-29] MEDS: amLODIPine Besylate 5 MG TABLET PO (09:05)
--- NOTE | 2023-04-29 09:39 | P.CONAN_ITS ---
HPI - Anesthesia Eval Consult details Narrative: afib with RVR on amiodarone, for cardioversion today. [facility] Active Problems Active Problems: All Active Problems (Updated 04/28/23 @ 18:35 by Margarito Fofana MD) Cardiomyopathy (Acute) Elevated brain natriuretic peptide (BNP) level (Acute) Atrial fibrillation with rapid ventricular response (Acute) Congestive heart failure (Acute) Pneumonia (Acute) Vitamin D deficiency (Acute) Hyperlipidemia (Acute) Peripheral vascular disease (Acute) Incisional hernia (Acute) Anemia (Acute) Abdominal hernia (Acute) Carotid artery bruit (Acute) Status post total bilateral knee replacement (Acute) Hypertension (Acute) PAF (paroxysmal atrial fibrillation) (Acute) Status post total knee replacement, left (Acute) New onset a-fib (Acute) Elevated liver enzymes (Acute) Screening PSA (prostate specific antigen) (Acute) Physical exam (Acute) Right knee pain (Acute) Encounter for screening for malignant neoplasm of colon (Acute) Postprandial diarrhea (Acute) Primary osteoarthritis of left knee (Acute) Primary osteoarthritis of right knee (Acute) History of colon polyps (Acute) Pre-op evaluation (Acute) Partial small bowel obstruction (Acute) Status post total right knee replacement (Acute) Fatty liver (Acute) Past Medical History Medical History Incisional hernia New onset a-fib CKD (chronic kidney disease), stage III COVID-19 vaccine series completed Fatty liver History of duodenal ulcer Osteoarthritis of both knees Hypertension Family History Family History Father No problems noted. Mother No problems noted. Family history of problems with anesthesia: No Surgical History Surgical History History of ventral hernia repair History of total left knee replacement History of total right knee replacement H/O colonoscopy S/P exploratory laparotomy (~06/27/19) History of exploratory laparotomy (~01/28/19) History of hand surgery History of Problems with Anesthesia: No Social History Social History Household Members: Spouse Housing: House Are you a primary acute care nurse to a significant other at home: No Do you presently have visiting nurse or other home services: No Alcohol intake: current Alcohol intake frequency: holidays/special occasions only Alcohol type: beer Comment: sleeping Patient Tobacco Use Status: Former Tobacco user Quit Date: 2012 Smoked: 20 +/- e-Cigarette/Vaping Use: Never Used Second Hand Smoke Exposure: No Advance Directives Date on File: 05/14/20 service: No Current occupational status: employed 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 Cognitive needs: No Hearing needs: No Vision needs: No Meds Allergies Allergy/AdvReac Type Severity Reaction Status Date / Time No Known Allergies Allergy Verified 04/26/23 16:43 Active Medications: Current Medications Acetaminophen (Acetaminophen 325 Mg Tablet) 650 mg PO Q6H PRN PRN Reason: Pain, Mild (Pain Scale 1-3) Amiodarone HCl (Amiodarone Hcl 200 Mg Tablet) 400 mg PO BID [facility] Last Admin: 04/29/23 09:05 Dose: 400 mg Amlodipine Besylate (Amlodipine Besylate 5 Mg Tablet) 5 mg PO DAILY [facility]; Protocol Last Admin: 04/29/23 09:05 Dose: 5 mg Apixaban (Apixaban 5 Mg Tablet) 5 mg PO BID [facility] Last Admin: 04/29/23 09:05 Dose: 5 mg Atorvastatin Calcium (Atorvastatin Calcium 40 Mg Tablet) 40 mg PO BEDTIME [facility] Last Admin: 04/28/23 22:49 Dose: 40 mg Empagliflozin (Empagliflozin 10 Mg Tablet) 10 mg PO DAILY [facility] Ceftriaxone Sodium 1 gm/ (Sodium Chloride) 50 mls @ 100 mls/hr IV Q24H [facility] Last Infusion: 04/28/23 19:30 Dose: Infused Lisinopril (Lisinopril 40 Mg Tablet) 40 mg PO DAILY [facility]; Protocol Last Admin: 04/28/23 09:54 Dose: 40 mg Metoprolol Tartrate (Metoprolol Tartrate 50 Mg Tablet) 50 mg PO TID [facility]; Protocol Last Admin: 04/29/23 09:05 Dose: 50 mg Sodium Chloride (0.9 % Sodium Chloride Flush 3 Ml Syringe) 3 ml IVFLUSH QSHIFT [facility] Last Admin: 04/29/23 08:19 Dose: 3 ml Vitamin D (Cholecalciferol (Vitamin D3) 25 Mcg Tablet) 50 mcg PO DAILY [facility] Last Admin: 04/29/23 09:05 Dose: 50 mcg Exam Height,Weight and Vital Signs: Height 5 ft 7 in Weight 87.9 kg Last Vital Signs Temp 97.1 F 04/29/23 07:21 Pulse 109 H 04/29/23 08:20 Resp 16 04/29/23 07:21 BP 103/73 04/29/23 08:20 Pulse Ox 96 04/29/23 07:21 O2 Del Method Room Air 04/29/23 07:21 O2 Flow Rate 2 04/26/23 20:59 Pertinent Lab Results Pertinent Lab Results: Laboratory Tests 04/26/23 04/26/23 04/26/23 17:03 17:04 17:10 WBC 8.2 RBC 4.65 Hgb 15.5 Hct 46.0 MCV 98.9 H MCH 33.3 H MCHC 33.7 RDW 13.5 Plt Count 206 MPV 9.7 Immature Gran % (Auto) 0.2 Neut % (Auto) 58.7 Lymph % (Auto) 29.8 Mineral % (Auto) 9.5 Eos % (Auto) 1.3 Baso % (Auto) 0.5 Lymph # (Auto) 2.4 Mineral # (Auto) 0.8 Eos # (Auto) 0.1 Baso # (Auto) 0.0 Abs Immat Gran (auto) 0.02 Absolute Neuts (auto) 4.8 Absolute Nucleated RBC 0.000 Nucleated RBC % (auto) 0.0 APTT 31.6 D-Dimer High Sensitivty 181 VBG pH 7.37 VBG pCO2 44 VBG pO2 77 VBG HCO3 26 VBG O2 Saturation 93.0 VBG Base Excess 0.5 Sodium 143 Potassium 4.4 Chloride 108 Carbon Dioxide 27 Anion Gap 12 BUN 22 H Creatinine 1.18 Estim Creat Clear Calc 67.9 Estimated GFR > 60 Random Glucose 132 H Fasting Glucose Lactic Acid 1.4 Calcium 9.4 Magnesium 1.9 Total Bilirubin 0.5 AST 25 ALT 61 H Alkaline Phosphatase 86 Troponin I High Sens 17.6 B-Natriuretic Peptide 436 H Total Protein 7.1 Albumin 4.2 Lipase 70 TSH Urine Color Urine Appearance Urine pH Ur Specific [place] Urine Protein Urine Glucose (UA) Urine Ketones Urine Blood Urine Nitrite Ur Leukocyte Esterase Influenza Type A (PCR) NEGATIVE Influenza Type B (PCR) NEGATIVE RSV RNA Qual (PCR) NEGATIVE SARS-CoV-2 RNA (RT-PCR) NEGATIVE 0304/26/23 04/27/23 18:43 21:33 05:31 WBC 8.1 RBC 4.34 L Hgb 14.2 Hct 42.4 MCV 97.7 MCH 32.7 MCHC 33.5 RDW 13.5 Plt Count 194 MPV 10.5 Immature Gran % (Auto) 0.2 Neut % (Auto) 61.5 Lymph % (Auto) 25.8 Mineral % (Auto) 11.0 Eos % (Auto) 1.0 Baso % (Auto) 0.5 Lymph # (Auto) 2.1 Mineral # (Auto) 0.9 Eos # (Auto) 0.1 Baso # (Auto) 0.0 Abs Immat Gran (auto) 0.02 Absolute Neuts (auto) 5.0 Absolute Nucleated RBC 0.000 Nucleated RBC % (auto) 0.0 APTT D-Dimer High Sensitivty VBG pH VBG pCO2 VBG pO2 VBG HCO3 VBG O2 Saturation VBG Base Excess Sodium 143 Potassium 3.8 Chloride 106 Carbon Dioxide 28 Anion Gap 13 BUN 20 H Creatinine 1.02 Estim Creat Clear Calc 78.5 Estimated GFR > 60 Random Glucose 91 Fasting Glucose Lactic Acid Calcium 9.4 Magnesium 2.0 Total Bilirubin 0.7 AST 21 ALT 52 H Alkaline Phosphatase 79 Troponin I High Sens 15.2 B-Natriuretic Peptide Total Protein 6.6 Albumin 3.9 Lipase TSH Urine Color Yellow Urine Appearance Clear Urine pH 6.0 Ur Specific [place] 1.010 Urine Protein Negative Urine Glucose (UA) Negative Urine Ketones Negative Urine Blood Negative Urine Nitrite Negative Ur Leukocyte Esterase Negative Influenza Type A (PCR) Influenza Type B (PCR) RSV RNA Qual (PCR) SARS-CoV-2 RNA (RT-PCR) 04/28/23 04/29/23 05:42 05:48 WBC 9.5 9.1 RBC 4.59 L 4.88 Hgb 15.1 15.8 Hct 45.6 47.6 MCV 99.3 H 97.5 MCH 32.9 32.4 MCHC 33.1 33.2 RDW 13.5 13.4 Plt Count 212 221 MPV 10.0 10.3 Immature Gran % (Auto) Neut % (Auto) Lymph % (Auto) Mineral % (Auto) Eos % (Auto) Baso % (Auto) Lymph # (Auto) Mineral # (Auto) Eos # (Auto) Baso # (Auto) Abs Immat Gran (auto) Absolute Neuts (auto) Absolute Nucleated RBC 0.000 0.000 Nucleated RBC % (auto) 0.0 0.0 APTT D-Dimer High Sensitivty VBG pH VBG pCO2 VBG pO2 VBG HCO3 VBG O2 Saturation VBG Base Excess Sodium 141 140 Potassium 4.7 D 4.4 Chloride 106 105 Carbon Dioxide 28 26 Anion Gap 12 13 BUN 22 H 22 H Creatinine 1.07 1.05 Estim Creat Clear Calc 74.9 75.2 Estimated GFR > 60 > 60 Random Glucose Fasting Glucose 106 H 98 Lactic Acid Calcium 9.8 10.0 Magnesium 2.2 Total Bilirubin AST ALT Alkaline Phosphatase Troponin I High Sens B-Natriuretic Peptide Total Protein Albumin Lipase TSH 1.25 Urine Color Urine Appearance Urine pH Ur Specific [place] Urine Protein Urine Glucose (UA) Urine Ketones Urine Blood Urine Nitrite Ur Leukocyte Esterase Influenza Type A (PCR) Influenza Type B (PCR) RSV RNA Qual (PCR) SARS-CoV-2 RNA (RT-PCR) Airway Mallampati Class: II TM Dist: >3cm Neck ROM: Full Heart: afib Lungs: cta Assessment and Plan Assessment Anesthesia Assessment: Anesthesia Plan Discussed and Chart Reviewed Final Anesthetic Review Family History of Problems with Anesthesia: No History of Problems with Anesthesia: No NPO: Yes ASA Class: III Final Preanesthetic Review: No Changes in Pt Med Stat, Meds/Allgs Chart Reviewed, Consent Obtained/Reviewed and Anes Risks/Benef Reviewed Patient Risk: Intermediate Procedure Risk: Low Anesthetic Plan Anesthetic Plan: MAC: Disposition: Standard PACU
--- NOTE | 2023-04-29 10:26 | MHC.CM.PN ---
PER MULTIDISCIPLINARY ROUNDS PT WILL HAVE [facility]F [facility] LATER TODAY VS TOMORROW 04/29, PT'S WILL TRANSPORT.
--- NOTE | 2023-04-29 10:52 | PM.PNCARD ---
Subjective Subjective Date of Service: 04/29/23 Interval history: Seen examined at bedside. For cardioversion today. Feeling good. Physical Exam Vital Signs: Last Vital Signs Temp 96.9 F 04/29/23 10:14 Pulse 71 04/29/23 10:14 Resp 18 04/29/23 10:14 BP 114/82 04/29/23 10:14 Pulse Ox 95 04/29/23 10:14 O2 Del Method Room Air 04/29/23 10:14 O2 Flow Rate 2 04/26/23 20:59 BMI result Body Mass Index 30.3 GENERAL APPEARANCE: in no acute distress, pleasant. NECK: no carotid bruit, no jugular venous distention. SKIN: no suspicious lesions, warm and dry. HEART: no murmurs, irregular rate and rhythm. LUNGS: clear to auscultation bilaterally. ABDOMEN: soft, nontender. EXTREMITIES: no edema. PERIPHERAL PULSES: equal. NEUROLOGIC: No gross deficits, AAO X 3 Objective Labs and Meds 04/29/23 05:48 04/29/23 05:48 Lab results: Laboratory Results - last 24 hr 04/29/23 05:48 WBC 9.1 RBC 4.88 Hgb 15.8 Hct 47.6 MCV 97.5 MCH 32.4 MCHC 33.2 RDW 13.4 Plt Count 221 MPV 10.3 Absolute Nucleated RBC 0.000 Nucleated RBC % (auto) 0.0 Sodium 140 Potassium 4.4 Chloride 105 Carbon Dioxide 26 Anion Gap 13 BUN 22 H Creatinine 1.05 Estim Creat Clear Calc 75.2 Estimated GFR > 60 Fasting Glucose 98 Calcium 10.0 Magnesium 2.2 TSH 1.25 Progress Note: A&P Assessment and plan (1) Cardiomyopathy: Status: Acute (2) Atrial fibrillation with rapid ventricular response: Status: Acute Plan Pleasant 62 year gentleman who is presenting for shortness of breath and pneumonia. He was found to have cardiomyopathy on echocardiography. He has been in AFib with RVR. He has no symptoms of atrial fibrillation and is possibly has been in AFib for long time and potentially this led to cardiomyopathy. We have discussed about cardioversion and he is agreeable to proceed. We will do cardioversion today. He is already on apixaban 5 mg twice a day. We added amiodarone last night and stop the azithromycin for potential interaction. Thank you for allowing me to participate in the care of your patient. Please feel free to contact me if you have any questions. Time Spent With Patient Time: Total time managing care of this patient today ____ minutes. Progress Note: Quality Stroke Does the patient have a stroke diagnosis?: No Procedures Date of Service Date of Service: 04/29/23
--- NOTE | 2023-04-29 11:48 | MHC.SHP ---
Pre-Procedural Eval Section A - 24 Hr Update-Section A only Date of Service: 04/29/23 The patient is an INPATIENT: Yes Section B - Complete if H&P > 30 days Chief Complaint: Atrial fibrillation with RVR Allergies: Allergies Allergy/AdvReac Type Severity Reaction Status Date / Time No Known Allergies Allergy Verified 04/26/23 16:43 Plan Diagnosis/Plan: Unchanged I have reviewed the history and physical and performed a pertinent physical examination on my patient. No changes have occurred unless specified. Time Spent With Patient Time: Total time managing care of this patient today ____ minutes.
--- NOTE | 2023-04-29 12:30 | HO.CARDIVERS ---
Cardioversion Procedure Note Cardioversion Date of Procedure: 04/29/23 Ordering Provider: Margarito Fofana Performing Provider: Margarito Fofana Indication for Procedure: Afib, cardiomyopathy. Consent: Verbal and Written consent was obtained from the patient before starting. The patient was made aware of the risk of stroke, failure, skin burn, arrhythmia. Procedure: After consent obtained, defib pads were attached and the patient was sedated by the anesthesia team. Once adequate sedation achieved, single synchronized shock of 200 joules was delivered. Patient converted to sinus rhythm. No acute complications. Impression: Successful cardioversion. Recommendations: Continue Eliquis 5 mg twice a day. Continue amiodarone 400 mg twice a day times 10 days and then decrease dose to 200 mg daily.
[2023-04-29] MEDS: Empagliflozin 10 MG TABLET PO (14:35)
--- NOTE | 2023-04-29 15:20 | P.PNIM_ITS ---
Subjective Subjective Date of Service: 04/29/23 Interval History: Offers no acute complaints feeling better denies shortness of breath, denies fever, no chills, no cough, blood pressure under good control is scheduled for cardioversion this morning. Review of Systems All other system reviewed and negative Physical Exam 2 Vital Signs: Vital Signs: Last Vital Signs Temp 97.9 F 04/29/23 12:51 Pulse 72 04/29/23 14:35 Resp 18 04/29/23 12:51 BP 103/70 04/29/23 14:35 Pulse Ox 96 04/29/23 12:51 O2 Del Method Room Air 04/29/23 12:51 O2 Flow Rate 2 04/29/23 11:59 BMI result Body Mass Index 30.3 Const: Other: General: Alert oriented x3 resting comfortably in no acute distress Neck no JVD Resp: CTA bilateral, no accessory muscles used CVS: S1,S2,irregular GI: soft, non tender, non distended Extremities no edema Neuro: motor grossly intact, alert Psych: appropriate affect, appropriate insight Objective Data Active Medications Acetaminophen (Acetaminophen 325 Mg Tablet) 650 mg PO Q6H PRN PRN Reason: Pain, Mild (Pain Scale 1-3) Amiodarone HCl (Amiodarone Hcl 200 Mg Tablet) 400 mg PO BID [facility] Last Admin: 04/29/23 09:05 Dose: 400 mg Documented By: DAVID Amlodipine Besylate (Amlodipine Besylate 5 Mg Tablet) 5 mg PO DAILY [facility]; Protocol Last Admin: 04/29/23 09:05 Dose: 5 mg Documented By: DAVID Apixaban (Apixaban 5 Mg Tablet) 5 mg PO BID [facility] Last Admin: 04/29/23 09:05 Dose: 5 mg Documented By: DAVID Atorvastatin Calcium (Atorvastatin Calcium 40 Mg Tablet) 40 mg PO BEDTIME [facility] Last Admin: 04/28/23 22:49 Dose: 40 mg Documented By: DULCE Empagliflozin (Empagliflozin 10 Mg Tablet) 10 mg PO DAILY [facility] Last Admin: 04/29/23 14:35 Dose: 10 mg Documented By: DAVID Ceftriaxone Sodium 1 gm/ (Sodium Chloride) 50 mls @ 100 mls/hr IV Q24H [facility] Last Infusion: 04/28/23 19:30 Dose: Infused Documented By: DULCE Lisinopril (Lisinopril 40 Mg Tablet) 40 mg PO DAILY [facility]; Protocol Last Admin: 04/29/23 10:25 Dose: Not Given Documented By: DAVID Non-Admin Reason: npo cardioversion Metoprolol Tartrate (Metoprolol Tartrate 50 Mg Tablet) 50 mg PO TID [facility]; Protocol Last Admin: 04/29/23 14:35 Dose: 50 mg Documented By: DAVID Sodium Chloride (0.9 % Sodium Chloride Flush 3 Ml Syringe) 3 ml IVFLUSH QSHIFT [facility] Last Admin: 04/29/23 08:19 Dose: 3 ml Documented By: DAVID Vitamin D (Cholecalciferol (Vitamin D3) 25 Mcg Tablet) 50 mcg PO DAILY [facility] Last Admin: 04/29/23 10:26 Dose: Not Given Documented By: DAVID Non-Admin Reason: See Note Comments: pt with difficulty swallowing. prioritized crucial medications prior to cardioversion Labs 04/29/23 05:48 04/29/23 05:48 Labs: Laboratory Results - last 24 hr 04/29/23 05:48 MCV 97.5 MCH 32.4 MCHC 33.2 RDW 13.4 Plt Count 221 MPV 10.3 Absolute Nucleated RBC 0.000 Nucleated RBC % (auto) 0.0 Anion Gap 13 Estim Creat Clear Calc 75.2 Estimated GFR > 60 Fasting Glucose 98 Calcium 10.0 Magnesium 2.2 TSH 1.25 Microbiology Microbiology Results: Microbiology 04/26/23 17:07 Blood Culture - Preliminary Blood - Venous No growth after 48 hours. 04/26/23 17:07 Blood Culture - Preliminary Blood - Venous No growth after 48 hours. Assessment and Plan (1) Elevated brain natriuretic peptide (BNP) level: Status: Acute Plan 62M PMH pafib, htn, hld, pvd, fatty liver, presented with sob, found to have chf, pna, rapid afib Paroxysmal atrial fibrillation with rapid ventricular response Continue metoprolol 50mg tid, amiodarone started last night, continue Eliquis Underwent cardioversion this morning and converted to normal sinus rhythm Continue tele monitor for 24 hours and discharged home on loading dose of amiodarone and metoprolol at a.m. Acute on chronic CHF with reduced EF No acute decompensation Right lower lobe pneumonia Clinically stable no fevers, no leukocytosis, blood cultures x2 negative Will DC IV antibiotics switch to by mouth doxycycline 100 b.i.d. Hypertension on metoprolol , lisinopril and amlodipine, soft blood pressure will DC amlodipine Fatty liver Suspect combination of nonalcoholic and alcoholic Weight loss and abstinence recommended Hyperlipidemia Continue statin DVT prophylaxis on Eliquis Full code reason for continued hospitalization: Status post cardioversion requiring 24 hours tele monitoring since placed on antiarrhythmic medication Quality Stroke Does the patient have a stroke diagnosis?: No VTE Prior VTE?: No VTE Risk Level:: Medical - moderate - high VTE Device Contraindication: Treatment Not Indicated VTE Drug Contraindication: Treatment Not Indicated
[2023-04-29] MEDS: Doxycycline Monohydrate 100 MG CAPSULE PO (16:29)
--- NOTE | 2023-04-29 21:46 | PC.NURSE ---
Assumed care of patient at 19:00. Patient is A&Ox4. S/p cardioversion earlier today. Pt continues in NSR 60's with occasional PACs. VSS though BP soft 96/66 HR 60's on tele this evening, asymptomatic. Scheduled medications and BP trend reviewed with covering Dr. Mayito Julien; verbal orders okay to hold metopolol for now and reassess BP and plans for administration with 23:00 vitals. Plan of care continues.
[2023-04-29] MEDS: Atorvastatin Calcium 40 MG TABLET PO (21:54)
[2023-04-30 03:10] VITALS: BP 106/78; PULSE 64; RESP 18; TEMP 36.3; O2SAT 96
[2023-04-30] MEDS: Doxycycline Monohydrate 100 MG CAPSULE PO (03:11)
--- NOTE | 2023-04-30 06:17 | PC.NURSE ---
23:00 BP reassess improved from previous; covering Dr. Mayito Julien notified with MD singh to administer scheduled metoprolol. Med given, VSS on 03:00 scheduled vitals/reassess. Plan of care continues.
[2023-04-30 07:42] VITALS: BP 139/78; PULSE 75; RESP 18; TEMP 36.3; O2SAT 96
[2023-04-30] MEDS: Empagliflozin 10 MG TABLET PO (08:03)
[2023-04-30] MEDS: Apixaban 5 MG TABLET PO (08:04)
[2023-04-30] MEDS: Amiodarone HCL 200 MG TABLET 400 MG PO (08:04)
[2023-04-30] MEDS: Cholecalciferol (Vitamin D3) 25 MCG TABLET 50 MCG PO (08:04)
[2023-04-30] MEDS: Metoprolol Tartrate 50 MG TABLET PO (08:04)
[2023-04-30] MEDS: lisinopriL 40 MG TABLET PO (08:04)
[2023-04-30] MEDS: 0.9 % Sodium Chloride Flush 3 ML SYRINGE IVFLUSH (08:05)
--- NOTE | 2023-04-30 09:59 | PM.PNCARD ---
Subjective Subjective Date of Service: 04/30/23 Interval history: Seen examined at bedside. He is status post cardioversion and is in sinus rhythm. Clinically stable. Physical Exam Vital Signs: Last Vital Signs Temp 97.3 F 04/30/23 07:42 Pulse 75 04/30/23 07:42 Resp 18 04/30/23 07:42 BP 139/78 04/30/23 07:42 Pulse Ox 96 04/30/23 07:42 O2 Del Method Room Air 04/30/23 07:42 O2 Flow Rate 2 04/29/23 11:59 BMI result Body Mass Index 30.3 GENERAL APPEARANCE: in no acute distress, pleasant. NECK: no carotid bruit, no jugular venous distention. SKIN: no suspicious lesions, warm and dry. HEART: no murmurs, regular rate and rhythm. LUNGS: clear to auscultation bilaterally. ABDOMEN: soft, nontender. EXTREMITIES: no edema. PERIPHERAL PULSES: equal. NEUROLOGIC: No gross deficits, AAO X 3 Objective Labs and Meds 04/29/23 05:48 04/29/23 05:48 Progress Note: A&P Assessment and plan (1) Cardiomyopathy: Status: Acute (2) Atrial fibrillation with rapid ventricular response: Status: Acute (3) Pneumonia: Status: Acute Plan [age] gentleman presenting for pneumonia, AFib with RVR and new diagnosis of cardiomyopathy with moderate LV dysfunction. He has background of alcohol use. On antibiotics for pneumonia and clinically improving. We cardioverted him yesterday successfully and he is currently on amiodarone 400 mg twice a day. He should stay on the same dose for 10 days and then can be changed to 200 mg once a day. Change metoprolol tartrate to metoprolol succinate 100 mg once a day. Continue lisinopril. We added Jardiance as a new drug. He will need a referral to electrophysiology for ablation which will arrange as outpatient. Can be discharged home. Please give him work note for 1 week off as he does heavy lifting at his work. Thank you for allowing me to participate in the care of your patient. Please feel free to contact me if you have any questions. Time Spent With Patient Time: Total time managing care of this patient today ____ minutes. Progress Note: Quality Stroke Does the patient have a stroke diagnosis?: No Procedures Date of Service Date of Service: 04/30/23
--- NOTE | 2023-04-30 10:20 | MHC.CM.PN ---
PER HOSPITALIST ANTIC PT TO BE MEDICALLY CLEARED FOR DC HOME SELF CARE W/PT'S FOR TRANSPORT.
[2023-04-30 10:43] VITALS: O2SAT 94
--- NOTE | 2023-04-30 10:52 | PM.DS ---
DS: Providers Provider Date of Service: 04/30/23 Date of admission: 04/26/23 20:19 Primary care physician: LEYLA Armstrong Consults: 04/28/23 09:32 Consult to Cardiology Routine Consulting Provider: [facility] [place] Cardiovascular Services Reason for consultation: afib, rvr Has provider been notified: Yes DS: Diagnosis Discharge Diagnosis (1) Cardiomyopathy: Status: Acute (2) Atrial fibrillation with rapid ventricular response: Status: Acute (3) Pneumonia: Status: Acute DS: Summary Hospital Course Hospital Course: History presenting illness: Date of Service: 04/26/23 Attending physician on admission: Brett Julien Chief Complaint: Shortness of breath Horacio Monzon a 62 years old man with past medical history significant for atrial fibrillation on Eliquis, hypertension and hyperlipidemia presents to the emergency department complaining 4 day history of shortness on breath mostly on exertion associated with mildly productive cough. He also reported episodes of diarrhea has been getting better and stomach upset. He denied nausea or vomiting. Also denies fever or chills. He did not report any headache, palpitations or dizziness. He also denies leg swelling. He denied tobacco smoking or illicit drug use. He drinks alcohol on occasion (last time he drank alcohol was yesterday). In the ED, he was found to tachycardia consistent with atrial fibrillation with rapid ventricular response. There is no hypotension or fever. Blood workup did not show leukocytosis. Hemoglobin is normal. There are no electrolyte imbalances. Creatinine is 1.18 which is around his baseline. There is no lactic acidosis. Lipase is normal. ALT is slightly elevated, 61. Urinalysis is normal. Viral testing for influenza, RSV and COVID-19 is negative. BNP is elevated 436. Troponin is within normal limits. CXR showed subtle right lower lobe opacity. ED tx: Ceftriaxone 1 g IV, azithromycin 5 mg IV, diltiazem 20 mg IV, albuterol/ipratropium X2 furosemide 40 mg IV. Hospital course: 62M PMH pafib, htn, hld, pvd, fatty liver, presented with sob, found to have chf, pna, rapid afib Paroxysmal atrial fibrillation with rapid ventricular response, initially treated with IV Cardizem, subsequently transitioned to beta blockers due to decreased EF, patient seen by bathhouse keeper Dr. Fofana and underwent cardioversion on April 28 and converted to normal sinus rhythm patient observe on telemetry for 24 hours, since patient remained in normal sinus rhythm he is being discharged home on amiodarone loading dose 400 mg b.i.d. for total 10 days he is recommended to continue Eliquis and dose of metoprolol increased to 100 mg daily patient instructed to have outpatient follow-up with Dr. Fofana and will be referred for electrophysiological study for ablation, since patient does heavy lifting he is recommended stay out of work for 1 week. Acute on chronic CHF with reduced EF, echo showed EF of 35% treated with intravenous Lasix, with good response, continue Jardiance. Recommend close outpatient follow-up with Cardiology. Right lower lobe pneumonia Clinically stable no fevers, no leukocytosis, blood cultures x2 negative, finished course of antibiotics in house. Hypertension continue lisinopril and metoprolol, amlodipine discontinued Fatty liver Suspect combination of nonalcoholic and alcoholic, Weight loss and abstinence recommended. Hyperlipidemia Continue statin. Time Attestation Discharge Coordination Time (in mins): 36 mins Quality: Safe Use of Opioids Does Pt have an Active Cancer Diagnosis on the Problem List?: No Quality: Stroke Does the patient have a stroke diagnosis?: No Physical Exam Vital Signs: Vital Signs: Last Vital Signs Temp 97.3 F 04/30/23 07:42 Pulse 75 04/30/23 07:42 Resp 18 04/30/23 07:42 BP 139/78 04/30/23 07:42 Pulse Ox 96 04/30/23 07:42 O2 Del Method Room Air 04/30/23 07:42 O2 Flow Rate 2 04/29/23 11:59 BMI result Body Mass Index 30.3 Const: Other: General: Alert oriented x3 resting comfortably in no acute distress Neck no JVD Resp: CTA bilateral, no accessory muscles used CVS: S1,S2,irregular GI: soft, non tender, non distended Extremities no edema Neuro: motor grossly intact, alert Psych: appropriate affect, appropriate insight DS: Data Data Completed and Pending Labs on day of discharge: Preliminary micro results at discharge 04/26/23 17:07 Blood Culture - Preliminary Blood - Venous No growth after 48 hours. 04/26/23 17:07 Blood Culture - Preliminary Blood - Venous No growth after 48 hours. Discharge Plan Discharge Anticipated Discharge Date/Time: 04/30/23 10:46 Patient Disposition: Home, Self-Care Discharge Diagnosis: Paroxysmal atrial fibrillation with RVR Acute CHF with reduced EF Right lower lobe pneumonia Referrals: [facility], [facility] [Primary Care Provider] - 1 Week Discharge Medications: New Jardiance 10 mg Tablet 10 mg PO DAILY Qty: 90 0RF amiodarone 200 mg Tablet 400 mg PO BID Qty: 90 0RF Rx Instructions: Take amiodarone 400 mg twice daily ([id number]) for 9 days, then take amiodarone 200 mg 1 tablet by mouth daily metoprolol succinate [Toprol XL] 100 mg tablet extended release 24 hr 100 mg PO DAILY Qty: 90 0RF Continued acetaminophen 325 mg tablet 650 mg PO Q6H PRN (Reason: pain) 30 Days Qty: 240 0RF lisinopril 40 mg tablet 40 mg PO DAILY 90 Days Qty: 90 3RF apixaban 5 mg tablet 5 mg PO BID 90 Days Qty: 180 3RF atorvastatin 40 mg tablet 40 mg PO BEDTIME Qty: 90 3RF cholecalciferol (vitamin D3) 50 mcg (2,000 unit) capsule 50 mcg PO DAILY Qty: 90 1RF Discontinued metoprolol succinate [Toprol XL] 25 mg tablet extended release 24 hr 25 mg PO DAILY Qty: 90 3RF amlodipine 5 mg tablet 5 mg PO DAILY Qty: 90 3RF Discharge Orders: Discharge Order (Routine); Ordered 04/30/23 Ordered By: Emily Muhammad Diet: Low fat, low cholesterol Activity on Discharge: As tolerated Stand Alone Forms: Patient Portal Discharge page, Work/School Release Care Plan Goals: Take amiodarone 400 mg twice daily ( [id number] amiodarone tablets) for 9 more days, then take amiodarone 200 mg 1 tablet daily Take Toprol-XL 100 mg 1 tablet daily Take Jardiance 1 tablet by mouth daily Health Concerns: Cardiomyopathy Atrial fibrillation Hypertension Hyperlipidemia Plan of Treatment: outpatient follow-up with primary care physician and Cardiology Assessment: As above
--- NOTE | 2023-04-30 11:09 | HO.POSTANES ---
Post Anesthesia Evaluation Post Anesthesia Evaluation Date of Service: 04/30/23 Vital Signs: Vital Signs Temp Pulse Resp BP Pulse Ox O2 Del Method 04/30/23 07:42 97.3 F 75 18 139/78 96 Room Air 04/30/23 03:10 97.4 F 64 18 106/78 96 04/29/23 23:26 97 F 68 18 107/75 96 Room Air Anesthesia: General Mental Status: Awake Pain Control: Satisfactory Nausea/Vomiting: None Hydration: Adequate Anesthesia-Related Issues: No Anes. Related Issues
[2023-04-30 11:38] VITALS: BP 112/77; PULSE 72; RESP 20; TEMP 36.2; O2SAT 94
== END 2023-04-30 11:50 | disposition home or self-care (01) | DRG 201 ==
LOC: HO.ED 19:38 → HO.EDOVER 20:24 → HO.IMC 04-28 07:26
PROVIDERS: Internal Medicine; Internal Medicine Cardiovascular Disease; Physician Assistant Medical; Admitting Provider Internal Medicine; Emergency Provider Emergency Medicine Emergency Medical Services; PCP Nurse Practitioner Family; Visit Provider Hospitalist
PROC: 5A2204Z Restoration of Cardiac Rhythm, Single (ICD-10-PCS; principal; 2023-04-29 11:30)
DX: I48.0 Paroxysmal atrial fibrillation (principal); I50.23 Acute on chronic systolic (congestive) heart failure; J18.9 Pneumonia, unspecified organism; I42.9 Cardiomyopathy, unspecified; K70.0 Alcoholic fatty liver; K76.0 Fatty (change of) liver, not elsewhere classified; I12.9 Hypertensive chronic kidney disease with stage 1 through stage 4 chronic kidney disease, or unspecified chronic kidney disease; N18.9 Chronic kidney disease, unspecified; E78.5 Hyperlipidemia, unspecified; Z20.822 Contact with and (suspected) exposure to COVID-19; Z79.01 Long term (current) use of anticoagulants; Z79.899 Other long term (current) drug therapy
CPT/HCPCS: 0241U; 36415; 71045; 80048; 80053; 81003; 82803; 83605; 83690; 83735; 83880; 84443; 84484; 85025; 85027; 85379; 85730; 87040; 92960; 93005; 93306; 94640; 99285; J0456; J0696; J1940; Q9957

== ENCOUNTER → 2023-04-26 16:48 | Outpatient (BNV) | payer OTHER, SELFPAY | PROVIDERS: Admitting Provider Internal Medicine; Emergency Provider Emergency Medicine Emergency Medical Services; PCP Nurse Practitioner Family; Visit Provider Internal Medicine Cardiovascular Disease | DX: I48.91 Unspecified atrial fibrillation (principal) | CPT/HCPCS: 93010 ==

== ENCOUNTER 2023-04-26 20:19 | Outpatient (BNV) | payer OTHER, SELFPAY | END 2023-04-27 07:00 | PROVIDERS: Admitting Provider Internal Medicine; Emergency Provider Emergency Medicine Emergency Medical Services; PCP Nurse Practitioner Family; Visit Provider Internal Medicine Cardiovascular Disease | DX: I34.0 Nonrheumatic mitral (valve) insufficiency (principal); I35.8 Other nonrheumatic aortic valve disorders | CPT/HCPCS: 93306 ==

== ENCOUNTER → 2023-04-26 20:19 | Outpatient (BNV) | payer OTHER, SELFPAY | PROVIDERS: Admitting Provider Internal Medicine; Emergency Provider Emergency Medicine Emergency Medical Services; PCP Nurse Practitioner Family; Visit Provider Internal Medicine Cardiovascular Disease | DX: I48.91 Unspecified atrial fibrillation (principal); I42.9 Cardiomyopathy, unspecified | CPT/HCPCS: 92960; 99223; 99232; 99233 ==

== ENCOUNTER → 2023-04-26 20:19 | Outpatient (BNV) | payer OTHER, SELFPAY | PROVIDERS: Admitting Provider Internal Medicine; Emergency Provider Emergency Medicine Emergency Medical Services; PCP Nurse Practitioner Family; Visit Provider Internal Medicine | DX: I48.91 Unspecified atrial fibrillation (principal); J18.9 Pneumonia, unspecified organism; E78.5 Hyperlipidemia, unspecified; I10 Essential (primary) hypertension; R79.89 Other specified abnormal findings of blood chemistry | CPT/HCPCS: 99223; 99233; 99239 ==

== ENCOUNTER 2023-05-24 09:01 | Outpatient (AMB) | payer OTHER, SELFPAY ==
--- NOTE | 2023-05-24 09:29 | A.OFFVIS_ITS ---
Intake Vital Signs 05/24/23 09:30 Height 5 ft 7 in Weight 200 lb 2.876 oz BMI 31.3 BP 134/82 Blood Pressure Location Lt brachial Position Sitting Pulse 96 Intake Visit Reasons: f/up Intake Note: pt its here for f/up pt states that he kits doing fine. Systems Architecture Analyst Required: No Accompanied by: Self / Same As Patient Allergies No Known Allergies Allergy (Verified 04/26/23 16:43) Medication List - Last Reconciled 05/24/23 by Margarito Fofana MD acetaminophen 650 mg (2 x 325 mg) PO Q6H PRN 30 days amiodarone 400 mg (2 x 200 mg) PO BID apixaban 5 mg PO BID 90 days atorvastatin 40 mg PO BEDTIME cholecalciferol (vitamin D3) 50 mcg PO DAILY empagliflozin (Jardiance) 10 mg PO DAILY lisinopril 40 mg PO DAILY 90 days metoprolol succinate ER (Toprol XL) 100 mg PO DAILY HPI HPI Comments History of Present Illness Details 63-year-old gentleman here for follow-up . He has background history of paroxysmal atrial fibrillation. He is denying any symptoms at this point. Previously his chads Vasc score was 1 and he was not started on anticoagulation. His blood pressure was elevated and we added hydrochlorothiazide. This has improved his blood pressure significantly. Denying chest pain or shortness of breath. He had lipid panel done which showed total cholesterol 124, triglycerides 141, LDL 58 HDL 38. He had a carotid bruit and underwent carotid duplex which showed minimal 0-49% stenosis in both left and right carotid arteries but there was markedly increased velocity in the right external carotid artery consistent with high-grade stenosis. 05/24/23: In April 2023 he got admitted t o the [facility] with AFib with RVR in the setting of pneumonia and was also diagnosed with cardiomyopathy. Echocardiography showed EF of 30-35%. Mildly decreased right-sided function was also noted. He was cardioverted and discharged home on amiodarone 400 mg twice a day for 2 weeks followed by 200 mg daily. He was on apixaban. He was also started on guideline directed medical therapy. He returns for follow-up today. His EKG in the office showing atrial fibrillation at 96 beats per minute. Discussing with him he does not have any symptoms currently. No palpitations, shortness of breath or congestive heart failure. He is taking medications regularly. He said Jardiance was too expensive for him and he has not been taking that pill. Compliant with medications why. He is on amiodarone 200 mg daily. COUNTS INCLUDE 234 BEDS AT THE [facility] Medical History Incisional hernia New onset a-fib CKD (chronic kidney disease), stage III COVID-19 vaccine series completed Fatty liver History of duodenal ulcer Osteoarthritis of both knees Hypertension Surgical History History of ventral hernia repair History of total left knee replacement History of total right knee replacement H/O colonoscopy S/P exploratory laparotomy (~06/27/19) History of exploratory laparotomy (~01/28/19) History of hand surgery Family History Father No problems noted. Mother No problems noted. 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 Cognitive needs: No Hearing needs: No Vision needs: No Review of Systems Const Denies chills, Denies fatigue, Denies fever(s), Denies frequent falls, Denies weakness, Denies weight gain and Denies weight loss ENT Denies dizziness Card Denies chest pain, Denies leg edema, Denies lightheadedness, Denies palpitations, Denies dyspnea and Denies dyspnea on exertion Resp Denies cough, Denies dyspnea and Denies dyspnea on exertion GI Denies hematochezia Musc Denies abnormal gait, Denies muscle weakness, Denies numbness, Denies radiating pain into limb and Denies tingling Neuro Denies abnormal gait, Denies dizziness, Denies frequent falls, Denies numbness, Denies tingling and Denies weakness Endo Denies fatigue and Denies palpitations Physical Exam Vital Signs: Last Vital Signs Pulse 96 05/24/23 09:30 BP 134/82 05/24/23 09:30 BMI result Body Mass Index 31.3 Last Vital Signs Temp 97.3 F 04/30/23 07:42 Pulse 75 04/30/23 07:42 Resp 18 04/30/23 07:42 BP 139/78 04/30/23 07:42 Pulse Ox 96 04/30/23 07:42 O2 Del Method Room Air 04/30/23 07:42 O2 Flow Rate 2 04/29/23 11:59 BMI result Body Mass Index 30.3 GENERAL APPEARANCE: in no acute distress, pleasant. NECK: no carotid bruit, no jugular venous distention. SKIN: no suspicious lesions, warm and dry. HEART: no murmurs, irregular rate and rhythm. LUNGS: clear to auscultation bilaterally. ABDOMEN: soft, nontender. EXTREMITIES: no edema. PERIPHERAL PULSES: equal. NEUROLOGIC: No gross deficits, AAO X 3 Office Procedures EKG Details: Atrial fibrillation 96 beats per minute, normal axis, can not rule out anteroseptal infarct, QTC 447 milliseconds. [id number], Complete Assessment & Plan Assessment & Plan (1) Cardiomyopathy: Code(s): I42.9 - Cardiomyopathy, unspecified (2) PAF (paroxysmal atrial fibrillation): Code(s): I48.0 - Paroxysmal atrial fibrillation Plan Pleasant 63 year gentleman who is here for follow-up. He was seen in April 2023 in the hospital when he presented with pneumonia. Echocardiography at that time showed moderate LV dysfunction EF 30 35% and he was in persistent atrial fibrillation he was rate controlled initially with once his pneumonia improved he was taken for JOSE cardioversion which was successfully done he was started on amiodarone load and was discharged home. He is saying he has done well since then but on follow-up he is back in atrial fibrillation. The impression is that he has tachycardia induced cardiomyopathy and after discussion we have decided to take him back for cardioversion. He has been taking Eliquis regularly. He is taking amiodarone 200 mg daily. I think he has been loaded reasonably well at this stage with amiodarone and chances of success are better. He has an appointment with electrophysiology to discuss ablation and hopefully we can get him off amiodarone a few months after the ablation. Clinically euvolemic currently. He will continue all his medications and we will arrange a cardioversion for him next week. Thank you for allowing me to participate in the care of your patient. Please feel free to contact me if you have any questions. Medications: Changed From amiodarone Take amiodarone 400 mg twice daily ([id number]) for 9 days, then take amiodarone 200 mg 1 tablet by mouth daily 400 mg (2 x 200 mg) PO BID 90 tabs 0RF To amiodarone Take amiodarone 400 mg twice daily ([id number]) for 9 days, then take amiodarone 200 mg 1 tablet by mouth daily 200 mg PO DAILY 90 tabs 5RF Discontinued empagliflozin (Jardiance) Discontinued Reason: Doctor's Order 10 mg PO DAILY 90 tabs 0RF Coding Level of Care Code Est Pt Level 5 (70794) Diagnoses Cardiomyopathy I42.9 PAF (paroxysmal atrial fibrillation) I48.0 CPT Codes EKG - CPT: 45841-[id number], Complete ([id number])
[2023-05-24 09:30] VITALS: BP 134/82; PULSE 96; BMI 31.3
== END 2023-05-24 10:05 | disposition home or self-care (01) ==
PROVIDERS: PCP Nurse Practitioner Family; Visit Provider Internal Medicine Cardiovascular Disease
DX: I48.0 Paroxysmal atrial fibrillation (principal); I42.8 Other cardiomyopathies
CPT/HCPCS: 93010; 99215

== ENCOUNTER → 2023-05-24 09:01 | Outpatient (BNVA) | payer OTHER, SELFPAY | PROVIDERS: PCP Nurse Practitioner Family; Visit Provider Internal Medicine Cardiovascular Disease | DX: I42.9 Cardiomyopathy, unspecified (principal); I48.0 Paroxysmal atrial fibrillation; Z79.01 Long term (current) use of anticoagulants; Z79.899 Other long term (current) drug therapy | CPT/HCPCS: 93005 ==

== ENCOUNTER 2023-06-04 12:44 | Day surgery (SDC) | payer OTHER, SELFPAY ==
--- NOTE | 2023-06-04 | ECG_ITS ---
Test Reason : POST CARDIOVERSION Blood Pressure : / mmHG Vent. Rate : 053 BPM Atrial Rate : 053 BPM P-R Int : 120 ms QRS Dur : 080 ms QT Int : 456 ms P-R-T Axes : 010 036 113 degrees QTc Int : 427 ms Sinus bradycardia with Premature atrial complexes Anterior infarct (cited on or before 26-APR-2023) T wave abnormality, consider lateral ischemia Abnormal ECG When compared with ECG of 29-APR-2023 12:31, Premature atrial complexes are now Present Nonspecific T wave abnormality, improved in Inferior leads T wave inversion now evident in Lateral leads Referred By: Margarito Fofana Electronically Signed By:Margarito Fofana
[2023-06-04 12:57] VITALS: BMI 31.4
[2023-06-04 13:03] VITALS: BP 123/83; PULSE 89; RESP 16; TEMP 36.7; O2SAT 95
--- NOTE | 2023-06-04 13:53 | HO.ANESPROP2 ---
[facility] Active Problems Active Problems: All Active Problems Cardiomyopathy (Acute) Elevated brain natriuretic peptide (BNP) level (Acute) Vitamin D deficiency (Acute) Peripheral vascular disease (Acute) Anemia (Acute) Abdominal hernia (Acute) Carotid artery bruit (Acute) Status post total bilateral knee replacement (Acute) PAF (paroxysmal atrial fibrillation) (Acute) Status post total knee replacement, left (Acute) Elevated liver enzymes (Acute) Screening PSA (prostate specific antigen) (Acute) Physical exam (Acute) Status post total right knee replacement (Acute) Partial small bowel obstruction (Acute) Pre-op evaluation (Acute) History of colon polyps (Acute) Primary osteoarthritis of right knee (Acute) Primary osteoarthritis of left knee (Acute) Postprandial diarrhea (Acute) Encounter for screening for malignant neoplasm of colon (Acute) Right knee pain (Acute) Incisional hernia (Acute) New onset a-fib (Acute) Fatty liver (Acute) Past Medical History Medical History (Updated 06/04/23 @ 12:52 by Salma Ojeda) History of cardioversion Hyperlipidemia Incisional hernia New onset a-fib CKD (chronic kidney disease), stage III COVID-19 vaccine series completed Fatty liver History of duodenal ulcer Osteoarthritis of both knees Hypertension Family History Family History Father No problems noted. Mother No problems noted. Family history of problems with anesthesia: No Surgical History Surgical History History of ventral hernia repair History of total left knee replacement History of total right knee replacement H/O colonoscopy S/P exploratory laparotomy (~06/27/19) History of exploratory laparotomy (~01/28/19) History of hand surgery History of Problems with Anesthesia: No Social History Social History Household Members: Spouse Housing: House Are you a primary career services director to a significant other at home: No Do you presently have visiting nurse or other home services: No Alcohol intake: current Alcohol intake frequency: holidays/special occasions only Alcohol type: beer Comment: sleeping Patient Tobacco Use Status: Former Tobacco user Quit Date: 2012 Tobacco use type: Cigarette Years Smoked: 15 Smoked in Last 30 Days: No e-Cigarette/Vaping Use: Never Used Second Hand Smoke Exposure: No Use of substances other than those prescribed or required for medical reasons: No Are you DNR?: No Advance Directives: No Advance Directives Information Provided: Yes Advance Directives Date on File: 05/14/20 service: No Current occupational status: employed 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 Cognitive needs: No Hearing needs: No Vision needs: No Meds Allergies Allergy/AdvReac Type Severity Reaction Status Date / Time No Known Allergies Allergy Verified 06/04/23 12:52 Exam Height,Weight and Vital Signs: Height 5 ft 7 in Weight 91.081 kg Last Vital Signs Temp 98.0 F 06/04/23 13:03 Pulse 89 06/04/23 13:03 Resp 16 06/04/23 13:03 BP 123/83 06/04/23 13:03 Pulse Ox 95 06/04/23 13:03 O2 Del Method Room Air 06/04/23 13:03 Airway Mallampati Class: II TM Dist: >3cm Neck ROM: Full Denture: Upper and Lower Heart: rrr Lungs: cta Assessment and Plan Assessment Anesthesia Assessment: Anesthesia Plan Discussed and Chart Reviewed Final Anesthetic Review Family History of Problems with Anesthesia: No History of Problems with Anesthesia: No NPO: Yes ASA Class: III Final Preanesthetic Review: No Changes in Pt Med Stat, Meds/Allgs Chart Reviewed and Consent Obtained/Reviewed Patient Risk: Intermediate Procedure Risk: Low Anesthetic Plan Anesthetic Plan: MAC: Disposition: Standard PACU
--- NOTE | 2023-06-04 14:03 | MHC.SHP ---
Pre-Procedural Eval Section A - 24 Hr Update-Section A only Date of Service: 06/04/23 The patient is an INPATIENT: No Section B - Complete if H&P > 30 days Chief Complaint: Unspecified atrial flutter Allergies: Allergies Allergy/AdvReac Type Severity Reaction Status Date / Time No Known Allergies Allergy Verified 06/04/23 12:52 Plan Diagnosis/Plan: Unchanged I have reviewed the history and physical and performed a pertinent physical examination on my patient. No changes have occurred unless specified. Time Spent With Patient Time: Total time managing care of this patient today ____ minutes.
--- NOTE | 2023-06-04 14:16 | HO.CARDIVERS ---
Cardioversion Procedure Note Cardioversion Date of Procedure: 06/04/23 Ordering Provider: Margarito Fofana Performing Provider: Margarito Fofana Indication for Procedure: PAF, cardiomyopathy History: 63 male with PAF and tachycardia induced CM. Consent: Verbal and Written consent was obtained from the patient before starting. The patient was made aware of the risk of stroke, skin burn and arrhythmia. Procedure: After consent obtained, defib pads were attached and the patient was sedated by the anesthesia team. Once adequate sedation achieved, single synchronized shock of 200 J was given. The patient converted to sinus rhythm. Complications: None Recommendations: Continue amiodarone and apixaban. f/u in office in few weeks.
[2023-06-04 14:19] VITALS: BP 94/52; PULSE 52; RESP 18; TEMP 36.3; O2SAT 98
[2023-06-04 14:34] VITALS: BP 94/57; PULSE 57; RESP 20; O2SAT 96
[2023-06-04 14:49] VITALS: BP 108/66; PULSE 57; RESP 16; TEMP 36.3; O2SAT 96
== END 2023-06-04 15:07 | disposition home or self-care (01) ==
PROVIDERS: PCP Nurse Practitioner Family; Visit Provider Internal Medicine Cardiovascular Disease
PROC: 5A2204Z Restoration of Cardiac Rhythm, Single (ICD-10-PCS; principal; 2023-06-04 14:00)
DX: I48.0 Paroxysmal atrial fibrillation (principal); I42.9 Cardiomyopathy, unspecified; I12.9 Hypertensive chronic kidney disease with stage 1 through stage 4 chronic kidney disease, or unspecified chronic kidney disease; N18.30 Chronic kidney disease, stage 3 unspecified; Z79.01 Long term (current) use of anticoagulants; Z87.891 Personal history of nicotine dependence; Z98.890 Other specified postprocedural states
CPT/HCPCS: 92960; 93005; J2704

== ENCOUNTER → 2023-06-04 12:44 | Outpatient (BNV) | payer OTHER, SELFPAY | PROVIDERS: PCP Nurse Practitioner Family; Visit Provider Internal Medicine Cardiovascular Disease | DX: I48.0 Paroxysmal atrial fibrillation (principal); I42.9 Cardiomyopathy, unspecified | CPT/HCPCS: 92960 ==

== ENCOUNTER 2023-08-24 07:17 | Outpatient (REF) | payer OTHER, SELFPAY ==
[2023-08-24 11:04] LABS: MANUAL DIFF FLAG NO
[2023-08-24 11:16] LABS: Basophils Percent Auto 0.5 % (0-2); Eosinophils Absolute Auto 0.1 X10*3/uL (0.0-0.4); Eosinophils Percent Auto 1.2 % (0-4); Hematocrit 39.7 % (42.0-52.0); Hemoglobin 13.3 g/dl (14.0-18.0); Imm Gran Abs Auto 0.02 X10*3/uL (0.00-0.03); Imm Gran Pct Auto 0.2 % (0.0-0.4); Lymphocytes Absolute Auto 1.9 X10*3/uL (1.2-4.9); Lymphocytes Percent Auto 23.4 % (20-40); Mean Corpuscular HGB Conc 33.5 g/dl (31.0-36.0); Mean Corpuscular Hemoglobin 32.3 pg (27.0-33.0); Mean Corpuscular Volume 96.4 fL (80.0-98.0); Monocytes Absolute Auto 0.7 X10*3/uL (0.1-1.2); Monocytes Percent Auto 8.8 % (2-11); Neutrophils Absolute Auto 5.4 x10*3/uL (2.0-8.3); Neutrophils Percent Auto 65.9 % (45-73); Platelet Count 203 X10*3/uL (160-400); Red Blood Count 4.12 X10*6/uL (4.60-5.80); White Blood Count 8.2 X10*3/uL (4.8-10.8)
[2023-08-24 11:18] LABS: Appearance Urine Clear; Color Urine Yellow; Glucose Urine UA Negative (Negative); Leukocyte Esterase Urine Negative (Negative); Nitrite Urine Negative (Negative); PH 5.5 (5.0-9.0); Urine Blood Negative (Negative); Urine Ketones Negative (Negative); Urine Protein Negative (Neg-Trace)
[2023-08-24 11:20] LABS: INTERNATIONAL NORM RATIO 0.9 (0.9-1.1); Prothrombin Time 11.2 SEC (11.1-13.3)
[2023-08-24 11:58] LABS: Alanine Aminotransferase 30 U/L (0-40); Albumin Level 4.5 g/dL (3.5-5.0); Alkaline Phosphatase 79 U/L (39-117); Anion Gap 12 (12-20); Aspartate Amino Transferase 24 U/L (5-37); Bilirubin Total 0.5 mg/dL (0.0-1.0); Blood Urea Nitrogen 22 mg/dL (9-16); Calcium 9.5 mg/dL (8.4-10.2); Carbon Dioxide 26 mmol/L (22-29); Chloride 106 mmol/L (96-108); Cholesterol 137 mg/dL (<200); Estimated Glomerular Filt Rate 59; Glucose Fasting 88 mg/dL (60-99); HDL Cholesterol 50 mg/dL (>40); LDL Cholesterol Calculated 66 mg/dL (<100); Sodium 140 mmol/L (135-145); Total Protein 7.1 g/dL (6.5-8.0); Triglycerides 106 mg/dL (<150)
== END 2023-08-24 07:18 | disposition home or self-care (01) ==
LOC: HO.HMGCLDS 07:17
PROVIDERS: PCP Nurse Practitioner Family; Referring Provider Nurse Practitioner Family; Visit Provider Internal Medicine Cardiovascular Disease
DX: I48.91 Unspecified atrial fibrillation (principal)
CPT/HCPCS: 36415; 80053; 80061; 81003; 84443; 85025; 85610

== ENCOUNTER 2023-09-15 10:58 | Outpatient (AMB) | payer OTHER, SELFPAY ==
--- NOTE | 2023-09-15 11:03 | A.OFFVIS_ITS ---
Vital Signs 09/15/23 11:04 Height 5 ft 7 in Weight 203 lb 4.259 oz BMI 31.8 BP 140/82 H Blood Pressure Location Lt brachial Position Sitting Pulse 62 Pulse Source Monitor Intake Visit Reasons: F/UP Haul Driver Required: No Accompanied by: Spouse Allergies No Known Allergies Allergy (Verified 06/04/23 12:52) Medication List - Last Reconciled 09/15/23 by Margarito Fofana MD acetaminophen 650 mg (2 x 325 mg) PO Q6H PRN 30 days amiodarone 200 mg PO DAILY apixaban 5 mg PO BID 90 days atorvastatin 40 mg PO BEDTIME cholecalciferol (vitamin D3) 50 mcg PO DAILY lisinopril 40 mg PO DAILY 90 days metoprolol succinate ER (Toprol XL) 100 mg PO DAILY HPI Comments Details: 63-year-old gentleman here for follow-up. He has background history of paroxysmal atrial fibrillation. He is denying any symptoms at this point. Previously his chads Vasc score was 1 and he was not started on anticoagulation. His blood pressure was elevated and we added hydrochlorothiazide. This has improved his blood pressure significantly. Denying chest pain or shortness of breath. He had lipid panel done which showed total cholesterol 124, triglycerides 141, LDL 58 HDL 38. He had a carotid bruit and underwent carotid duplex which showed minimal 0-49% stenosis in both left and right carotid arteries but there was markedly increased velocity in the right external carotid artery consistent with high-grade stenosis. 05/24/23: In April 2023 he got admitted to the hospital with AFib with RVR in the setting of pneumonia and was also diagnosed with cardiomyopathy. Echocardiography showed EF of 30-35%. Mildly decreased right-sided function was also noted. He was cardioverted and discharged home on amiodarone 400 mg twice a day for 2 weeks followed by 200 mg daily. He was on apixaban. He was also started on guideline directed medical therapy. He returns for follow-up today. His EKG in the office showing atrial fibrillation at 96 beats per minute. Discussing with him he does not have any symptoms currently. No palpitations, shortness of breath or congestive heart failure. He is taking medications regularly. He said Jardiance was too expensive for him and he has not been taking that pill. Compliant with medications why. He is on amiodarone 200 mg daily. 09/15/23: Here for f/u. He underwent ablation recently. Doing well. No CP or SOB. ECG showing sinus rhytm. [facility] Medical History (Updated 08/09/23 @ 15:43 by [employer] [facility]) Persistent atrial fibrillation History of cardioversion Hyperlipidemia Incisional hernia New onset a-fib CKD (chronic kidney disease), stage III COVID-19 vaccine series completed Fatty liver History of duodenal ulcer Osteoarthritis of both knees Hypertension Surgical History (Reviewed 09/15/23 @ 11:08 by Susy Palomino [facility] [address]) History of ventral hernia repair History of total left knee replacement History of total right knee replacement H/O colonoscopy S/P exploratory laparotomy (~06/27/19) History of exploratory laparotomy (~01/28/19) History of hand surgery Family History Father No problems noted. Mother No problems noted. 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 Cognitive needs: No Hearing needs: No Vision needs: No Review of Systems Const Denies chills, Denies fatigue, Denies fever(s), Denies frequent falls, Denies weakness, Denies weight gain and Denies weight loss ENT Denies dizziness Card Denies chest pain, Denies leg edema, Denies lightheadedness, Denies palpitations, Denies dyspnea and Denies dyspnea on exertion Resp Denies cough, Denies dyspnea and Denies dyspnea on exertion GI Denies hematochezia Musc Denies abnormal gait, Denies muscle weakness, Denies numbness, Denies radiating pain into limb and Denies tingling Neuro Denies abnormal gait, Denies dizziness, Denies frequent falls, Denies numbness, Denies tingling and Denies weakness Endo Denies fatigue and Denies palpitations Physical Exam Vital Signs: Last Vital Signs Pulse 62 09/15/23 11:04 BP 140/82 H 09/15/23 11:04 BMI result Body Mass Index 31.8 Last Vital Signs Temp 97.3 F 04/30/23 07:42 Pulse 75 04/30/23 07:42 Resp 18 04/30/23 07:42 BP 139/78 04/30/23 07:42 Pulse Ox 96 04/30/23 07:42 O2 Del Method Room Air 04/30/23 07:42 O2 Flow Rate 2 04/29/23 11:59 BMI result Body Mass Index 30.3 GENERAL APPEARANCE: in no acute distress, pleasant. NECK: no carotid bruit, no jugular venous distention. SKIN: no suspicious lesions, warm and dry. HEART: no murmurs, regular rate and rhythm. LUNGS: clear to auscultation bilaterally. ABDOMEN: soft, nontender. EXTREMITIES: no edema. PERIPHERAL PULSES: equal. NEUROLOGIC: No gross deficits, AAO X 3 Office Procedures EKG Details: Sinus rhythm 62 beats per minute normal axis, QTC 466 milliseconds. [id number], Complete Assessment & Plan Assessment & Plan (1) Cardiomyopathy: Code(s): I42.9 - Cardiomyopathy, unspecified Category: Medical (2) PAF (paroxysmal atrial fibrillation): Code(s): I48.0 - Paroxysmal atrial fibrillation Category: Medical Plan 63-year-old gentleman presenting for follow-up. He was diagnosed with atrial fibrillation and cardiomyopathy while he was admitted with pneumonia. He was started on guideline directed medical therapy and anticoagulation. He underwent cardioversion but on follow-up he was in atrial fibrillation again. Cardioversion was re-attempted and while he was on amiodarone he maintain sinus rhythm and was referred for ablation. He is now status post ablation he continues to be on amiodarone. It is likely that he will stay on this for couple of months from the we can stop the amiodarone. He will follow-up with electrophysiology for further discussion. Clinically euvolemic. Same medications for now. We will repeat echocardiogram to reassess ejection fraction. Thank you for allowing me to participate in the care of your patient. Please feel free to contact me if you have any questions. Orders: Orders CA echo transthoracic complete Today I42.9 - Cardiomyopathy, unspecified Coding Level of Care Code Est Pt Level 4 (16576) Diagnoses Cardiomyopathy I42.9 PAF (paroxysmal atrial fibrillation) I48.0 CPT Codes EKG - CPT: 65092-[id number], Complete ([id number])
[2023-09-15 11:04] VITALS: BP 140/82; PULSE 62; BMI 31.8
== END 2023-09-15 11:32 | disposition home or self-care (01) ==
PROVIDERS: PCP Nurse Practitioner Family; Visit Provider Internal Medicine Cardiovascular Disease
DX: I42.9 Cardiomyopathy, unspecified (principal); I48.0 Paroxysmal atrial fibrillation
CPT/HCPCS: 93010; 99214

== ENCOUNTER → 2023-09-15 10:58 | Outpatient (BNVA) | payer OTHER, SELFPAY | PROVIDERS: PCP Nurse Practitioner Family; Visit Provider Internal Medicine Cardiovascular Disease | DX: I48.0 Paroxysmal atrial fibrillation (principal); I42.9 Cardiomyopathy, unspecified; Z79.01 Long term (current) use of anticoagulants; Z79.899 Other long term (current) drug therapy | CPT/HCPCS: 93005 ==

== ENCOUNTER 2023-11-09 13:31 | Outpatient (AMB) | payer OTHER, SELFPAY ==
--- NOTE | 2023-11-09 13:45 | A.OFFPC_ITS ---
Vital Signs 11/09/23 13:48 11/09/23 14:28 Height 5 ft 7 in Weight 203 lb BMI 31.8 BP 140/90 H 138/88 Blood Pressure Location Lt brachial Lt brachial Position Sitting Sitting Pulse 74 Pulse Source Pulse Oximeter Pulse Oximetry (%) 98 Oxygen Delivery Method Room Air Intake Visit Reasons: PE Intake Note: Patient here for physical exam. Allergies No Known Allergies Allergy (Verified 11/09/23 16:31) Medication List - Last Reconciled 11/09/23 by LEYLA Barker acetaminophen 650 mg (2 x 325 mg) PO Q6H PRN 30 days amiodarone 200 mg PO DAILY apixaban 5 mg PO BID 90 days atorvastatin 40 mg PO BEDTIME cholecalciferol (vitamin D3) 50 mcg PO DAILY lisinopril 40 mg PO DAILY 90 days metoprolol succinate ER (Toprol XL) 100 mg PO DAILY Tobacco use date assessed: 03/30/23 Fall risk assessment: No Falls in past year Last assessed Fall Risk: 11/09/23 Dental Screening Dental Screen Date: 03/30/23 HPI PE HPI Details Pt is here for a PE. Will order labs. Due for colon screen, will refer to GI. Due for PSA next month, will order. Denies dribbling with urination, weak stream, and frequent nocturia. Pt is following up with cardiology and nephrology. Refuses pneumonia vaccine. [facility] Medical History Persistent atrial fibrillation History of cardioversion Hyperlipidemia Incisional hernia New onset a-fib CKD (chronic kidney disease), stage III COVID-19 vaccine series completed Fatty liver History of duodenal ulcer Osteoarthritis of both knees Hypertension Surgical History History of ventral hernia repair History of total left knee replacement History of total right knee replacement H/O colonoscopy S/P exploratory laparotomy (~06/27/19) History of exploratory laparotomy (~01/28/19) History of hand surgery Family History Father No problems noted. Mother No problems noted. 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 1. Little interest or pleasure in doing things: not at all 2. Feeling down, depressed, or hopeless: not at all 3. Trouble falling or staying asleep, or sleeping too much: not at all 4. Feeling tired or having little energy: not at all 5. Poor appetite or overeating: not at all 6. Feeling bad about yourself - or that you are a failure or have let yourself or your family down: not at all 7. Trouble concentrating on things, such as reading the newspaper or watching television: not at all 8. Moving or speaking so slowly that other people could have noticed. Or the opposite - being so fidgety or restless that you have been moving around a lot more than usual: not at all 9. Thoughts that you would be better off or of hurting yourself in some way: not at all Total score: 0 Depression Screening Interpretation: Negative Depression Screening Done: Yes 85567 - PHQ-9 Billing: Yes Source: Developed by Drs. Mundo Engle, Terri Quezada, Merritt Reyes and colleagues, with an educational floresita from [employer]. Thrive Questionnaire Date Thrive assessed: 09/24/23 I am a: Patient What is your living situation today?: I have a steady place to live Within the past 12 months, did the food you bought not last and you didn't have the money to get more?: Often true Within the past 12 months, did you worry whether your food would run out before you got money to buy more?: I choose not to answer this question Do you have trouble paying for medicines?: No Do you have trouble getting transportation to medical appointments?: No Do you have trouble paying your heating and electricity bill?: No Do you have trouble taking care of your child, family member or friend?: No Do you have trouble with day-to-day activities such as bathing, preparing meals, shopping, managing finances, etc.?: No Are you interested in more education?: No Please select the resources that you would like help with: None Currently or been in a relationship where the following occur: I choose not to answer THRIVE Score: 1 AUDIT C Alcohol Use Questionnaire (AUDIT-C) 1. How often do you have a drink containing alcohol?: 2-4 times a month 2. How many drinks containing alcohol do you have on a typical day when you are drinking?: 1 or 2 3. How often do you have six or more drinks on one occasion?: Never Total Score: 2 Score Reviewed/Action Taken: No ISIDRO-7 AMB Questionnaire ISIDRO-7 Date ISIDRO - 7 assessed: 11/09/23 Feeling nervous, anxious, or on edge: 0 = Not at all Not being able to stop or control worryin = Not at all Worrying too much about different things: 0 = Not at all Trouble relaxin = Not at all Being so restless that it is hard to sit still: 0 = Not at all Becoming easily annoyed or irritable: 0 = Not at all Feeling afraid as if something awful might happen: 0 = Not at all Total ISIDRO-7 score (0-4 normal; 5-9 mild; 10-14 moderate; 15-21 severe): 0 Source: Developed by Drs. Mundo Engle, Terri Quezada, Merritt Reyes and colleagues, with an educational floresita from [employer]. ISIDRO-7 Assessment Billing ISIDRO-7 Assessment Tool: ISIDRO-7 Assessment 62602 Review of Systems Const Denies chills and Denies fever(s) Eyes Denies blurry vision ENT Denies vertigo, Denies dizziness and Denies sore throat Card Denies chest pain at rest, Denies chest pain with activity, Denies diaphoresis, Denies dyspnea and Denies dyspnea on exertion Resp Denies cough, Denies dyspnea, Denies dyspnea on exertion and Denies wheezing GI Denies abdominal pain, Denies melena, Denies hematochezia, Denies constipation, Denies diarrhea and Denies loose stools Denies hematuria Musc Denies numbness and Denies tingling Skin/Breast Denies lesions Neuro Denies vertigo, Denies dizziness, Denies numbness and Denies tingling Psych Denies anxiety, Denies depression, Denies homicidal ideation, Denies suicidal ideation and Denies other (substance abuse) Aller/Immun Denies wheezing Physical exam (Primary Care) Vital Signs: Last Vital Signs Pulse 74 11/09/23 13:48 BP 138/88 11/09/23 14:28 Pulse Ox 98 11/09/23 13:48 Oxygen Delivery Method Room Air 11/09/23 13:48 BMI result Body Mass Index 31.8 Tobacco/Smoking Status: Tobacco use Status Tobacco use date assessed 03/30/23 11/09/23 13:47 Patient Tobacco Use Status Former Tobacco user 11/09/23 13:47 Tobacco use type Cigarette 11/09/23 13:47 e-Cigarette/Vaping Use Never Used 11/09/23 13:47 PHQ-9: PHQ-9 Score PHQ-9: Total score 0 11/09/23 14:28 Depression Screening Interpretation: Negative Thrive Assessment: Date of Thrive Assessment Date Thrive assessed 09/24/23 11/09/23 13:47 Currently or been in a relationship where the following occur: I choose not to answer Const General: cooperative Nutritional Appearance: well nourished Orientation/consciousness: patient oriented x3 HENMT Head: Yes normal to inspection, Yes normocephalic and Yes atraumatic Ears: TM's normal bilaterally Eyes General: appearance normal, both eyes and all related structures Alignment and Position: alignment normal and position normal Neck Neck: Yes normal visual inspection, Yes no lymphadenopathy and Yes supple Resp Effort & Inspection: normal respiratory effort Auscultation: clear to auscultation bilaterally Cardio Rate: regular rate Rhythm: regular rhythm Heart sounds: S1 normal heart sound present, S2 normal heart sound present and no murmurs GI Other: extensive scarring to abdomen, abdomen slightly distended Palpation (GI): Soft to palpation and nontender Auscultation: normal bowel sounds Male General Exam: Yes normal external exam Penis: normal penis Scrotum: scrotum normal, testes descended bilaterally and no inguinal hernias Testes: no testicular mass Skin Rashes: no rashes Neuro General: patient oriented x3, moves all extremities, no focal motor deficits and deep tendon reflexes 2+ bilaterally Romberg Test: Negative Psych Appearance: grossly normal Mental Status: mental status grossly normal Speech and movement: Normal speech and movement present Affect: normal affect Attitude: cooperative Thought process: Normal thought process present Thought content: Normal thought content present Insight: Good insight present (Psych) Judgement: Good judgement present (Psych) Assessment and Plan Assessment & Plan (1) Physical exam: Code(s): Z00.00 - Encounter for general adult medical examination without abnormal findings Plan: Labs ordered (2) Encounter for screening for malignant neoplasm of colon: Code(s): Z12.11 - Encounter for screening for malignant neoplasm of colon Plan: Referred to GI Plan The patient agreed to the use of a medical recruiter for this encounter. Scribed for LEYLA Sommers by Magda Hilton medical recruiter, on 11/09/2023 at 14:00 EST. Orders: Orders Complete Blood Count Auto Diff Today Z00.00 - Encounter for general adult medical examination without abnormal findings Comprehensive [place]. Panel Fast Today Z00.00 - Encounter for general adult medical examination without abnormal findings Lipid Panel Today Z00.00 - Encounter for general adult medical examination without abnormal findings Prostate Specific Antigen Scr Today Z00.00 - Encounter for general adult medical examination without abnormal findings TSH reflex Free T4 Today Z00.00 - Encounter for general adult medical examination without abnormal findings UA CC w/rflx Micro + Cult Today Z00.00 - Encounter for general adult medical examination without abnormal findings Referrals Gastroenterology Referral Z12.11 - Encounter for screening for malignant neoplasm of colon Coding Level of Care Code Est Pt Prev Care >65y(83928) Diagnoses Physical exam Z00.00 Encounter for screening for malignant neoplasm of colon Z12.11 Additional Codes ISIDRO-7 Assessment Billing - ISIDRO-7 Assessment Tool: ISIDRO-7 Assessment 17051 ([id number])
[2023-11-09 13:48] VITALS: BP 140/90; PULSE 74; O2SAT 98; BMI 31.8
[2023-11-09 14:28] VITALS: BP 138/88
== END 2023-11-09 14:24 | disposition home or self-care (01) ==
PROVIDERS: PCP Nurse Practitioner Family; Visit Provider Nurse Practitioner Family
DX: Z00.00 Encounter for general adult medical examination without abnormal findings (principal); Z12.11 Encounter for screening for malignant neoplasm of colon

== ENCOUNTER → 2023-11-09 13:31 | Outpatient (BNVA) | payer OTHER, SELFPAY | PROVIDERS: PCP Nurse Practitioner Family; Visit Provider Nurse Practitioner Family | DX: Z00.00 Encounter for general adult medical examination without abnormal findings (principal) | CPT/HCPCS: 96127 ==

== ENCOUNTER → 2023-11-23 07:39 | Outpatient (REF) | payer MEDICARE, SELFPAY ==
--- NOTE | 2023-11-23 07:44 | CA_ITS ---
Transthoracic Echocardiogram Patient (Last, First, Middle): Horacio Monzon S Gender: Male Date of : 1960 Age: 63 Procedure Date: 11/23/2023 Procedure Type: Transthoracic Echocardiogram Location: OP Height: 170.18 cm Weight: 90.72 kg BSA: 2.02 m2 Heart Rate: bpm BP: 150 / 82 mmHg Fisheries Enforcement Officer: TO Referring MD: Margarito Fofana MD Cloud Engagement Partner: Margarito Fofana MD Symptoms: I42.9 - Cardiomyopathy, unspecified Study Quality: Adequate Conclusions: - Normal left ventricular cavity size. There is normal left ventricular wall thickness. The left ventricular systolic function is low normal. The visually estimated ejection fraction is between 50-55%. - The basal inferior segment is hypokinetic. - Normal right ventricular cavity size and systolic function. - There is mild dilatation of the sinuses of Valsalva measuring 3.70 cm. Findings Left Ventricle Normal left ventricular cavity size. There is normal left ventricular wall thickness. The left ventricular systolic function is low normal. The visually estimated ejection fraction is between 50-55%. There is evidence of regional wall motion abnormalities. Abnormal diastolic function is noted. Spectral Doppler is indicative of a pseudonormal filling pattern. Elevated filling pressures. Wall Motion Rest Echo Findings The basal inferior segment is hypokinetic. Right Ventricle Normal right ventricular cavity size and systolic function. Atria The left atrium is normal in size. Aortic Valve Normal aortic valve structure and function. There is no aortic valve stenosis. There is no aortic valve regurgitation. Mitral Valve The mitral valve appears normal. There is trace mitral valve regurgitation. There is no mitral valve stenosis. Pulmonic Valve The pulmonic valve is likely normal. Tricuspid Valve Normal tricuspid valve structure. There is no tricuspid valve regurgitation. Normal right atrial pressure. Great Vessels There is mild dilatation of the sinuses of Valsalva measuring 3.70 cm. The visualized portions of the pulmonary artery and branches are normal. Venous The inferior vena cava is normal in size and collapses greater than 50% with inspiration. Pericardium/Pleural There is no evidence of pericardial effusion. Prior Study Comparison Changes noted compared to prior study dated: 04/27/2023. LVEF 50-55%, normal RV function and basal inferior wall hypokinesis. Measurements 2D Linear Measurements IVSd: 1.03 0.6-0.9/0.6-1.0 cm LVIDd: 5.36 3.9-5.3/4.2-5.9 cm LVIDd Index: 2.65 2.4-3.2/2.2-3.1 cm/m2 LVIDs: 3.48 2.0-3.6 cm LVPWd: 0.88 0.7-1.1 cm LA Diam: 3.80 2.7-3.8/3.0-4.0 cm LAIDs Index: 1.88 1.5-2.3 cm/m2 LV Mass: 239.62 67-162/88-224 g LV Mass Index: 118.63 43-95/49-115 g/m2 LVOT Diam: 2.20 3.0+(-)1.3 cm 2D Systolic Function EF 4C: 40.90 >55% EF 2C: 49.60 >55% EF BiP: 46.20 >55% Mitral Valve MV Pk E: 0.96 MV PK A: 0.66 MV Decel Time: 228.00 E/A: 1.40 E'Lateral: 6.09 E'Medial: 5.55 E/E' Med: 17.20 E/E' Lat: 15.70 PHT: 67.00 MVA PHT: 3.28 Decel [place]: 4.19 Aortic Valve AoV Pk Obdulio: 1.55 AoV Mn Obdulio: 1.16 AoV VTI: 0.34 AoV Pk Grad: 10.00 Aov Mn Grad: 6.00 PONCE Cont.VTI: 2.51 LVOT LVOT Pk Obdulio: 1.33 LVOT Mn Obdulio: 0.78 LVOT VTI: 0.23 LVOT Pk Grad: 7.00 LVOT Mn Grad: 3.00 LVOT Diam: 2.20 LVOT Area: 3.80 Diastolic Function MV Pk E: 0.96 MV Pk A: 0.66 E/A: 1.40 E'Medial: 5.55 E/E' Med: 17.20 E' Laterial: 6.09 E/E' Lat: 15.70 Right Ventricle TAPSE (mm): 26.90 TVS' Obdulio: 17.30 Tricuspid Valve RA Press: 3.00 Great Vessels Aorta Sinus of Valsalva: 3.70 2.0-3.5 cm Ao Asc: 3.40 2.1-3.4 cm Updated in Other Vendor System with Status of Final Margarito Fofana MD electronically signed on 11/28/2023 2:31:32 PM with status of Final
== END ==
LOC: HO.CARD 07:39
PROVIDERS: PCP Nurse Practitioner Family; Visit Provider Internal Medicine Cardiovascular Disease
DX: I42.9 Cardiomyopathy, unspecified (principal)
CPT/HCPCS: 93306

== ENCOUNTER → 2023-11-23 07:44 | Outpatient (BNV) | payer MEDICARE, SELFPAY | PROVIDERS: PCP Nurse Practitioner Family; Visit Provider Internal Medicine Cardiovascular Disease | DX: I51.89 Other ill-defined heart diseases (principal); R93.1 Abnormal findings on diagnostic imaging of heart and coronary circulation | CPT/HCPCS: 93306 ==

== ENCOUNTER 2023-12-29 09:14 | Outpatient (AMB) | payer MEDICARE, SELFPAY ==
--- NOTE | 2023-12-29 09:31 | MHC.OFFVIS ---
Vital Signs 12/29/23 09:32 Height 5 ft 7 in Weight 209 lb 7.026 oz BMI 32.8 BP 180/80 H Blood Pressure Location Lt brachial Position Sitting Pulse 62 Pulse Source Monitor Intake Visit Reasons: 3 mth f/up echo Allergies No Known Allergies Allergy (Verified 11/09/23 16:31) Medication List - Last Reconciled 12/29/23 by Margarito Fofana MD acetaminophen 650 mg (2 x 325 mg) PO Q6H PRN 30 days amiodarone 200 mg PO DAILY apixaban 5 mg PO BID 90 days atorvastatin 40 mg PO BEDTIME cholecalciferol (vitamin D3) 50 mcg PO DAILY lisinopril 40 mg PO DAILY 90 days metoprolol succinate ER (Toprol XL) 100 mg PO DAILY HPI Comments Details: 63-year-old gentleman here for follow-up. He has background history of paroxysmal atrial fibrillation. He is denying any symptoms at this point. Previously his chads Vasc score was 1 and he was not started on anticoagulation. His blood pressure was elevated and we added hydrochlorothiazide. This has improved his blood pressure significantly. Denying chest pain or shortness of breath. He had lipid panel done which showed total cholesterol 124, triglycerides 141, LDL 58 HDL 38. He had a carotid bruit and underwent carotid duplex which showed minimal 0-49% stenosis in both left and right carotid arteries but there was markedly increased velocity in the right external carotid artery consistent with high-grade stenosis. 05/24/23: In April 2023 he got admitted to the hospital with AFib with RVR in the setting of pneumonia and was also diagnosed with cardiomyopathy. Echocardiography showed EF of 30-35%. Mildly decreased right-sided function was also noted. He was cardioverted and discharged home on amiodarone 400 mg twice a day for 2 weeks followed by 200 mg daily. He was on apixaban. He was also started on guideline directed medical therapy. He returns for follow-up today. His EKG in the office showing atrial fibrillation at 96 beats per minute. Discussing with him he does not have any symptoms currently. No palpitations, shortness of breath or congestive heart failure. He is taking medications regularly. He said Jardiance was too expensive for him and he has not been taking that pill. Compliant with medications why. He is on amiodarone 200 mg daily. 7/24/24: Here for f/u. He underwent ablation recently. Doing well. No CP or SOB. ECG showing sinus rhytm. 12/29/2023: He is here for follow-up. He has been doing well. No palpitations. EKGs are showing sinus rhythm. EF has improved 55%. His blood pressure is significantly elevated at this stage. Post AFib ablation he was advised to take amiodarone 100 mg daily. I have discussed with Dr. Sahni and he has recommended stopping the amiodarone. His blood pressure is significantly elevated. On manual repeat he was 190/100. Not complaining of any symptoms. He is taking lisinopril 40 mg daily and Toprol-XL 100 mg daily. [facility] Medical History (Updated 12/29/23 @ 10:40 by Margarito Fofana MD) Hypertension PAF (paroxysmal atrial fibrillation) Persistent atrial fibrillation History of cardioversion Hyperlipidemia Incisional hernia New onset a-fib CKD (chronic kidney disease), stage III COVID-19 vaccine series completed Fatty liver History of duodenal ulcer Osteoarthritis of both knees Surgical History History of ventral hernia repair History of total left knee replacement History of total right knee replacement H/O colonoscopy S/P exploratory laparotomy (~06/27/19) History of exploratory laparotomy (~01/28/19) History of hand surgery Family History Father No problems noted. Mother No problems noted. 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 Cognitive needs: No Hearing needs: No Vision needs: No Review of Systems Const Denies weakness ENT Denies dizziness Card Denies chest pain, Denies chest pain with activity, Denies syncope, Denies rapid heart rate, Denies pedal edema, Denies edema, Denies leg edema, Denies lightheadedness, Denies palpitations, Denies dyspnea, Denies dyspnea on exertion and Denies orthopnea Resp Denies cough, Denies dyspnea and Denies dyspnea on exertion GI Denies hematochezia and Denies change in stool character Musc Denies abnormal gait, Denies muscle cramps, Denies muscle weakness, Denies numbness, Denies radiating pain into limb and Denies tingling Neuro Denies abnormal gait, Denies dizziness, Denies syncope, Denies numbness, Denies tingling and Denies weakness Endo Denies palpitations Physical Exam Vital Signs: Last Vital Signs Pulse 62 12/29/23 09:32 BP 180/80 H 12/29/23 09:32 BMI result Body Mass Index 32.8 Last Vital Signs Temp 97.3 F 04/30/23 07:42 Pulse 75 04/30/23 07:42 Resp 18 04/30/23 07:42 BP 139/78 04/30/23 07:42 Pulse Ox 96 04/30/23 07:42 O2 Del Method Room Air 04/30/23 07:42 O2 Flow Rate 2 04/29/23 11:59 BMI result Body Mass Index 30.3 GENERAL APPEARANCE: in no acute distress, pleasant. NECK: no carotid bruit, no jugular venous distention. SKIN: no suspicious lesions, warm and dry. HEART: no murmurs, regular rate and rhythm. LUNGS: clear to auscultation bilaterally. ABDOMEN: soft, nontender. EXTREMITIES: no edema. PERIPHERAL PULSES: equal. NEUROLOGIC: No gross deficits, AAO X 3 Office Procedures EKG Details: Sinus rhythm 62 beats per minute, normal axis, nonspecific ST changes, QTC is 426 milliseconds. 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 He was cardioverted and started on amiodarone. He underwent atrial fibrillation ablation in 09/11/2023. He has been on amiodarone 100 mg daily. I had a discussion with Dr. Sahni who did the ablation. We have not seen any further episodes of atrial fibrillation and he has recommended to stop the amiodarone. Blood pressure is significantly elevated. I have advised him to increase the lisinopril to 40 mg twice a day. We are adding hydrochlorothiazide 25 mg daily. He will come back for blood pressure check next week. Cardiomyopathy has improved and he has low normal ejection fraction at this point-EF 50 55%. Clinically he is also euvolemic. He has gained some weight and we discussed about exercise and weight loss and being cautious with alcohol use. Thank you for allowing me to participate in the care of your patient. Please feel free to contact me if you have any questions. Medications: New hydrochlorothiazide 25 mg PO DAILY 90 tabs 3RF Changed From lisinopril 40 mg PO DAILY 90 days 90 tabs 3RF I10 - Essential (primary) hypertension To lisinopril 40 mg PO BID 90 days 180 tabs 3RF I10 - Essential (primary) hypertension Coding Level of Care Code Est Pt Level 5 (25186) Diagnoses Cardiomyopathy I42.9 PAF (paroxysmal atrial fibrillation) I48.0 Primary hypertension I10 Hypertension type: primary hypertension CPT Codes EKG - CPT: 43885-[id number], Complete ([id number])
[2023-12-29 09:32] VITALS: BP 180/80; PULSE 62; BMI 32.8
== END 2023-12-29 10:08 | disposition home or self-care (01) ==
LOC: HO.HCS 09:15
PROVIDERS: PCP Nurse Practitioner Family; Visit Provider Internal Medicine Cardiovascular Disease
DX: I48.0 Paroxysmal atrial fibrillation (principal); I42.9 Cardiomyopathy, unspecified; I10 Essential (primary) hypertension; R94.31 Abnormal electrocardiogram [ECG] [EKG]
CPT/HCPCS: 93010; 99214

== ENCOUNTER → 2023-12-29 09:14 | Outpatient (BNVA) | payer MEDICARE, SELFPAY | PROVIDERS: PCP Nurse Practitioner Family; Visit Provider Internal Medicine Cardiovascular Disease | DX: I48.0 Paroxysmal atrial fibrillation (principal); I42.9 Cardiomyopathy, unspecified; I10 Essential (primary) hypertension; Z79.01 Long term (current) use of anticoagulants | CPT/HCPCS: 93005; 99212 ==

== ENCOUNTER → 2024-01-07 08:19 | Outpatient (BNVA) | payer MEDICARE, SELFPAY | PROVIDERS: PCP Nurse Practitioner Family; Visit Provider Internal Medicine Cardiovascular Disease ==

== ENCOUNTER → 2024-01-25 08:20 | Outpatient (BNVA) | payer MEDICARE, SELFPAY | PROVIDERS: PCP Nurse Practitioner Family; Visit Provider Internal Medicine Cardiovascular Disease ==

== ENCOUNTER → 2024-02-28 08:45 | Outpatient (BNVA) | payer OTHER, SELFPAY | PROVIDERS: PCP Nurse Practitioner Family; Visit Provider Nurse Practitioner Family ==

== ENCOUNTER 2024-05-04 09:52 | Outpatient (AMB) | payer OTHER, SELFPAY ==
[2024-05-04 10:00] VITALS: BP 146/88; PULSE 78; RESP 17; TEMP 36.9; O2SAT 97; BMI 34.2
--- NOTE | 2024-05-04 10:00 | MHC.PC.OV ---
Vital Signs 05/04/24 10:00 Height 5 ft 7 in Weight 218 lb 8 oz BMI 34.2 BP 146/88 H Blood Pressure Location Lt brachial Position Sitting Respiration 17 Pulse 78 Pulse Source Pulse Oximeter Temp 98.4 F Temp Source Oral Pulse Oximetry (%) 97 Oxygen Delivery Method Room Air Intake Visit Reasons: 6 month follow up Allergies No Known Allergies Allergy (Verified 05/04/24 11:16) Medication List - Last Reconciled 05/04/24 by CAROL Barker- amlodipine 5 mg PO BID apixaban 5 mg PO BID 90 days cholecalciferol (vitamin D3) 50 mcg PO DAILY hydrochlorothiazide 25 mg PO DAILY lisinopril 40 mg PO BID 90 days metoprolol succinate ER 100 mg PO DAILY Tobacco use date assessed: 05/04/24 Fall risk assessment: No Falls in past year Last assessed Fall Risk: 05/04/24 Dental Screening Dental Screen Date: 05/04/24 Did you have a dental visit in the last 12 months?: No Did you have a dental problem in the last 6 months where you did not have access to dental care?: No Was dental information given to patient?: Patient declined HPI 6 month follow up HPI Details Chief Complaint History of Present Illness The patient is a 63-year-old male presenting with a history of Essential Hypertension. His home blood pressure readings have consistently been in the 140s with diastolic readings averaging from the upper 80s to 90s. Despite adherence to a comprehensive antihypertensive regimen including Lisinopril, Amlodipine, Metoprolol, and Hydrochlorothiazide, these elevations persist. The patient denies experiencing any chest pain or dyspnea and reports no edema. He is currently managed by both cardiology and nephrology specialists, and there was a recent verification of his medication regimen in the electronic health record following previous communication discrepancies. The patient's weight status is notable for obesity, although no current edema is documented. Social History - Obesity was discussed as part of the patient's health status. Health Maintenance - Patient was instructed to complete laboratory tests as part of ongoing health monitoring. Review of Systems - Cardiovascular: Denies chest pain. - Respiratory: Denies shortness of breath. Physical Exam General: Cooperative, healthy appearing, comfortable, no acute distress and well developed Orientation: Patient oriented x3 Limitations: No limitations Head: Normal to inspection Ears: Hearing grossly normal bilaterally Nose: Normal external nose present Face and sinus: Normal facial exam Eyes: Appearance normal, both eyes and all related structures Neck: Normal visual inspection and Yes full ROM Respiratory: Normal respiratory effort and able to speak in complete sentences. Clear to auscultation bilaterally Cardiovascular: Regular rate and rhythm. Normal S1 and S2 GI: Normal to inspection. Soft to palpation and nontender Skin: No rashes or lesions noted Neuro: Patient oriented x3 Extremities: Normal to inspection, no edema noted Results Plan I plan to collaborate with the patient's cleaning specialist to evaluate the possibility of increasing his beta-marie dosage to better manage his Essential Hypertension. Given his current medication adherence and persistent elevated readings, adjusting medication may be necessary. Additionally, I will ensure that he completes lab work today as instructed, which will assist in ongoing management. Coordinated care with nephrology and cardiology will continue. The patient was advised on maintaining adherence to his medication regimen and making lifestyle changes to address obesity, which contributes to blood pressure control. Discussion Notes During our discussion, I explained to the patient that his current blood pressure readings suggest the need to review and potentially adjust his medication regimen. I proposed increasing his beta-marie dosage, and I will consult with cardiology to evaluate this change. The patient was instructed to complete his laboratory tests today so that we can review his results promptly. I emphasized the importance of coordinated care with his specialists in cardiology and nephrology. We discussed the benefits of adherence to medication and lifestyle modifications to manage both his blood pressure and obesity. No additional medications or interventions were introduced at this time. Patient Instructions - Ensure timely completion of the laboratory tests today. - Continue taking current medications exactly as prescribed. 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 - Maintain lifestyle changes to manage blood pressure and obesity. - Report any new symptoms such as chest pain or increased shortness of breath immediately. [facility] Medical History Hypertension PAF (paroxysmal atrial fibrillation) Persistent atrial fibrillation History of cardioversion Hyperlipidemia Incisional hernia New onset a-fib CKD (chronic kidney disease), stage III COVID-19 vaccine series completed Fatty liver History of duodenal ulcer Osteoarthritis of both knees Surgical History History of ventral hernia repair History of total left knee replacement History of total right knee replacement H/O colonoscopy S/P exploratory laparotomy (~06/27/19) History of exploratory laparotomy (~01/28/19) History of hand surgery Family History Father No problems noted. Mother No problems noted. 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 1. Little interest or pleasure in doing things: not at all 2. Feeling down, depressed, or hopeless: not at all 3. Trouble falling or staying asleep, or sleeping too much: not at all 4. Feeling tired or having little energy: not at all 5. Poor appetite or overeating: not at all 6. Feeling bad about yourself - or that you are a failure or have let yourself or your family down: not at all 7. Trouble concentrating on things, such as reading the newspaper or watching television: not at all 8. Moving or speaking so slowly that other people could have noticed. Or the opposite - being so fidgety or restless that you have been moving around a lot more than usual: not at all 9. Thoughts that you would be better off or of hurting yourself in some way: not at all Total score: 0 Depression Screening Interpretation: Negative Depression Screening Done: Yes Source: Developed by Drs. Mundo Engle, Terri Quezada, Merritt Reyes and colleagues, with an educational floresita from [employer]. Thrive Questionnaire Date Thrive assessed: 09/24/23 I am a: Patient What is your living situation today?: I have a steady place to live Within the past 12 months, did the food you bought not last and you didn't have the money to get more?: I choose not to answer this question Within the past 12 months, did you worry whether your food would run out before you got money to buy more?: I choose not to answer this question Do you have trouble paying for medicines?: No Do you have trouble getting transportation to medical appointments?: No Do you have trouble paying your heating and electricity bill?: No Do you have trouble taking care of your child, family member or friend?: No Do you have trouble with day-to-day activities such as bathing, preparing meals, shopping, managing finances, etc.?: No Are you currently unemployed and looking for a job?: No Are you interested in more education?: No Please select the resources that you would like help with: None Currently or been in a relationship where the following occur: I choose not to answer THRIVE Score: 0 AUDIT C Alcohol Use Questionnaire (AUDIT-C) 1. How often do you have a drink containing alcohol?: 2-3 times a week 2. How many drinks containing alcohol do you have on a typical day when you are drinking?: 1 or 2 3. How often do you have six or more drinks on one occasion?: Never Total Score: 3 Score Reviewed/Action Taken: Yes ISIDRO-7 AMB Questionnaire ISIDRO-7 Date ISIDRO - 7 assessed: 11/09/23 Feeling nervous, anxious, or on edge: 0 = Not at all Not being able to stop or control worryin = Not at all Worrying too much about different things: 0 = Not at all Trouble relaxin = Not at all Being so restless that it is hard to sit still: 0 = Not at all Becoming easily annoyed or irritable: 0 = Not at all Feeling afraid as if something awful might happen: 0 = Not at all Total ISIDRO-7 score (0-4 normal; 5-9 mild; 10-14 moderate; 15-21 severe): 0 Source: Developed by Drs. Mundo Engle, Terri Quezada, Merritt Reyes and colleagues, with an educational floresita from [employer]. Physical exam (Primary Care) Vital Signs: Last Vital Signs Temp 98.4 F 05/04/24 10:00 Pulse 78 05/04/24 10:00 Resp 17 05/04/24 10:00 BP 146/88 H 05/04/24 10:00 Pulse Ox 97 05/04/24 10:00 Oxygen Delivery Method Room Air 05/04/24 10:00 BMI result Body Mass Index 34.2 Tobacco/Smoking Status: Tobacco use Status Tobacco use date assessed 05/04/24 05/04/24 10:03 Patient Tobacco Use Status Former Tobacco user 05/04/24 10:03 Tobacco use type Cigarette 05/04/24 10:03 e-Cigarette/Vaping Use Never Used 05/04/24 10:03 Depression Screening Interpretation: Negative Thrive Assessment: Date of Thrive Assessment Date Thrive assessed 09/24/23 05/04/24 10:03 Currently or been in a relationship where the following occur: I choose not to answer Coding Level of Care Code Est Pt Level 3 (10385) Diagnoses Primary hypertension I10 Hypertension type: primary hypertension Assessment & Plan Assessment & Plan (1) Hypertension: Code(s): I10 - Essential (primary) hypertension Category: Medical Qualifiers: Hypertension type: primary hypertension Qualified Code(s): I10 - Essential (primary) hypertension Plan . Medications: Changed From amlodipine 5 mg PO DAILY 30 tabs 3RF To amlodipine 5 mg PO BID 30 tabs 3RF
--- OUTSIDE RECORDS SUMMARY | 2024-05-04 12:05 | XMS_ITS | Clinical Summary ---
Author Organization [facility] Address [address] [address] Phone Care Team Providers Care Anthropologist Physical Name Role Phone Ab Gaming NP Primary Care Provider [phone] Allergies Active Allergy Reactions Criticality Noted Date Comments Oxycodone Other (see comments) 08/05/2020 Medications lisinopril (PRINIVIL,ZESTRI L) 5 MG tablet Take 40 tablets by mouth 1 (one) time each day Active acetaminophen (TYLENOL 8 HOUR) 650 MG 8 hr tablet Take 650 mg by mouth every 8 (eight) hours if needed for mild pain Do not crush, chew, or split. Active hydroCHLOROthiaz cain 25 MG tablet Take 25 mg by mouth 1 (one) time each day 07/10/2021 Active metoprolol succinate XL (TOPROL XL) 25 MG 24 hr tablet Take 25 mg by mouth 1 (one) time each day 07/08/2021 Active Nutritional Supplements (VITAMIN D BOOSTER PO) Take by mouth 1 (one) time each day Active apixaban (Eliquis) 5 MG tablet Take 5 mg by mouth in the morning and 5 mg in the evening. Active amLODIPine (NORVASC) 5 MG tablet Take 10 mg by mouth 1 (one) time each day Active Active Problems Problem Noted Date Diagnosed Date Obese class I 12/28/2022 12/28/2022 Atrial fibrillation 12/28/2022 12/28/2022 Chronic kidney disease, stage 2 (mild) 3 Acute nontraumatic kidney injury 08/05/2020 Enteritis of small intestine 08/05/2020 Essential hypertension 08/05/2020 Stage 3a chronic kidney disease 08/05/2020 Encounters Date Type Department Care Team Description 02/21/2024 1:00 PM EST [facility] Visit [facility] [address] [place] [phone] Corey Young MD Essential (primary) hypertension (Primary Dx) from Last 3 Months Immunizations Name Administration Dates Next Due Moderna SARS-COV-2 02/08/2021,07/18/2020, 021 SARS-CoV-2, Unspecified 11/29/2021 Family History Medical History Relation Comments Diabetes Mother Hypertension Mother Relation Status Comments Mother Social History Tobacco Use Types Packs/Day Years Used Date Smoking Tobacco: Never Alcohol Use Standard Drinks/Week Comments No 0 (1 standard drink = 0.6 oz pur e alcohol) Sex and Gender Information Value Date Recorded Sex Assigned at Not on file Legal Sex Male 4:57 PM EST Gender Identity Not on file Sexual Orientation Not on file Last Filed Vital Signs Vital Sign Reading Time Taken Comments Blood Pressure 142/90 02/21/2024 12:55 PM EST Pulse 74 12/28/2022 2:23 PM EST Temperature - - Respiratory Rate - - Oxygen Saturation 98% 12/28/2022 2:23 PM EST Inhaled Oxygen Concentration - - Weight 98.3 kg (216 lb 12.8 oz) 024 12:55 PM EST Height - - Body Mass Index - - Plan of Treatment Upcoming Encounters Date Type Department Care Team ([facility] st Contact Info) Description 08/28/2024 3:15 PM EDT Office Visit [facility] the [address] [place] [address] Corey Young MD [address] [facility] [address] [place] [address] Health Maintenance Due Date Last Done Comments Pneumococcal Vaccine: 65+ Ye ars (1 of 2 - PCV) 1966 Pneumococcal Vaccine: Pediat rics (0 to 5 Years) and At-Risk Patients (6 to 64 Years) (1 of 2 - PCV) 1966 Colorectal Cancer Screening: Annual FOBT 05/08/2007 Colorectal Cancer Screening: Colonoscopy 05/08/2007 Colorectal Cancer Screening: Sigmoidoscopy 05/08/2007 Influenza Vaccine (#1) 2023 Hepatitis B Vaccine Aged Out No longe r eligible based on patient's age to complete this topic Insurance [employer] M[employer] ADV PPO ([id number]) Care Teams Anthropologist Physical Relationship Specialty Start Date End Date Ab Gaming NP [address] [place], [place] [id number] PCP - General 03/04/20
== END 2024-05-04 11:30 | disposition home or self-care (01) ==
LOC: HO.HMCC 09:53
PROVIDERS: PCP Nurse Practitioner Family; Visit Provider Nurse Practitioner Family
DX: I10 Essential (primary) hypertension (principal)

== ENCOUNTER 2024-05-04 09:52 | Outpatient (REF) | payer OTHER, SELFPAY ==
[2024-05-04 13:16] LABS: Appearance Urine Clear; Color Urine Yellow; Glucose Urine UA Negative (Negative); Leukocyte Esterase Urine Negative (Negative); Nitrite Urine Negative (Negative); PH 5.5 (5.0-9.0); Urine Blood Negative (Negative); Urine Ketones Negative (Negative); Urine Protein Trace mg/dL (Neg-Trace)
[2024-05-04 13:43] LABS: MANUAL DIFF FLAG NO
[2024-05-04 13:46] LABS: Basophils Absolute Auto 0.1 X10*3/uL (0.0-0.2); Eosinophils Absolute Auto 0.1 X10*3/uL (0.0-0.4); Eosinophils Percent Auto 1.3 % (0-4); Hematocrit 43.1 % (42.0-52.0); Hemoglobin 14.9 g/dl (14.0-18.0); Imm Gran Abs Auto 0.02 X10*3/uL (0.00-0.03); Imm Gran Pct Auto 0.3 % (0.0-0.4); Lymphocytes Absolute Auto 2.2 X10*3/uL (1.2-4.9); Lymphocytes Percent Auto 31.2 % (20-40); Mean Corpuscular HGB Conc 34.6 g/dl (31.0-36.0); Mean Corpuscular Hemoglobin 33.2 pg (27.0-33.0); Mean Platelet Volume 10.3 fL (9.4-12.4); Monocytes Absolute Auto 0.7 X10*3/uL (0.1-1.2); Monocytes Percent Auto 10.5 % (2-11); Neutrophils Absolute Auto 3.9 x10*3/uL (2.0-8.3); Neutrophils Percent Auto 55.7 % (45-73); Platelet Count 212 X10*3/uL (160-400); Red Blood Count 4.49 X10*6/uL (4.60-5.80); Red Cell Distribution Width 12.6 % (11.0-16.0)
[2024-05-04 14:12] LABS: Creatinine Urine 94.59 mg/dL; Microalbum/Creatinine Ratio Ur 60.2 ug/mg cr (<30); Protein/Creatinine Ratio, Ur 0.19 (<0.2); Total Protein Urine Random 18 mg/dL (<12)
[2024-05-04 14:19] LABS: Albumin Level 4.6 g/dL (3.5-5.0); Anion Gap 14 (12-20); Blood Urea Nitrogen 27 mg/dL (9-16); Carbon Dioxide 24 mmol/L (22-29); Chloride 106 mmol/L (96-108); Estimated Glomerular Filt Rate > 60; Magnesium 1.9 mg/dL (1.6-2.6); Phosphorus 2.8 mg/dL (2.7-4.5); Potassium 4.4 mmol/L (3.3-5.1); Sodium 140 mmol/L (135-145)
[2024-05-04 14:23] LABS: Parathyroid Hormone Intact 68.2 pg/mL (8.7-77.1)
[2024-05-04 14:25] LABS: Vitamin D 25-OH Total 71.5 ng/mL (>30)
[2024-05-04 14:29] LABS: Prostate Specific Antigen Scr 1.74 ng/mL (<0.05-4.0)
--- OUTSIDE RECORDS SUMMARY | 2024-05-04 14:30 | XMS_ITS | Clinical Summary ---
Author Organization [facility] Address [address] [address] Phone Care Team Providers Care Manager Balance Name Role Phone Ab Gaming NP Primary Care Provider [phone] Allergies Active Allergy Reactions Criticality Noted Date [...] Office Visit [facility] [address] [place] [phone] Corey Young MD Essential (primary) hypertension (Primary [...] Upcoming Encounters Date Type Department Care Team ([facility] st Contact Info) Description 08/28/2024 3:15 PM EDT Office Visit [facility] the [address] [place] [address] Corey Young MD [address] [facility] [address] [place] [address] Health Maintenance Due Date Last Done Comments [...] on patient's age to complete this topic Procedures Procedure Name Priority Date/Time Associated Diagnosis Comments PTH, INTACT (HC) Routine 05/04/2024 1:36 PM EDT CREATININE, BLOOD Routine 05/04/2024 1:3 6 PM EDT BUN Routine 05/04/2024 1:36 PM EDT ELECTROLYTE PANEL Routine 05/04/2024 1:3 6 PM EDT CALCIUM Routine 05/04/2024 1:36 PM EDT Essential (primary) hypertension ALBUMIN Routine 05/04/2024 1:36 PM EDT Essential (primary) hypertension MAGNESIUM Routine 05/04/2024 1:36 PM EDT Essential (primary) hypertension PHOSPHATE ( PHOSPHORUS) Routine 05/04/2024 1:36 PM EDT Essential (primary) hypertension VITAMIN D 25 HYDROXY Routine 05/04/2024 1:36 PM EDT Essential (primary) hypertension ALBUMIN, URINE, RANDOM Routine 05/04/2024 1:03 PM EDT PROTEIN / CREATININE RATIO, URINE Routine 05/04/2024 1:03 PM EDT Essential (primary) hypertension from Last 3 Months Results * Creatinine (05/04/2024 1:36 PM EDT) Creatinine Serum 1.18 0.5 - 1.4 mg/dL See order comments eGFR >60 See order comments Comment: Chronic Kidney Disease: ??Estimated GFR < 60 mL/min/1.73m2 Severe Kidney Disease: ??Estimated GFR < 15 mL/min/1.73m2 05/04/2024 1:36 PM EDT 05/04/2024 1:36 PM EDT us Corey Young MD LAB BLOOD ORDERABLES Final Re sult [place] See order comments [place] [address] * PTH, Intact (05/04/2024 1:36 PM EDT) Parathyroid Hormone, Intact 68.2 8.7 - 77.1 pg/mL See order comments 05/04/2024 1:36 PM EDT 05/04/2024 1:36 PM EDT Corey Young MD LAB [id number] SOLICITED RESULTS Final Result Performing Organization Address [facility] Co de Phone Number KEITH See order comments [place] [address] * Vitamin D 25 Hydroxy (05/04/2024 1:36 PM EDT) Vitamin D, 25-Hydroxy 71.5 >30 ng/mL See order comments Comment: Health Based Reference Values* < 20 ??ng/mL ??Deficient 20-30 ng/mL ??Insufficient > 30 ??ng/mL ??Sufficient *Sawyer DAMON. N Engl J Med. 2007;357:266-280 There is no well-established upper level of normal vitamin D levels. Some laboratories use 50 ng/mL as an upper limit of normal. However, toxicity is patient-dependent and may occur at any level. Careful correlation with the patient's presentation is necessary and, if there is concern for vitamin D toxicity, treatment should be considered irrespective of the serum level. Care must be taken in interpreting Vitamin D results from different laboratories and methodologies. ??Published data demonstrated that results from patients undergoing hemodialysis may show a negative bias when tested with various automated 25-OH vitamin D assays when compared to LC-MS/MS. When testing samples from patients whose predominant form of Vitamin D is Vitamin D2, such as patients receiving Vitamin D2 supplementation, results that are subtherapeutic should be confirmed with another method such as LC-MS/MS. Blood (Blood, Venous) 05/04/2024 1:36 PM EDT 05/04/2024 1:36 PM EDT us Corey Young MD LAB BLOOD ORDERABLES Final Re sult Performing Organization Address [facility] Phone Number [place] See order comments [place] [address] * (ABNORMAL) BUN (05/04/2024 1:36 PM EDT) BUN 27(H) 9 - 16 mg/dL See order comments 05/04/2024 1:36 PM EDT 05/04/2024 1:36 PM EDT Corey Young MD LAB BLOOD ORDERABLES Final Re sult Performing Organization Address [facility] Phone Number [place] See order comments [place] [address] * Phosphorus (05/04/2024 1:36 PM EDT) Pathologist [facility] Phosphorus, Serum 2.8 2.7 - 4.5 mg/dL See order comments Blood (Blood, Venous) 05/04/2024 1:36 PM EDT 05/04/2024 1:36 PM EDT us Corey Young MD LAB BLOOD ORDERABLES Final Re sult Performing Organization Address [facility] Phone Number [place] See order comments [place] [address] * Magnesium (05/04/2024 1:36 PM EDT) Magnesium 1.9 1.6 - 2.6 mg/dL See order comments Blood (Blood, Venous) 05/04/2024 1:36 PM EDT 05/04/2024 1:36 PM EDT us Corey Young MD LAB BLOOD ORDERABLES Final Re sult Performing Organization Address [facility] Phone Number [place] See order comments [place] [address] * Calcium (05/04/2024 1:36 PM EDT) Calcium 10.0 8.4 - 10.2 mg/dL See order comments Blood (Blood, Venous) 05/04/2024 1:36 PM EDT 05/04/2024 1:36 PM EDT us Corey Young MD LAB BLOOD ORDERABLES Final Re sult Performing Organization Address [facility] Phone Number [place] See order comments [place] [address] * Albumin (05/04/2024 1:36 PM EDT) Albumin 4.6 3.5 - 5.0 g/dL See order comments Blood (Blood, Venous) 05/04/2024 1:36 PM EDT 05/04/2024 1:36 PM EDT us Corey Young MD LAB BLOOD ORDERABLES Final Re sult Performing Organization Address [facility] Phone Number [place] See order comments [place] [address] * Electrolyte panel (05/04/2024 1:36 PM EDT) Pathologist [facility] Sodium 140 135 - 145 mmol/L See order comments Potassium 4.4 3.3 - 5.1 mmol/L See order comments Chloride 106 96 - 108 mmol/L See order comments Bicarbonate (CO2) 24 22 - 29 mmol/L See order comments Anion Gap 14 12 - 20 See order comments 05/04/2024 1:36 PM EDT 05/04/2024 1:36 PM EDT us Corey Young MD LAB BLOOD ORDERABLES Final Re sult Performing Organization Address [facility] Phone Number [place] See order comments [place] [address] * (ABNORMAL) Protein, Total, Random Urine w/Creatinine (Protein/Creat Ratio) (05/04/2024 1:03 PM EDT) Pathologist [facility] Protein Urine Random 18(H) <12 mg/dL See order comments Protein/Creatin ine Ratio, Urine 0.19 <0.2 See order comments Comment: The spot urine protein:creatinine ratio may increase to 0.3 during normal . Urine (Urine, Clean Catch) 05/04/2024 1:03 PM EDT 05/04/2024 1:03 PM EDT Corey Young MD LAB URINE ORDERABLES Final Re sult Performing Organization Address [facility] de Phone Number KEITH See order comments [place] [address] * (ABNORMAL) Albumin, urine, random (05/04/2024 1:03 PM EDT) Creatinine, Urine 94.59 mg/dL Se e order comments Urine Microalbumin 57.0 mg/L See order comments Microalbumin/Crea tinine Ratio 60.2(H) <30 ug/mg cr See order comments Comment: ?Albumin/Creatinine Ratio Reference Ranges: ?Normal: < 30 ug/mg creatinine ?Microalbuminuria: ??30 - 300 ug/mg creatinine Clinical Albuminuria: ??> 300 ug/mg creatinine 05/04/2024 1:03 PM EDT 05/04/2024 1:03 PM EDT Corey Young MD LAB URINE ORDERABLES Final Re sult Performing Organization Address [facility] de Phone Number KEITH See order comments [place] [address] from Last 3 Months Insurance [employer] [facility] ADV PPO ([phone]) Care Teams Manager Balance Relationship Specialty Start Date End Date Ab Gaming NP [facility] [place] [address] PCP - General 03/04/20
[2024-05-04 14:37] LABS: Alanine Aminotransferase 168 U/L (0-40); Albumin Level 4.6 g/dL (3.5-5.0); Alkaline Phosphatase 78 U/L (39-117); Anion Gap 16 (12-20); Aspartate Amino Transferase 78 U/L (5-37); Bilirubin Total 0.4 mg/dL (0.0-1.0); Blood Urea Nitrogen 28 mg/dL (9-16); Calcium 9.9 mg/dL (8.4-10.2); Carbon Dioxide 23 mmol/L (22-29); Chloride 106 mmol/L (96-108); Cholesterol 218 mg/dL (<200); Estimated Glomerular Filt Rate > 60; Glucose Fasting 121 mg/dL (60-99); HDL Cholesterol 39 mg/dL (>40); LDL Cholesterol Calculated 120 mg/dL (<100); Potassium 4.5 mmol/L (3.3-5.1); Sodium 140 mmol/L (135-145); TSH reflex Free T4 1.19 uIU/mL (0.32-4.0); Total Protein 8.3 g/dL (6.5-8.0); Triglycerides 299 mg/dL (<150)
== END 2024-05-04 09:53 | disposition home or self-care (01) ==
LOC: HO.HMGCLDS 09:52
PROVIDERS: PCP Nurse Practitioner Family; Referring Provider Internal Medicine Nephrology; Visit Provider Nurse Practitioner Family
DX: Z00.00 Encounter for general adult medical examination without abnormal findings (principal); I10 Essential (primary) hypertension; Z12.5 Encounter for screening for malignant neoplasm of prostate
CPT/HCPCS: 36415; 80051; 80053; 80061; 81003; 82040; 82043; 82306; 82310; 82565; 82570; 83735; 83970; 84100; 84153; 84156; 84443; 84520; 85025

== ENCOUNTER 2024-07-04 08:13 | Outpatient (REF) | payer MEDICARE, SELFPAY ==
--- NOTE | ~2024-07-04 | US_ITS ---
EXAMINATION: US ABDOMEN HISTORY: E78.5 - Hyperlipidemia, unspecified TECHNIQUE: Real-time grayscale ultrasound imaging of the abdomen was performed and images were reviewed. COMPARISON: Correlation is made with an unenhanced CT of the abdomen dated 11/11/2021. FINDINGS: Liver: The right lobe of the liver measures 17.0 cm in size. The left lobe of the liver measures 17.0 cm in size. The liver demonstrates increased echotexture, consistent with steatosis. No focal mass or intrahepatic biliary ductal dilatation is identified. There is normal hepatopedal flow in the portal vein. Gallbladder and biliary tree: The gallbladder is unremarkable, without evidence of calculi, wall thickening, or pericholecystic fluid. There is no sonographic Farias sign. The common bile duct is normal in caliber measuring 5 mm. Kidneys: The right kidney measures 10.8 cm in length. The left kidney measures 10.9 cm in length. There is a 1.4 cm cyst at the upper pole of the left kidney. The kidneys are otherwise unremarkable, without evidence of solid masses, hydronephrosis, or calculi. Pancreas: The pancreatic head, neck, and body are unremarkable. The pancreatic tail is obscured by bowel gas. Spleen: The spleen is normal in size and contour, measuring 10.9 cm in length. Abdominal aorta and inferior vena cava: The visualized portions of the abdominal aorta and inferior vena cava are normal in caliber. There is no free fluid in the abdomen. US/US abdomen complete IMPRESSION: Hepatomegaly and hepatic steatosis. Electronically signed by: Mundo Vega MD 07/04/2024 09:09 AM EDT
--- OUTSIDE RECORDS SUMMARY | 2024-07-04 08:22 | XMS_ITS | Clinical Summary ---
Author Organization [facility] Address [address] [place] [phone] Phone Care Team Providers Care Title I Coordinator Name Role Phone Ab Gaming NP Primary Care Provider Allergies Active Allergy Reactions Criticality Noted Date [...] 08/05/2020 Stage 3a chronic kidney disease 08/05/2020 Immunizations Immunization Administration Dates Next Due Moderna SARS-COV-2 02/08/2021,07/18/2020, [...] Upcoming Encounters Date Type Department Care Team (Late st Contact Info) Description 08/28/2024 3:15 PM EDT Office Visit [facility] [address] [place] [address] Corey Young MD [address] [facility] [address] [place] [address] Health Maintenance Due Date Last Done Comments Pneumococcal Vaccine: 50+ Ye ars (1 of 2 - PCV) 1979 Colorectal Cancer Screening: Annual FOBT 05/08/2007 Colorectal Cancer Screening: Colonoscopy 05/08/2007 Colorectal Cancer Screening: Sigmoidoscopy 05/08/2007 Influenza Vaccine (Season Ended) 2024 Hepatitis B Vaccine Aged Out No longe [...] - 1.4 mg/dL See order comments eGFR (Calc) >60 See orde r comments Comment: Chronic Kidney Disease: ??Estimated GFR < 60 mL/min/1.73m2 Severe Kidney Disease: ??Estimated GFR < 15 mL/min/1.73m2 05/04/2024 1:36 PM EDT 05/04/2024 1:36 PM EDT us Corey Young MD LAB BLOOD ORDERABLES Final Re sult [place] See order comments [place] [address] * PTH, Intact (05/04/2024 1:36 PM EDT) Parathyroid Hormone, Intact 68.2 8.7 - 77.1 pg/mL See order comments 05/04/2024 1:36 PM EDT 05/04/2024 1:36 PM EDT Corey Young MD LAB [id number] SOLICITED RESULTS Final Result Performing Organization Address [facility] de Phone Number KEITH See order comments [place] [address] * Vitamin D 25 Hydroxy (05/04/2024 1:36 [...] ORDERABLES Final Re sult Performing Organization Address [facility] Co de Phone Number [place] See order comments [place] [address] * (ABNORMAL) BUN (05/04/2024 1:36 PM EDT) BUN 27(H) 9 - 16 mg/dL See order comments 05/04/2024 1:36 PM EDT 05/04/2024 1:36 PM EDT us Corey Young MD LAB BLOOD ORDERABLES Final Re sult Performing Organization Address [facility] Phone Number [place] See order comments [place] [address] * Phosphorus (05/04/2024 1:36 PM EDT) Phosphorus, Serum 2.8 2.7 - 4.5 mg/dL See order comments Blood (Blood, Venous) 05/04/2024 1:36 PM EDT 05/04/2024 1:36 PM EDT us Corey Young MD LAB BLOOD ORDERABLES Final Re sult Performing Organization Address [facility] Phone Number [place] See order comments [place] [address] * Magnesium (05/04/2024 1:36 PM EDT) Magnesium 1.9 1.6 - 2.6 mg/dL See order comments Blood (Blood, Venous) 05/04/2024 1:36 PM EDT 05/04/2024 1:36 PM EDT us Corey Young MD LAB BLOOD ORDERABLES Final Re sult Performing Organization Address [facility] Phone Number [place] See order comments [place] [address] * Calcium (05/04/2024 1:36 PM EDT) Calcium 10.0 8.4 - 10.2 mg/dL See order comments Blood (Blood, Venous) 05/04/2024 1:36 PM EDT 05/04/2024 1:36 PM EDT us Corey Young MD LAB BLOOD ORDERABLES Final Re sult Performing Organization Address [facility]/ZIP Co de Phone Number [place] See order comments [place] [address] * Albumin (05/04/2024 1:36 PM EDT) Albumin 4.6 3.5 - 5.0 g/dL See order comments Blood (Blood, Venous) 05/04/2024 1:36 PM EDT 05/04/2024 1:36 PM EDT us Corey Young MD LAB BLOOD ORDERABLES Final Re sult Performing Organization Address [facility] Co de Phone Number [place] See order comments [place] [address] * Electrolyte panel (05/04/2024 1:36 PM EDT) Sodium 140 135 - 145 mmol/L See [...] ORDERABLES Final Re sult Performing Organization Address [facility] Co de Phone Number [place] See order comments [place] [address] * (ABNORMAL) Protein, Total, Random Urine w/Creatinine (Protein/Creat Ratio) (05/04/2024 1:03 PM EDT) Protein Urine Random 18(H) <12 mg/dL See order comments Protein/Creatin ine Ratio, Urine 0.19 <0.2 See order comments Comment: The spot urine protein:creatinine ratio may increase to 0.3 during normal . Urine (Urine, Clean Catch) 05/04/2024 1:03 PM EDT 05/04/2024 1:03 PM EDT us Corey Young MD LAB URINE ORDERABLES Final Re sult Performing Organization Address [facility]/ZIP Co de Phone Number [place] See order comments [place] [address] * (ABNORMAL) Albumin, urine, random (05/04/2024 1:03 [...] MD LAB URINE ORDERABLES Final Re sult [place] See order comments [place] [address] from Last 3 Months Insurance [employer] MCR Adv PPO ([id number]) Care Teams Title I Coordinator Relationship Specialty Start Date End Date Ab Gaming NP [address] [place] [address] PCP - General 03/04/20
[2024-07-04 10:12] LABS: MANUAL DIFF FLAG NO
[2024-07-04 10:24] LABS: Basophils Absolute Auto 0.1 X10*3/uL (0.0-0.2); Basophils Percent Auto 0.7 % (0-2); Eosinophils Absolute Auto 0.1 X10*3/uL (0.0-0.4); Eosinophils Percent Auto 1.6 % (0-4); Hemoglobin 13.9 g/dl (14.0-18.0); Imm Gran Abs Auto 0.02 X10*3/uL (0.00-0.03); Imm Gran Pct Auto 0.3 % (0.0-0.4); Lymphocytes Absolute Auto 2.1 X10*3/uL (1.2-4.9); Lymphocytes Percent Auto 29.3 % (20-40); Mean Corpuscular HGB Conc 33.9 g/dl (31.0-36.0); Mean Corpuscular Hemoglobin 32.9 pg (27.0-33.0); Mean Corpuscular Volume 97.2 fL (80.0-98.0); Mean Platelet Volume 10.5 fL (9.4-12.4); Monocytes Absolute Auto 0.6 X10*3/uL (0.1-1.2); Monocytes Percent Auto 9.1 % (2-11); Neutrophils Absolute Auto 4.2 x10*3/uL (2.0-8.3); Platelet Count 181 X10*3/uL (160-400); Red Blood Count 4.22 X10*6/uL (4.60-5.80); Red Cell Distribution Width 12.3 % (11.0-16.0)
[2024-07-04 10:57] LABS: HBc Num1 0.11 S/CO (0.00-0.79); HBsAGNum1 0.33 S/CO (0.00-0.99); Hepatitis A Antibody IgM 0.13 Index (0-0.79); Hepatitis B Core Antibody Nonreactive (Nonreactive); Hepatitis B Surface Antigen Negative (Negative); ~HepC Num1 0.13 S/CO (0.00-0.79); ~Hepatitis A Antibody IgM Nonreactive (Nonreactive); ~Hepatitis B Surface Antibody NONREACTIVE (Nonreactive); ~Hepatitis C Antibody Nonreactive (Nonreactive)
[2024-07-04 11:20] LABS: Alanine Aminotransferase 108 U/L (0-40); Albumin Level 4.4 g/dL (3.5-5.0); Anion Gap 14 (12-20); Aspartate Amino Transferase 62 U/L (5-37); Bilirubin Total 0.5 mg/dL (0.0-1.0); Blood Urea Nitrogen 24 mg/dL (9-16); Calcium 9.9 mg/dL (8.4-10.2); Carbon Dioxide 27 mmol/L (22-29); Chloride 104 mmol/L (96-108); Cholesterol 121 mg/dL (<200); Estimated Glomerular Filt Rate > 60; Glucose Fasting 138 mg/dL (60-99); HDL Cholesterol 35 mg/dL (>40); LDL Cholesterol Calculated 53 mg/dL (<100); Potassium 4.7 mmol/L (3.3-5.1); Sodium 140 mmol/L (135-145); Total Protein 7.1 g/dL (6.5-8.0); Triglycerides 168 mg/dL (<150)
[2024-07-04 12:50] LABS: Alkaline Phosphatase 79 U/L (39-117)
== END 2024-07-04 08:14 | disposition home or self-care (01) ==
LOC: HO.HMGCX 08:13
PROVIDERS: PCP Nurse Practitioner Family; Visit Provider Nurse Practitioner Family
DX: E78.5 Hyperlipidemia, unspecified (principal); R74.8 Abnormal levels of other serum enzymes
CPT/HCPCS: 36415; 76700; 80053; 80061; 85025; 86704; 86706; 86709; 86803; 87340

== ENCOUNTER → 2024-07-04 08:16 | Outpatient (BNV) | payer MEDICARE, SELFPAY | PROVIDERS: PCP Nurse Practitioner Family; Visit Provider Radiology Diagnostic Radiology | DX: K76.0 Fatty (change of) liver, not elsewhere classified (principal); R16.0 Hepatomegaly, not elsewhere classified | CPT/HCPCS: 76700 ==

== ENCOUNTER 2024-07-24 09:16 | Outpatient (AMB) | payer OTHER, SELFPAY ==
--- NOTE | 2024-07-24 09:24 | MHC.OFFVIS ---
Vital Signs 07/24/24 09:26 Height 5 ft 7 in Weight 217 lb 6.012 oz BMI 34.0 BP 132/74 Blood Pressure Location Lt brachial Position Sitting Pulse 76 Pulse Source Monitor Intake Visit Reasons: r/s 04/12-3 mth f/up Intake Note: r/s -3mth f/up Phlebotomist Lab Assistant Required: No Accompanied by: Self / Same As Patient Allergies No Known Allergies Allergy (Verified 05/04/24 11:16) Medication List - Last Reconciled 07/24/24 by Margarito Fofana MD amlodipine 5 mg PO DAILY apixaban 5 mg PO BID 90 days atorvastatin 20 mg PO BEDTIME cholecalciferol (vitamin D3) 50 mcg PO DAILY hydrochlorothiazide 25 mg PO DAILY lisinopril 40 mg PO BID 90 days metoprolol succinate ER 12.5 mg (1/2 x 25 mg) PO DAILY 90 days metoprolol succinate ER 100 mg PO DAILY HPI Comments Details: 64-year-old gentleman here for follow-up. He has background history of paroxysmal atrial fibrillation. He is denying any symptoms at this point. Previously his chads Vasc score was 1 and he was not started on anticoagulation. His blood pressure was elevated and we added hydrochlorothiazide. This has improved his blood pressure significantly. Denying chest pain or shortness of breath. He had lipid panel done which showed total cholesterol 124, triglycerides 141, LDL 58 HDL 38. He had a carotid bruit and underwent carotid duplex which showed minimal 0-49% stenosis in both left and right carotid arteries but there was markedly increased velocity in the right external carotid artery consistent with high-grade stenosis. 05/24/23: In April 2023 he got admitted to the hospital with AFib with RVR in the setting of pneumonia and was also diagnosed with cardiomyopathy. Echocardiography showed EF of 30-35%. Mildly decreased right-sided function was also noted. He was cardioverted and discharged home on amiodarone 400 mg twice a day for 2 weeks followed by 200 mg daily. He was on apixaban. He was also started on guideline directed medical therapy. He returns for follow-up today. His EKG in the office showing atrial fibrillation at 96 beats per minute. Discussing with him he does not have any symptoms currently. No palpitations, shortness of breath or congestive heart failure. He is taking medications regularly. He said Jardiance was too expensive for him and he has not been taking that pill. Compliant with medications why. He is on amiodarone 200 mg daily. 09/15/23: Here for f/u. He underwent ablation recently. Doing well. No CP or SOB. ECG showing sinus rhytm. 12/29/2023: He is here for follow-up. He has been doing well. No palpitations. EKGs are showing sinus rhythm. EF has improved 55%. His blood pressure is significantly elevated at this stage. Post AFib ablation he was advised to take amiodarone 100 mg daily. I have discussed with Dr. Sahni and he has recommended stopping the amiodarone. His blood pressure is significantly elevated. On manual repeat he was 190/100. Not complaining of any symptoms. He is taking lisinopril 40 mg daily and Toprol-XL 100 mg daily. 07/24/2024: He is here for follow-up. He continues to be in sinus rhythm. No symptoms on follow-up. He is taking 100 mg of Toprol-XL and also taking half tablet of 25 mg. He will go home and confirm the medications to us. His blood pressure is much better after adjusting lisinopril. [facility] Medical History Elevated liver enzymes Hypertension PAF (paroxysmal atrial fibrillation) Persistent atrial fibrillation History of cardioversion Hyperlipidemia Incisional hernia New onset a-fib CKD (chronic kidney disease), stage III COVID-19 vaccine series completed Fatty liver History of duodenal ulcer Osteoarthritis of both knees Surgical History History of ventral hernia repair History of total left knee replacement History of total right knee replacement H/O colonoscopy S/P exploratory laparotomy (~06/27/19) History of exploratory laparotomy (~01/28/19) History of hand surgery Family History Father No problems noted. Mother No problems noted. 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 Cognitive needs: No Hearing needs: No Vision needs: No Review of Systems Const Denies chills, Denies fatigue, Denies fever(s), Denies frequent falls, Denies weakness, Denies weight gain and Denies weight loss ENT Denies dizziness Card Denies chest pain, Denies leg edema, Denies lightheadedness, Denies palpitations, Denies dyspnea and Denies dyspnea on exertion Resp Denies cough, Denies dyspnea and Denies dyspnea on exertion GI Denies hematochezia Musc Denies abnormal gait, Denies muscle weakness, Denies numbness, Denies radiating pain into limb and Denies tingling Neuro Denies abnormal gait, Denies dizziness, Denies frequent falls, Denies numbness, Denies tingling and Denies weakness Endo Denies fatigue and Denies palpitations Physical Exam Vital Signs: Last Vital Signs Pulse 76 07/24/24 09:26 BP 132/74 07/24/24 09:26 BMI result Body Mass Index 34.0 GENERAL APPEARANCE: in no acute distress, pleasant. NECK: no carotid bruit, no jugular venous distention. SKIN: no suspicious lesions, warm and dry. HEART: no murmurs, regular rate and rhythm. LUNGS: clear to auscultation bilaterally. ABDOMEN: soft, nontender. EXTREMITIES: no edema. PERIPHERAL PULSES: equal. NEUROLOGIC: No gross deficits, AAO X 3 Office Procedures EKG Details: Sinus rhythm 76 beats per minute, normal axis, normal ECG, QTC 427 milliseconds. 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 He was cardioverted and started on amiodarone. He underwent atrial fibrillation ablation in 09/11/2023. He has been taken off the amiodarone since then and has been in sinus rhythm. Blood pressure control is better with lisinopril, hydrochlorothiazide and Toprol XL. He is taking 100 mg and 12.5 mg of Toprol-XL. He will confirm the medications as he goes home. If he in fact is taking 12.5 mg additional dose then that can be discontinued and he can continue 100 mg of Toprol only. He will call us as he goes home. Cardiomyopathy has improved and he has low normal ejection fraction at this point-EF 50 55%. Thank you for allowing me to participate in the care of your patient. Please feel free to contact me if you have any questions. Coding Level of Care Code Est Pt Level 4 (55066) Diagnoses Cardiomyopathy I42.9 PAF (paroxysmal atrial fibrillation) I48.0 Primary hypertension I10 Hypertension type: primary hypertension CPT Codes EKG - CPT: 50319-[id number], Complete ([id number])
[2024-07-24 09:26] VITALS: BP 132/74; PULSE 76; BMI 34.0
--- OUTSIDE RECORDS SUMMARY | 2024-07-24 09:55 | XMS_ITS | Clinical Summary ---
Author Organization [facility] Address [address] [place] [phone] Phone Care Team Providers Care Engineer Chief Name Role Phone Ab Gaming NP Primary Care Provider [phone] Allergies Active Allergy Reactions Criticality Noted Date [...] Visit [facility] [address] [place] [address] Corey Young MD [address] [facility] [address] [place] [address] Health Maintenance Due Date Last [...] order comments [place] [address] * PTH, Intact (05/04/2024 1:36 PM EDT) Parathyroid Hormone, Intact 68.2 8.7 - 77.1 pg/mL See order comments 05/04/2024 1:36 PM EDT 05/04/2024 1:36 PM EDT us Corey Young MD LAB [id number] SOLICITED RESULTS Final Result Performing Organization Address [facility] Co de Phone Number KEITH See order comments [place] [address] * Vitamin D 25 Hydroxy (05/04/2024 1:36 [...] with another method such as LC-MS/MS. Blood specimen (specimen) Venous blood / Unknown 05/04/2024 1:36 PM EDT 05/04/2024 1:36 PM EDT us Corey Young MD LAB BLOOD ORDERABLES Final Re sult Performing Organization Address [facility] Co de Phone Number [place] See order comments [place] [address] * (ABNORMAL) BUN (05/04/2024 1:36 PM EDT) BUN 27(H) 9 - 16 mg/dL See order comments 05/04/2024 1:36 PM EDT 05/04/2024 1:36 PM EDT us Corey Young MD LAB BLOOD ORDERABLES Final Re sult Performing Organization Address [facility] Phone Number CAREFREE See order comments [place] [address] * Phosphorus (05/04/2024 1:36 PM EDT) Phosphorus, Serum 2.8 2.7 - 4.5 mg/dL See order comments Blood specimen (specimen) Venous blood / Unknown 05/04/2024 1:36 PM EDT 05/04/2024 1:36 PM EDT us Corey Young MD LAB BLOOD ORDERABLES Final Re sult Performing Organization Address [facility] Phone Number CAREFREE See order comments [place] [address] * Magnesium (05/04/2024 1:36 PM EDT) Magnesium 1.9 1.6 - 2.6 mg/dL See order comments Blood specimen (specimen) Venous blood / Unknown 05/04/2024 1:36 PM EDT 05/04/2024 1:36 PM EDT us Corey Young MD LAB BLOOD ORDERABLES Final Re sult Performing Organization Address [facility] Phone Number CAREFREE See order comments [place] [address] * Calcium (05/04/2024 1:36 PM EDT) Calcium 10.0 8.4 - 10.2 mg/dL See order comments Blood specimen (specimen) Venous blood / Unknown 05/04/2024 1:36 PM EDT 05/04/2024 1:36 PM EDT us Corey Young MD LAB BLOOD ORDERABLES Final Re sult Performing Organization Address [facility] de Phone Number [place] See order comments [place] [address] * Albumin (05/04/2024 1:36 PM EDT) Albumin 4.6 3.5 - 5.0 g/dL See order comments Blood specimen (specimen) Venous blood / Unknown 05/04/2024 1:36 PM EDT 05/04/2024 1:36 PM EDT us Corey Young MD LAB BLOOD ORDERABLES Final Re sult Performing Organization Address [facility] de Phone Number [place] See order comments [place] [address] * Electrolyte panel (05/04/2024 1:36 PM EDT) [...] ORDERABLES Final Re sult Performing Organization Address [facility] de Phone Number [place] See order comments [place] [address] * (ABNORMAL) Protein, Total, Random Urine w/Creatinine (Protein/Creat Ratio) (05/04/2024 1:03 PM EDT) Protein Urine Random 18(H) <12 mg/dL See order comments Protein/Creatin ine Ratio, Urine 0.19 <0.2 See order comments Comment: The spot urine protein:creatinine ratio may increase to 0.3 during normal . Urine specimen (specimen) Urine specimen obtained by clean catch procedure / Unknown 05/04/2024 1:03 PM EDT 05/04/2024 1:03 PM EDT us Corey Young MD LAB URINE ORDERABLES Final Re sult [place] See order comments [place] [address] * (ABNORMAL) Albumin, urine, random (05/04/2024 1:03 [...] ORDERABLES Final Re sult Performing Organization Address [facility] Co de Phone Number KE[place] See order comments [place] [address] from Last 3 Months Insurance [employer] [facility] Adv PPO ([id number]) Care Teams Engineer Chief Relationship Specialty Start Date End Date Ab Gaming NP [facility] [place] [address] PCP - General 03/04/20
== END 2024-07-24 09:42 | disposition home or self-care (01) ==
LOC: HO.HCS 09:17
PROVIDERS: PCP Nurse Practitioner Family; Visit Provider Internal Medicine Cardiovascular Disease
DX: I42.9 Cardiomyopathy, unspecified (principal); I48.0 Paroxysmal atrial fibrillation; I10 Essential (primary) hypertension
CPT/HCPCS: 93010; 99214

== ENCOUNTER → 2024-07-24 09:16 | Outpatient (BNVA) | payer OTHER, SELFPAY | PROVIDERS: PCP Nurse Practitioner Family; Visit Provider Internal Medicine Cardiovascular Disease | DX: I49.1 Atrial premature depolarization (principal); I48.0 Paroxysmal atrial fibrillation; I42.9 Cardiomyopathy, unspecified; I10 Essential (primary) hypertension | CPT/HCPCS: 93005 ==

== ENCOUNTER 2024-11-22 09:01 | Outpatient (REF) | payer OTHER, SELFPAY ==
[2024-11-22 13:04] LABS: MANUAL DIFF FLAG NO
[2024-11-22 13:30] LABS: Hematocrit 43.8 % (42.0-52.0); Hemoglobin 15.3 g/dl (14.0-18.0); Imm Gran Abs Auto 0.03 X10*3/uL (0.00-0.03); Imm Gran Pct Auto 0.3 % (0.0-0.4); Lymphocytes Absolute Auto 2.6 X10*3/uL (1.2-4.9); Mean Corpuscular HGB Conc 34.9 g/dl (31.0-36.0); Mean Corpuscular Hemoglobin 32.9 pg (27.0-33.0); Mean Corpuscular Volume 94.2 fL (80.0-98.0); NRBC Abs Auto 0.000 X10*3/uL (0.0-0.012); NRBC Pct Auto 0.0 /100WBC (0.0-0.2); Platelet Count 205 X10*3/uL (160-400); Red Blood Count 4.65 X10*6/uL (4.60-5.80); White Blood Count 9.3 X10*3/uL (4.8-10.8)
[2024-11-22 13:35] LABS: Appearance Urine Clear; Glucose Urine UA 100 mg/dL (Negative); PH 6.0 (5.0-9.0); Specific Gravity - Urine 1.020 (1.005-1.025); UMIC TRIGGER UA YES
[2024-11-22 13:38] LABS: Appearance Urine Clear; Glucose Urine UA 250 mg/dL (Negative); PH 6.0 (5.0-9.0); Specific Gravity - Urine 1.020 (1.005-1.025); UMIC TRIGGER UACC YES
[2024-11-22 13:54] LABS: Alanine Aminotransferase 101 U/L (0-40); Albumin Level 5.0 g/dL (3.5-5.0); Alkaline Phosphatase 99 U/L (39-117); Anion Gap 13 (12-20); Aspartate Amino Transferase 62 U/L (5-37); Blood Urea Nitrogen 22 mg/dL (9-16); Calcium 10.0 mg/dL (8.4-10.2); Carbon Dioxide 26 mmol/L (22-29); Chloride 104 mmol/L (96-108); Cholesterol 149 mg/dL (<200); Estimated Glomerular Filt Rate > 60; HDL Cholesterol 33 mg/dL (>40); Potassium 4.3 mmol/L (3.3-5.1); Sodium 139 mmol/L (135-145); Total Protein 7.8 g/dL (6.5-8.0); Triglycerides 258 mg/dL (<150)
[2024-11-22 13:59] LABS: Albumin Level 5.0 g/dL (3.5-5.0); Anion Gap 13 (12-20); Blood Urea Nitrogen 21 mg/dL (9-16); Calcium 10.0 mg/dL (8.4-10.2); Carbon Dioxide 25 mmol/L (22-29); Chloride 104 mmol/L (96-108); Estimated Glomerular Filt Rate > 60; Magnesium 2.1 mg/dL (1.6-2.6); Potassium 4.3 mmol/L (3.3-5.1); Sodium 138 mmol/L (135-145); Total Protein 7.8 g/dL (6.5-8.0)
[2024-11-22 14:22] LABS: Microalbum/Creatinine Ratio Ur 89.7 ug/mg cr (<30); Protein/Creatinine Ratio, Ur 0.25 (<0.2); Total Protein Urine Random 36 mg/dL (<12)
[2024-11-22 14:35] LABS: Parathyroid Hormone Intact 65.4 pg/mL (8.7-77.1)
== END 2024-11-22 09:02 | disposition home or self-care (01) ==
LOC: HO.HMGCLDS 09:01
PROVIDERS: PCP Nurse Practitioner Family; Referring Provider Internal Medicine Nephrology; Visit Provider Nurse Practitioner Family
DX: Z00.00 Encounter for general adult medical examination without abnormal findings (principal); R09.89 Other specified symptoms and signs involving the circulatory and respiratory systems; I12.9 Hypertensive chronic kidney disease with stage 1 through stage 4 chronic kidney disease, or unspecified chronic kidney disease; N18.31 Chronic kidney disease, stage 3a; I26.99 Other pulmonary embolism without acute cor pulmonale
CPT/HCPCS: 36415; 80051; 80053; 80061; 81001; 82040; 82043; 82306; 82310; 82565; 82570; 83735; 83970; 84100; 84155; 84156; 84443; 84520; 85025; 96127

== ENCOUNTER 2024-11-22 09:01 | Outpatient (AMB) | payer OTHER, SELFPAY ==
[2024-11-22 09:06] VITALS: BP 148/84; PULSE 95; TEMP 36.9; O2SAT 97; BMI 33.2
--- NOTE | 2024-11-22 09:06 | A.OFFPC_ITS ---
Vital Signs 11/22/24 09:06 11/22/24 09:37 Height 5 ft 7 in Weight 212 lb BMI 33.2 BP 148/84 H 128/84 Blood Pressure Location Lt brachial Position Sitting Pulse 95 Pulse Source Pulse Oximeter Temp 98.4 F Temp Source Oral Pulse Oximetry (%) 97 Oxygen Delivery Method Room Air Intake Visit Reasons: PE Certified Family Mediator Required: No Accompanied by: Self / Same As Patient Allergies No Known Allergies Allergy (Verified 11/22/24 09:08) Medication List - Last Reconciled 11/22/24 by AXEL BarkerP- amlodipine 5 mg PO DAILY atorvastatin 20 mg PO BEDTIME cholecalciferol (vitamin D3) 50 mcg PO DAILY hydrochlorothiazide 25 mg PO DAILY lisinopril 40 mg PO BID 90 days metoprolol succinate ER 12.5 mg (1/2 x 25 mg) PO DAILY 90 days metoprolol succinate ER 100 mg PO DAILY Tobacco use date assessed: 05/04/24 Fall risk assessment: No Falls in past year Last assessed Fall Risk: 11/22/24 Dental Screening Dental Screen Date: 05/04/24 Did you have a dental visit in the last 12 months?: Yes Did you have a dental problem in the last 6 months where you did not have access to dental care?: No Was dental information given to patient?: Patient has dentist HPI PE HPI Details History of Present Illness The patient is a 64-year-old male presenting for a physical examination. He denies experiencing any chest pain, dyspnea, abdominal pain, changes in stool, constipation, or diarrhea. He reports no suicidal or homicidal ideation and states he is doing well overall. The patient is scheduled for a colon cancer screening in January and regularly follows up with cardiology and nephrology. His blood pressure remains stable on the current medication regimen. Physical examination reveals faint carotid bruits bilaterally, and an ultrasound will be repeated. He is noted to be obese with scar tissue present in the abdominal region. Health Maintenance - Colon cancer screening scheduled for Radha hi - Regular follow-up with cardiology and nephrology Social History Review of Systems - Cardiovascular: Denies chest pain, dys pnea - Gastrointestinal: Denies abdominal juany n, changes in stool, constipation, diarrhea - Psychiatric: Denies suicidal ideation, homicidal ideation -denies any fevers, chills, n/v Physical Exam General: Cooperative, healthy appearing, comfortable, no acute distress and well developed, obese Orientation: Patient oriented x3 Limitations: No limitations Head: Normal to inspection Ears: Hearing grossly normal bilaterally Nose: Normal external nose present Face and sinus: Normal facial exam Eyes: Appearance normal, both eyes and all related structures Neck: Normal visual inspection and Yes full ROM, faint carotid bruits noted bilaterally Respiratory: Normal respiratory effort and able to speak in complete sentences. Clear to auscultation bilaterally Cardiovascular: Regular rate and rhythm. Normal S1 and S2, no murmurs GI: Normal to inspection. Soft to palpation and nontender, scar tissue noted to anterior abdominal region : testicles without masses/lesions and no hernias appreciated Skin: No rashes or lesions noted Neuro: Patient oriented x3 Extremities: Normal to inspection Results Plan 1. Obesity The patient is noted to be obese, and this condition will be monitored during follow-up visits. 2. Carotid Bruits Faint carotid bruits were noted bilaterally, and a repeat ultrasound is planned to further evaluate this finding. 3. Hypertension The patient's blood pressure remains stable on the current medication regimen, and he continues to follow up with cardiology/nephrology. 4. Preventative Care: Colon Cancer Colin galvez The patient is scheduled for a colon cancer screening in January as part of his preventative care regimen. Discussion Notes During the visit, we discussed the importance of regular follow-ups with cardiology and nephrology to manage his hypertension and monitor his cardiovascular health. We also reviewed the plan for a repeat ultrasound to assess the carotid bruits and confirmed the upcoming colon cancer screening in January. Patient Instructions - Continue current medication regimen fo r blood pressure. - Attend scheduled colon cancer screenin in January. - Follow up with cardiology and nephrolo gy as planned. - Return for a repeat ultrasound to eval uate carotid bruits. [facility] Medical History Elevated liver enzymes Hypertension PAF (paroxysmal atrial fibrillation) Persistent atrial fibrillation History of cardioversion Hyperlipidemia Incisional hernia New onset a-fib CKD (chronic kidney disease), stage III COVID-19 vaccine series completed Fatty liver History of duodenal ulcer Osteoarthritis of both knees Surgical History History of ventral hernia repair History of total left knee replacement History of total right knee replacement H/O colonoscopy S/P exploratory laparotomy (~06/27/19) History of exploratory laparotomy (~01/28/19) History of hand surgery Family History Father No problems noted. Mother No problems noted. 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 1. Little interest or pleasure in doing things: not at all 2. Feeling down, depressed, or hopeless: not at all 3. Trouble falling or staying asleep, or sleeping too much: not at all 4. Feeling tired or having little energy: not at all 5. Poor appetite or overeating: not at all 6. Feeling bad about yourself - or that you are a failure or have let yourself or your family down: not at all 7. Trouble concentrating on things, such as reading the newspaper or watching television: not at all 8. Moving or speaking so slowly that other people could have noticed. Or the o pposite - being so fidgety or restless that you have been moving around a lot more than usual: not at all 9. Thoughts that you would be better off or of hurting yourself in some way: not at all Total score: 0 Depression Screening Interpretation: Negative Depression Screening Done: Yes 71615 - PHQ-9 Billing: Patient declined-do not bill Source: Developed by Drs. Mundo Engle, Terri Quezada, Merritt Reyes and colleagues, with an educational floresita from [employer]. Thrive Questionnaire Date Thrive assessed: 05/04/24 I am a: Patient What is your living situation today?: I have a steady place to live Within the past 12 months, did the food you bought not last and you didn't have the money to get more?: I choose not to answer this question Within the past 12 months, did you worry whether your food would run out before you got money to buy more?: I choose not to answer this question Do you have trouble paying for medicines?: No Do you have trouble getting transportation to medical appointments?: No Do you have trouble paying your heating and electricity bill?: No Do you have trouble taking care of your child, family member or friend?: No Do you have trouble with day-to-day activities such as bathing, preparing meals, shopping, managing finances, etc.?: No Are you currently unemployed and looking for a job?: No Are you interested in more education?: No Please select the resources that you would like help with: None Currently or been in a relationship where the following occur: I choose not to answer THRIVE Score: 0 ISIDRO-7 AMB Questionnaire ISIDRO-7 Date ISIDRO - 7 assessed: 11/22/24 Feeling nervous, anxious, or on edge: 0 = Not at all Not being able to stop or control worryin = Not at all Worrying too much about different things: 0 = Not at all Trouble relaxin = Not at all Being so restless that it is hard to sit still: 0 = Not at all Becoming easily annoyed or irritable: 0 = Not at all Feeling afraid as if something awful might happen: 0 = Not at all Total ISIDRO-7 score (0-4 normal; 5-9 mild; 10-14 moderate; 15-21 severe): 0 Source: Developed by Drs. Mundo Engle, Terri Quezada, Merritt Reyes and colleagues, with an educational floresita from [employer]. ISIDRO-7 Assessment Billing ISIDRO-7 Assessment Tool: ISIDRO-7 Assessment 27631 Physical exam (Primary Care) Vital Signs: Last Vital Signs Temp 98.4 F 11/22/24 09:06 Pulse 95 11/22/24 09:06 BP 148/84 H 11/22/24 09:06 Pulse Ox 97 11/22/24 09:06 Oxygen Delivery Method Room Air 11/22/24 09:06 BMI result Body Mass Index 33.2 Tobacco/Smoking Status: Tobacco use Status Tobacco use date assessed 05/04/24 11/22/24 09:06 Patient Tobacco Use Status Former Tobacco user 11/22/24 09:06 Tobacco use type Cigarette 11/22/24 09:06 e-Cigarette/Vaping Use Never Used 11/22/24 09:06 PHQ-9: PHQ-9 Score PHQ-9: Total score 0 11/22/24 09:29 Depression Screening Interpretation: Negative Thrive Assessment: Date of Thrive Assessment Date Thrive assessed 05/04/24 11/22/24 09:06 Currently or been in a relationship where the following occur: I choose not to answer Coding Level of Care Code Est Pt Prev Care >65y(82450) Diagnoses Physical exam Z00.00 Carotid artery bruit R09.89 Additional Codes ISIDRO-7 Assessment Billing - ISIDRO-7 Assessment Tool: ISIDRO-7 Assessment 52082 ([id number]) Assessment & Plan Assessment & Plan (1) Physical exam: Code(s): Z00.00 - Encounter for general adult medical examination without abnormal findings Category: Medical (2) Carotid artery bruit: Code(s): R09.89 - Other specified symptoms and signs involving the circulatory and re spiratory systems Category: Medical Plan . Orders: Orders Comprehensive [place]. Panel Fast Today Z00.00 - Encounter for general adult medical examination without abnormal findings Lipid Panel Today Z00.00 - Encounter for general adult medical examination without abnormal findings US carotid duplex BI Today R09.89 - Other specified symptoms and signs involvi ng the circulatory and respiratory systems Complete Blood Count Auto Diff Today Z00.00 - Encounter for general adult medical examination without abnormal findings TSH reflex Free T4 Today Z00.00 - Encounter for general adult medical examination without abnormal findings UA CC w/rflx Micro + Cult Today Z00.00 - Encounter for general adult medical examination without abnormal findings Medications: Refilled metoprolol succinate ER 12.5 mg (1/2 x 25 mg) PO DAILY 45 tabs 0RF 90 days metoprolol succinate ER This is wha 100 mg PO DAILY 90 tabs 3RF
[2024-11-22 09:37] VITALS: BP 128/84
--- OUTSIDE RECORDS SUMMARY | 2024-11-22 09:40 | XMS_ITS | Clinical Summary ---
Author Organization [facility] Address [address] [facility] [address] [place] [id number] Phone Care Team Providers Care Biological Plant Operator Name Role Phone Ab Gaming NP Primary Care Provider + Allergies Active Allergy Reactions Criticality Noted Date Comments Oxycodone Other (See Comments) 08/05/2020 Medications acetaminophen (TYLENOL) 650 MG CR tablet Take 650 mg by mouth as needed. Active acetaminophen (TYLENOL) 325 mg tablet Take 650 mg by mouth. 06/02/2022 Active amiodarone (PACERONE) 200 MG tablet 05/24/2023 Active amLODIPine (NORVASC) 5 MG tablet Take 1 tablet by mouth every morning. 07/28/2023 Active ELIQUIS 5 mg tablet Take 5 mg by mouth 2 (two) times a day. Active atorvastatin (LIPITOR) 40 MG tablet Take 40 mg by mouth nightly at bedtime. 06/24/2023 Active lisinopril (PRINIVIL,ZESTR IL) 40 MG tablet Take 40 mg by mouth daily. Active metoprolol succinate (TOPROL-XL) 100 MG 24 hr tablet Take 1 tablet by mouth every morning. 04/30/2023 Active Active Problems Problem Noted Date Diagnosed Date Persistent atrial fibrillation 08/06/2023 Assessment & Plan (11/30/2023 1:51 PM EDT): Counseled the patient to cut down on dose of amiodarone to 100 mg once a day. Will follow-up on next visit. Assessment & Plan (08/06/2023 8:30 AM EDT): We had a detailed discussion with the patient with regards to rhythm control with medication versus rhythm control with ablation. Patient at this point opted for rhythm control with ablation. Risk and benefits of the procedure were discussed in detail. Counseled about diet and lifestyle modification. Counseled about alcohol abstinence. Chronic anticoagulation 08/06/2023 Assessment & Plan (11/30/2023 1:51 PM EDT): Counseled the patient to continue with blood thinners. Assessment & Plan (08/06/2023 8:30 AM EDT): Counseled the patient to be in compliant with blood thinners Systolic dysfunction 08/06/2023 Assessment & Plan (11/30/2023 1:52 PM EDT): Patient is seeing Dr. Fofana later this month. Patient will need echocardiogram. Assessment & Plan (08/06/2023 8:30 AM EDT): Will request for stress test. Will prefer rhythm control. Social History Tobacco Use Types Packs/Day Years Used Date Smoking Tobacco: Never Smokeless Tobacco: Never Alcohol Use Standard Drinks/Week Comments Not Currently 0 (1 standard drink = 0.6 oz pur e alcohol) Education Answer Date Recorded Are you interested in more education? Not on beryl e 05/19/2023 Are you concerned about learning? Not on file 05/19/2023 No 05/19/2023 No 05/19/2023 Digital Access Answer Date Recorded No 05/19/2023 No 05/19/2023 Reliable internet access at home? Not on file 05/19/2023 Device with a working camera? Not on file Sex and Gender Information Value Date Recorded Sex Assigned at Not on file Legal Sex Male 10:29 AM EDT Gender Identity Not on file Sexual Orientation Not on file Last Filed Vital Signs Vital Sign Reading Time Taken Comments Blood Pressure 190/100 11/30/2023 7:45 AM EDT Pulse 68 11/30/2023 7:45 AM EDT Temperature - - Respiratory Rate - - Oxygen Saturation 97% 11/30/2023 7:45 AM EDT Inhaled Oxygen Concentration - - Weight 94.8 kg (209 lb) 11/30/2023 7:45 AM EDT Height 170.2 cm (5' 7 ) 11/30/2023 7:45 AM EDT Body Mass Index 32.73 11/30/2023 7:45 AM EDT Plan of Treatment Health Maintenance Due Date Last Done Comments ALT LEVEL (ALANINE AMINOTRANSFERASE) 1958 Adult Td,Tdap Booster 1958 CREATININE LEVEL 1958 LIPID PANEL 1958 POTASSIUM LEVEL 1958 TSH LEVEL 1958 DEPRESSION SCREENING 1970 HEPATITIS C SCREENING 1976 SCREENING FOR DIABETES 1993 COLOGUARD 05/08/2003 COLONOSCOPY 05/08/2003 COLORECTAL CANCER SCREENING 05/08/2003 FIT TEST 05/08/2003 FOBT 05/08/2003 SIGMOIDOSCOPY 05/08/2003 VIRTUAL COLONOSCOPY 05/08/2003 PNEUMOCOCCAL VACCINES (50+ y ears) (1 of 1 - PCV) 2008 ZOSTER VACCINES (1 of 2) 2008 INFLUENZA VACCINE (#1) 2024 COVID-19 VACCINE ( - 2023-2 5 season) 2024 RSV VACCINE (1 - 1-dose 75+ series) 2033 SMOKING STATUS SCREENING (On ce After 26 Yrs) Completed 11/30/2023 HEPATITIS A VACCINES Aged Out No long er eligible based on patient's age to complete this topic HIB VACCINES Aged Out No longer eligi ble based on patient's age to complete this topic MENINGOCOCCAL VACCINES (ACWY) Aged Out No longer eligible based on patient's age to complete this topic MENINGOCOCCAL VACCINES (B) Aged Out N o longer eligible based on patient's age to complete this topic Medical Devices Not on file Insurance [employer] PPO MEDICARE REPLACEMENT A[employer] PPO MEDICARE REPLACEMENT A[employer] PPO MEDICARE REPLACEMENT A[employer] PPO MEDICARE REPLACEMENT A[employer] PPO MEDICARE REPLACEMENT A[employer] PPO MEDICARE REPLACEMENT Care Teams Biological Plant Operator Relationship Specialty Start Date End Date Ab Gaming NP [address] [place] [address] PCP - General Nurse Practitioner 05/10/23 Additional Source Comments The information contained in this document represents components of the legal health record. It is not the complete legal health record.[facility]
--- OUTSIDE RECORDS SUMMARY | 2024-11-22 09:40 | XMS_ITS | Encounter Summary ---
Author Organization [facility] Address [address] [place] [address] Phone Care Team Providers Care [employer] Truck Driver Name Role Phone Ab Gaming NP Primary Care Provider + Encounter Details Date Type Department Care Team (Late st Contact Info) Description 08/16/2023 Telephone [facility] [address], [address] [place] [address] Christian Sahni MD [address] [place] [address] [email or web address] Social History Tobacco Use Types Packs/Day Years Used Date Smoking Tobacco: Never Assessed Education Answer Date Recorded Are you interested [...] on file Sexual Orientation Not on file documented as of this encounter Plan of Treatment Not on file documented as of this encounter Visit Diagnoses Diagnosis Systolic dysfunction- Primary Unspecified heart disease documented in this encounter Care Teams Otr Company Truck Driver Relationship Specialty Start Date End Date Ab Gaming NP [address] [place] [address] PCP - General Nurse Practitioner 05/10/23 documented as of this encounter Additional Source Comments The information contained in this document represents components of the legal health record. It is not the complete legal health record.[facility]
--- OUTSIDE RECORDS SUMMARY | 2024-11-22 09:40 | XMS_ITS | Clinical Summary ---
Author Organization [facility] Address [address] [address] Phone Care Team Providers Care Laceworker Name Role Phone Ab Gaming NP Primary Care Provider [phone] Allergies Active Allergy Reactions Criticality Noted Date [...] Encounters Date Type Department Care Team Description 08/28/2024 3:15 PM EDT Office Visit [facility] [address] [place] [phone] Corey Young MD Stage 3a chronic kidney disease (HCC) (Primary Dx); Essential hypertension from Last 3 Months Immunizations Immunization Administration Dates Next Due Moderna [...] Sign Reading Time Taken Comments Blood Pressure 159/88 08/28/2024 3:02 PM EDT Pulse 98 08/28/2024 3:02 PM EDT Temperature - - Respiratory Rate - - Oxygen Saturation 99% 08/28/2024 3:02 PM EDT Inhaled Oxygen Concentration - - Weight 98.1 kg (216 lb 3.2 oz) 08/28/2024 3:02 P M EDT Height - - Body Mass Index - - Plan of Treatment Upcoming Encounters Date Type Department Care Team (Late st Contact Info) Description 08/27/2025 1:30 PM EDT Office Visit [facility] [address] [place] [phone] Corey Young MD [address] [facility] [address] [place] [address] Health Maintenance Due Date Last Done Comments Pneumococcal Vaccine: 50+ Ye ars (1 of 2 - PCV) 1977 Colorectal Cancer Screening: Annual FOBT 05/08/2007 Colorectal Cancer Screening: Colonoscopy 05/08/2007 Colorectal Cancer Screening: Sigmoidoscopy 05/08/2007 Influenza Vaccine (#1) 2024 Hepatitis B Vaccine Aged Out No longe r eligible based on patient's age to complete this topic Insurance [employer] MCR Adv PPO ([id number]) Care Teams Laceworker Relationship Specialty Start Date End Date Ab Gaming NP [place] [address] PCP - General 03/04/20
== END 2024-11-22 09:40 | disposition home or self-care (01) ==
LOC: HO.HMCC 09:01
PROVIDERS: PCP Nurse Practitioner Family; Visit Provider Nurse Practitioner Family
DX: Z00.00 Encounter for general adult medical examination without abnormal findings (principal); R09.89 Other specified symptoms and signs involving the circulatory and respiratory systems

== ENCOUNTER 2024-12-07 06:18 | Outpatient (REF) | payer OTHER, SELFPAY ==
--- OUTSIDE RECORDS SUMMARY | 2024-12-07 06:21 | XMS_ITS | Encounter Summary ---
Author Organization [facility] Address [address] [place] [address] Phone Care Team Providers Care Intermediate School Teacher Name Role Phone Ab Gaming NP Primary Care Provider + Encounter Details Date Type Department Care Team (Late st Contact Info) Description 08/16/2023 Telephone [facility] [address], [address] [place] [address] Christian Sahni MD [address] [place] [address] [email or web address] Social History Tobacco Use Types Packs/Day Years [...] disease documented in this encounter Care Teams Intermediate School Teacher Relationship Specialty Start Date End Date Ab Gaming NP [address] [place] [address] PCP - General Nurse Practitioner 05/10/23 documented as of this encounter Additional Source Comments The information contained in this document represents components of the legal health record. It is not the complete legal health record.[facility]
--- OUTSIDE RECORDS SUMMARY | 2024-12-07 06:21 | XMS_ITS | Clinical Summary ---
Author Organization [facility] Address [address] [facility] [address] [place] [phone] Phone Care Team Providers Care Stick Roller Name Role Phone Ab Gaming NP Primary [...] VACCINE (#1) 2024 COVID-19 VACCINE ( - 2024-2 6 season) 2024 RSV VACCINE (1 - 1-dose [...] REPLACEMENT [employer] PPO MEDICARE REPLACEMENT Care Teams Stick Roller Relationship Specialty Start Date End Date Ab Gaming NP [address] [facility] [place] [address] PCP - General Nurse Practitioner 05/10/23 Additional Source Comments The information contained in this document represents components of the legal health record. It is not the complete legal health record.[facility]
[2024-12-07 10:36] LABS: Appearance Urine Clear; Glucose Urine UA >=1000 mg/dL (Negative); PH 5.5 (5.0-9.0); Specific Gravity - Urine 1.025 (1.005-1.025); UMIC TRIGGER UACC YES
== END 2024-12-07 06:19 | disposition home or self-care (01) ==
LOC: HO.HMGCLDS 06:18
PROVIDERS: PCP Nurse Practitioner Family; Visit Provider Nurse Practitioner Family
DX: Z00.00 Encounter for general adult medical examination without abnormal findings (principal); R73.01 Impaired fasting glucose
CPT/HCPCS: 36415; 81001; 83036

== ENCOUNTER 2025-01-03 10:19 | Outpatient (AMB) | payer MEDICARE, SELFPAY ==
--- NOTE | 2025-01-03 10:22 | AM.OFFWIN_ITS ---
Intake Vital Signs 01/03/25 10:25 Height 5 ft 7 in Weight 209 lb BMI 32.7 BP 134/78 Blood Pressure Location Lt brachial Position Sitting Pulse 92 Pulse Source Pulse Oximeter Temp 98.1 F Temp Source Oral Pulse Oximetry (%) 97 Oxygen Delivery Method Room Air Intake Visit Reasons: EP Trouble urinating, discomfort Intake Note: pt presents with pain to penis with and without trying to void, reports having to force urine out with extreme pain, was able to get a little urine output today and notes is leaking throughout the day- last couple weeks. Patient Tobacco Use Status: Former Tobacco user Allergies No Known Allergies Allergy (Verified 01/03/25 10:28) Do you need a note to return to daycare/school/sports/work: No HPI EP Trouble urinating, discomfort HPI Details This is a 64 year old male patient who presents to the [place] [facility] with lower urinary tract symptoms and difficulty voiding. He reports worsening symptoms over the last 1-2 weeks. Reports severe penis pain at this time and ability to only void drops, however he has the sensation that his bladder is very full. No history of BPH No flank pain. No fevers/chills. No testicular pain. No trauma to area. No recent infections or new partners. Normal BMs - most recent today. COUNT INCLUDES [facility] Medical History Elevated liver enzymes Hypertension PAF (paroxysmal atrial fibrillation) Persistent atrial fibrillation History of cardioversion Hyperlipidemia Incisional hernia New onset a-fib CKD (chronic kidney disease), stage III COVID-19 vaccine series completed Fatty liver History of duodenal ulcer Osteoarthritis of both knees Surgical History History of ventral hernia repair History of total left knee replacement History of total right knee replacement H/O colonoscopy S/P exploratory laparotomy (~06/27/19) History of exploratory laparotomy (~01/28/19) History of hand surgery Family History Father No problems noted. Mother No problems noted. 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 Cognitive needs: No Hearing needs: No Vision needs: No Review of Systems Const All systems reviewed & are unremarkable except as noted in HPI and below Physical Exam Vital Signs: BMI result Body Mass Index 32.7 Const General: cooperative and in distress (pain) moderate Nutritional Appearance: overweight Limitations: no limitations Resp Effort & Inspection: normal respiratory effort Auscultation: clear to auscultation bilaterally Cardio Rate: regular rate Rhythm: regular rhythm General: Yes no CVA tenderness Penis: normal penis Scrotum: scrotum normal Testes: Testes normal Back/Spine/Pelvis Back: no CVA tenderness Skin General skin exam: no rashes or lesions noted Psych Appearance: grossly normal Mental Status: mental status grossly normal Speech and movement: Normal speech and movement present Attitude: cooperative Results AMB Urinalysis, Automated UA Leukoctes 0 Mariam/uL Last Edit by Ashley Rios CMA on 01/03/25 10:45 UA Nitrite Negative Last Edit by Ashley Rios CMA on 01/03/25 10:45 UA Urobilinogen 0.2 mg/dL Last Edit by Ashley Rios CMA on 01/03/25 10:4 5 UA Protein 0 mg/dL Last Edit by Ashley Rios CMA on 01/03/25 10:45 UA pH 6.0 Last Edit by Ashley Rios CMA on 01/03/25 10:45 UA Blood 0 Buzz/uL Last Edit by Ashley Rios CMA on 01/03/25 10:45 UA Specific [place] 1.010 Last Edit by Ashley Rios CMA on 01/03/25 10: 45 UA Ketone Negative Last Edit by Ashley Rios CMA on 01/03/25 10:45 UA Bilirubin 0 mg/dL Last Edit by Ashley Rios CMA on 01/03/25 10:45 UA Glucose 1000 mg/dL Last Edit by Ashley Rios CMA on 01/03/25 10:45 3+ Ashley Rios 01/03/25 10:45 Assessment & Plan Assessment & Plan (1) Acute urinary retention: Code(s): R33.8 - Other retention of urine Plan: Patient is unable to void at this time despite sensation of full bladder. He was able to void small drops and urine dip in the office was unremarkable aside from glucose. He is in significant pain at this time. I am concerned for urethral stricture vs. BPH He likely needs pre/port void bladder scanning and catheterization/urology eval or referral. I discussed this with patient and he agrees to go to the ED for evaluation. Expect call made to [facility] Cathy and patient being brought there now by his . (2) Lower urinary tract symptoms: Code(s): R39.9 - Unspecified symptoms and signs involving the genitourinary system Plan: As above Orders: Orders AMB Urinalysis Automated Today Z13.9 - Encounter for screening, unspecified Coding Level of Care Code Est Pt Level 4 (66717) Diagnoses Acute urinary retention R33.8 Lower urinary tract symptoms R39.9
[2025-01-03 10:25] VITALS: BP 134/78; PULSE 92; TEMP 36.7; O2SAT 97; BMI 32.7
--- OUTSIDE RECORDS SUMMARY | 2025-01-03 12:12 | XMS_ITS | Encounter Summary ---
Author Organization [facility] Address [address] [place] [address] Phone Care Team Providers Care Driftman Name Role Phone Ab Gaming NP Primary Care Provider + Encounter Details Date Type Department Care Team (Late st Contact Info) Description 08/16/2023 Telephone [facility] [address], [address] [place] [address] Christian Sahni MD [address] [place] [address] [email or web address] Social History Tobacco Use Types Packs/Day Years [...] disease documented in this encounter Care Teams Driftman Relationship Specialty Start Date End Date Ab Gaming NP [address] [facility] [place] [address] PCP - General Nurse Practitioner 05/10/23 documented as of this encounter Additional Source Comments The information contained in this document represents components of the legal health record. It is not the complete legal health record.[facility]
--- OUTSIDE RECORDS SUMMARY | 2025-01-03 12:13 | XMS_ITS | Clinical Summary ---
Author Organization [facility] Address [address] [facility] [address] [place] [phone] Phone Care Team Providers Care Historic Sites Supervisor Name Role Phone Ab Gaming NP Primary [...] 2008 INFLUENZA VACCINE (#1) 2024 COVID-19 VACCINE (1 - 2024-2 6 season) 2024 RSV VACCINE (1 - 1-dose 75+ series) 2033 SMOKING STATUS SCREENING (On ce After 26 Yrs) Completed 11/30/2023 HEPATITIS A VACCINES Aged Out No long er eligible based on patient's age to complete this topic HIB VACCINES Aged Out No longer eligi ble based on patient's age to complete this topic IPV VACCINES Aged Out No longer eligi ble [...] REPLACEMENT [employer] PPO MEDICARE REPLACEMENT Care Teams Historic Sites Supervisor Relationship Specialty Start Date End Date Ab Gaming NP [address] [place] [address] PCP - General Nurse Practitioner 05/10/23 Additional Source Comments The information contained in this document represents components of the legal health record. It is not the complete legal health record.[facility]
--- OUTSIDE RECORDS SUMMARY | 2025-01-03 12:13 | XMS_ITS | Clinical Summary ---
Author Organization [facility] Address [address] [place] [phone] Phone Care Team Providers Care Patent Leather Sorter Name Role Phone Ab Gaming NP Primary Care Provider [phone] Allergies Active Allergy Reactions Criticality Noted Date [...] Visit [facility] [address] [place] [address] Corey Young MD [address] [facility] [address] [place] [address] Health Maintenance Due Date Last [...] Procedure Name Priority Date/Time Associated Diagnosis Comments ALBUMIN, URINE, RANDOM Routine 11/22/2024 1:04 PM EDT PROTEIN / CREATININE RATIO, URINE Routine 11/22/2024 1:04 PM EDT Stage 3a chronic kidney disease (HCC) Essential hypertension URINALYSIS WITH MICROSCOPIC Routine 11/22/2024 1:04 PM EDT Stage 3a chronic kidney disease (HCC) Essential hypertension PTH, INTACT (HC) Routine 11/22/2024 12:5 7 PM EDT TOTAL PROTEIN Routine 11/22/2024 12:57 PM EDT CREATININE, BLOOD Routine 11/22/2024 12: 57 PM EDT BUN Routine 11/22/2024 12:57 PM EDT ELECTROLYTE PANEL Routine 11/22/2024 12: 57 PM EDT CALCIUM Routine 11/22/2024 12:57 PM EDT Stage 3a chronic kidney disease (HCC) Essential hypertension ALBUMIN Routine 11/22/2024 12:57 PM EDT Stage 3a chronic kidney disease (HCC) Essential hypertension MAGNESIUM Routine 11/22/2024 12:57 PM EDT Stage 3a chronic kidney disease (HCC) Essential hypertension PHOSPHATE ( PHOSPHORUS) Routine 11/22/2024 12:57 PM EDT Stage 3a chronic kidney disease (HCC) Essential hypertension VITAMIN D 25 HYDROXY Routine 11/22/2024 12:57 PM EDT Stage 3a chronic kidney disease (HCC) Essential hypertension from Last 3 Months Results * (ABNORMAL) Protein, Total, Random Urine w/Creatinine (Protein/Creat Ratio) (11/22/2024 1:04 PM EDT) Protein Urine Random 36(H) <12 mg/dL See order comments Protein/Creati nine Ratio, Urine 0.25(H) <0.2 See order comments Comment: The spot urine protein:creatinine ratio may increase to 0.3 during normal . Urine Urine specimen obtained by clean catch procedure / Unknown 11/22/2024 1:04 PM EDT 11/22/2024 1:04 PM EDT Corey Young MD LAB URINE ORDERABLES Final Re sul Performing Organization Address [facility] de Phone Number [place] See order comments [place] [address] * (ABNORMAL) Albumin, urine, random (11/22/2024 1:04 PM EDT) Creatinine, Urine 141.49 mg/dL Se e order comments Urine Microalbumin 127.0 mg/L See order comments Microalbumin/Crea tinine Ratio 89.7(H) <30 ug/mg cr See order comments Comment: Albumin/Creatinine Ratio Reference Ranges: Normal: < 30 ug/mg creatinine Microalbuminuria: 30 - 300 ug/mg creatinine Clinical Albuminuria: > 300 ug/mg creatinine 11/22/2024 1:04 PM EDT 11/22/2024 1:04 PM EDT Corey Young MD LAB URINE ORDERABLES Final Re [facility] Performing Organization Address [facility] de Phone Number [place] See order comments [place] [address] * (ABNORMAL) Urinalysis with microscopic (11/22/2024 1:04 PM EDT) Color Urine Yellow See orde r comments Appearance Urine Clear See order comments pH Urine 6.0 5.0 - 9.0 See order comments Glucose Urine 100(A) Negative mg/dL See order comments Blood, Urine Negative Negative See ord er comments Specific [place] Urine 1.020 1.005 - 1.025 See order comments Protein Urine 30 (1+)(A) Neg-Trace mg/dL See order comments Ketones, Urine Negative Negative mg/dL See order comments Nitrite, Urine Negative Negative See o rder comments Leukocyte Esterase Urine Negative Negative See order comments RBC, Urine 0-2 0 - 2 /HPF See orde r comments WBC 0-5 0 - 5 /HPF See order comments Squamous Epithelial, Urine 0-2 0 - 2 /HPF See order comments Bacteria, Urine None Seen None Seen See order comments Hyaline Casts, Urine 0-2 0 - 2 /LPF See order comments Urine Urine specimen obtained by clean catch procedure / Unknown 11/22/2024 1:04 PM EDT 11/22/2024 1:04 PM EDT us Corey Young MD LAB URINE ORDERABLES Final Re sult Performing Organization Address [facility] de Phone Number [place] See order comments [place] [address] * Total Protein (11/22/2024 12:57 PM EDT) Total Protein 7.8 6.5 - 8.0 g/dL See order comments 11/22/2024 12:5 7 PM EDT 11/22/2024 12:57 PM EDT us Corey Young MD LAB [id number] SOLICITED RESULTS Final Result Performing Organization Address [facility] de Phone Number [place] See order comments [place] [address] * Creatinine (11/22/2024 12:57 PM EDT) Creatinine Serum 1.11 0.5 - 1.4 mg/dL See order comments eGFR (Calc) >60 See orde r comments Comment: Chronic Kidney Disease: Estimated GFR < 60 mL/min/1.73m2 Severe Kidney Disease: Estimated GFR < 15 mL/min/1.73m2 11/22/2024 12:5 7 PM EDT 11/22/2024 12:57 PM EDT us Corey Young MD LAB BLOOD ORDERABLES Final Re sult Performing Organization Address [facility] Co de Phone Number [place] See order comments [place] [address] * PTH, Intact (11/22/2024 12:57 PM EDT) Parathyroid Hormone, Intact 65.4 8.7 - 77.1 pg/mL See order comments 11/22/2024 12:5 7 PM EDT 11/22/2024 12:57 PM EDT Corey Young MD LAB [id number] SOLICITED RESULTS Final Result Performing Organization Address [facility] Co de Phone Number [place] See order comments [place] [address] * Vitamin D 25 Hydroxy (11/22/2024 12:57 PM EDT) Vitamin D, 25-Hydroxy 39.7 >30 ng/mL See order comments Comment: Health Based Reference Values* < 20 ng/mL Deficient 20-30 ng/mL Insufficient > 30 ng/mL Sufficient *Sawyer DAMON. N Engl J Med. 2007;357:266-280 [...] D results from different laboratories and methodologies. Published data demonstrated that results from patients undergoing hemodialysis may show a negative bias when tested with various automated 25-OH vitamin D assays when compared to LC-MS/MS. When testing samples from patients whose predominant form of Vitamin D is Vitamin D2, such as patients receiving Vitamin D2 supplementation, results that are subtherapeutic should be confirmed with another method such as LC-MS/MS. Blood Venous blood / Unknown 11/22/2024 12:57 PM EDT 11/22/2024 12:57 PM EDT Corey Young MD LAB BLOOD ORDERABLES Final Re sult Performing Organization Address City/[facility]/ZIP Co de Phone Number [place] See order comments [place] [address] * (ABNORMAL) BUN (11/22/2024 12:57 PM EDT) BUN 21(H) 9 - 16 mg/dL See order comments 11/22/2024 12:5 7 PM EDT 11/22/2024 12:57 PM EDT us Corey Young MD LAB BLOOD ORDERABLES Final Re sult Performing Organization Address [facility]/ZIP Co de Phone Number [place] See order comments [place] [address] * Phosphorus (11/22/2024 12:57 PM EDT) Phosphorus, Serum 2.8 2.7 - 4.5 mg/dL See order comments Blood Venous blood / Unknown 11/22/2024 12:57 PM EDT 11/22/2024 12:57 PM EDT us Corey Young MD LAB BLOOD ORDERABLES Final Re sult Performing Organization Address [facility] de Phone Number [place] See order comments [place] [address] * Magnesium (11/22/2024 12:57 PM EDT) Magnesium 2.1 1.6 - 2.6 mg/dL See order comments Blood Venous blood / Unknown 11/22/2024 12:57 PM EDT 11/22/2024 12:57 PM EDT us Corey Young MD LAB BLOOD ORDERABLES Final Re sult Performing Organization Address [facility] de Phone Number [place] See order comments [place] [address] * Calcium (11/22/2024 12:57 PM EDT) Calcium 10.0 8.4 - 10.2 mg/dL See order comments Blood Venous blood / Unknown 11/22/2024 12:57 PM EDT 11/22/2024 12:57 PM EDT us Corey Young MD LAB BLOOD ORDERABLES Final Re sult Performing Organization Address [facility] Co de Phone Number [place] See order comments [place] [address] * Albumin (11/22/2024 12:57 PM EDT) Albumin 5.0 3.5 - 5.0 g/dL See order comments Blood Venous blood / Unknown 11/22/2024 12:57 PM EDT 11/22/2024 12:57 PM EDT Corey Young MD LAB BLOOD ORDERABLES Final Re sult [place] See order comments [place] [address] * Electrolyte panel (11/22/2024 12:57 PM EDT) Sodium 138 135 - 145 mmol/L See order comments Potassium 4.3 3.3 - 5.1 mmol/L See order comments Chloride 104 96 - 108 mmol/L See order comments Bicarbonate (CO2) 25 22 - 29 mmol/L See order comments Anion Gap 13 12 - 20 See order comments 11/22/2024 12:5 7 PM EDT 11/22/2024 12:57 PM EDT Corey Young MD LAB BLOOD ORDERABLES Final Re sult [place] See order comments [place] [address] from Last 3 Months [id number] Care Teams Patent Leather Sorter Relationship Specialty Start Date End Date Ab Gaming NP [facility] [place] [address] PCP - General 03/04/20
== END 2025-01-03 11:06 | disposition home or self-care (01) ==
PROVIDERS: PCP Nurse Practitioner Family; Visit Provider Nurse Practitioner Family
DX: R33.8 Other retention of urine (principal); R39.9 Unspecified symptoms and signs involving the genitourinary system; Z13.9 Encounter for screening, unspecified

== ENCOUNTER 2025-01-03 11:15 | Emergency (ER) | payer MEDICARE, SELFPAY ==
--- NOTE | ~2025-01-03 | CT_ITS ---
EXAMINATION: CT ABDOMEN PELVIS WITHOUT IV CONTRAST HISTORY: new urinary retention. r/o mass/lesion/stone COMPARISON: Previous CT of the abdomen and pelvis most recent October 2021 and abdominal ultrasound June 2024 TECHNIQUE: CT scan of the abdomen and pelvis was performed without contrast using standard departmental protocol. Coronal and sagittal reformatted images were generated and reviewed. This CT exam was performed with one or more of the following dose reduction techniques: automated exposure control, adjustment of the mA and/or kV according to patient size, use of iterative reconstruction technique. DLP: 609 mGy-cm FINDINGS: LOWER CHEST: The visualized lung bases are clear. There is no pleural effusion. CARDIOVASCULATURE: The heart is normal in size. There is no pericardial effusion. LIVER: Enlarged fatty liver. No focal lesion. GALLBLADDER / BILE DUCTS: The gallbladder is contracted and not well evaluated. Question tiny gallstone in the gallbladder fundus and neck of the gallbladder or cystic duct for example axial image 171 series 3. There is no intra or extrahepatic biliary ductal dilatation. SPLEEN: The spleen is normal in size and has an unremarkable unenhanced appearance. PANCREAS: There may be a new calcification in the body of the pancreas. Pancreas otherwise normal. ADRENAL GLANDS: Stable small low-attenuation right adrenal nodule. Hounsfield units measure 10 and this probably represents a lipid rich adenoma. . Normal left adrenal gland.. KIDNEYS/RETROPERITONEUM: 10 x 20 mm low-attenuation lesion in the upper pole of the left kidney axial image 22 series 2. This is difficult to characterize but stable from October 2021 and may represent a cyst. Kidneys are otherwise normal. No renal stone or hydronephrosis. No ureteral dilatation or ureteral stone. LYMPH NODES: Small upper abdominal and portacaval lymph nodes not appreciably changed. No enlarged lymph nodes. VASCULATURE: Atherosclerotic disease. No aneurysm. MESENTERY/PERITONEUM: No free fluid. No masses. There is no free intraperitoneal gas. STOMACH: Normal SMALL BOWEL: 2 areas of postsurgical change with anastomotic suture line in the small bowel. The small bowel is slightly dilated in this region with fecalization probably representing postsurgical denervation changes. COLON: Mild diverticulosis of the colon. No evidence of diverticulitis. APPENDIX: Normal. URINARY BLADDER/PELVIC ORGANS: There is a Blunt catheter in the bladder. The bladder is empty and not well assessed. The prostate gland is slightly enlarged measuring 3.8 x 4.8 cm. BONES / SOFT TISSUES: Degenerative changes of the spine and mild curvature of the mid lumbar spine to the right. Degenerative changes at the hips. Post surgical changes to the anterior abdominal wall with evidence of previous ventral hernia repair with mesh. Broad-based bulge containing fat and knuckle of the small bowel. No evidence of obstruction. Left inguinal hernia containing fat. CT/CT abdomen pelvis wo IV con IMPRESSION: Blunt catheter in the bladder. The bladder is empty and not well assessed. Slightly enlarged prostate gland. Stable 1 x 2 cm low-attenuation lesion in the upper pole of the left kidney. This is difficult to accurately characterize but probably represents cyst. No renal stone, hydronephrosis, ureteral stone or ureteral dilatation. Postsurgical changes to the small bowel. Diverticulosis of the colon. Enlarged fatty liver. Question small gallstones in a contracted gallbladder. Electronically signed by: Nena Zuñiga MD 01/03/2025 12:51 PM [facility]
[2025-01-03 11:20] VITALS: BP 160/84; PULSE 84; RESP 18; TEMP 37; O2SAT 95; BMI 32.4
--- NOTE | 2025-01-03 11:22 | ED_ITS ---
HPI - General Adult General Chief complaint: Urogenital-Male Stated complaint: Urinary Symptoms Time Seen by Provider: 01/03/25 11:57 Source: patient, family, RN notes reviewed and old records reviewed Mode of arrival: ambulatory History of Present Illness ED Provider: Marah Stone PA-C HPI narrative: 64-year-old male with a past medical history HTN, proximal AFib, HLD, CKD, newly diagnosed diabetes - not started on medication yet, presenting to the ED sent in from walk in clinic due to urinary retention/inability to void since last night. States he can only void drops, and feels bladder is full. Denies fever, chills, nausea/vomiting, abdominal pain, back pain/flank pain. Related Data Previous Rx's ?Medication ?Instructions ?Recorded cholecalciferol (vitamin D3) 50 50 mcg PO DAILY #90 ca ps 03/06/24 mcg (2,000 unit) capsule atorvastatin 20 mg tablet 20 mg PO BEDTIME #90 tabs amlodipine 5 mg tablet 5 mg PO DAILY #90 tabs 06/19 metoprolol succinate 100 mg 100 mg PO DAILY #90 tabs 1 tablet,extended release 24 hr metoprolol succinate 25 mg 12.5 mg (1/2 x 25 mg) PO DA MARCEL 90 11/22/24 tablet,extended release 24 hr days #45 tabs lisinopril 40 mg tablet 40 mg PO BID #180 tabs 11/24 hydrochlorothiazide 25 mg tablet 25 mg PO DAILY #90 ta bs 12/11/24 metformin 500 mg tablet 500 mg PO BID 30 days #60 ta bs 01/03/25 Allergies Allergy/AdvReac Type Severity Reaction Status Date / Time No Known Allergies Allergy Verified 01/03/25 11:24 Review of Systems 2 Review of Systems: Yes all other systems are reviewed and are negative Constitutional: Constitutional: Reports as per [facility] Past Medical History Attestation statement: The following information was validated with the patient. Source: old records reviewed Medical History Elevated liver enzymes Hypertension PAF (paroxysmal atrial fibrillation) Persistent atrial fibrillation History of cardioversion Hyperlipidemia Incisional hernia New onset a-fib CKD (chronic kidney disease), stage III COVID-19 vaccine series completed Fatty liver History of duodenal ulcer Osteoarthritis of both knees Surgical History History of ventral hernia repair History of total left knee replacement History of total right knee replacement H/O colonoscopy S/P exploratory laparotomy (~06/27/19) History of exploratory laparotomy (~01/28/19) History of hand surgery Family History Family History Father No problems noted. Mother No problems noted. 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 Cognitive needs: No Hearing needs: No Vision needs: No Physical Exam ED Vital Signs: Vital Signs - 24 hr 01/03/25 11:20 01/03/25 12:42 01/03/25 14:07 Temperature 98.6 F Pulse Rate 84 61 56 Respiratory Rate 18 16 18 Blood Pressure 160/84 H 129/66 145/70 H Pulse Oximetry 95 94 94 Oxygen Delivery Method Room Air Room Air Room Air 01/03/25 15:07 Temperature 0 F L Pulse Rate 56 Respiratory Rate 18 Blood Pressure 145/70 H Pulse Oximetry 94 Oxygen Delivery Method Room Air BMI result Body Mass Index 32.4 Const General: cooperative, healthy appearing and no acute distress Orientation/consciousness: patient oriented x3 Limitations: no limitations HENMT Head: Yes normal to inspection and Yes atraumatic Ears: hearing grossly normal bilaterally General nose exam: Normal external nose present Face and sinus: Yes normal facial exam Eyes General: appearance normal, both eyes and all related structures EOM: EOMs intact bilaterally Neck Neck: Yes normal visual inspection and Yes no meningeal signs Resp Effort & Inspection: normal respiratory effort and no respiratory distress Cardio Rate: regular rate GI Inspection: Yes normal to inspection Palpation (GI): Soft to palpation, nontender, no guarding and not rigid General: Yes no CVA tenderness Back/Spine/Pelvis Back: no CVA tenderness Skin Rashes: no rashes Wounds: no wounds Neuro General: patient oriented x3, tone normal and no meningeal signs Cranial nerves: Yes CN's II-XII intact bilaterally Gait exam (Neuro): Normal gait present Extrem General: Yes normal to inspection Course Course Course Narrative: This is a Rapid Medical Examination (RME) performed by Shanti Sawyer PA-C in triage. Full HPI, ROS, assessment and treatment plan per primary provider in the Main ED. Hx: 64 yo M hx of stage 3 CKD, DM, afib, HTN here for eval of urinary retention since yesterday, feeling of incomplete emptying, voiding small amounts. Plan: labs, ua, bladder scan -glucose elevated to 485 > no anion gap. BUN chronically elevated. Creatinine minimally elevated. -beta hydroxybutyrate WNL. -UA with glucose, not infected 1301--CT abdomen pelvis wo IV con IMPRESSION: Blunt catheter in the bladder. The bladder is empty and not well assessed. Slightly enlarged prostate gland. Stable 1 x 2 cm low-attenuation lesion in the upper pole of the left kidney. This is difficult to accurately characterize but probably represents cyst. No renal stone, hydronephrosis, ureteral stone or ureteral dilatation. Postsurgical changes to the small bowel. Diverticulosis of the colon. Enlarged fatty liver. Question small gallstones in a contracted gallbladder. -repeat POC 257 after IV fluids in the ED. Will initiate patient on metformin until his endocrinology follow-up. Recommended close PCP, endocrinology and urology follow-up Results discussed with patient including worrisome signs and symptoms and strict return precautions, and when to return to the emergency department. They verbalized understanding and feel safe for discharge at this time. Medications Administered Discontinued Medications Generic Name Dose Route Start Last Admin Trade Name Freq PRN Reason Stop Dose Admin Sodium Chloride 1,000 mls @ 999 mls/hr 01/03/25 12:00 01/03/25 13:30 Ns IV 01/03/25 13:00 Infused .Q1H1M LINO Infusion Medical Decision Making Medical Decision Making MDM Narrative: 64-year-old male with a past medical history HTN, proximal AFib, HLD, CKD, newly diagnosed diabetes - not started on medication yet, presenting to the ED sent in from walk in clinic due to urinary retention/inability to void since last night. On exam vital signs stable, NAD, nontoxic appearing, abdomen is soft and nontender. 680 ml noted on bladder scan > will place Blunt catheter. Concern for urinary retention secondary to BPH vs obstructive pathology/lesion/mass vs UTI. Rule out JOSÉ and hyperglycemia/DKA Plan: Bladder scan, labs, UA, CT Please refer to course for remaining clinical decision making, interpretation of labs/imaging results, and discussions with consultants and/or family members. Differential Diagnosis Differential Diagnoses: The differential diagnosis associated with the presentation includes As above Admission/Observation Consideration of admission/observation: Escalation of care including admission/observation considered Lab Data MDM Lab Attestation statement: I reviewed the patient's lab results. 01/03/25 11:30 01/03/25 11:30 Labs: Lab Results 01/03/25 01/03/25 01/03/25 Range/Units 11:30 12:17 12:45 WBC 10.4 (4.8-10.8) X10*3/uL RBC 4.50 L (4.60-5.80) X10*6/uL Hgb 14.5 (14.0-18.0) g/dl Hct 42.6 (42.0-52.0) % MCV 94.7 (80.0-98.0) fL MCH 32.2 (27.0-33.0) pg MCHC 34.0 (31.0-36.0) g/dl RDW 12.2 (11.0-16.0) % Plt Count 182 (160-400) X10*3/uL MPV 10.3 (9.4-12.4) fL Immature Gran % (Auto) 0.5 H (0.0-0.4) % Neut % (Auto) 74.2 H (45-73) % Lymph % (Auto) 17.3 L (20-40) % [place] % (Auto) 7.4 (2-11) % Eos % (Auto) 0.2 (0-4) % Baso % (Auto) 0.4 (0-2) % Lymph # (Auto) 1.8 (1.2-4.9) X10*3/uL [place] # (Auto) 0.8 (0.1-1.2) X10*3/uL Eos # (Auto) 0.0 (0.0-0.4) X10*3/uL Baso # (Auto) 0.0 (0.0-0.2) X10*3/uL Abs Immat Gran (auto) 0.05 H (0.00-0.03) X10*3/uL Absolute Neuts (auto) 7.7 (2.0-8.3) x10*3/uL Absolute Nucleated RBC 0.000 (0.0-0.012) X10*3/uL Nucleated RBC % (auto) 0.0 (0.0-0.2) /100WBC VBG pH 7.37 (7.32-7.43) VBG pCO2 45 mmHg VBG pO2 54 mmHg VBG HCO3 26 (22-26) mmol/L VBG O2 Saturation 82.0 % VBG Base Excess 0.7 mmol/L Sodium 135 (135-145) mmol/L Potassium 4.9 (3.3-5.1) mmol/L Chloride 100 (96-108) mmol/L Carbon Dioxide 24 (22-29) mmol/L Anion Gap 16 (12-20) BUN 25 H (9-16) mg/dL Creatinine 1.48 H (0.5-1.4) mg/dL Estim Creat Clear Calc 53.6 Estimated GFR 48 POC Glucose (60-115) mg/dL Random Glucose 485 H* (60-115) mg/dL Calcium 9.9 (8.4-10.2) mg/dL Magnesium 2.0 (1.6-2.6) mg/dL Total Bilirubin 0.5 (0.0-1.0) mg/dL Direct Bilirubin 0.2 (0.0-0.5) mg/dL AST 41 H (5-37) U/L ALT 80 H (0-40) U/L Alkaline Phosphatase 91 (39-117) U/L Total Protein 7.7 (6.5-8.0) g/dL Albumin 4.9 (3.5-5.0) g/dL Beta-Hydroxybutyrate 0.18 (0.02-0.27) mmol/L Urine Color Yellow Urine Appearance Clear Urine pH 6.5 (5.0-9.0) Ur Specific [place] 1.025 (1.005-1.025) Urine Protein Negative (Neg-Trace) mg/dL Urine Glucose (UA) >=1000 H (Negative) mg/dL Urine Ketones Negative (Negative) mg/dL Urine Blood Negative (Negative) Urine Nitrite Negative (Negative) Ur Leukocyte Esterase Negative (Negative) Urine RBC 0-2 (0-2) /HPF Urine WBC 0-5 (0-5) /HPF Ur Squamous Epith Cells 0-2 (0-2) /HPF Urine Bacteria None Seen (None Seen) Hyaline Casts 0-2 (0-2) /LPF 01/03/25 Range/Units 14:17 WBC (4.8-10.8) X10*3/uL RBC (4.60-5.80) X10*6/uL Hgb (14.0-18.0) g/dl Hct (42.0-52.0) % MCV (80.0-98.0) fL MCH (27.0-33.0) pg MCHC (31.0-36.0) g/dl RDW (11.0-16.0) % Plt Count (160-400) X10*3/uL MPV (9.4-12.4) fL Immature Gran % (Auto) (0.0-0.4) % Neut % (Auto) (45-73) % Lymph % (Auto) (20-40) % [place] % (Auto) (2-11) % Eos % (Auto) (0-4) % Baso % (Auto) (0-2) % Lymph # (Auto) (1.2-4.9) X10*3/uL [place] # (Auto) (0.1-1.2) X10*3/uL Eos # (Auto) (0.0-0.4) X10*3/uL Baso # (Auto) (0.0-0.2) X10*3/uL Abs Immat Gran (auto) (0.00-0.03) X10*3/uL Absolute Neuts (auto) (2.0-8.3) x10*3/uL Absolute Nucleated RBC (0.0-0.012) X10*3/uL Nucleated RBC % (auto) (0.0-0.2) /100WBC VBG pH (7.32-7.43) VBG pCO2 mmHg VBG pO2 mmHg VBG HCO3 (22-26) mmol/L VBG O2 Saturation % VBG Base Excess mmol/L Sodium (135-145) mmol/L Potassium (3.3-5.1) mmol/L Chloride (96-108) mmol/L Carbon Dioxide (22-29) mmol/L Anion Gap (12-20) BUN (9-16) mg/dL Creatinine (0.5-1.4) mg/dL Estim Creat Clear Calc Estimated GFR POC Glucose 257 H (60-115) mg/dL Random Glucose (60-115) mg/dL Calcium (8.4-10.2) mg/dL Magnesium (1.6-2.6) mg/dL Total Bilirubin (0.0-1.0) mg/dL Direct Bilirubin (0.0-0.5) mg/dL AST (5-37) U/L ALT (0-40) U/L Alkaline Phosphatase (39-117) U/L Total Protein (6.5-8.0) g/dL Albumin (3.5-5.0) g/dL Beta-Hydroxybutyrate (0.02-0.27) mmol/L Urine Color Urine Appearance Urine pH (5.0-9.0) Ur Specific [place] (1.005-1.025) Urine Protein (Neg-Trace) mg/dL Urine Glucose (UA) (Negative) mg/dL Urine Ketones (Negative) mg/dL Urine Blood (Negative) Urine Nitrite (Negative) Ur Leukocyte Esterase (Negative) Urine RBC (0-2) /HPF Urine WBC (0-5) /HPF Ur Squamous Epith Cells (0-2) /HPF Urine Bacteria (None Seen) Hyaline Casts (0-2) /LPF Independent Interpretation I performed an independent interpretation of an: CT Scan Radiology Impression Discussion of test interpretation with radiology: I have reviewed the radiologist's reading. Independent Historian Clinical information obtained from an independent historian. History obtained from or confirmed by: Spouse External Record Review External record reviewed: Inpatient record, Office record, Outpatient record, Prior outpatient labs, Prior outpatient radiology, Primary care record and Outside ED record Tests considered The following testing was considered but not selected: As above Prescription Management I considered prescription management with: Pain Medication and Antibiotic Chronic Conditions Patient?s care impacted by: Diabetes, Hypertension and Other Social Determinants Patient?s care significantly limited by Social Determinants of Health including: Other Social Determinant of Health Discharge Plan Discharge Clinical Impression: Acute urinary retention, Diabetes Patient Disposition: Home, Self-Care Instructions: Urinary Retention in Men (ED), Diabetes and Exercise (ED) Additional Instructions: Your blood work is reassuring Your CAT scan shows a lesion in your left kidney. Please follow up with your primary care doctor in regards to this. You need to follow up with Urology to have a trial to void and Blunt catheter removal Metformin is a diabetic medication, please start taking until your follow up with PCP/endocrinology Try to get a sooner appointment with endocrinology If her symptoms persist or worsen, you develop abdominal pain, your Blunt catheter becomes clogged or you have bloody urine, fever or chills return to the emergency department Prescriptions: New metformin 500 mg tablet 500 mg PO BID 30 Days Qty: 60 0RF No Action cholecalciferol (vitamin D3) 50 mcg (2,000 unit) capsule 50 mcg PO DAILY Qty: 90 1RF atorvastatin 20 mg tablet 20 mg PO BEDTIME Qty: 90 2RF amlodipine 5 mg tablet 5 mg PO DAILY Qty: 90 3RF lisinopril 40 mg tablet 40 mg PO BID Qty: 180 3RF hydrochlorothiazide 25 mg tablet 25 mg PO DAILY Qty: 90 3RF metoprolol succinate 25 mg tablet extended release 24 hr 12.5 mg PO DAILY 90 Days Qty: 45 0RF metoprolol succinate 100 mg tablet extended release 24 hr 100 mg PO DAILY Qty: 90 3RF Rx Instructions: This is [facility] Referrals: [facility] Endocrinology [Provider Group] - 3 days [facility] Urology Services [Provider Group, Urology] - 1 week Ab Gaming FNP-BC [Primary Care Provider, Internal Medicine] - 3 days Interventions: ED Discharge Assessment Last Done: 01/03/25 15:07 Discharge Date/Time: 01/03/25 15:13 Print Language: Citizen [place]
[2025-01-03 11:34] LABS: MANUAL DIFF FLAG NO
[2025-01-03 11:36] LABS: Hematocrit 42.6 % (42.0-52.0); Hemoglobin 14.5 g/dl (14.0-18.0); Imm Gran Abs Auto 0.05 X10*3/uL (0.00-0.03); Imm Gran Pct Auto 0.5 % (0.0-0.4); Lymphocytes Absolute Auto 1.8 X10*3/uL (1.2-4.9); Mean Corpuscular HGB Conc 34.0 g/dl (31.0-36.0); Mean Corpuscular Hemoglobin 32.2 pg (27.0-33.0); Mean Corpuscular Volume 94.7 fL (80.0-98.0); NRBC Abs Auto 0.000 X10*3/uL (0.0-0.012); NRBC Pct Auto 0.0 /100WBC (0.0-0.2); Platelet Count 182 X10*3/uL (160-400); Red Blood Count 4.50 X10*6/uL (4.60-5.80); White Blood Count 10.4 X10*3/uL (4.8-10.8)
[2025-01-03 11:53] LABS: Anion Gap 16 (12-20); Blood Urea Nitrogen 25 mg/dL (9-16); Calcium 9.9 mg/dL (8.4-10.2); Carbon Dioxide 24 mmol/L (22-29); Chloride 100 mmol/L (96-108); Creatinine Clr Calc Pharmacy 53.6; Estimated Glomerular Filt Rate 48; Potassium 4.9 mmol/L (3.3-5.1); Sodium 135 mmol/L (135-145)
[2025-01-03 12:21] LABS: Venous Blood Gas Refer to POC result
[2025-01-03 12:22] LABS: VBG HCO3 26 mmol/L (22-26); VBG O2 % Saturation 82.0 %
[2025-01-03 12:42] VITALS: BP 129/66; PULSE 61; RESP 16; O2SAT 94
[2025-01-03 12:46] LABS: Alanine Aminotransferase 80 U/L (0-40); Albumin Level 4.9 g/dL (3.5-5.0); Alkaline Phosphatase 91 U/L (39-117); Aspartate Amino Transferase 41 U/L (5-37); Magnesium 2.0 mg/dL (1.6-2.6); Total Protein 7.7 g/dL (6.5-8.0)
[2025-01-03 12:50] LABS: Appearance Urine Clear; Glucose Urine UA >=1000 mg/dL (Negative); PH 6.5 (5.0-9.0); Specific Gravity - Urine 1.025 (1.005-1.025); UMIC TRIGGER UACC YES
[2025-01-03 14:07] VITALS: BP 145/70; PULSE 56; RESP 18; O2SAT 94
[2025-01-03 14:20] LABS: Glucose, Whole Blood 257 mg/dL (60-115)
[2025-01-03 15:07] VITALS: BP 145/70; PULSE 56; RESP 18; TEMP -17.7; TEMP 0; O2SAT 94
== END 2025-01-03 15:13 | disposition home or self-care (01) ==
PROVIDERS: Physician Assistant; Physician Assistant Medical; Emergency Provider Emergency Medicine; PCP Nurse Practitioner Family
DX: R33.8 Other retention of urine (principal); N28.9 Disorder of kidney and ureter, unspecified; R39.9 Unspecified symptoms and signs involving the genitourinary system; I48.0 Paroxysmal atrial fibrillation; E11.22 Type 2 diabetes mellitus with diabetic chronic kidney disease; I12.9 Hypertensive chronic kidney disease with stage 1 through stage 4 chronic kidney disease, or unspecified chronic kidney disease; N18.30 Chronic kidney disease, stage 3 unspecified
CPT/HCPCS: 36415; 51702; 51798; 74176; 80048; 80076; 81001; 81003; 82010; 82803; 82947; 83735; 85025; 96360; 99212; 99284; 99285

== ENCOUNTER → 2025-01-03 12:05 | Outpatient (BNV) | payer MEDICARE, SELFPAY | PROVIDERS: PCP Nurse Practitioner Family; Visit Provider Radiology Diagnostic Radiology | DX: R33.9 Retention of urine, unspecified (principal) | CPT/HCPCS: 74176 ==

== ENCOUNTER 2025-01-04 08:17 | Outpatient (REF) | payer MEDICARE, SELFPAY ==
--- NOTE | ~2025-01-04 | US_ITS ---
CLINICAL HISTORY: R09.89 - Other specified symptoms and signs involving the circulatory an... Duplex Bilateral Carotid US Technique: Real time sonographic imaging, including color-flow imaging and spectral analysis, was performed by the setter juice packaging machines. Multiple textile designs sales representative static images were saved for review. Comparison: None Findings: No significant plaque within the common carotid arteries. Ijmp-tn-jomhffuc bilateral plaque within the carotid bulbs. Waveforms are normal morphology. Peak systolic velocities: Right common carotid artery: 73.9 cm/s Right internal carotid artery: 86.8 cm/s ICA/CCA ratio: 1.1 Right external carotid artery: Elevated peak systolic velocity of 556 cm/sec. Right vertebral artery flow antegrade. Left common carotid artery: 128.0 cm/s Left internal carotid artery: 63.3 cm/s ICA/CCA ratio: 0.49 Left external carotid artery: Unremarkable Left vertebral artery flow antegrade. Impression: 1. Normal common and internal carotid velocities, no significant stenosis (0-49% stenosis). 2. 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 Notes: External carotid velocities over 200 cm/s may be a cause of bruit. Interpretations are based on most recent Society of Radiologists in Ultrasound consensus statement. 01/03/2024 This document has been electronically signed by: Candido Grace MD on 01/04/2025 14:13:46
--- OUTSIDE RECORDS SUMMARY | 2025-01-04 08:33 | XMS_ITS | Clinical Summary ---
Author Organization [facility] Address [address] [facility] [address] [place] [phone] Phone Care Team Providers Care Safety Professional Name Role Phone Ab Gaming NP Primary [...] REPLACEMENT [employer] PPO MEDICARE REPLACEMENT Care Teams Safety Professional Relationship Specialty Start Date End Date Ab Gaming NP [address] [place] [address] PCP - General Nurse Practitioner 05/10/23 Additional Source Comments The information contained in this document represents components of the legal health record. It is not the complete legal health record.[facility]
--- OUTSIDE RECORDS SUMMARY | 2025-01-04 08:33 | XMS_ITS | Clinical Summary ---
Author Organization [facility] Address [address] [place] [phone] Phone Care Team Providers Care Laborer Cement Gun Placing Name Role Phone Ab Gaming NP Primary Care Provider [phone] Allergies Active Allergy Reactions Criticality Noted Date [...] Visit [facility] [address] [place] [address] Corey Young MD [address] [facility] [address] [place] [address] Health Maintenance Due Date Last [...] ORDERABLES Final Re sul Performing Organization Address [facility] de Phone Number [place] See order comments [place] [address] * (ABNORMAL) Albumin, urine, random (11/22/2024 1:04 [...] Young MD LAB URINE ORDERABLES Final Re [facility] Performing Organization Address [facility] de Phone Number [place] See order comments [place] [address] * (ABNORMAL) Urinalysis with microscopic (11/22/2024 1:04 PM EDT) Color Urine Yellow See orde r comments Appearance Urine Clear See order comments pH Urine 6.0 5.0 - 9.0 See order comments Glucose Urine 100(A) Negative mg/dL See order comments Blood, Urine Negative Negative See ord er comments Specific [place] Urine 1.020 1.005 - 1.025 See order [...] ORDERABLES Final Re sult Performing Organization Address [facility] de Phone Number [place] See order comments [place] [address] * Total Protein (11/22/2024 12:57 PM EDT) Total Protein 7.8 6.5 - 8.0 g/dL See order comments 11/22/2024 12:5 7 PM EDT 11/22/2024 12:57 PM EDT us Corey Young MD LAB [id number] SOLICITED RESULTS Final Result Performing Organization Address [facility] de Phone Number [place] See order comments [place] [address] * Creatinine (11/22/2024 12:57 PM EDT) Creatinine Serum 1.11 0.5 - 1.4 mg/dL See order comments eGFR (Calc) >60 See orde r comments Comment: Chronic Kidney Disease: Estimated GFR < 60 mL/min/1.73m2 Severe Kidney Disease: Estimated GFR < 15 mL/min/1.73m2 11/22/2024 12:5 7 PM EDT 11/22/2024 12:57 PM EDT us Corey Young MD LAB BLOOD ORDERABLES Final Re sult Performing Organization Address [facility] Co de Phone Number [place] See order comments [place] [address] * PTH, Intact (11/22/2024 12:57 PM EDT) Parathyroid Hormone, Intact 65.4 8.7 - 77.1 pg/mL See order comments 11/22/2024 12:5 7 PM EDT 11/22/2024 12:57 PM EDT Corey Young MD LAB BLOOD ORDERABLES Final Re sult Performing Organization Address [facility] de Phone Number [place] See order comments [place] [address] * Vitamin D 25 Hydroxy (11/22/2024 12:57 [...] ORDERABLES Final Re sult Performing Organization Address City/[facility] Co de Phone Number [place] See order comments [place] [address] * (ABNORMAL) BUN (11/22/2024 12:57 PM EDT) BUN 21(H) 9 - 16 mg/dL See order comments 11/22/2024 12:5 7 PM EDT 11/22/2024 12:57 PM EDT us Corey Young MD LAB BLOOD ORDERABLES Final Re sult Performing Organization Address [facility] Co de Phone Number [place] See order comments [place] [address] * Phosphorus (11/22/2024 12:57 PM EDT) Phosphorus, Serum 2.8 2.7 - 4.5 mg/dL See order comments Blood Venous blood / Unknown 11/22/2024 12:57 PM EDT 11/22/2024 12:57 PM EDT us Corey Young MD LAB BLOOD ORDERABLES Final Re sult Performing Organization Address [facility] Phone Number [place] See order comments [place] [address] * Magnesium (11/22/2024 12:57 PM EDT) Magnesium 2.1 1.6 - 2.6 mg/dL See order comments Blood Venous blood / Unknown 11/22/2024 12:57 PM EDT 11/22/2024 12:57 PM EDT us Corey Young MD LAB BLOOD ORDERABLES Final Re sult Performing Organization Address [facility] Phone Number [place] See order comments [place] [address] * Calcium (11/22/2024 12:57 PM EDT) Calcium 10.0 8.4 - 10.2 mg/dL See order comments Blood Venous blood / Unknown 11/22/2024 12:57 PM EDT 11/22/2024 12:57 PM EDT us Corey Young MD LAB BLOOD ORDERABLES Final Re sult Performing Organization Address [facility] de Phone Number [place] See order comments [place] [address] * Albumin (11/22/2024 12:57 PM EDT) Albumin 5.0 3.5 - 5.0 g/dL See order comments Blood Venous blood / Unknown 11/22/2024 12:57 PM EDT 11/22/2024 12:57 PM EDT Corey Young MD LAB BLOOD ORDERABLES Final Re sult [place] See order comments [place] [address] * Electrolyte panel (11/22/2024 12:57 PM EDT) [...] MD LAB BLOOD ORDERABLES Final Re sult [place] See order comments [place] [address] from Last 3 Months Insurance [employer] [facility] Adv PPO ([id number]) Care Teams Laborer Cement Gun Placing Relationship Specialty Start Date End Date Ab Gaming NP [facility] [place] [address] PCP - General 03/04/20
--- OUTSIDE RECORDS SUMMARY | 2025-01-04 08:33 | XMS_ITS | Encounter Summary ---
Author Organization [facility] Address [address] [place] [address] Phone Care Team Providers Care Credit Control Administrator Name Role Phone Ab Gaming NP Primary Care Provider + Encounter Details Date Type Department Care Team (Late st Contact Info) Description 08/16/2023 Telephone [facility] [address] Floor, [address] [place] [address] Christian Sahni MD [address] [place] [address] [email or web address] Social History Tobacco Use Types Packs/Day Years [...] disease documented in this encounter Care Teams Credit Control Administrator Relationship Specialty Start Date End Date Ab Gaming NP [address] [place] [address] PCP - General Nurse Practitioner 05/10/23 documented as of this encounter Additional Source Comments The information contained in this document represents components of the legal health record. It is not the complete legal health record.[facility]
== END 2025-01-04 08:18 | disposition home or self-care (01) ==
LOC: HO.HMGCX 08:17
PROVIDERS: PCP Nurse Practitioner Family; Visit Provider Nurse Practitioner Family
DX: R09.89 Other specified symptoms and signs involving the circulatory and respiratory systems (principal)
CPT/HCPCS: 93880

== ENCOUNTER → 2025-01-04 08:20 | Outpatient (BNV) | payer MEDICARE, SELFPAY | PROVIDERS: PCP Nurse Practitioner Family; Visit Provider Radiology Diagnostic Radiology | DX: I65.21 Occlusion and stenosis of right carotid artery (principal) | CPT/HCPCS: 93880 ==

== ENCOUNTER 2025-01-10 14:09 | Emergency (ER) | payer MEDICARE, SELFPAY ==
[2025-01-10 14:26] VITALS: BP 137/75; PULSE 75; RESP 18; TEMP 36.4; O2SAT 95; BMI 32.4
--- NOTE | 2025-01-10 14:26 | ED.MALEGU ---
HPI - Male Genitourinary General Chief complaint: Urogenital-Male Stated complaint: bleeding from catheter Time Seen by Provider: 01/10/25 16:06 Source: patient, RN notes reviewed and old records reviewed Mode of arrival: ambulatory Limitations: no limitations History of Present Illness ED Provider: Parul DENT Narrative: 64-year-old male past medical history significant for diabetes, hypertension, AFib not anticoagulated, hyperlipidemia presents for evaluation of blood in his urine. The patient has a Blunt catheter in place due to urinary retention that he had a few days ago. He is not due to see Urology until February 01. He has no abdominal pain. He has no general pain or swelling. He reports that he noticed bright red blood in the catheter bag starting this morning. It has progressed to a dark brown color at the time my evaluation changes and clearing out in the urine is no clear, yellow Related Data Previous Rx's ?Medication ?Instructions ?Recorded cholecalciferol (vitamin D3) 50 50 mcg PO DAILY #90 caps 03/06/24 mcg (2,000 unit) capsule amlodipine 5 mg tablet 5 mg PO DAILY #90 tabs 06/19/24 metoprolol succinate 100 mg 100 mg PO DAILY #90 tabs 11/22/24 tablet,extended release 24 hr metoprolol succinate 25 mg 12.5 mg (1/2 x 25 mg) PO DAILY 90 11/22/24 tablet,extended release 24 hr days #45 tabs lisinopril 40 mg tablet 40 mg PO BID #180 tabs 11/24/24 hydrochlorothiazide 25 mg tablet 25 mg PO DAILY #90 tabs 12/11/24 metformin 500 mg tablet 500 mg PO BID 30 days #60 tabs 01/03/25 atorvastatin 40 mg tablet 40 mg PO BEDTIME #30 tabs 01/04/25 cefuroxime axetil 500 mg tablet 500 mg PO Q12H #14 tabs 01/10/25 Allergies Allergy/AdvReac Type Severity Reaction Status Date / Time No Known Allergies Allergy Verified 01/10/25 14:27 Review of Systems Constitutional: Constitutional: Denies body ache(s), Denies chills and Denies fever(s) Eyes: Eyes: Denies blurry vision ENT: Denies vertigo and Denies dizziness Cardiovascular: Cardiovascular: Denies chest pain and Denies dyspnea on exertion Respiratory: Respiratory: Denies cough and Denies dyspnea on exertion Gastrointestinal: Gastrointestinal: Denies abdominal pain, Denies nausea and Denies vomiting Genitourinary: Genitourinary: Reports hematuria Musculoskeletal: Musculoskeletal: Denies back pain Integumentary/Breasts: Skin/Breast: Denies rash Neurologic: Denies vertigo and Denies dizziness [facility] Past Medical History Medical History Elevated liver enzymes Hypertension PAF (paroxysmal atrial fibrillation) Persistent atrial fibrillation History of cardioversion Hyperlipidemia Incisional hernia New onset a-fib CKD (chronic kidney disease), stage III COVID-19 vaccine series completed Fatty liver History of duodenal ulcer Osteoarthritis of both knees Surgical History History of ventral hernia repair History of total left knee replacement History of total right knee replacement H/O colonoscopy S/P exploratory laparotomy (~06/27/19) History of exploratory laparotomy (~01/28/19) History of hand surgery Family History Family History Father No problems noted. Mother No problems noted. Social History Social History Household Members: Spouse Housing: House Are you a primary day care teacher to a significant other at home: No Do you presently have visiting nurse or other home services: No Alcohol intake: current Alcohol intake frequency: holidays/special occasions only Alcohol type: beer Comment: sleeping Patient Tobacco Use Status: Former Tobacco user Tobacco use type: Cigarette Years Smoked: 15 e-Cigarette/Vaping Use: Never Used Second Hand Smoke Exposure: No Advance Directives: Yes Advance Directives on File: Yes Advance Directives Date on File: 05/03/23 service: No Current occupational status: employed 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- Right Handed Cognitive needs: No Hearing needs: No Vision needs: No Physical Exam Vital Signs: Vital Signs: Last Vital Signs Temp 98.4 F 01/10/25 16:07 Pulse 74 01/10/25 16:07 Resp 16 01/10/25 16:07 BP 128/77 01/10/25 16:07 Pulse Ox 94 01/10/25 16:07 O2 Del Method Room Air 01/10/25 16:07 BMI result Body Mass Index 32.4 Const: General: healthy appearing, comfortable, no acute distress, alert and awake Nutritional Appearance: well nourished Orientation/consciousness: patient oriented x3 HEENT: Head: Yes normocephalic and Yes atraumatic Eyes: Eyelids: Yes eyelids normal Conjunctivae: conjunctivae normal Sclerae: sclerae normal Corneas: corneas normal Pupils: Equal, round and reactive pupils present EOM: EOMs intact bilaterally Neck: Neck: Yes full ROM Resp: Effort & Inspection: normal respiratory effort, able to speak in complete sentences and not labored Cardio: Rate: regular rate Rhythm: regular rhythm GI: Inspection: No distended Palpation (GI): Soft to palpation, not firm, nontender, no guarding and not rigid Skin: General skin exam: no rashes or lesions noted and elasticity normal Neuro: General: patient oriented x3 Cranial nerves: Yes Equal, round and reactive pupils present and Yes Bilaterally intact EOM present Cognition (Neuro): normal cognition Course Course Course Narrative: This is a Rapid Medical Exam performed in triage by Marah Stone PA-C. Full HPI, ROS and PE to be performed by primary ED provider. 64-year-old male with a past medical history HTN, proximal AFib, HLD, CKD, newly diagnosed diabetes, urinary retention s/p catheter placed in ED on 01/03/25, c/o gross hematuria in bag x 6hrs. Takes ASA. Denies trauma, abd pain PE: Gross hematuria noted in bag, NAD, nontoxic appearing Plan: labs, UA Medical Decision Making Medical Decision Making MDM Narrative: 64-year-old male past medical history as above presents for evaluation of blood in his urine. He is no longer taking Eliquis. He reports that he discontinued Eliquis about 7 months ago due to cost in his taking a baby aspirin instead. At the time my evaluation of the urine appears to be draining clearly with small sediment but no large clots. His labs are reassuring, no leukocytosis or anemia. Normal platelet count. His renal function is baseline, no electrolyte abnormalities. Urinalysis is pending. Given that the catheter that is draining well I do not see any indication to remove the catheter. Additionally, the blood appears to be resolving there are no large clots. The patient does and a base cyst like structure on the right kidney which could be the source of bleeding but the patient already has a appropriate follow up with Urology. Differential Diagnosis Differential Diagnoses: The differential diagnosis associated with the presentation includes UTI Cystitis Hematuria Bladder mass Renal mass Lab Data MDM Lab Attestation statement: I reviewed the patient's lab results. 01/10/25 15:35 01/10/25 15:35 Labs: Lab Results 01/10/25 01/10/25 Range/Units 15:35 16:15 WBC 10.1 (4.8-10.8) X10*3/uL RBC 4.31 L (4.60-5.80) X10*6/uL Hgb 14.0 (14.0-18.0) g/dl Hct 41.4 L (42.0-52.0) % MCV 96.1 (80.0-98.0) fL MCH 32.5 (27.0-33.0) pg MCHC 33.8 (31.0-36.0) g/dl RDW 12.0 (11.0-16.0) % Plt Count 194 (160-400) X10*3/uL MPV 10.0 (9.4-12.4) fL Immature Gran % (Auto) 0.2 (0.0-0.4) % Neut % (Auto) 61.1 (45-73) % Lymph % (Auto) 27.6 (20-40) % [place] % (Auto) 9.3 (2-11) % Eos % (Auto) 1.2 (0-4) % Baso % (Auto) 0.6 (0-2) % Lymph # (Auto) 2.8 (1.2-4.9) X10*3/uL [place] # (Auto) 0.9 (0.1-1.2) X10*3/uL Eos # (Auto) 0.1 (0.0-0.4) X10*3/uL Baso # (Auto) 0.1 (0.0-0.2) X10*3/uL Abs Immat Gran (auto) 0.02 (0.00-0.03) X10*3/uL Absolute Neuts (auto) 6.1 (2.0-8.3) x10*3/uL Absolute Nucleated RBC 0.000 (0.0-0.012) X10*3/uL Nucleated RBC % (auto) 0.0 (0.0-0.2) /100WBC PT 11.7 (11.2-13.5) SEC INR 1.0 (0.9-1.1) Sodium 137 (135-145) mmol/L Potassium 5.0 (3.3-5.1) mmol/L Chloride 102 (96-108) mmol/L Carbon Dioxide 27 (22-29) mmol/L Anion Gap 13 (12-20) BUN 34 H (9-16) mg/dL Creatinine 1.35 (0.5-1.4) mg/dL Estim Creat Clear Calc 58.7 Estimated GFR 53 Random Glucose 239 H (60-115) mg/dL Calcium 9.9 (8.4-10.2) mg/dL Total Bilirubin 0.3 (0.0-1.0) mg/dL Direct Bilirubin 0.1 (0.0-0.5) mg/dL AST 53 H (5-37) U/L ALT 80 H (0-40) U/L Alkaline Phosphatase 81 (39-117) U/L Total Protein 7.4 (6.5-8.0) g/dL Albumin 4.6 (3.5-5.0) g/dL Urine Color BROWN Urine Appearance Turbid Urine pH 6.5 (5.0-9.0) Ur Specific [place] 1.025 (1.005-1.025) Urine Protein See Note (Neg-Trace) mg/dL Urine Glucose (UA) See Note (Negative) mg/dL Urine Ketones See Note (Negative) mg/dL Urine Blood See Note (Negative) Urine Nitrite See Note (Negative) Ur Leukocyte Esterase See Note (Negative) Urine RBC >20 H (0-2) /HPF Urine WBC 11-20 (0-5) /HPF Ur Squamous Epith Cells 0-2 (0-2) /HPF Urine Bacteria 4+ (None Seen) Hyaline Casts 0-2 (0-2) /LPF Discharge Plan Discharge Clinical Impression: Hematuria, Urinary tract infection Patient Disposition: Home, Self-Care Instructions: Urinary Tract Infection in Men (ED) Additional Instructions: Your urinalysis does appear to show a UTI. Take the cefuroxime twice daily for 1 week. Call your urologist tomorrow to let them know about the blood in the urine. If you are unable to pee at all or noticed large clots, you should return to the emergency department Prescriptions: New cefuroxime axetil 500 mg tablet 500 mg PO Q12H Qty: 14 0RF No Action cholecalciferol (vitamin D3) 50 mcg (2,000 unit) capsule 50 mcg PO DAILY Qty: 90 1RF amlodipine 5 mg tablet 5 mg PO DAILY Qty: 90 3RF lisinopril 40 mg tablet 40 mg PO BID Qty: 180 3RF hydrochlorothiazide 25 mg tablet 25 mg PO DAILY Qty: 90 3RF atorvastatin 40 mg tablet 40 mg PO BEDTIME Qty: 30 2RF metformin 500 mg tablet 500 mg PO BID 30 Days Qty: 60 0RF metoprolol succinate 25 mg tablet extended release 24 hr 12.5 mg PO DAILY 90 Days Qty: 45 0RF metoprolol succinate 100 mg tablet extended release 24 hr 100 mg PO DAILY Qty: 90 3RF Rx Instructions: This is wha Print Language: Romansh
[2025-01-10 15:46] LABS: MANUAL DIFF FLAG NO
[2025-01-10 15:48] LABS: Hematocrit 41.4 % (42.0-52.0); Hemoglobin 14.0 g/dl (14.0-18.0); Imm Gran Abs Auto 0.02 X10*3/uL (0.00-0.03); Imm Gran Pct Auto 0.2 % (0.0-0.4); Lymphocytes Absolute Auto 2.8 X10*3/uL (1.2-4.9); Mean Corpuscular HGB Conc 33.8 g/dl (31.0-36.0); Mean Corpuscular Hemoglobin 32.5 pg (27.0-33.0); Mean Corpuscular Volume 96.1 fL (80.0-98.0); NRBC Abs Auto 0.000 X10*3/uL (0.0-0.012); NRBC Pct Auto 0.0 /100WBC (0.0-0.2); Platelet Count 194 X10*3/uL (160-400); Red Blood Count 4.31 X10*6/uL (4.60-5.80); White Blood Count 10.1 X10*3/uL (4.8-10.8)
[2025-01-10 16:07] VITALS: BP 128/77; PULSE 74; RESP 16; TEMP 36.9; O2SAT 94
[2025-01-10 16:08] LABS: Alanine Aminotransferase 80 U/L (0-40); Albumin Level 4.6 g/dL (3.5-5.0); Alkaline Phosphatase 81 U/L (39-117); Anion Gap 13 (12-20); Aspartate Amino Transferase 53 U/L (5-37); Blood Urea Nitrogen 34 mg/dL (9-16); Calcium 9.9 mg/dL (8.4-10.2); Carbon Dioxide 27 mmol/L (22-29); Chloride 102 mmol/L (96-108); Creatinine Clr Calc Pharmacy 58.7; Estimated Glomerular Filt Rate 53; INTERNATIONAL NORM RATIO 1.0 (0.9-1.1); Potassium 5.0 mmol/L (3.3-5.1); Prothrombin Time 11.7 SEC (11.2-13.5); Sodium 137 mmol/L (135-145); Total Protein 7.4 g/dL (6.5-8.0)
[2025-01-10 16:43] LABS: Appearance Urine Turbid; PH 6.5 (5.0-9.0); Specific Gravity - Urine 1.025 (1.005-1.025); UMIC TRIGGER UACC YES
[2025-01-10 17:32] LABS: UACC Culture Trigger YES
[2025-01-10 17:47] VITALS: BP 126/86; PULSE 70; RESP 16; TEMP 36.9; O2SAT 95
[2025-01-10 17:49] VITALS: BP 126/86; PULSE 70; RESP 16; TEMP 36.9; O2SAT 95
--- OUTSIDE RECORDS SUMMARY | 2025-01-11 04:37 | XMS_ITS | Clinical Summary ---
Author Organization [facility] Address [address] [place] [id number] Phone Care Team Providers Care Dynamo Repairer Name Role Phone Ab Gaming NP Primary Care Provider [phone] Allergies Active Allergy Reactions Criticality Noted Date [...] Visit [facility] [address] [place] [address] Corey Young MD [address] [facility] [address] [place] [address] Health Maintenance Due Date Last [...] ORDERABLES Final Re sul Performing Organization Address [facility] de Phone Number [place] See order comments [place] [address] * (ABNORMAL) Albumin, urine, random (11/22/2024 1:04 [...] Young MD LAB URINE ORDERABLES Final Re [facility] Performing Organization Address [facility] de Phone Number [place] See order comments [place] [address] * (ABNORMAL) Urinalysis with microscopic (11/22/2024 1:04 PM EDT) Color Urine Yellow See orde r comments Appearance Urine Clear See order comments pH Urine 6.0 5.0 - 9.0 See order comments Glucose Urine 100(A) Negative mg/dL See order comments Blood, Urine Negative Negative See ord er comments Specific [place] Urine 1.020 1.005 - 1.025 See order [...] ORDERABLES Final Re sult Performing Organization Address [facility] de Phone Number [place] See order comments [place] [address] * Total Protein (11/22/2024 12:57 PM EDT) Total Protein 7.8 6.5 - 8.0 g/dL See order comments 11/22/2024 12:5 7 PM EDT 11/22/2024 12:57 PM EDT us Corey Young MD LAB [id number] SOLICITED RESULTS Final Result Performing Organization Address [facility] de Phone Number [place] See order comments [place] [address] * Creatinine (11/22/2024 12:57 PM EDT) Creatinine Serum 1.11 0.5 - 1.4 mg/dL See order comments eGFR (Calc) >60 See orde r comments Comment: Chronic Kidney Disease: Estimated GFR < 60 mL/min/1.73m2 Severe Kidney Disease: Estimated GFR < 15 mL/min/1.73m2 11/22/2024 12:5 7 PM EDT 11/22/2024 12:57 PM EDT us Corey Young MD LAB BLOOD ORDERABLES Final Re sult Performing Organization Address [facility] Co de Phone Number [place] See order comments [place] [address] * PTH, Intact (11/22/2024 12:57 PM EDT) Parathyroid Hormone, Intact 65.4 8.7 - 77.1 pg/mL See order comments 11/22/2024 12:5 7 PM EDT 11/22/2024 12:57 PM EDT Corey Young MD LAB BLOOD ORDERABLES Final Re sult Performing Organization Address [facility] de Phone Number [place] See order comments [place] [address] * Vitamin D 25 Hydroxy (11/22/2024 12:57 [...] ORDERABLES Final Re sult Performing Organization Address City/[facility] Co de Phone Number [place] See order comments [place] [address] * (ABNORMAL) BUN (11/22/2024 12:57 PM EDT) BUN 21(H) 9 - 16 mg/dL See order comments 11/22/2024 12:5 7 PM EDT 11/22/2024 12:57 PM EDT us Corey Young MD LAB BLOOD ORDERABLES Final Re sult Performing Organization Address [facility] Co de Phone Number [place] See order comments [place] [address] * Phosphorus (11/22/2024 12:57 PM EDT) Phosphorus, Serum 2.8 2.7 - 4.5 mg/dL See order comments Blood Venous blood / Unknown 11/22/2024 12:57 PM EDT 11/22/2024 12:57 PM EDT us Corey Young MD LAB BLOOD ORDERABLES Final Re sult Performing Organization Address [facility] Phone Number [place] See order comments [place] [address] * Magnesium (11/22/2024 12:57 PM EDT) Magnesium 2.1 1.6 - 2.6 mg/dL See order comments Blood Venous blood / Unknown 11/22/2024 12:57 PM EDT 11/22/2024 12:57 PM EDT us Corey Young MD LAB BLOOD ORDERABLES Final Re sult Performing Organization Address [facility] Phone Number [place] See order comments [place] [address] * Calcium (11/22/2024 12:57 PM EDT) Calcium 10.0 8.4 - 10.2 mg/dL See order comments Blood Venous blood / Unknown 11/22/2024 12:57 PM EDT 11/22/2024 12:57 PM EDT us Corey Young MD LAB BLOOD ORDERABLES Final Re sult Performing Organization Address [facility] de Phone Number [place] See order comments [place] [address] * Albumin (11/22/2024 12:57 PM EDT) Albumin 5.0 3.5 - 5.0 g/dL See order comments Blood Venous blood / Unknown 11/22/2024 12:57 PM EDT 11/22/2024 12:57 PM EDT Corey Young MD LAB BLOOD ORDERABLES Final Re sult [place] See order comments [place] [address] * Electrolyte panel (11/22/2024 12:57 PM EDT) [...] order comments [place] [address] from Last 3 Months Insurance [employer] [facility] Adv PPO ([id number]) Care Teams Dynamo Repairer Relationship Specialty Start Date End Date Ab Gaming NP [facility] [place] [address] PCP - General 03/04/20
--- OUTSIDE RECORDS SUMMARY | 2025-01-11 04:37 | XMS_ITS | Encounter Summary ---
Author Organization [facility] Address [address] [place] [address] Phone Care Team Providers Care Moshgiach Name Role Phone Ab Gaming NP Primary Care Provider + Encounter Details Date Type Department Care Team (Late st Contact Info) Description 08/16/2023 Telephone [facility] [address] Floor, [address] [place] [address] Christian Sahni MD [address] [place] [address] [email or web address] Social History [...] disease documented in this encounter Care Teams Moshgiach Relationship Specialty Start Date End Date Ab Gaming NP [address] [address] PCP - General Nurse Practitioner 05/10/23 documented as of this encounter Additional Source Comments The information contained in this document represents components of the legal health record. It is not the complete legal health record.[facility]
--- OUTSIDE RECORDS SUMMARY | 2025-01-11 04:37 | XMS_ITS | Clinical Summary ---
Author Organization [facility] Address [address] [facility] [address] [place] [phone] Phone Care Team Providers Care Investment Fund Manager Name Role Phone Ab Gaming NP Primary [...] REPLACEMENT [employer] PPO MEDICARE REPLACEMENT Care Teams Investment Fund Manager Relationship Specialty Start Date End Date Ab Gaming NP [address] [place] [address] PCP - General Nurse Practitioner 05/10/23 Additional Source Comments The information contained in this document represents components of the legal health record. It is not the complete legal health record.[facility]
== END 2025-01-10 17:52 | disposition home or self-care (01) ==
PROVIDERS: Physician Assistant; Emergency Provider Emergency Medicine; PCP Nurse Practitioner Family
DX: N39.0 Urinary tract infection, site not specified (principal); Z96.0 Presence of urogenital implants
CPT/HCPCS: 36415; 80048; 80076; 81001; 85025; 85610; 87086; 99283

== ENCOUNTER 2025-01-11 17:25 | Emergency (ER) | payer MEDICARE, SELFPAY ==
[2025-01-11 17:48] VITALS: BP 199/95; PULSE 82; RESP 22; TEMP 36.3; O2SAT 96; BMI 32.9
--- NOTE | 2025-01-11 17:54 | ED.MALEGU ---
HPI - Male Genitourinary General Chief complaint: Urogenital-Male Stated complaint: General Medical Time Seen by Provider: 01/11/25 18:29 Source: patient and family Mode of arrival: ambulatory Limitations: no limitations History of Present Illness ED Provider: DR. Walters HPI Narrative: This is a 64-year-old male came in for evaluation of abdominal distention with pain and Blunt catheter has not been draining for a whole day today. This gentleman had a urinary retention on 01/03/2025 required Blunt catheter drainage had a CT abdomen and pelvis which is showing a large prostate, then patient return on 01/10/2025 for hematuria, and patient was started on cefuroxime 500 mg b.i.d. for 1 week then was discharged home, patient returned today for increased suprapubic distention and severe abdominal discomfort with malfunctioning of the Blunt catheter that is not draining urine all day today. Related Data Previous Rx's ?Medication ?Instructions ?Recorded cholecalciferol (vitamin D3) 50 50 mcg PO DAILY #90 caps 03/06/24 mcg (2,000 unit) capsule amlodipine 5 mg tablet 5 mg PO DAILY #90 tabs 06/19/24 metoprolol succinate 100 mg 100 mg PO DAILY #90 tabs 11/22/24 tablet,extended release 24 hr metoprolol succinate 25 mg 12.5 mg (1/2 x 25 mg) PO DAILY 90 11/22/24 tablet,extended release 24 hr days #45 tabs lisinopril 40 mg tablet 40 mg PO BID #180 tabs 11/24/24 hydrochlorothiazide 25 mg tablet 25 mg PO DAILY #90 tabs 12/11/24 metformin 500 mg tablet 500 mg PO BID 30 days #60 tabs 01/03/25 atorvastatin 40 mg tablet 40 mg PO BEDTIME #30 tabs 01/04/25 cefuroxime axetil 500 mg tablet 500 mg PO Q12H #14 tabs 01/10/25 Allergies Allergy/AdvReac Type Severity Reaction Status Date / Time No Known Allergies Allergy Verified 01/11/25 17:52 Review of Systems Review of Systems: All other systems are reviewed and are negative Constitutional: Reports as per HPI and Reports no additional constitutional complaints Eyes: Reports as per HPI and Reports no additional eye complaints Reports system reviewed and no additional complaints, except as documented Cardiovascular: Reports as per HPI and Reports no additional cardiovascular complaints Respiratory: Reports as per HPI and Reports no additional respiratory complaints Gastrointestinal: Reports as per HPI and Reports no additional gastrointestinal complaints Genitourinary: Reports no additional female genitourinary complaints Musculoskeletal: Reports no additional musculoskeletal complaints Skin/Breast: Reports system reviewed and no additional complaints, except as docu Psychiatric: Reports no additional psychiatric complaints Endocrine: Reports no additional endocrine complaints Hematologic/Lymphatic: Reports no additional hematologic/lymphatic complaints Allergic/Immunologic: Reports no additional allergic/immunologic complaints Reports system reviewed and no additional complaints, except as documented and Reports Abnormal speech present [facility] Past Medical History Medical History Elevated liver enzymes Hypertension PAF (paroxysmal atrial fibrillation) Persistent atrial fibrillation History of cardioversion Hyperlipidemia Incisional hernia New onset a-fib CKD (chronic kidney disease), stage III COVID-19 vaccine series completed Fatty liver History of duodenal ulcer Osteoarthritis of both knees Surgical History History of ventral hernia repair History of total left knee replacement History of total right knee replacement H/O colonoscopy S/P exploratory laparotomy (~06/27/19) History of exploratory laparotomy (~01/28/19) History of hand surgery Family History Family History Father No problems noted. Mother No problems noted. Social History Social History Household Members: Spouse Housing: House Are you a primary assisted living care manager to a significant other at home: No Do you presently have visiting nurse or other home services: No Alcohol intake: current Alcohol intake frequency: holidays/special occasions only Alcohol type: beer Comment: sleeping Patient Tobacco Use Status: Former Tobacco user Tobacco use type: Cigarette Years Smoked: 15 e-Cigarette/Vaping Use: Never Used Second Hand Smoke Exposure: No Advance Directives: Yes Advance Directives on File: Yes Advance Directives Date on File: 05/03/23 Do you have a plan to hurt others: No Plan service: No Current occupational status: employed 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 Blood pressure elevated. Heart rate normal. Respiratory rate normal. Temperature normal. Oxygen saturation normal. Appearance: Alert. Oriented X3. in acute distress. Head: Normal external exam. Normocephalic. Atraumatic. No Carr signs noted. No raccoon eyes noted Eyes: PERRLA. EOMI. Conjunctiva and sclera normal. Eyelids normal. ENT: TM's Normal. Pharynx normal. Uvula midline. Moist mucous membranes. No trismus noted. No drooling noted. No muffled voice noted. Neck: Normal inspection. Neck supple. FROM. No adenopathy. Thyroid Normal. No meningeal signs. No neck mass noted. CVS: Normal heart rate and rhythm. Heart sound normal. No murmurs noted. Pulses normal throughout. Respiratory: No respiratory distress. Painless inspiration. Breath sounds normal. No wheezes/rales/rhonchi noted. Chest nontender. No accessory muscle usage noted or decreased air movement noted. Abdomen: Suprapubic distention with suprapubic tenderness, No organomegaly noted. No visible injury noted. Back: No CVA tenderness. Full range of motion noted. Skin: Skin warm and dry. Normal skin color. Normal skin turgor. No rashes/lesions/lacerations noted. Extremities: No lower extremity edema. Extremities exhibit normal range of motion. Extremities nontender. Neuro: Oriented X 3. Cranial nerve exam: II-XII are grossly intact No motor deficit. No sensory deficit. Reflexes normal. Course Course Course Narrative: RME: 64-year-old male presents to ED for inability to urinate even when catheter in place. Patient states urinary retention since 15:30 after having a bowel movement. Patient has yesterday with in the ED for blood in the Blunt bag but they that is no blood but having urinary retention evening with the catheter. Repeat labs bladder scan ordered. Patient to be brought back to the ED Reevaluation(s) Reevaluation #1: 64-year-old male with urinary retention needed Blunt catheter, currently on antibiotic for UTI return for urinary retention and severe discomfort patient got Blunt catheter replaced by myself at the bedside to relieves the patient acute distress and 700 cc of clear urine was drained with instant relief of patient's symptoms. Will discharge to follow-up with the urologist. Time: 20:30 Medical Decision Making Differential Diagnosis Differential Diagnoses: The differential diagnosis associated with the presentation includes ( Malfunctioning Blunt catheter, UTI, hematuria.) Admission/Observation Consideration of admission/observation: Escalation of care including admission/observation considered Lab Data MDM Lab Attestation statement: I reviewed the patient's lab results. 01/11/25 18:30 01/11/25 18:30 Labs: Lab Results 01/11/25 Range/Units 18:30 WBC 8.6 (4.8-10.8) X10*3/uL RBC 4.31 L (4.60-5.80) X10*6/uL Hgb 13.9 L (14.0-18.0) g/dl Hct 40.7 L (42.0-52.0) % MCV 94.4 (80.0-98.0) fL MCH 32.3 (27.0-33.0) pg MCHC 34.2 (31.0-36.0) g/dl RDW 12.0 (11.0-16.0) % Plt Count 199 (160-400) X10*3/uL MPV 10.0 (9.4-12.4) fL Immature Gran % (Auto) 0.3 (0.0-0.4) % Neut % (Auto) 57.4 (45-73) % Lymph % (Auto) 28.5 (20-40) % [place] % (Auto) 11.3 H (2-11) % Eos % (Auto) 1.7 (0-4) % Baso % (Auto) 0.8 (0-2) % Lymph # (Auto) 2.5 (1.2-4.9) X10*3/uL [place] # (Auto) 1.0 (0.1-1.2) X10*3/uL Eos # (Auto) 0.2 (0.0-0.4) X10*3/uL Baso # (Auto) 0.1 (0.0-0.2) X10*3/uL Abs Immat Gran (auto) 0.03 (0.00-0.03) X10*3/uL Absolute Neuts (auto) 4.9 (2.0-8.3) x10*3/uL Absolute Nucleated RBC 0.000 (0.0-0.012) X10*3/uL Nucleated RBC % (auto) 0.0 (0.0-0.2) /100WBC Sodium 135 (135-145) mmol/L Potassium 4.8 (3.3-5.1) mmol/L Chloride 103 (96-108) mmol/L Carbon Dioxide 22 (22-29) mmol/L Anion Gap 15 (12-20) BUN 34 H (9-16) mg/dL Creatinine 1.40 (0.5-1.4) mg/dL Estim Creat Clear Calc 57.0 Estimated GFR 51 Random Glucose 315 H (60-115) mg/dL Calcium 9.7 (8.4-10.2) mg/dL Total Bilirubin 0.3 (0.0-1.0) mg/dL AST 45 H (5-37) U/L ALT 77 H (0-40) U/L Alkaline Phosphatase 84 (39-117) U/L Total Protein 7.3 (6.5-8.0) g/dL Albumin 4.7 (3.5-5.0) g/dL Discharge Plan Discharge Clinical Impression: Complication, blocked Blunt catheter, Acute urinary retention Patient Disposition: Home, Self-Care Instructions: Blunt Catheter Placement and Care (ED) Additional Instructions: follow-up with your urologist for Blunt catheter management. Finish your antibiotic that was prescribed yesterday until it finished. Prescriptions: No Action cholecalciferol (vitamin D3) 50 mcg (2,000 unit) capsule 50 mcg PO DAILY Qty: 90 1RF amlodipine 5 mg tablet 5 mg PO DAILY Qty: 90 3RF lisinopril 40 mg tablet 40 mg PO BID Qty: 180 3RF hydrochlorothiazide 25 mg tablet 25 mg PO DAILY Qty: 90 3RF atorvastatin 40 mg tablet 40 mg PO BEDTIME Qty: 30 2RF metformin 500 mg tablet 500 mg PO BID 30 Days Qty: 60 0RF cefuroxime axetil 500 mg tablet 500 mg PO Q12H Qty: 14 0RF metoprolol succinate 25 mg tablet extended release 24 hr 12.5 mg PO DAILY 90 Days Qty: 45 0RF metoprolol succinate 100 mg tablet extended release 24 hr 100 mg PO DAILY Qty: 90 3RF Rx Instructions: This is wha Interventions: ED Discharge Assessment Last Done: 01/11/25 20:27 Discharge Date/Time: 01/11/25 20:27 Print Language: Turkmen
[2025-01-11 18:46] LABS: MANUAL DIFF FLAG NO
[2025-01-11 19:07] LABS: Alanine Aminotransferase 77 U/L (0-40); Albumin Level 4.7 g/dL (3.5-5.0); Alkaline Phosphatase 84 U/L (39-117); Anion Gap 15 (12-20); Aspartate Amino Transferase 45 U/L (5-37); Blood Urea Nitrogen 34 mg/dL (9-16); Calcium 9.7 mg/dL (8.4-10.2); Carbon Dioxide 22 mmol/L (22-29); Chloride 103 mmol/L (96-108); Creatinine Clr Calc Pharmacy 57.0; Estimated Glomerular Filt Rate 51; Potassium 4.8 mmol/L (3.3-5.1); Sodium 135 mmol/L (135-145); Total Protein 7.3 g/dL (6.5-8.0)
[2025-01-11 19:10] LABS: Hematocrit 40.7 % (42.0-52.0); Hemoglobin 13.9 g/dl (14.0-18.0); Imm Gran Abs Auto 0.03 X10*3/uL (0.00-0.03); Imm Gran Pct Auto 0.3 % (0.0-0.4); Lymphocytes Absolute Auto 2.5 X10*3/uL (1.2-4.9); Mean Corpuscular HGB Conc 34.2 g/dl (31.0-36.0); Mean Corpuscular Hemoglobin 32.3 pg (27.0-33.0); Mean Corpuscular Volume 94.4 fL (80.0-98.0); NRBC Abs Auto 0.000 X10*3/uL (0.0-0.012); NRBC Pct Auto 0.0 /100WBC (0.0-0.2); Platelet Count 199 X10*3/uL (160-400); Red Blood Count 4.31 X10*6/uL (4.60-5.80); White Blood Count 8.6 X10*3/uL (4.8-10.8)
[2025-01-11 19:30] VITALS: BP 104/64; PULSE 60; RESP 18; TEMP 36.4; O2SAT 94
--- NOTE | 2025-01-11 19:42 | MHC.EDTECH ---
700mL of clear/light yellow urine drained from givens cath, aware
[2025-01-11 20:27] VITALS: BP 104/64; PULSE 60; RESP 18; TEMP 36.4; O2SAT 94
== END 2025-01-11 20:27 | disposition home or self-care (01) ==
PROVIDERS: Physician Assistant; Emergency Provider Emergency Medicine
DX: R33.9 Retention of urine, unspecified (principal); T83.9XXA Unspecified complication of genitourinary prosthetic device, implant and graft, initial encounter; Y92.9 Unspecified place or not applicable
CPT/HCPCS: 36415; 51702; 80053; 85025; 99282; 99283

== ENCOUNTER 2025-01-17 13:20 | Outpatient (AMB) | payer MEDICARE, SELFPAY ==
--- NOTE | 2025-01-17 13:21 | A.OFFVIS_ITS ---
Vital Signs 01/17/25 13:22 Height 5 ft 7 in Weight 202 lb 13.204 oz BMI 31.8 BP 100/60 Blood Pressure Location Rt brachial Position Sitting Pulse 77 Pulse Source Pulse Oximeter Pulse Oximetry (%) 96 Oxygen Delivery Method Room Air Intake Visit Reasons: Type 2 diabetes mellitus with hyperglycemia Intake Note: NEW Patient presents today to establish treatment for Type 2 Diabetes Mellitus: Last Diabetic eye exam was on: DUE Last Podiatry exam was on: Patient does not see a Special Education Math Teacher Most recent HbA1c: 10.9%, 12/07/2024 Random Glucose: 160 mg/dL Counter Top Assembler Required: No Accompanied by: Self / Same As Patient Allergies No Known Allergies Allergy (Verified 01/20/25 11:31) HPI Comments Details: 64-year-old presenting for diabetic consultation. He is accompanied by his Medical history: Atrial fibrillation, CHF, carotid artery stenosis Diagnosed with diabetes Oct with A1C 10.9 He notes he was prediabetic for a few years Current medication Metformin 500mg twice daily Stopped drinking etoh Buying lower sugar foods. Lost weight since diagnosis. He had put on a lot of weight over the past year prior to diagnosis HLD-on atorvastatin HTN, CAD-on LAURA Due for eye exam. They will schedule Denies neuropathy ROS CONSTITUTIONAL: Denies weight loss, fever and chills. HEENT: Denies changes in vision and hearing. RESPIRATORY: Denies SOB and cough. CV: Denies palpitations and CP GI: Denies abdominal pain, nausea, vomiting and diarrhea. : Denies dysuria and urinary frequency. MSK: Denies new myalgia and joint pain. SKIN: Denies rash and pruritus. NEUROLOGICAL: Denies headache PSYCHIATRIC: Denies recent changes in mood. PHYSICAL EXAM: GENERAL: Alert and oriented x 3. NAD EYES: EOMI. Anicteric. HENT: Moist mucous membranes. No scleral icterus. No cervical lymphadenopathy. LUNGS: Clear to auscultation bilaterally. CARDIOVASCULAR: Regular rate and rhythm. No murmur. No JVD. ABDOMEN: Soft, non-tender +bs EXTREMITIES: No edema. Non-tender. SKIN: No rashes or lesions. Warm. NEUROLOGIC: No focal neurological deficits. CN II-XII grossly intact PSYCHIATRIC: Cooperative. Appropriate mood and affect [facility] Medical History Elevated liver enzymes Hypertension PAF (paroxysmal atrial fibrillation) Persistent atrial fibrillation History of cardioversion Hyperlipidemia Incisional hernia New onset a-fib CKD (chronic kidney disease), stage III COVID-19 vaccine series completed Fatty liver History of duodenal ulcer Osteoarthritis of both knees Surgical History History of ventral hernia repair History of total left knee replacement History of total right knee replacement H/O colonoscopy S/P exploratory laparotomy (~06/27/19) History of exploratory laparotomy (~01/28/19) History of hand surgery Family History Father No problems noted. Mother No problems noted. Social History Household Members: Spouse Housing: House Are you a primary career and guidance counselor to a significant other at home: No Do you presently have visiting nurse or other home services: No Alcohol intake: current Alcohol intake frequency: holidays/special occasions only Alcohol type: beer Comment: sleeping Patient Tobacco Use Status: Former Tobacco user Tobacco use type: Cigarette Years Smoked: 15 Smoked in Last 30 Days: No e-Cigarette/Vaping Use: Never Used Second Hand Smoke Exposure: No Use of substances other than those prescribed or required for medical reasons: No Advance Directives: Yes Advance Directives on File: Yes Advance Directives Date on File: 05/03/23 Do you have a plan to hurt others: No Plan service: No Current occupational status: employed 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 Cognitive needs: No Hearing needs: No Vision needs: No Physical Exam Vital Signs: Last Vital Signs Pulse 77 01/17/25 13:22 BP 100/60 01/17/25 13:22 Pulse Ox 96 01/17/25 13:22 Oxygen Delivery Method Room Air 01/17/25 13:22 BMI result Body Mass Index 31.8 Results Reviewed Results Reviewed: Laboratory Last Values Glucose (Clinic) 160 mg/dL (60-115) H 01/17/25 13:29 Assessment & Plan Assessment & Plan (1) Newly diagnosed diabetes: Code(s): E11.9 - Type 2 diabetes mellitus without complications Category: Medical Plan Diabetes, new diagnosis Reports blood glucose well controlled Discussed treatment of hypoglycemia by rules of 15s Glucometer sent Discussed low carb veg and fruits, declined CDE nutrition He declines follow up april which will be scheduled Advised to call sooner as needed Medications: New FreeStyle Lite Meter (blood-glucose meter) As directed 1 ea 0RF NS E11.65 - Type 2 diabetes mellitus with hyperglycemia FreeStyle Lancets (lancets) once daily and as needed 100 ea 3RF NS E11.65 - Type 2 diabetes mellitus with hyperglycemia FreeStyle Test (blood sugar diagnostic) Check once daily and as needed 100 ea 3RF NS E11.65 - Type 2 diabetes mellitus with hyperglycemia Coding Level of Care Code Est Pt Level 4 (95508) Diagnoses Newly diagnosed diabetes E11.9
[2025-01-17 13:22] VITALS: BP 100/60; PULSE 77; O2SAT 96; BMI 31.8
[2025-01-17 13:32] LABS: Glucose, Whole Blood 160 mg/dL (60-115)
--- OUTSIDE RECORDS SUMMARY | 2025-01-17 16:27 | XMS_ITS | Clinical Summary ---
Author Organization [facility] Address [address] [place] [phone] Phone Care Team Providers Care Chief Guard Name Role Phone Ab Gaming NP Primary Care Provider [phone] Allergies Active Allergy Reactions Criticality Noted Date [...] [facility] [address] [place] [address] Corey Young MD [address] [address] [place] [address] Health Maintenance Due Date Last [...] ORDERABLES Final Re sul Performing Organization Address [facility] de Phone Number [place] See order comments [place] [address] * (ABNORMAL) Albumin, urine, random (11/22/2024 1:04 [...] Young MD LAB URINE ORDERABLES Final Re [facility] Performing Organization Address [facility] de Phone Number [place] See order comments [place] [address] * (ABNORMAL) Urinalysis with microscopic (11/22/2024 1:04 PM EDT) Color Urine Yellow See orde r comments Appearance Urine Clear See order comments pH Urine 6.0 5.0 - 9.0 See order comments Glucose Urine 100(A) Negative mg/dL See order comments Blood, Urine Negative Negative See ord er comments Specific [place] Urine 1.020 1.005 - 1.025 See order [...] ORDERABLES Final Re sult Performing Organization Address [facility] de Phone Number [place] See order comments [place] [address] * Total Protein (11/22/2024 12:57 PM EDT) Total Protein 7.8 6.5 - 8.0 g/dL See order comments 11/22/2024 12:5 7 PM EDT 11/22/2024 12:57 PM EDT us Corey Young MD LAB [id number] SOLICITED RESULTS Final Result Performing Organization Address [facility] de Phone Number [place] See order comments [place] [address] * Creatinine (11/22/2024 12:57 PM EDT) Creatinine Serum 1.11 0.5 - 1.4 mg/dL See order comments eGFR (Calc) >60 See orde r comments Comment: Chronic Kidney Disease: Estimated GFR < 60 mL/min/1.73m2 Severe Kidney Disease: Estimated GFR < 15 mL/min/1.73m2 11/22/2024 12:5 7 PM EDT 11/22/2024 12:57 PM EDT us Corey Young MD LAB BLOOD ORDERABLES Final Re sult Performing Organization Address [facility] Co de Phone Number [place] See order comments [place] [address] * PTH, Intact (11/22/2024 12:57 PM EDT) Parathyroid Hormone, Intact 65.4 8.7 - 77.1 pg/mL See order comments 11/22/2024 12:5 7 PM EDT 11/22/2024 12:57 PM EDT Corey Young MD LAB BLOOD ORDERABLES Final Re sult Performing Organization Address [facility] de Phone Number [place] See order comments [place] [address] * Vitamin D 25 Hydroxy (11/22/2024 12:57 [...] ORDERABLES Final Re sult Performing Organization Address City/[facility] Co de Phone Number [place] See order comments [place] [address] * (ABNORMAL) BUN (11/22/2024 12:57 PM EDT) BUN 21(H) 9 - 16 mg/dL See order comments 11/22/2024 12:5 7 PM EDT 11/22/2024 12:57 PM EDT us Corey Young MD LAB BLOOD ORDERABLES Final Re sult Performing Organization Address [facility] Co de Phone Number [place] See order comments [place] [address] * Phosphorus (11/22/2024 12:57 PM EDT) Phosphorus, Serum 2.8 2.7 - 4.5 mg/dL See order comments Blood Venous blood / Unknown 11/22/2024 12:57 PM EDT 11/22/2024 12:57 PM EDT us Corey Young MD LAB BLOOD ORDERABLES Final Re sult Performing Organization Address [facility] Phone Number [place] See order comments [place] [address] * Magnesium (11/22/2024 12:57 PM EDT) Magnesium 2.1 1.6 - 2.6 mg/dL See order comments Blood Venous blood / Unknown 11/22/2024 12:57 PM EDT 11/22/2024 12:57 PM EDT us Corey Young MD LAB BLOOD ORDERABLES Final Re sult Performing Organization Address [facility] Phone Number [place] See order comments [place] [address] * Calcium (11/22/2024 12:57 PM EDT) Calcium 10.0 8.4 - 10.2 mg/dL See order comments Blood Venous blood / Unknown 11/22/2024 12:57 PM EDT 11/22/2024 12:57 PM EDT us Corey Young MD LAB BLOOD ORDERABLES Final Re sult Performing Organization Address [facility] de Phone Number [place] See order comments [place] [address] * Albumin (11/22/2024 12:57 PM EDT) Albumin 5.0 3.5 - 5.0 g/dL See order comments Blood Venous blood / Unknown 11/22/2024 12:57 PM EDT 11/22/2024 12:57 PM EDT Corey Young MD LAB BLOOD ORDERABLES Final Re sult [place] See order comments [place] [address] * Electrolyte panel (11/22/2024 12:57 PM EDT) [...] order comments [place] [address] from Last 3 Months Insurance [employer] [facility] Adv PPO ([id number]) Care Teams Chief Guard Relationship Specialty Start Date End Date Ab Gaming NP [facility] [place] [address] PCP - General 03/04/20
--- OUTSIDE RECORDS SUMMARY | 2025-01-17 16:27 | XMS_ITS | Encounter Summary ---
Author Organization [facility] Address [address] [place] [address] Phone Care Team Providers Care Veteran Appeals Reviewer Name Role Phone Ab Gaming NP Primary Care Provider + Encounter Details Date Type Department Care Team (Late st Contact Info) Description 08/16/2023 Telephone [facility] [address] Floor, [address] [place] [address] Christian Sahni MD [address] [place] [address] [email or web address] Social History Tobacco Use Types Packs/Day Years [...] disease documented in this encounter Care Teams Veteran Appeals Reviewer Relationship Specialty Start Date End Date bA Gaming NP [address] [place] [address] PCP - General Nurse Practitioner 05/10/23 documented as of this encounter Additional Source Comments The information contained in this document represents components of the legal health record. It is not the complete legal health record.[facility]
--- OUTSIDE RECORDS SUMMARY | 2025-01-17 16:27 | XMS_ITS | Clinical Summary ---
Author Organization [facility] Address [address] [place] [phone] Phone Care Team Providers Care Public Works Commissioner Name Role Phone Ab Gaming NP Primary [...] REPLACEMENT [employer] PPO MEDICARE REPLACEMENT Care Teams Public Works Commissioner Relationship Specialty Start Date End Date Ab Gaming NP [address] [place] [address] PCP - General Nurse Practitioner 05/10/23 Additional Source Comments The information contained in this document represents components of the legal health record. It is not the complete legal health record.[facility]
== END 2025-01-17 14:13 | disposition home or self-care (01) ==
LOC: HO.ENCR 13:20
PROVIDERS: PCP Nurse Practitioner Family; Visit Provider Internal Medicine
DX: E11.9 Type 2 diabetes mellitus without complications (principal)

== ENCOUNTER → 2025-01-17 13:20 | Outpatient (BNVA) | payer MEDICARE, SELFPAY | PROVIDERS: PCP Nurse Practitioner Family; Visit Provider Internal Medicine | DX: E11.65 Type 2 diabetes mellitus with hyperglycemia (principal) | CPT/HCPCS: 82947; 99212 ==

== ENCOUNTER 2025-01-20 11:22 | Emergency (ER) | payer MEDICARE, SELFPAY ==
[2025-01-20 11:27] VITALS: BP 158/79; PULSE 76; RESP 20; TEMP 36.4; O2SAT 97; BMI 32.3
--- NOTE | 2025-01-20 11:27 | ED_ITS ---
HPI - General Adult General Chief complaint: Urogenital-Male Stated complaint: Urinary Symptoms Time Seen by Provider: 01/20/25 12:20 History of Present Illness ED Provider: Zulema Garsia NP HPI narrative: 64-year-old male with a medical history significant for acute urinary retention status post Givens catheter placement on 01/11/25, with initial urinary retention and hematuria noted on 01/03/2025 with noted large prostate on CT scan, currently followed by urology presents to the ED reporting a clotted Givens catheter for several hours prior to arrival. Patient reports that there was some leaking of urine around the tube, now with suprapubic abdominal pain. He feels as though the catheter was not draining correctly. He reports that he does not attach a Givens catheter bag to the site 14/09, a catheter bag is only attached at night, per urology instructions. Denies any fever, chills. No nausea, vomiting, diarrhea or constipation. No chest pain or pressure, shortness of breath. He is on Eliquis for anticoagulants for PAF. Hx also of dyslipidemia, HTN, PVD, anemia. Upon arrival to the ED it was noted that he had 642 mL of urine in the bladder that he is unable to drain through the port. Related Data Previous Rx's ?Medication ?Instructions ?Recorded cholecalciferol (vitamin D3) 50 50 mcg PO DAILY #90 ca ps 03/06/24 mcg (2,000 unit) capsule amlodipine 5 mg tablet 5 mg PO DAILY #90 tabs 06/19 metoprolol succinate 100 mg 100 mg PO DAILY #90 tabs 1 tablet,extended release 24 hr metoprolol succinate 25 mg 12.5 mg (1/2 x 25 mg) PO DA MARCEL 90 11/22/24 tablet,extended release 24 hr days #45 tabs lisinopril 40 mg tablet 40 mg PO BID #180 tabs 11/24 hydrochlorothiazide 25 mg tablet 25 mg PO DAILY #90 ta bs 12/11/24 metformin 500 mg tablet 500 mg PO BID 30 days #60 ta bs 01/03/25 atorvastatin 40 mg tablet 40 mg PO BEDTIME #30 tabs cefuroxime axetil 500 mg tablet 500 mg PO Q12H #14 tab s 01/10/25 FreeStyle Lancets 28 gauge #100 ea 01/17/25 (lancets) FreeStyle Lite Meter #1 ea 01/17/25 (blood-glucose meter) FreeStyle Test (blood sugar #100 ea 01/17/25 diagnostic) Allergies Allergy/AdvReac Type Severity Reaction Status Date / Time No Known Allergies Allergy Verified 01/20/25 11:31 Review of Systems 2 Review of Systems: ROS is otherwise negative unless mentioned in HPI. [facility] Past Medical History Medical History Elevated liver enzymes Hypertension PAF (paroxysmal atrial fibrillation) Persistent atrial fibrillation History of cardioversion Hyperlipidemia Incisional hernia New onset a-fib CKD (chronic kidney disease), stage III COVID-19 vaccine series completed Fatty liver History of duodenal ulcer Osteoarthritis of both knees Surgical History History of ventral hernia repair History of total left knee replacement History of total right knee replacement H/O colonoscopy S/P exploratory laparotomy (~06/27/19) History of exploratory laparotomy (~01/28/19) History of hand surgery Family History Family History Father No problems noted. Mother No problems noted. Social History Social History Household Members: Spouse Housing: House Are you a primary career placement services counselor to a significant other at home: No Do you presently have visiting nurse or other home services: No Alcohol intake: current Alcohol intake frequency: holidays/special occasions only Alcohol type: beer Comment: sleeping Patient Tobacco Use Status: Former Tobacco user Tobacco use type: Cigarette Years Smoked: 15 e-Cigarette/Vaping Use: Never Used Second Hand Smoke Exposure: No Advance Directives: Yes Advance Directives on File: Yes Advance Directives Date on File: 05/03/23 Do you have a plan to hurt others: No Plan service: No Current occupational status: employed 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 Constitutional: Well-appearing, NAD. Alert. Oriented X3. Eyes: EOMI. Neck: Normal inspection. Neck supple. CVS: Pulses normal. Respiratory: No respiratory distress. Abdomen: Soft and nontender. Mild suprapubic distention and tenderness. No CVA tenderness. Skin: Skin warm and dry. Normal skin color. Extremities: No lower extremity edema. Neuro: Oriented X 3. No motor deficit. Vital Signs: Vital Signs - 24 hr 01/20/25 11:27 01/20/25 13:09 Temperature 97.6 F Pulse Rate 76 66 Respiratory Rate 20 16 Blood Pressure 158/79 H 111/65 Pulse Oximetry 97 97 Oxygen Delivery Method Room Air Room Air BMI result Body Mass Index 32.3 Course Course Course Narrative: This is a Rapid Medical Examination (RME) performed by Shanti Sawyer PA-C in triage. Full HPI, ROS, assessment and treatment plan per primary provider in the Main ED. Hx: 64 yo M here w/ concerns of givens port malfunction. reports urine is going around the port tube, not draining through the port. he had the port placed this week, no longer using catheter bag. reports mild abdominal pain. Plan: further eval in back Medications Administered Discontinued Medications Generic Name Dose Route Start Last Admin Trade Name Freq PRN Reason Stop Dose Admin Sodium Chloride 1,000 mls @ 999 mls/hr 01/20/25 15:04 01/20/25 16:03 Ns IV 01/20/25 16:04 999 mls/hr .Q1H1M ONE Administration Lidocaine HCl 10 ml 01/20/25 13:56 01/20/25 14:35 Lidocaine Hcl 2 % Urojet 10 Ml Jel.Pf.Lio TOPICAL 01/20/25 13:57 10 ml ONCE ONE Administration Medical Decision Making Medical Decision Making [facility] Narrative: Well-appearing male, NAD, mild distention over the suprapubic region of the abdomen as well as tenderness to palpation there, with arrival urinary retention despite catheter placement of greater than 600 cc of urine. Bedside irrigation performed, I was able to expel a large amount of brown clots with hand- irrigation. He is on anticoagulants. However, after 500 mL of bladder irrigant there is still a large amount of clots, and the urine is not draining independently. Therefore, plan to remove the Givens catheter and insert a three- way Givens catheter to begin continuous bladder irrigation. The patient has still not yet seen Urology outpatient, has a 1st appointment visit on the 01 of February. We will administer bladder irrigation, obtain basic labs, urinalysis, and reassess. 1500-- upon review of the lab work, creatinine level is 1.43. Nine days ago was 1.4. Not overly concerning for JOSÉ, though he typically appears to be around 1 at baseline. He received 1L IVF bolus. The urinalysis shows evidence of blood but no signs of infection. No leukocytosis, lab work was otherwise stable. He currently still has CBI running, the urine is now pink tinged. Plan to consult Urology prior to dispo. 162-- urine is now clear, no longer pink tinged. I was able to speak with Urology Dr. Gomez; the patient should be emptying his catheter port/cap site every 4 hours while awake, and using a Givens catheter bag overnight. Given the clotting, he received CBI in the ED. We will leave the [address] and discharge him home with this. We discussed extensively return precautions if the urine is to turn dark red, and is no longer draining, or he develops any suprapubic abdominal pain. There is no indication for antibiotics given the UA is negative. Patient is agreeable to call the urology office Wednesday morning and discuss with them the hematuria as well as urinary retention and catheter issues, and allow Urology to determine appropriate follow up. His is also agreeable. Provided strict return precautions to the ED. Differential Diagnosis Differential Diagnoses: The differential diagnosis associated with the presentation includes Clotted Givens catheter, Givens catheter port malfunction, and appropriate placement of Givens catheter, underlying cystitis/stone Admission/Observation Consideration of admission/observation: Escalation of care including admission/observation considered Lab Data MDM Lab Attestation statement: I reviewed the patient's lab results. 01/20/25 14:32 01/20/25 14:32 Labs: Lab Results 01/20/25 01/20/25 Range/Units 13:11 14:32 WBC 9.9 (4.8-10.8) X10*3/uL RBC 4.25 L (4.60-5.80) X10*6/uL Hgb 13.8 L (14.0-18.0) g/dl Hct 40.2 L (42.0-52.0) % MCV 94.6 (80.0-98.0) fL MCH 32.5 (27.0-33.0) pg MCHC 34.3 (31.0-36.0) g/dl RDW 11.9 (11.0-16.0) % Plt Count 203 (160-400) X10*3/uL MPV 9.5 (9.4-12.4) fL Immature Gran % (Auto) 0.4 (0.0-0.4) % Neut % (Auto) 70.6 (45-73) % Lymph % (Auto) 19.8 L (20-40) % [place] % (Auto) 7.6 (2-11) % Eos % (Auto) 0.9 (0-4) % Baso % (Auto) 0.7 (0-2) % Lymph # (Auto) 2.0 (1.2-4.9) X10*3/uL [place] # (Auto) 0.8 (0.1-1.2) X10*3/uL Eos # (Auto) 0.1 (0.0-0.4) X10*3/uL Baso # (Auto) 0.1 (0.0-0.2) X10*3/uL Abs Immat Gran (auto) 0.04 H (0.00-0.03) X10*3/uL Absolute Neuts (auto) 7.0 (2.0-8.3) x10*3/uL Absolute Nucleated RBC 0.000 (0.0-0.012) X10*3/uL Nucleated RBC % (auto) 0.0 (0.0-0.2) /100WBC Sodium 140 (135-145) mmol/L Potassium 4.6 (3.3-5.1) mmol/L Chloride 106 (96-108) mmol/L Carbon Dioxide 23 (22-29) mmol/L Anion Gap 16 (12-20) BUN 33 H (9-16) mg/dL Creatinine 1.43 H (0.5-1.4) mg/dL Estim Creat Clear Calc 55.3 Estimated GFR 49 Random Glucose 129 H (60-115) mg/dL Calcium 10.1 (8.4-10.2) mg/dL Urine Color Other A Urine Appearance Clear Urine pH 5.5 (5.0-9.0) Ur Specific [place] 1.010 (1.005-1.025) Urine Protein 30 (1+) H (Neg-Trace) mg/dL Urine Glucose (UA) Negative (Negative) mg/dL Urine Ketones Negative (Negative) mg/dL Urine Blood Large (3+) H (Negative) Urine Nitrite Negative (Negative) Ur Leukocyte Esterase Trace H (Negative) Urine RBC >20 H (0-2) /HPF Urine WBC 0-5 (0-5) /HPF Ur Squamous Epith Cells 0-2 (0-2) /HPF Urine Bacteria None Seen (None Seen) Hyaline Casts 0-2 (0-2) /LPF Independent Historian Clinical information obtained from an independent historian. History obtained from or confirmed by: Spouse ( at bedside) External Record Review External record reviewed: Other (ED visits) Chronic Conditions Patient?s care impacted by: Other (BPH) Social Determinants Patient?s care significantly limited by Social Determinants of Health including: Problems related to primary support group Discharge Plan Discharge Clinical Impression: Hematuria Qualifiers: Hematuria type: unspecified type Qualified Code(s): R31.9 - Hematuria, unspecified Complication of Givens catheter Qualifiers: Encounter type: initial encounter Qualified Code(s): T83.9XXA - Unspecified complication of genitourinary prosthetic device, implant and graft, initial encounter Patient Disposition: Home, Self-Care Instructions: Hematuria (ED) Additional Instructions: As we discussed, your lab work here was overall reassuring. Your kidney function tests is around your usual, the creatinine level is 1.43. Keep this for your records. . Sample did not show any signs of infection, but there was large blood in it. We changed your Givens catheter, and performed to continuous bladder irrigation, meaning flushing fluids through your Givens catheter, to irrigate the bladder for several hours. There is no longer any signs of blood/clotting of your catheter. If you are going to use the catheter cap, it is important that you are draining the catheter every 4 hours while awake. At night, you should be using the catheter bag. If you develop any suprapubic abdominal pain, noticed that the back has bright red clots, or is no longer draining, it is important that you return to the ED for further assessment. Otherwise, please call urology and discuss with them the urinary retention, as well as the hematuria (blood in the urine) today. They will decide when you should return to the office for follow-up. Today, you had almost 700 cc of urine in the bladder. With any worsening complaints at any time, return to the ED. Prescriptions: No Action cholecalciferol (vitamin D3) 50 mcg (2,000 unit) capsule 50 mcg PO DAILY Qty: 90 1RF amlodipine 5 mg tablet 5 mg PO DAILY Qty: 90 3RF lisinopril 40 mg tablet 40 mg PO BID Qty: 180 3RF hydrochlorothiazide 25 mg tablet 25 mg PO DAILY Qty: 90 3RF atorvastatin 40 mg tablet 40 mg PO BEDTIME Qty: 30 2RF metformin 500 mg tablet 500 mg PO BID 30 Days Qty: 60 0RF cefuroxime axetil 500 mg tablet 500 mg PO Q12H Qty: 14 0RF metoprolol succinate 25 mg tablet extended release 24 hr 12.5 mg PO DAILY 90 Days Qty: 45 0RF metoprolol succinate 100 mg tablet extended release 24 hr 100 mg PO DAILY Qty: 90 3RF Rx Instructions: This is wha (DME) FreeStyle Test Strip See Rx Instructions .Route Qty: 100 3RF Rx Instructions: Check once daily and as needed (DME) blood-glucose meter [FreeStyle Lite Meter] Kit See Rx Instructions .Route Qty: 1 0RF Rx Instructions: As directed (DME) lancets [FreeStyle Lancets] 28 gauge misc See Rx Instructions .Route Qty: 100 3RF Rx Instructions: once daily and as needed Referrals: Ab Gaming, TOBACCO SAMPLER-BC [Primary Care Provider, Internal Medicine] Shon Gomez MD [Physician, Urology] Print Language: Kenyan
--- OUTSIDE RECORDS SUMMARY | 2025-01-20 12:02 | XMS_ITS | Clinical Summary ---
Author Organization [facility] Address [address] [place] [id number] Phone Care Team Providers Care Admin Dir Name Role Phone Ab Gaming NP Primary [...] REPLACEMENT [employer] PPO MEDICARE REPLACEMENT Care Teams Admin Dir Relationship Specialty Start Date End Date Ab Gaming NP [address] [place] [id number] PCP - General Nurse Practitioner 05/10/23 Additional Source Comments The information contained in this document represents components of the legal health record. It is not the complete legal health record.[facility]
--- OUTSIDE RECORDS SUMMARY | 2025-01-20 12:02 | XMS_ITS | Encounter Summary ---
Author Organization [facility] Address [address] [place] [address] Phone Care Team Providers Care Employee Services Manager Name Role Phone Ab Gaming NP Primary Care Provider + Encounter Details Date Type Department Care Team (Late st Contact Info) Description 08/16/2023 Telephone [facility] [address], [address] [place] [address] Christian Sahni MD [address] [place] [address] [email or web address] Social History Tobacco Use Types Packs/Day Years [...] disease documented in this encounter Care Teams Employee Services Manager Relationship Specialty Start Date End Date Ab Gaming NP [address] [place] [address] PCP - General Nurse Practitioner 05/10/23 documented as of this encounter Additional Source Comments The information contained in this document represents components of the legal health record. It is not the complete legal health record.[facility]
[2025-01-20 13:09] VITALS: BP 111/65; PULSE 66; RESP 16; O2SAT 97
[2025-01-20 13:28] LABS: Appearance Urine Clear; Glucose Urine UA Negative (Negative); PH 5.5 (5.0-9.0); Specific Gravity - Urine 1.010 (1.005-1.025); UMIC TRIGGER UACC YES
[2025-01-20] MEDS: Lidocaine HCl 2 % Urojet 10 ML JEL.PF.APP TOPICAL (14:35)
[2025-01-20 14:37] LABS: MANUAL DIFF FLAG NO
[2025-01-20 14:45] LABS: Hematocrit 40.2 % (42.0-52.0); Hemoglobin 13.8 g/dl (14.0-18.0); Imm Gran Abs Auto 0.04 X10*3/uL (0.00-0.03); Imm Gran Pct Auto 0.4 % (0.0-0.4); Lymphocytes Absolute Auto 2.0 X10*3/uL (1.2-4.9); Mean Corpuscular HGB Conc 34.3 g/dl (31.0-36.0); Mean Corpuscular Hemoglobin 32.5 pg (27.0-33.0); Mean Corpuscular Volume 94.6 fL (80.0-98.0); NRBC Abs Auto 0.000 X10*3/uL (0.0-0.012); NRBC Pct Auto 0.0 /100WBC (0.0-0.2); Platelet Count 203 X10*3/uL (160-400); Red Blood Count 4.25 X10*6/uL (4.60-5.80); White Blood Count 9.9 X10*3/uL (4.8-10.8)
[2025-01-20 14:51] LABS: Anion Gap 16 (12-20); Blood Urea Nitrogen 33 mg/dL (9-16); Calcium 10.1 mg/dL (8.4-10.2); Carbon Dioxide 23 mmol/L (22-29); Chloride 106 mmol/L (96-108); Creatinine Clr Calc Pharmacy 55.3; Estimated Glomerular Filt Rate 49; Potassium 4.6 mmol/L (3.3-5.1); Sodium 140 mmol/L (135-145)
[2025-01-20 17:19] VITALS: BP 110/84; PULSE 68; RESP 18; TEMP 36.6; O2SAT 99
== END 2025-01-20 17:20 | disposition home or self-care (01) ==
PROVIDERS: Nurse Practitioner; Emergency Provider Emergency Medicine; PCP Nurse Practitioner Family
DX: R31.9 Hematuria, unspecified (principal); T83.9XXA Unspecified complication of genitourinary prosthetic device, implant and graft, initial encounter; R33.9 Retention of urine, unspecified; I12.9 Hypertensive chronic kidney disease with stage 1 through stage 4 chronic kidney disease, or unspecified chronic kidney disease; N18.30 Chronic kidney disease, stage 3 unspecified; E78.5 Hyperlipidemia, unspecified; Z87.891 Personal history of nicotine dependence
CPT/HCPCS: 36415; 80048; 81001; 85025; 96360; 99284; 99285

== ENCOUNTER 2025-01-29 08:51 | Outpatient (AMB) | payer MEDICARE, SELFPAY ==
--- NOTE | 2025-01-29 09:06 | A.OFFVIS_ITS ---
Vital Signs 01/29/25 09:08 Height 5 ft 7 in Weight 206 lb 9.17 oz BMI 32.4 BP 130/72 Blood Pressure Location Lt brachial Position Sitting Pulse 83 Pulse Source Pulse Oximeter Intake Visit Reasons: 6 month f/up Intake Note: 6 mth f/up Revenue Stamp Clerk Required: No Accompanied by: Self / Same As Patient Allergies No Known Allergies Allergy (Verified 01/20/25 11:31) Medication List - Last Reconciled 01/29/25 by Margarito Fofana MD amlodipine 5 mg PO DAILY atorvastatin 40 mg PO BEDTIME cefuroxime axetil 500 mg PO Q12H cholecalciferol (vitamin D3) 50 mcg PO DAILY FreeStyle Lancets (lancets) once daily and as needed NS FreeStyle Lite Meter (blood-glucose meter) As directed NS FreeStyle Test (blood sugar diagnostic) Check once daily and as needed NS hydrochlorothiazide 25 mg PO DAILY lisinopril 40 mg PO BID metformin 500 mg PO BID 30 days metoprolol succinate ER 100 mg PO DAILY oxybutynin chloride ER 5 mg PO DAILY HPI Comments Details: 64-year-old gentleman here for follow-up. He has background history of paroxysmal atrial fibrillation. He is denying any symptoms at this point. Previously his chads Vasc score was 1 and he was not started on anticoagulation. His blood pressure was elevated and we added hydrochlorothiazide. This has improved his blood pressure significantly. Denying chest pain or shortness of breath. He had lipid panel done which showed total cholesterol 124, triglycerides 141, LDL 58 HDL 38. He had a carotid bruit and underwent carotid duplex which showed minimal 0-49% stenosis in both left and right carotid arteries but there was markedly increased velocity in the right external carotid artery consistent with high-grade stenosis. 05/24/23: In April 2023 he got admitted to the hospital with AFib with RVR in the setting of pneumonia and was also diagnosed with cardiomyopathy. Echocardiography showed EF of 30-35%. Mildly decreased right-sided function was also noted. He was cardioverted and discharged home on amiodarone 400 mg twice a day for 2 weeks followed by 200 mg daily. He was on apixaban. He was also started on guideline directed medical therapy. He returns for follow-up today. His EKG in the office showing atrial fibrillation at 96 beats per minute. Discussing with him he does not have any symptoms currently. No palpitations, shortness of breath or congestive heart failure. He is taking medications regularly. He said Jardiance was too expensive for him and he has not been taking that pill. Compliant with medications why. He is on amiodarone 200 mg daily. 09/15/23: Here for f/u. He underwent ablation recently. Doing well. No CP or SOB. ECG showing sinus rhytm. 12/29/2023: He is here for follow-up. He has been doing well. No palpitations. EKGs are showing sinus rhythm. EF has improved 55%. His blood pressure is significantly elevated at this stage. Post AFib ablation he was advised to take amiodarone 100 mg daily. I have discussed with Dr. Sahni and he has recommended stopping the amiodarone. His blood pressure is significantly elevated. On manual repeat he was 190/100. Not complaining of any symptoms. He is taking lisinopril 40 mg daily and Toprol-XL 100 mg daily. 07/24/2024: He is here for follow-up. He continues to be in sinus rhythm. No symptoms on follow-up. He is taking 100 mg of Toprol-XL and also taking half tablet of 25 mg. He will go home and confirm the medications to us. His blood pressure is much better after adjusting lisinopril. 01/29/2025: He is here for follow-up. He has been doing well. He unfortunately was diagnosed with diabetes in his on metformin and in his saying that he has lost weight since then. He has changed his diet. Blood pressure is well controlled. He is denying any chest discomfort shortness of breath. No palpitations. [facility] Medical History Elevated liver enzymes Hypertension PAF (paroxysmal atrial fibrillation) Persistent atrial fibrillation History of cardioversion Hyperlipidemia Incisional hernia New onset a-fib CKD (chronic kidney disease), stage III COVID-19 vaccine series completed Fatty liver History of duodenal ulcer Osteoarthritis of both knees Surgical History History of ventral hernia repair History of total left knee replacement History of total right knee replacement H/O colonoscopy S/P exploratory laparotomy (~06/27/19) History of exploratory laparotomy (~01/28/19) History of hand surgery Family History Father No problems noted. Mother No problems noted. 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 Cognitive needs: No Hearing needs: No Vision needs: No Review of Systems Const Denies chills, Denies fatigue, Denies fever(s), Denies frequent falls, Denies weakness, Denies weight gain and Denies weight loss ENT Denies dizziness Card Denies chest pain, Denies leg edema, Denies lightheadedness, Denies palpitations, Denies dyspnea and Denies dyspnea on exertion Resp Denies cough, Denies dyspnea and Denies dyspnea on exertion GI Denies hematochezia Musc Denies abnormal gait, Denies muscle weakness, Denies numbness, Denies radiating pain into limb and Denies tingling Neuro Denies abnormal gait, Denies dizziness, Denies frequent falls, Denies numbness, Denies tingling and Denies weakness Endo Denies fatigue and Denies palpitations Physical Exam Vital Signs: Last Vital Signs Pulse 83 01/29/25 09:08 BP 130/72 01/29/25 09:08 BMI result Body Mass Index 32.4 GENERAL APPEARANCE: in no acute distress, pleasant. NECK: no carotid bruit, no jugular venous distention. SKIN: no suspicious lesions, warm and dry. HEART: no murmurs, regular rate and rhythm. LUNGS: clear to auscultation bilaterally. ABDOMEN: soft, nontender. EXTREMITIES: no edema. PERIPHERAL PULSES: equal. NEUROLOGIC: No gross deficits, AAO X 3 Assessment & Plan Assessment & Plan (1) Hypertension: Code(s): I10 - Essential (primary) hypertension Category: Medical Qualifiers: Hypertension type: primary hypertension Qualified Code(s): I10 - Essential (primary) hypertension (2) PAF (paroxysmal atrial fibrillation): Code(s): I48.0 - Paroxysmal atrial fibrillation Category: Medical Plan Pleasant 64 year gentleman who is here for follow-up. He was seen in the hospital when he presented with atrial fibrillation and tachycardia induced cardiomyopathy. He was cardioverted and started on amiodarone and subsequently underwent atrial fibrillation ablation in August 2023. Subsequently was taken off the amiodarone. He has done well since then. Repeat echocardiography in November 2023 showed EF 50-55% which was significantly improved compared to previous echocardiography. He has been doing well overall. Blood pressure is well controlled. Clinically not in heart failure. He will continue same medications for now. He will see us back in 6 months. Thank you for allowing me to participate in the care of your patient. Please feel free to contact me if you have any questions. Coding Level of Care Code Est Pt Level 4 (75983) Diagnoses Primary hypertension I10 Hypertension type: primary hypertension PAF (paroxysmal atrial fibrillation) I48.0
[2025-01-29 09:08] VITALS: BP 130/72; PULSE 83; BMI 32.4
== END 2025-01-29 09:24 | disposition home or self-care (01) ==
LOC: HO.HCS 08:51
PROVIDERS: PCP Nurse Practitioner Family; Visit Provider Internal Medicine Cardiovascular Disease
DX: I10 Essential (primary) hypertension (principal); I48.0 Paroxysmal atrial fibrillation
CPT/HCPCS: 99214

== ENCOUNTER → 2025-01-29 08:51 | Outpatient (BNVA) | payer MEDICARE, SELFPAY | PROVIDERS: PCP Nurse Practitioner Family; Visit Provider Internal Medicine Cardiovascular Disease | DX: I10 Essential (primary) hypertension (principal); I48.0 Paroxysmal atrial fibrillation; Z87.891 Personal history of nicotine dependence | CPT/HCPCS: 99212 ==

== ENCOUNTER 2025-02-01 08:19 | Outpatient (AMB) | payer MEDICARE, SELFPAY ==
--- NOTE | 2025-02-01 07:48 | AM.OFFVISNUR ---
Intake Visit Reasons: urinary retention VT COCHRAN CATH NO UA SET Allergies No Known Allergies Allergy (Verified 01/20/25 11:31) Assessment & Plan Assessment & Plan Orders: Orders AMB Bladder/Catheter Procedure Today R73.01 - Impaired fasting glucose Coding
--- NOTE | 2025-02-01 08:32 | A.OFFVIS_ITS ---
Intake Visit Reasons: urinary retention VT COCHRAN CATH NO UA SET Intake Note: New Patient is present for Voiding Trial For urinary retention patient does have a Cochran in place Urology Rx:none PVR:173 mls Blood Thinners:none Imaging completed: Abd /Pelvis CT 01/03/25 [employer] Required: No Accompanied by: Spouse Allergies No Known Allergies Allergy (Verified 02/01/25 08:33) HPI Comments Details: Horacio is a pleasant male. He is a patient Dr. Varma. He seen for the following conditions. - urinary retention - bladder outlet obstruction Urinary retention 700 cc Catheter placed in emergency room Recent diagnosis diabetes Stress need to lose 30 lb using GLP 1 shots Lower urinary tract symptoms Initiate combination therapy PFSH Medical History Elevated liver enzymes Hypertension PAF (paroxysmal atrial fibrillation) Persistent atrial fibrillation History of cardioversion Hyperlipidemia Incisional hernia New onset a-fib CKD (chronic kidney disease), stage III COVID-19 vaccine series completed Fatty liver History of duodenal ulcer Osteoarthritis of both knees Surgical History History of ventral hernia repair History of total left knee replacement History of total right knee replacement H/O colonoscopy S/P exploratory laparotomy (~06/27/19) History of exploratory laparotomy (~01/28/19) History of hand surgery Family History Father No problems noted. Mother No problems noted. 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 Cognitive needs: No Hearing needs: No Vision needs: No Review of Systems Const Denies chills and Denies fever(s) Card Reports no additional complaints and Denies syncope Resp Denies cough GI Denies abdominal pain and Denies heartburn Reports as per HPI and Denies change in libido Neuro Denies syncope Psych Denies change in libido Endo Denies change in libido Physical Exam Const General: cooperative, healthy appearing, comfortable and no acute distress Orientation/consciousness: patient oriented x3 HEENT Face and sinus: Yes normal facial exam Mouth: moist mucous membranes Neck Neck: Yes normal visual inspection, Yes full ROM and Yes trachea midline Chest Chest palpation & inspection: normal inspection of the chest Resp Effort & Inspection: normal respiratory effort, able to speak in complete sentences and no respiratory distress GI Inspection: Yes normal to inspection Back/Spine/Pelvis Cervical Spine: normal cervical lordosis Thoracic/Lumbar Spine: thoracic and lumbar spine normal to inspection Skin General skin exam: no rashes or lesions noted Neuro General: patient oriented x3, gait normal, tone normal and moves all extremities Extrem General: Yes normal to inspection and Yes capillary refill normal Office Procedures Bladder/Catheter Procedure Details: 120ml sterile water instilled via patients cochran catheter. Patient tolerated instillation. 16Fr cochran catheter removed. Patient attempting to void. [id number]-[id number] of Bladder Procedure code (CPT) selection complete Post Void Residual Post Residual Void Post Void Residual (PVR): 173 17031-Vegm Void Residual by ultrasound Assessment & Plan Assessment & Plan (1) Bladder outlet obstruction: Code(s): N32.0 - Bladder-neck obstruction Category: Medical (2) Urinary retention with incomplete bladder emptying: Code(s): R33.9 - Retention of urine, unspecified Category: Medical Plan Six-month follow-up PVR Orders: Orders AMB Bladder/Catheter Procedure Today R33.9 - Retention of urine, unspecified AMB Post Void Residual by ultrasound Today N40.1 - Benign prostatic hyperplasia with lower urinary tract symptoms Medications: New finasteride 5 mg PO DAILY 90 tabs 1RF 90 days N32.0 - Bladder-neck obstruction tamsulosin 0.4 mg PO BEDTIME 30 tabs 1RF 30 days N32.0 - Bladder-neck obstruction Patient Instructions: This note is constructed using voice recognition software. While every effort has been made to ensure accuracy teaching pastor errors may have been included. Imaging studies, laboratory and physical exam results were discussed and reviewed in detail. No major barriers to patient understanding were identified. An opportunity to ask questions regarding the treatment plan was provided. All questions were answered. The patient expressed understanding and agreement with the above treatment plan. The patient is aware they should contact our office by phone for worsening of their current condition or the appearance of new urologic symptoms. Compliance is encouraged with any medications and followup testing that is ordered. It is a privilege to participate in the urologic care of your patient. If you have any questions or concerns regarding treatment for the above conditions, or other urologic issues, please do not hesitate to contact me. The office telephone contact is [phone]. Sincerely, Dr Shon Gomez MD, [facility] - Urology Compassionate Specialist Care for the Genitourinary System Coding Level of Care Code New Pt Level 4 (69060) Diagnoses Bladder outlet obstruction N32.0 Urinary retention with incomplete bladder emptying R33.9 CPT Codes Bladder/Catheter Procedure - CPT: 15525-Umbiadcooh of Bladder ([id number]) Post Residual Void - PVR CPT Code: 33427-Ouqs Void Residual by ultrasound ([id number])
== END 2025-02-01 09:36 | disposition home or self-care (01) ==
LOC: HO.HUSH 08:20
PROVIDERS: PCP Nurse Practitioner Family; Visit Provider Urology
DX: N32.0 Bladder-neck obstruction (principal); R33.9 Retention of urine, unspecified
CPT/HCPCS: 51700; 99204

== ENCOUNTER → 2025-02-01 08:19 | Outpatient (BNVA) | payer MEDICARE, SELFPAY | PROVIDERS: PCP Nurse Practitioner Family; Visit Provider Urology | DX: N40.1 Benign prostatic hyperplasia with lower urinary tract symptoms (principal); N32.0 Bladder-neck obstruction; R33.9 Retention of urine, unspecified | CPT/HCPCS: 51700; 51798; 99202 ==

== ENCOUNTER 2025-02-05 07:48 | Outpatient (REF) | payer MEDICARE, SELFPAY ==
[2025-02-05 10:26] LABS: Alanine Aminotransferase 33 U/L (0-40); Albumin Level 4.4 g/dL (3.5-5.0); Alkaline Phosphatase 84 U/L (39-117); Aspartate Amino Transferase 25 U/L (5-37); Total Protein 7.5 g/dL (6.5-8.0)
== END 2025-02-05 07:49 | disposition home or self-care (01) ==
LOC: HO.HMGCLDS 07:48
PROVIDERS: PCP Nurse Practitioner Family; Visit Provider Nurse Practitioner Family
DX: K76.0 Fatty (change of) liver, not elsewhere classified (principal); R74.8 Abnormal levels of other serum enzymes; E11.9 Type 2 diabetes mellitus without complications; Z86.0100 Personal history of colon polyps, unspecified
CPT/HCPCS: 36415; 80076; 81596

== ENCOUNTER 2025-02-05 07:48 | Outpatient (AMB) | payer MEDICARE, SELFPAY ==
--- OUTSIDE RECORDS SUMMARY | 2025-02-05 07:52 | XMS_ITS | Encounter Summary ---
Author Organization [facility] Address [address] [place] [address] Phone Care Team Providers Care Pediatric Physician Name Role Phone Ab Gaming NP Primary Care Provider + Encounter Details Date Type Department Care Team (Late st Contact Info) Description 08/16/2023 Telephone [facility] [address] Floor, [address] [place] [address] Christian Sahni MD [address] [place] [address] [email or web address] Social History Tobacco Use Types Packs/Day Years [...] disease documented in this encounter Care Teams Pediatric Physician Relationship Specialty Start Date End Date Ab Gaming NP [address] [place] [address] PCP - General Nurse Practitioner 05/10/23 documented as of this encounter Additional Source Comments The information contained in this document represents components of the legal health record. It is not the complete legal health record.[facility]
--- OUTSIDE RECORDS SUMMARY | 2025-02-05 07:53 | XMS_ITS | Clinical Summary ---
Author Organization [facility] Address [address] [place] [phone] Phone Care Team Providers Care Drill Press Operator Helper Name Role Phone bA Gaming NP Primary Care Provider [phone] Allergies Active Allergy Reactions Criticality Noted Date [...] Visit [facility] [address] [place] [address] Corey Young MD [address] [facility] [address] [place] [address] Health Maintenance Due Date Last [...] ORDERABLES Final Re sul Performing Organization Address [facility] de Phone Number [place] See order comments [place] [address] * (ABNORMAL) Albumin, urine, random (11/22/2024 1:04 [...] Young MD LAB URINE ORDERABLES Final Re [facility] Performing Organization Address [facility] de Phone Number [place] See order comments [place] [address] * (ABNORMAL) Urinalysis with microscopic (11/22/2024 1:04 PM EDT) Color Urine Yellow See orde r comments Appearance Urine Clear See order comments pH Urine 6.0 5.0 - 9.0 See order comments Glucose Urine 100(A) Negative mg/dL See order comments Blood, Urine Negative Negative See ord er comments Specific [place] Urine 1.020 1.005 - 1.025 See order [...] ORDERABLES Final Re sult Performing Organization Address [facility] de Phone Number [place] See order comments [place] [address] * Total Protein (11/22/2024 12:57 PM EDT) Total Protein 7.8 6.5 - 8.0 g/dL See order comments 11/22/2024 12:5 7 PM EDT 11/22/2024 12:57 PM EDT us Corey Young MD LAB [id number] SOLICITED RESULTS Final Result Performing Organization Address [facility] de Phone Number [place] See order comments [place] [address] * Creatinine (11/22/2024 12:57 PM EDT) Creatinine Serum 1.11 0.5 - 1.4 mg/dL See order comments eGFR (Calc) >60 See orde r comments Comment: Chronic Kidney Disease: Estimated GFR < 60 mL/min/1.73m2 Severe Kidney Disease: Estimated GFR < 15 mL/min/1.73m2 11/22/2024 12:5 7 PM EDT 11/22/2024 12:57 PM EDT us Corey Young MD LAB BLOOD ORDERABLES Final Re sult Performing Organization Address [facility] de Phone Number [place] See order comments [place] [address] * PTH, Intact (11/22/2024 12:57 PM EDT) Parathyroid Hormone, Intact 65.4 8.7 - 77.1 pg/mL See order comments 11/22/2024 12:5 7 PM EDT 11/22/2024 12:57 PM EDT Corey Young MD LAB BLOOD ORDERABLES Final Re sult Performing Organization Address [facility] de Phone Number [place] See order comments [place] [address] * Vitamin D 25 Hydroxy (11/22/2024 12:57 [...] ORDERABLES Final Re sult Performing Organization Address [facility] de Phone Number [place] See order comments [place] [address] * (ABNORMAL) BUN (11/22/2024 12:57 PM EDT) BUN 21(H) 9 - 16 mg/dL See order comments 11/22/2024 12:5 7 PM EDT 11/22/2024 12:57 PM EDT us Corey Young MD LAB BLOOD ORDERABLES Final Re sult Performing Organization Address [facility] de Phone Number [place] See order comments [place] [address] * Phosphorus (11/22/2024 12:57 PM EDT) Phosphorus, Serum 2.8 2.7 - 4.5 mg/dL See order comments Blood Venous blood / Unknown 11/22/2024 12:57 PM EDT 11/22/2024 12:57 PM EDT us Corey Young MD LAB BLOOD ORDERABLES Final Re sult Performing Organization Address [facility] Phone Number [place] See order comments [place] [address] * Magnesium (11/22/2024 12:57 PM EDT) Magnesium 2.1 1.6 - 2.6 mg/dL See order comments Blood Venous blood / Unknown 11/22/2024 12:57 PM EDT 11/22/2024 12:57 PM EDT us Corey Young MD LAB BLOOD ORDERABLES Final Re sult Performing Organization Address [facility] Phone Number [place] See order comments [place] [address] * Calcium (11/22/2024 12:57 PM EDT) Calcium 10.0 8.4 - 10.2 mg/dL See order comments Blood Venous blood / Unknown 11/22/2024 12:57 PM EDT 11/22/2024 12:57 PM EDT us Corey Young MD LAB BLOOD ORDERABLES Final Re sult Performing Organization Address [facility] de Phone Number [place] See order comments [place] [address] * Albumin (11/22/2024 12:57 PM EDT) Albumin 5.0 3.5 - 5.0 g/dL See order comments Blood Venous blood / Unknown 11/22/2024 12:57 PM EDT 11/22/2024 12:57 PM EDT Corey Young MD LAB BLOOD ORDERABLES Final Re sult [place] See order comments [place] [address] * Electrolyte panel (11/22/2024 12:57 PM EDT) [...] order comments [place] [address] from Last 3 Months Insurance [employer] [facility] Adv PPO ([id number]) Care Teams Drill Press Operator Helper Relationship Specialty Start Date End Date Ab Gaming NP [facility] [place] [address] PCP - General 03/04/20
--- OUTSIDE RECORDS SUMMARY | 2025-02-05 07:53 | XMS_ITS | Clinical Summary ---
Author Organization [facility] Address [address] [place] [phone] Phone Care Team Providers Care Pipe Out Worker Name Role Phone Ab Gaming NP Primary [...] REPLACEMENT [employer] PPO MEDICARE REPLACEMENT Care Teams Pipe Out Worker Relationship Specialty Start Date End Date Ab Gaming NP [address] [place] [address] PCP - General Nurse Practitioner 05/10/23 Additional Source Comments The information contained in this document represents components of the legal health record. It is not the complete legal health record.[facility]
--- NOTE | 2025-02-05 08:02 | MHC.OFFVIS ---
Vital Signs 02/05/25 08:09 Height 5 ft 7 in Weight 206 lb BMI 32.3 BP 110/58 L Blood Pressure Location Rt brachial Position Sitting Pulse 76 Pulse Source Pulse Oximeter Pulse Oximetry (%) 98 Oxygen Delivery Method Room Air Intake Visit Reasons: [place] scrn/elevated liver enzymes Intake Note: Est pt for recall colo screening. Last w/ Dr. Hutchins 2020. CC: Pt denies any GI sx or concerns at this time. Administrative Underwriter Required: No Accompanied by: Self / Same As Patient Allergies No Known Allergies Allergy (Verified 02/01/25 08:33) HPI HPI [place] scrn/elevated liver enzymes: Details: LAST VISIT: WITH DR. HUTCHINS 05/02/2020 Patient was hospitalized at [facility] in January 2019 with a duodenal perforation. Exploratory laparotomy was performed and a 7 mm perforation anterior surface of post pyloric 1st portion of duodenum was detected. Surgery with a Kevin's patch to oversew the perforation was performed by Dr Liao. Due to recurrent abd pain and abnormal CT scan, he underwent exploratory laparotomy last June 2606/2019. There was note of a retained foreign body which was a surgical towel that was removed causing small-bowel inflammation. He had 2 short segments of small bowel that were resected. He had some postop ileus requiring NG tube placement on postop day number 3. He did well thereafter and was discharged home on July 04, 2019. LABS IN [facility]: 01/30/19 H&H OF 12.4 AND 36.7, MCV 102, PLATELET 157, NORMAL CHEM PANEL AND LFTS IMAGING STUDIES: Personally reviewed with Radiology 06/15/[address] SCAN SHOWED: IMPRESSION: Persistent dilated abnormal appearing small bowel loop in the right mid abdomen with pericolic fat stranding and fecalization. There is a long segment of mural thickening proximally which is non-dilated. The above findings may represent small bowel inflammatory or infectious etiology. No free air or free fluid seen. Hyperdense soft tissue mass at the base of the bladder contiguous to prostate. There is diffuse bladder wall thickening likely secondary to bladder outlet obstruction. Mild fatty liver, stable. No abnormal lymph nodes seen. ENDOSCOPIC STUDIES: 04/23/20 COLONOSCOPY SHOWED: Two small to medium sized polyps removed Moderate diverticulosis seen in the sigmoid colon Moderate hemorrhoids on retroflexed exam. Plan: Repeat Colonoscopy interval based on path results - in 3 years if polyps are adenomatous and 10 years if polyps are hyperplastic. Above findings were reviewed with the patient and colon polyps and diverticulosis handouts were given in the discharge area BIOPSIES SHOWED: A. Colon, random, biopsies: Colonic mucosa within normal limits; negative for active and chronic colitis, microscopic colitis, granuloma formation, dysplasia, and carcinoma. B. Colon, sigmoid, polypectomy: Hyperplastic polyp. C. Rectum, polypectomy: Tubular adenoma; negative for high grade dysplasia and carcinoma. TODAY'S VISIT Colonoscopy and biopsy results were reviewed with the patient. Denies any problems after his colonoscopy. He was having some GI issues since the 2nd surgery which are slowly improving. Having knee replacement surgery on 05/20/20 Denies known FH of colon polyps or GI malignancy. Denies major cardiac or pulmonary problems, snoring or sleep apnea. Denies problems with anesthesia in the past. PAST VISIT: Still having some issues since the 2nd surgery. Unable to sleep in certain position - unable to sleep on the stomach and one side. Notes abdominal cramps 5 to 10 min after eating followed by urgent BMs - daily to every other day. Appetite is good and wt is stable around 180 lbs. Can get gas sometimes - nothing new. Symptoms are not too bothersome. Never had a colonoscopy - advised to scheduled. Started having upto 10/10 cramping periumblical abdominal pain for the past 2 weeks. Hard time getting comfortable. (he noted some mild pain on bending since his abdominal surgery) Has noted increased gas. Pt denies a change in his bowel habits and has one formed BM every morning. Intermittent black stools. Has been on a liquid diet for a week and now advancing his diet. Notes increase in abdominal pain 1-2 hrs after eating. Afraid to eat due to abdominal pain. Pt denies nausea, vomiting, dysphagia, heartburn, nausea or vomiting Weight loss of 10 lbs over the past week. Intermittent chills and sweating and denies fever. Denies similar pain in the past. Pt denies known FH of IBD, colon polyps or colon cancer. Denies difficulty passing urine TODAY'S VISIT History is here today to discuss comfort colonoscopy. Since last colonoscopy patient reports that he has been feeling fairly well, however he states that diagnosed with diabetes. Urinary retention sees Urology. Carotid stenosis has appointment with Dr. Thompson. Patient has seen Cardiology, Dr. Fofana seen last week. Patient denies any cardiac or respiratory symptoms. Patient had elevated liver enzymes, hepatomegaly seen on ultrasound. Patient denies any GI concerning symptoms. Denies melena, hematochezia, unintentional weight loss or ribbon like stools. Patient denies any dyspepsia, dysphagia or odynophagia. Patient denies any issues with anesthesia. No history of sleep apnea. [facility] Medical History Elevated liver enzymes Hypertension PAF (paroxysmal atrial fibrillation) Persistent atrial fibrillation History of cardioversion Hyperlipidemia Incisional hernia New onset a-fib CKD (chronic kidney disease), stage III COVID-19 vaccine series completed Fatty liver History of duodenal ulcer Osteoarthritis of both knees Surgical History History of ventral hernia repair History of total left knee replacement History of total right knee replacement H/O colonoscopy S/P exploratory laparotomy (~06/27/19) History of exploratory laparotomy (~01/28/19) History of hand surgery Family History Father No problems noted. Mother No problems noted. 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 Cognitive needs: No Hearing needs: No Vision needs: No Review of Systems Const Denies weight gain and Denies weight loss ENT Reports no additional complaints, Denies dysphagia and Denies odynophagia Card Reports no additional complaints Resp Reports no additional complaints GI Denies abdominal pain, Denies belching, Denies melena, Denies bloating, Denies change in bowel habits, Denies dysphagia, Denies excessive flatus, Denies dyspepsia, Denies heartburn, Denies diarrhea, Denies loose stools, Denies nausea, Denies odynophagia and Denies vomiting Reports no additional complaints Musc Reports no additional complaints Neuro Reports no additional complaints Psych Reports no additional complaints Endo Reports no additional complaints Physical Exam Const General: healthy appearing, no acute distress and well developed Nutritional Appearance: well nourished Orientation/consciousness: patient oriented x3 Resp Effort & Inspection: normal respiratory effort, able to speak in complete sentences, no tracheal deviation and symmetric chest movement Auscultation: clear to auscultation bilaterally Cardio Rate: regular rate GI Inspection: Yes normal to inspection and No distended Palpation (GI): Soft to palpation, not firm, nontender and No hepatosplenomegaly present Auscultation: normal bowel sounds General: Yes no CVA tenderness Back/Spine/Pelvis Back: no CVA tenderness Skin General skin exam: elasticity normal, turgor normal and dry skin Neuro General: patient oriented x3 Psych Appearance: grossly normal Mental Status: mental status grossly normal Results Reviewed Results Reviewed: Laboratory Tests 01/10/25 01/11/25 15:35 18:30 AST 53 H 45 H ALT 80 H 77 H Alkaline Phosphatase 81 84 Assessment & Plan Assessment & Plan (1) Fatty liver: Code(s): K76.0 - Fatty (change of) liver, not elsewhere classified Category: Medical (2) Elevated liver enzymes: Code(s): R74.8 - Abnormal levels of other serum enzymes Category: Medical (3) History of colon polyps: Code(s): Z86.010 - Personal history of colon polyps Category: Medical (4) Encounter for screening for malignant neoplasm of colon: Code(s): Z12.11 - Encounter for screening for malignant neoplasm of colon Category: Medical Plan Patient denies any GI, cardiac or respiratory symptoms.? Patient's liver enzymes were elevated back in December. Patient is trying to lose weight, recently diagnosed with diabetes, currently on metformin. Will send patient to repeat liver enzymes as well as liver fibrosis panel. Will send patient for ultrasound with elastography. Seen by Dr. Fofana last week will send message for clearance. Patient denies any cardiac or respiratory symptoms. Denies any issues with anesthesia in the past.? Denies any history of sleep apnea.? No history infectious diseases in the past or present.? Not on any anticoagulation therapy.? No family or personal history of colon cancer or polyps.? Patient denies melena, hematochezia, unintentional weight loss or ribbon like stools.? Discussed at length the pre-procedure,? prep, diet & medications as well as what to expect prior, during and after the procedure.?? Stressed the importance of good bowel prep.? Recommended the use of Vaseline or Calmoseptine OTC & baby wipes with bowel movements to promote comfort.? ?Patient verbalizes understanding and agrees to plan of care.? He was given the opportunity to ask questions and all questions answered.? We will see him after the procedure.? Orders: Orders Liver Fibrosis Pnl Today K76.0 - Fatty (change of) liver, not elsewhere classified Liver Panel Today R74.01 - Elevation of levels of liver transaminase levels US abdomen comp w elastography Today R79.89 - Other specified abnormal findings of blood chemistry Referrals GI Procedure Notification Z12.11 - Encounter for screening for malignant neoplasm of colon Medications: New bisacodyl (Dulcolax (bisacodyl)) take 4 tabs at noon the day before your colonoscopy 20 mg (4 x 5 mg) PO ONCE 4 tabs 0RF constipation 1 day Z12.11 - Encounter for screening for malignant neoplasm of colon polyethylene glycol 3350 (Miralax) As directed by gastro[facility]ology department at [facility] 238 grams PO ONCE 238 grams 0RF Z12.11 - Encounter for screening for malignant neoplasm of colon Coding Level of Care Code New Pt Level 4 (65794) Diagnoses Fatty liver K76.0 Elevated liver enzymes R74.8 History of colon polyps Z86.010 Encounter for screening for malignant neoplasm of colon Z12.11 Time Spent (min) 50 Comment 35 minutes spent with patient and additional 15 minutes spent reviewing his records
[2025-02-05 08:09] VITALS: BP 110/58; PULSE 76; O2SAT 98; BMI 32.3
== END 2025-02-05 09:01 | disposition home or self-care (01) ==
LOC: HO.HGI 07:49
PROVIDERS: PCP Nurse Practitioner Family; Visit Provider Nurse Practitioner Family
DX: Z86.0100 Personal history of colon polyps, unspecified (principal); Z12.11 Encounter for screening for malignant neoplasm of colon; R74.01 Elevation of levels of liver transaminase levels; K76.0 Fatty (change of) liver, not elsewhere classified
CPT/HCPCS: 99024